=== PATIENT | female | born 1955 | race Caucasian/White ===

== ENCOUNTER → 2016-10-24 | Outpatient (CLI) | payer BC ==
--- NOTE | 2016-10-26 09:44 | MM ---
Reason for exam: screening (asymptomatic). Last mammogram was performed 1 year and 2 months ago. History: Patient is postmenopausal. Family history of breast cancer in maternal aunt and breast cancer in maternal cousin. Benign excisional biopsy of the left breast, 1991. Benign excisional biopsy of the right breast, 1991. Cyst aspiration. Physical Findings: A clinical breast exam by your physician is recommended on an annual basis and results should be correlated with mammographic findings. MG 3D Screening Mammo W/Cad Bilateral CC and MLO view(s) were taken. Prior study comparison: August 24, 2015, bilateral MG 3d screening mammo w/cad. November 01, 2012, mammogram, performed at [facility]. There are scattered fibroglandular densities. There is no discrete abnormality. No significant changes when compared with prior studies. ASSESSMENT: Negative, BI-RAD 1 RECOMMENDATION: Routine screening mammogram of both breasts in 1 year.
== END | disposition home or self-care (01) ==
LOC: RADMAMWWP 16:43
PROVIDERS: ATTEND Family Medicine
DX: Z12.31 Encounter for screening mammogram for malignant neoplasm of breast (principal)
CPT/HCPCS: 77063; G0202

== ENCOUNTER → 2017-12-27 | Outpatient (CLI) | payer OTHER ==
--- NOTE | 2017-12-27 09:15 | CT ---
EXAMINATION TYPE: CT brain wo con DATE OF EXAM: 12/27/2017 HISTORY: Head injury 7 weeks ago with persistent headache and pain CT DLP: 1036 mGycm. Automated Exposure Control for Dose Reduction was Utilized. TECHNIQUE: CT scan of the head is performed without contrast. COMPARISON: CT abdomen September 29, 2015 FINDINGS: There is no acute intracranial hemorrhage or midline shift identified. Ventricles and sul ci are within normal limits in size for patient's age. Fernando-white matter differentiation is fairly we ll preserved. The calvarium is intact. The globes are intact and the visualized sinuses are clear. IMPRESSION: No acute intracranial hemorrhage or midline shift. No acute posttraumatic finding identi fied.
== END | disposition home or self-care (01) ==
LOC: RADCTMAIN 07:56
PROVIDERS: ATTEND Family Medicine
DX: S09.90XA Unspecified injury of head, initial encounter (principal)
CPT/HCPCS: 70450

== ENCOUNTER → 2018-10-15 | Outpatient (CLI) | payer OTHER ==
--- NOTE | 2018-10-15 15:28 | CT ---
EXAMINATION TYPE: CT abdomen pelvis wo con DATE OF EXAM: 10/15/2018 COMPARISON: None HISTORY: Left flank pain. CT DLP: 1367.9 mGycm Automated exposure control for dose reduction was used. TECHNIQUE: Helical acquisition of images was performed from the lung bases through the pelvis. FINDINGS: LUNG BASES: There is minimal right basilar subsegmental atelectasis. LIVER/GB: Hepatic parenchyma is diffusely hypoattenuated in comparison to that of the spleen, most co mmonly seen in hepatic steatosis. This finding limits evaluation for hepatic masses. No gross evidenc e of hepatic mass is seen. No intrahepatic biliary ductal dilatation. Gallbladder surgically absent. PANCREAS: No significant abnormality is seen. SPLEEN: No significant abnormality is seen. ADRENALS: No significant abnormality is seen. KIDNEYS: There is an obstructing 7 mm calculus within the mid left ureter approximately 10 cm from th e ureterovesicular junction creating moderate left hydroureteronephrosis and mild proximal uroepithel ial thickening. Some renal sinus fat stranding is also seen. Additional nonobstructing left lower red e 5 mm renal calculus is present. Layering small renal calculi are seen on the right. Within minor ca lyces such as on image 60 and image 58. URINARY BLADDER: Incompletely distended. PELVIC ADENOPATHY: No greater than 1 cm short axis lymph nodes are seen within the abdomen or pelvis . OSSEOUS STRUCTURES: Postsurgical changes of the lower lumbar spine are noted with moderate degenerat melissa changes of the upper thoracolumbar junction and posterior disc osteophyte complexes at L1-L2 and T12-L1 creating at least moderate spinal canal stenosis at these levels. There is a dextroscoliotic c urvature of the lumbar spine and mild bilateral femoral acetabular arthropathy BOWEL: No dilated large or small bowel is seen. IMPRESSION: 1. 7 MM OBSTRUCTING CALCULUS WITHIN THE LEFT MID URETER CREATING MODERATE LEFT HYDROURETERONEPHROSIS AND UROEPITHELIAL THICKENING. 2. INCIDENTAL FINDINGS OF BILATERAL NONOBSTRUCTING RENAL CALCULI, HEPATIC STEATOSIS, AND AT LEAST MOD ERATE SPINAL CANAL STENOSIS AT L1-L2 AND T12-L1.
== END | disposition home or self-care (01) ==
LOC: RADCTMAIN 14:41
PROVIDERS: ATTEND Physician Assistant
DX: N13.2 Hydronephrosis with renal and ureteral calculous obstruction (principal)
CPT/HCPCS: 74176

== ENCOUNTER 2018-10-16 16:35 | Emergency (ER) | payer OTHER ==
[2018-10-16] MEDS ORDERED: KETOROLAC 60 MG/2 ML VIAL IVP STA (17:30)
--- NOTE | 2018-10-16 17:30 | ED ---
General Adult HPI - General Chief complaint: Recheck/Abnormal Lab/Rx Stated complaint: KIDNEY STONE Time Seen by Provider: 10/16/18 16:40 Source: patient, RN notes reviewed Mode of arrival: ambulatory Limitations: no limitations - History of Present Illness Initial comments: This is a 62-year-old female who presents emergency department stating that she' s been having some right-sided flank pain for 4 days patient states she had a CAT scan initially called her today and told her she had a kidney stone and she needed to have a stent placed. Patient states she spoke with her urologist and she was told to come to the nearest hospital because her urologist which is out of town cannot see here soon. Patient's primary medical care doctor also advised to come to the hospital. Patient states she is nauseated but has not vomited. Patient denies any chest pain difficulty breathing shortest breath per patient denies any recent fever chills or cough. Patient denies any recent injury or trauma. - Related Data Home Medications Medication Instructions Recorded Confirmed Aspirin 81 mg PO DAILY 05/28/15 10/16/18 Ergocalciferol [Vitamin D2 50,000 unit PO Q28D 05/28/15 10/16/18 (DRISDOL)] Lisinopril [Prinivil] 20 mg PO DAILY 05/28/15 10/16/18 Lovastatin [Mevacor] 20 mg PO Q48H 05/28/15 10/16/18 Acetaminophen Tab [Tylenol Tab] 1,000 mg PO Q6H PRN 10/16/18 10/16/18 Cyclobenzaprine [Flexeril] 10 mg PO DAILY 10/16/18 10/16/18 Ketorolac [Toradol] 10 mg PO Q6H PRN 10/16/18 10/16/18 Naproxen Sodium [Aleve] 440 mg PO DAILY 10/16/18 10/16/18 Oxybutynin Chloride [Oxybutynin 15 mg PO DAILY 10/16/18 10/16/18 Chloride ER] Verapamil HCl [Verapamil ER] 120 mg PO DAILY 10/16/18 10/16/18 metFORMIN HCL [Glucophage] 500 mg PO DAILY 10/16/18 10/16/18 Previous Rx's Medication Instructions Recorded Ketorolac [Toradol] 10 mg PO Q6HR #15 tab 10/16/18 Sulfamethox-Tmp 800-160Mg [Bactrim 1 each PO Q12HR #14 tab 10/16/18 DS 800-160 mg] Allergies Allergy/AdvReac Type Severity Reaction Status Date / Time amoxicillin Allergy Dyspnea Verified 10/16/18 17:33 Review of Systems ROS Statement: Those systems with pertinent positive or pertinent negative responses have been documented in the HPI. ROS Other: All systems not noted in ROS Statement are negative. Past Medical History Past Medical History: Diabetes Mellitus, GERD/Reflux, Hyperlipidemia, Hypertension, Osteoarthritis (OA), Sleep Apnea/CPAP/BIPAP Additional Past Medical History / Comment(s): migraines, SLEEP APNEA , BLADDER INCONTINENCE, DIABETIC-DIET CONTROLLED History of Any Multi-Drug Resistant Organisms: None Reported Past Surgical History: Back Surgery, Bladder Surgery, Breast Surgery, Cholecystectomy, Hysterectomy, Joint Replacement, Orthopedic Surgery Additional Past Surgical History / Comment(s): RIGHT AND LEFT KNEE REPLACEMENT, RIGHT AND LEFT SHOULDER , CARPAL TUNNEL RELEASE BILATERAL WRIST,SINUS SURGERY Past Anesthesia/Blood Transfusion Reactions: Motion Sickness Past Psychological History: No Psychological Hx Reported Smoking Status: Never smoker Past Alcohol Use History: None Reported Past Drug Use History: None Reported - Past Family History Mother Family Medical History: No Reported History Father Family Medical History: Deep Vein Thrombosis (DVT) General Exam - General Exam Comments Initial Comments: GENERAL: Patient is well-developed and well-nourished. Patient is nontoxic and well- hydrated and is in moderate distress. ENT: Neck is soft and supple. No significant lymphadenopathy is noted. Oropharynx is clear. Moist mucous membranes. Neck has full range of motion without eliciting any pain. EYES: The sclera were anicteric and conjunctiva were pink and moist. Extraocular movements were intact and pupils were equal round and reactive to light. Eyelids were unremarkable. PULMONARY: Unlabored respirations. Good breath sounds bilaterally. No audible rales rhonchi or wheezing was noted. CARDIOVASCULAR: There is a regular rate and rhythm without any murmurs gallops or rubs. ABDOMEN: Soft and nontender with normal bowel sounds. No palpable organomegaly was noted. There is no palpable pulsatile mass. SKIN: Skin is clear with no lesions or rashes and otherwise unremarkable. NEUROLOGIC: Patient is alert and oriented x3. Cranial nerves II through XII are grossly intact. Motor and sensory are also intact. Normal speech, volume and content. Symmetrical smile. Cerebellar exam grossly intact. MUSCULOSKELETAL: Normal extremities with adequate strength and full range of motion. LYMPHATICS: No significant lymphadenopathy is noted PSYCHIATRIC: Normal psychiatric evaluation. Limitations: no limitations Course Vital Signs 10/16/18 10/16/18 16:37 19:01 Temperature 98.4 F Pulse Rate 87 82 Respiratory 18 17 Rate Blood Pressure 144/91 124/84 O2 Sat by Pulse 97 95 Oximetry Medical Decision Making - Medical Decision Making I reviewed the patient's CAT scan showed a 7 mm stone in the mid ureter on the left. I spoke Dr. Vallejo about the stone as well as infection he wanted to see the patient in the office as long she did not have a fever and was in no significant pain. - Lab Data Result diagrams: 10/16/18 18:07 10/16/18 18:07 Lab Results 10/16/18 10/16/18 10/16/18 Range/Units 18:07 18:07 18:07 WBC 8.9 (3.8-10.6) k/uL RBC 4.40 (3.80-5.40) m/uL Hgb 13.2 (11.4-16.0) gm/dL Hct 39.4 (34.0-46.0) % MCV 89.5 (80.0-100.0) fL MCH 29.9 (25.0-35.0) pg MCHC 33.5 (31.0-37.0) g/dL RDW 13.6 (11.5-15.5) % Plt Count 170 (150-450) k/uL Neutrophils % 73 % Lymphocytes % 15 % Monocytes % 7 % Eosinophils % 2 % Basophils % 0 % Neutrophils # 6.5 (1.3-7.7) k/uL Lymphocytes # 1.4 (1.0-4.8) k/uL Monocytes # 0.6 (0-1.0) k/uL Eosinophils # 0.2 (0-0.7) k/uL Basophils # 0.0 (0-0.2) k/uL Sodium 143 (137-145) mmol/L Potassium 4.0 (3.5-5.1) mmol/L Chloride 106 (98-107) mmol/L Carbon Dioxide 28 (22-30) mmol/L Anion Gap 9 mmol/L BUN 33 H (7-17) mg/dL Creatinine 1.11 H (0.52-1.04) mg/dL Est GFR (CKD-EPI)AfAm 62 (>60 ml/min/1.73 sqM) Est GFR (CKD-EPI)NonAf 54 (>60 ml/min/1.73 sqM) Glucose 132 H (74-99) mg/dL Calcium 8.7 (8.4-10.2) mg/dL Total Bilirubin 1.1 (0.2-1.3) mg/dL AST 32 (14-36) U/L ALT 48 (9-52) U/L Alkaline Phosphatase 89 (38-126) U/L Total Protein 6.0 L (6.3-8.2) g/dL Albumin 3.4 L (3.5-5.0) g/dL Amylase 46 (30-110) U/L Lipase 220 (23-300) U/L Urine Color Yellow Urine Appearance Turbid H (Clear) Urine pH 5.5 (5.0-8.0) Ur Specific Jeannette 1.018 (1.001-1.035) Urine Protein 2+ H (Negative) Urine Glucose (UA) Negative (Negative) Urine Ketones Negative (Negative) Urine Blood Large H (Negative) Urine Nitrite Positive H (Negative) Urine Bilirubin Negative (Negative) Urine Urobilinogen 3.0 (<2.0) mg/dL Ur Leukocyte Esterase Large H (Negative) Urine RBC 24 H (0-5) /hpf Urine WBC >182 H (0-5) /hpf Urine WBC Clumps Many H (None) /hpf Ur Squamous Epith Cells 4 (0-4) /hpf Urine Bacteria Many H (None) /hpf Urine Mucus Occasional H (None) /hpf Disposition Clinical Impression: Kidney stone, Urinary tract infection Disposition: HOME SELF-CARE Condition: Good Instructions: Kidney Stones (ED), Urinary Tract Infection in Women (ED) Prescriptions: Ketorolac [Toradol] 10 mg PO Q6HR #15 tab Sulfamethox-Tmp 800-160Mg [Bactrim DS 800-160 mg] 1 each PO Q12HR #14 tab Is patient prescribed a controlled substance at d/c from ED?: No Referrals: Felix Da Silva DO [Primary Care Provider] - 1-2 days Valdemar Calhoun MD [STAFF PHYSICIAN] - 1-2 days Time of Disposition: 19:19
[2018-10-16] MEDS ORDERED: ONDANSETRON 4 MG/2 ML VIAL IVP STA (17:31)
[2018-10-16 18:29] LABS: Appearance,Urine Turbid (Clear); Bacteria,Urine Many /hpf; Bilirubin,Urine Negative (Negative); Blood,Urine Large (Negative); Color,Urine Yellow; Glucose,Urine (UA) Negative (Negative); Ketones,Urine Negative (Negative); Leukocyte Esterase,Urine Large (Negative); Mucus,Urine Occasional /hpf; Nitrite,Urine Positive (Negative); PH, Urine 5.5 (5.0-8.0); Protein,Urine 2+ (Negative); RBC,Urine 24 /hpf (0-5); Specific Gravity,Urine 1.018 (1.001-1.035); Squamous Epithelial Cell,Urine 4 /hpf (0-4); WBC,Urine >182 /hpf (0-5)
[2018-10-16 18:41] LABS: Basophils % (A) 0 %; Eosinophils # (A) 0.2 k/uL (0-0.7); Eosinophils % (A) 2 %; HCT 39.4 % (34.0-46.0); HGB 13.2 gm/dL (11.4-16.0); Lymphocytes # (A) 1.4 k/uL (1.0-4.8); Lymphocytes % (A) 15 %; MCH 29.9 pg (25.0-35.0); MCHC 33.5 g/dL (31.0-37.0); MCV 89.5 fL (80.0-100.0); Mean Platelet Volume 7.8; Monocytes # (A) 0.6 k/uL (0-1.0); Monocytes % (A) 7 %; Neutrophils # (A) 6.5 k/uL (1.3-7.7); Neutrophils % (A) 73 %; Platelet Count 170 k/uL (150-450); RDW 13.6 % (11.5-15.5); WBC 8.9 k/uL (3.8-10.6)
[2018-10-16 18:43] LABS: Albumin 3.4 g/dL (3.5-5.0); Calcium 8.7 mg/dL (8.4-10.2); Total Bilirubin 1.1 mg/dL (0.2-1.3)
[2018-10-16] MEDS ORDERED: cefTRIAXone 2,000 MG in SODIUM CHLORIDE 0.9% 100 ML IVPB STA (19:02)
[2018-10-16] MEDS ORDERED: SULFAMETHOX-TMP 800-160MG 1 EACH TAB PO STA (19:20)
[2018-10-16] MEDS ORDERED: SULFAMETH-TMP DS STARTER PACK 2 TAB BTL PO STA (19:20)
[2018-10-16 19:42] VITALS: TEMP 98.5
--- NOTE | 2018-10-16 20:04 | XR ---
EXAMINATION TYPE: XR KUB DATE OF EXAM: 10/16/2018 COMPARISON: NONE HISTORY: Pain TECHNIQUE: Upright and supine views FINDINGS: The visualized lung bases and pleural spaces are unremarkable. There is no pneumoperitoneum. Bowel gas pattern is normal. No definite acute skeletal or soft tissue findings. No abnormal calcifications. IMPRESSION: Negative examination.
[2018-10-16 20:53] VITALS: BP 116/88; PULSE 86; RESP 17
== END 2018-10-16 20:52 | disposition home or self-care (01) ==
LOC: EC 16:35
DX: N20.0 Calculus of kidney (principal); N39.0 Urinary tract infection, site not specified; E11.9 Type 2 diabetes mellitus without complications; E78.5 Hyperlipidemia, unspecified; I10 Essential (primary) hypertension; M19.90 Unspecified osteoarthritis, unspecified site; G47.30 Sleep apnea, unspecified; Z99.89 Dependence on other enabling machines and devices; Z90.49 Acquired absence of other specified parts of digestive tract; Z90.710 Acquired absence of both cervix and uterus; Z96.653 Presence of artificial knee joint, bilateral; Z79.82 Long term (current) use of aspirin; Z79.1 Long term (current) use of non-steroidal anti-inflammatories (NSAID); Z79.84 Long term (current) use of oral hypoglycemic drugs; Z79.899 Other long term (current) drug therapy; Z88.0 Allergy status to penicillin
CPT/HCPCS: 36415; 80053; 82150; 83690; 85025; 81001; 87086; 74018; 99284; 96365; 96375 ×2; J2405; J0696; J1885; 87077; 87186

== ENCOUNTER → 2018-10-25 | Outpatient (CLI) | payer OTHER ==
--- NOTE | 2018-10-25 08:42 | XR ---
EXAMINATION TYPE: XR KUB DATE OF EXAM: 10/25/2018 8:29 AM CLINICAL HISTORY: Left flank pain for 2 weeks. Patient denies hematuria. TECHNIQUE: Single supine KUB image of the abdomen is obtained. COMPARISON: 10/16/[address] dated 10/15/2018a. FINDINGS: Scattered gas is seen in nondilated small bowel loops. Gas and fecal material is seen in no ndilated colon. Phleboliths are noted within the pelvis. Right renal shadow is partially obscured as well. Mobile den sities over the right renal shadow likely relate to bowel contents. The known punctate right renal ca lculi are not visualized radiographically. There is a 4 mm left renal calculus as seen on the prior CT dated 10/15/2018. The previously seen 7 mm left ureteral calculus appears to have advanced now overlying the left superior sacral ala. Cholecystectomy clips are present. Extensive degenerative changes of the spine are noted with postsur gical change of the lower lumbar spine. IMPRESSION: 1. The previously seen 7 mm left ureteral calculus appears to have advanced in position more caudally now overlying the left sacral ala. 2. Nonobstructing 4 mm left renal calculus and nonvisualization of the punctate known right renal venkat culi.
== END | disposition home or self-care (01) ==
LOC: RADXRMAIN 08:02
PROVIDERS: ATTEND Urology
DX: N20.2 Calculus of kidney with calculus of ureter (principal)
CPT/HCPCS: 74018

== ENCOUNTER → 2018-10-31 | Outpatient (CLI) | payer OTHER | END | disposition home or self-care (01) | LOC: LABPAT 16:46 | PROVIDERS: ATTEND Anesthesiology | DX: Z01.818 Encounter for other preprocedural examination (principal) | CPT/HCPCS: 93005 ==

== ENCOUNTER 2018-11-01 11:12 | Day surgery (SDC) | payer OTHER ==
[2018-10-31 08:38] VITALS: BMI 47.8
--- NOTE | 2018-10-31 12:59 | P.GSHP ---
History of Present Illness H&P Date: 10/31/18 62 yo fek=male with a history of stones has been trying to pass 7 mm left ureteral stone without success. SHe continues with pain and wants it removed She comes for left ureteroscopy and laser lithotripsy - Review of Systems All systems: negative - Genitourinary (Female) Genitourinary: Reports as per HPI, Reports kidney stones Past Medical History Past Medical History: Diabetes Mellitus, GERD/Reflux, Hyperlipidemia, Hypertension, Osteoarthritis (OA), Sleep Apnea/CPAP/BIPAP Additional Past Medical History / Comment(s): migraines, BLADDER INCONTINENCE History of Any Multi-Drug Resistant Organisms: None Reported Past Surgical History: Back Surgery, Bladder Surgery, Breast Surgery, Cholecystectomy, Hysterectomy, Joint Replacement, Orthopedic Surgery Additional Past Surgical History / Comment(s): RIGHT AND LEFT KNEE REPLACEMENT, RIGHT AND LEFT SHOULDER , CARPAL TUNNEL RELEASE BILATERAL WRIST,SINUS SURGERY, brest biopsy Past Anesthesia/Blood Transfusion Reactions: Motion Sickness, Postoperative Nausea & Vomiting (PONV) Smoking Status: Never smoker - Past Family History Mother Family Medical History: No Reported History Father Family Medical History: Deep Vein Thrombosis (DVT) Medications and Allergies Home Medications Medication Instructions Recorded Confirmed Type Aspirin 81 mg PO DAILY 05/28/15 10/31/18 History Ergocalciferol [Vitamin D2 50,000 unit PO Q28D 05/28/15 10/31/18 History (DRRAVINDEROL)] Lisinopril [Prinivil] 20 mg PO HS 05/28/15 10/31/18 History Lovastatin [Mevacor] 20 mg PO Q48H 05/28/15 10/31/18 History Cyclobenzaprine [Flexeril] 10 mg PO HS 10/16/18 10/31/18 History Naproxen Sodium [Aleve] 440 mg PO DAILY 10/16/18 10/31/18 History Oxybutynin Chloride [Oxybutynin 15 mg PO HS 10/16/18 10/31/18 History Chloride ER] Verapamil HCl [Verapamil ER] 120 mg PO HS 10/16/18 10/31/18 History metFORMIN HCL [Glucophage] 500 mg PO 1800 10/16/18 10/31/18 History Hydrocodone/Acetaminophen [[place] 1 tab PO Q12H PRN 10/31/18 10/31/18 History 7.5-325] Allergies Allergy/AdvReac Type Severity Reaction Status Date / Time amoxicillin Allergy Dyspnea, Verified 10/31/18 08:22 hives, shaking Surgical - Exam - General well developed, well nourished, obese - ENT no hearing loss - Neck trachea midline - Respiratory normal expansion, normal respiratory effort - Cardiovascular Rhythm: regular - Abdomen Abdomen: soft, non tender - Integumentary no rash, no growths - Neurologic normal coordination, normal sensation - Musculoskeletal normal gait, normal posture - Psychiatric oriented to time, oriented to person, oriented to place, speech is normal, memory intact Assessment and Plan Assessment: Impression: Lt ureteral stone Plan: cysto with left retrograde, left ureteroscopy and laser lithotripsy
[~2018-11-01 11:12] MED LIST: DEXAMETHASONE SOD PHOSPHATE 10 MG/ML 1 ML VIAL IV ONE; LACTATED RINGERS 1,000 ML IV SCH; LIDOCAINE 1% 20 ML VIAL (10MG/ML) FOR IV START INTRADERMA PRN; MIDAZOLAM (PF) 2 MG/2 ML VIAL IV PRN; ONDANSETRON 4 MG/2 ML VIAL IVP ONE; SCOPOLAMINE 1.5MG/72HR PATCH TRANSDERM ONE; ceFAZolin 1,000 MG in DEXTROSE/WATER 1 50ML.BAG IVPB ONE
--- NOTE | 2018-11-01 11:20 | XR ---
EXAMINATION TYPE: XR KUB DATE OF EXAM: 11/01/2018 COMPARISON: 10/25/2018 INDICATION: Presurgical clearance for kidney stones TECHNIQUE: Single view abdomen frontal projection FINDINGS: There is a normal bowel gas pattern. Psoas margins are normal. No organomegaly is present. Calcification previously overlying the left sacral ala is faintly visualized. Surgical clips in the upper quadrant. Pedicle screws are present L3-L5. Normal bowel gas is present IMPRESSION: 1. Left sacral ala level ureteral calcification
[2018-11-01 11:54] LABS: Glucose,Whole Blood 119 mg/dL (75-99)
[2018-11-01] MEDS ORDERED: PHENYLEPHRINE-0.9% NACL SYG 1 MG/10 ML SYRINGE ONE (12:02)
[2018-11-01] MEDS ORDERED: SUCCINYLCHOLINE CHLORIDE 100 MG/5 ML SYR IV ONE (12:02)
[2018-11-01] MEDS ORDERED: PROPOFOL 10 MG/ML 20 ML VIAL IV ONE (12:02)
[2018-11-01] MEDS ORDERED: fentaNYL (PF) 50 MCG/ML 2 ML AMP ONE (12:02)
[2018-11-01] MEDS ORDERED: LIDOCAINE 1% INJ 10MG/ML (20 ML MDV) ONE (12:02)
[2018-11-01] MEDS ORDERED: MIDAZOLAM 2 MG/2 ML VIAL ONE (12:02)
--- NOTE | 2018-11-01 12:50 | P.OP ---
Date of Procedure: 11/01/18 Preoperative Diagnosis: Left ureteral calculus Postoperative Diagnosis: Same Procedure(s) Performed: Cystoscopy, left ureteroscopy with laser lithotripsy Anesthesia: ALFREDO Surgeon: Valdemar Calhoun Estimated Blood Loss (ml): 0 Pathology: other (Stone) Condition: stable Disposition: PACU Indications for Procedure: The patient is 62. She has a 7 mm distal ureteral stone that she is unable to pass over the last month she comes for ureteroscopy laser lithotripsy Description of Procedure: The patient's vas deferens suite. She is given general endotracheal anesthesia. She's placed lithotomy position with sterile prep and drape under fluoroscopy the stone was seen just below the SI joint as it was seen on the KUB. Cystoscopy Foroblique lens and 22-[place] sheath identifies a normal urethra. The bladder mucosa is unremarkable. Both ureteral orifices are normal. With a 7-[place] semirigid mini ureteroscope was passed up to the stone. With the 3 65 laser probe the stone was broken into tiny pieces and flushed out of the ureter. There is not enough edema to leave a double-J catheter. The bladder strain the stones are collected. The patient's is awakened and returned recovery room in good condition. She'll be discharged home upon recovery and found the office in one week.
[2018-11-01 13:11] VITALS: TEMP 97
[2018-11-01] MEDS: HYDROmorphone 0.5 MG/0.5 ML SYRINGE IVP PRN ×2 (13:17→13:24)
[2018-11-01 13:22] VITALS: RESP 16
[2018-11-01 13:24] LABS: Glucose,Whole Blood 118 mg/dL (75-99)
--- NOTE | 2018-11-01 13:51 | FL ---
Fluoroscopy INDICATION: Pain, fluoroscopy guidance FINDINGS: Fluoroscopy time: 17 seconds. Images obtained: 1. IMPRESSIONS: 1. Documentation of fluoroscopy.
[2018-11-01] MEDS ORDERED: LACTATED RINGERS 1,000 ML IV ONE (14:30)
[2018-11-01 14:35] VITALS: BP 112/75; PULSE 75
== END 2018-11-01 15:19 | disposition home or self-care (01) ==
LOC: OR 11:12
PROVIDERS: ATTEND Urology
DX: N20.1 Calculus of ureter (principal); E11.9 Type 2 diabetes mellitus without complications; K21.9 Gastro-esophageal reflux disease without esophagitis; E78.5 Hyperlipidemia, unspecified; I10 Essential (primary) hypertension; M19.90 Unspecified osteoarthritis, unspecified site; G43.909 Migraine, unspecified, not intractable, without status migrainosus; G47.33 Obstructive sleep apnea (adult) (pediatric); R32 Unspecified urinary incontinence; M48.02 Spinal stenosis, cervical region; Z99.89 Dependence on other enabling machines and devices; Z91.19 Patient's noncompliance with other medical treatment and regimen; Z79.84 Long term (current) use of oral hypoglycemic drugs; Z79.1 Long term (current) use of non-steroidal anti-inflammatories (NSAID); Z79.82 Long term (current) use of aspirin; Z79.899 Other long term (current) drug therapy; Z88.0 Allergy status to penicillin; Z90.49 Acquired absence of other specified parts of digestive tract; Z90.710 Acquired absence of both cervix and uterus; Z96.653 Presence of artificial knee joint, bilateral; Z98.1 Arthrodesis status; Z87.440 Personal history of urinary (tract) infections
CPT/HCPCS: 82365; 74018; 52353; J2250; J1100; J2405; J2001; J3010; J0690; J2370; J0330; J2704; J1170

== ENCOUNTER → 2019-05-01 | Outpatient (CLI) | payer OTHER ==
--- NOTE | 2019-05-02 10:15 | MM ---
Reason for exam: screening (asymptomatic). Last mammogram was performed 2 years and 6 months ago. History: Patient is postmenopausal. Family history of breast cancer in maternal aunt and breast cancer in maternal cousin. Benign excisional biopsy of the left breast, 1991. Benign excisional biopsy of the right breast, 1991. Cyst aspiration. Physical Findings: A clinical breast exam by your physician is recommended on an annual basis and results should be correlated with mammographic findings. MG 3D Screening Mammo W/Cad Bilateral CC, MLO, and XCCL view(s) were taken. Prior study comparison: October 24, 2016, bilateral MG 3d screening mammo w/cad. August 24, 2015, bilateral MG 3d screening mammo w/cad. There are scattered fibroglandular densities. There are 3 calcifications noted adjacent to fat necrosis in the upper outer quadrant of the right breast, typically benign and not yet meeting criteria for a true group. No suspicious abnormality. Post biopsy change bilaterally. ASSESSMENT: Benign, BI-RAD 2 RECOMMENDATION: Routine screening mammogram of both breasts in 1 year.
== END | disposition home or self-care (01) ==
LOC: RADMAMWWP 16:21
PROVIDERS: ATTEND Family Medicine
DX: Z12.31 Encounter for screening mammogram for malignant neoplasm of breast (principal)
CPT/HCPCS: 77063; 77067

== ENCOUNTER → 2019-11-15 | Outpatient (CLI) | payer OTHER ==
--- NOTE | 2019-11-15 08:12 | CT ---
EXAMINATION TYPE: CT chest wo con DATE OF EXAM: 11/15/2019 COMPARISON: None HISTORY: Ascending Aortic Dialaton CT DLP: 707 mGycm. Automated Exposure Control for Dose Reduction was Utilized. TECHNIQUE: CT scan of the thorax is performed without IV contrast. FINDINGS: LUNGS: The lungs are grossly clear, there is no concerning parenchymal mass or nodule identified. T here is no pleural effusion or pneumothorax seen. The tracheobronchial tree is patent. Subsegmental changes most typical of atelectasis. 1 to 2 mm nodule left due to small characterize. MEDIASTINUM: Lack of IV contrast is noted to limit evaluation for mediastinal and especially hilar ad enopathy. There are no definitive greater than 1 cm hilar or mediastinal lymph nodes. No cardiomega ly or pericardial effusion is seen. Ascending aorta measures maximal dimension 4.2 cm. Descending tho racic aorta of normal caliber. OTHER: Hypertrophic and degenerative changes spine. Artifact from the bilateral hip prostheses limits assessment of soft tissues. Could not exclude abnormalities in the thyroid or supraclavicular adenop athy due to extreme artifact. Postcholecystectomy changes noted. Postsurgical change involving the ce rvical spine. IMPRESSION: 1. Proximal ascending aorta measures 4.2 cm compatible with mild aneurysmal dilation. 2. There is a 1 to 2 mm left lower lobe pulmonary nodule likely benign. Follow-up in 12 months could be obtained for further evaluation
== END | disposition home or self-care (01) ==
LOC: RADCTMAIN 07:16
PROVIDERS: ATTEND Family Medicine
DX: I77.810 Thoracic aortic ectasia (principal)
CPT/HCPCS: 71250

== ENCOUNTER → 2020-02-19 | Outpatient (CLI) | payer OTHER | END | disposition home or self-care (01) | LOC: LABWHC1 07:10 | PROVIDERS: ATTEND Family Medicine | DX: R06.00 Dyspnea, unspecified (principal); R07.9 Chest pain, unspecified; I25.10 Atherosclerotic heart disease of native coronary artery without angina pectoris; E11.9 Type 2 diabetes mellitus without complications; I10 Essential (primary) hypertension | CPT/HCPCS: 87635 ==

== ENCOUNTER → 2020-03-13 | Outpatient (CLI) | payer OTHER ==
[~2020-03-13] MED LIST changes: -DEXAMETHASONE SOD PHOSPHATE 10 MG/ML 1 ML VIAL IV ONE; -LACTATED RINGERS 1,000 ML IV SCH; -LIDOCAINE 1% 20 ML VIAL (10MG/ML) FOR IV START INTRADERMA PRN; -MIDAZOLAM (PF) 2 MG/2 ML VIAL IV PRN; -ONDANSETRON 4 MG/2 ML VIAL IVP ONE; +REGADENOSON 0.4 MG/5 ML SYRINGE IV ONE; -SCOPOLAMINE 1.5MG/72HR PATCH TRANSDERM ONE; -ceFAZolin 1,000 MG in DEXTROSE/WATER 1 50ML.BAG IVPB ONE
--- NOTE | 2020-03-13 11:52 | NM ---
EXAMINATION TYPE: NM stress lexiscan cardiolite DATE OF EXAM: 03/13/2020 COMPARISON: CT November 15, 2019. HISTORY: History of hypertension, hypercholesteremia, diabetes, family history of heart disease, and prior catheterization presents with chest pain dyspnea and palpitations per patient. TECHNIQUE: After the intravenous administration of 9.9 mCi Tc 99m Sestamibi - Cardiolite resting SPE CT images acquired 55 minutes post injection. The patient received 0.4mg Lexiscan, 25.7 mCi Tc 99m Sestamibi - Stress images obtained [address] injection FINDINGS: Review of stress and rest SPECT images demonstrates no distinct perfusion abnormality. Gated analysi s shows normal wall motion with an estimated left ventricular ejection fraction of 55 %. IMPRESSION: No scintigraphic evidence for reversible ischemia.
--- NOTE | 2020-03-13 13:14 | EST ---
EXERCISE STRESS AGE: 64 SEX: F HT: 63" WT: 275 lbs. PROTOCOL: Lexiscan Cardiolite STAGE: DURATION OF EXERCISE: HEART RATE REST: 74 BLOOD PRESSURE REST: 145/78 MAXIMUM HEART RATE ACHIEVED: 88 MAXIMUM BLOOD PRESSURE: 137/78 85% MPHR: 133 100% MPHR: 157 METS: INDICATIONS: Dyspnea. CLINICAL INFORMATION: This is a 64-year-old female. This is a Lexiscan Cardiolite stress test. Baseline heart rate 74 beats per minute. Baseline blood pressure 145/78 mmHg. Baseline 12-lead ECG shows sinus rhythm with nonspecific ST-T abnormalities. Patient received Lexiscan infusion per protocol. She had a headache through the procedure. Normal blood pressure, heart rate response. No ECG abnormalities. Nuclear portion will be reported separately. MMODL / IJN: [id number] /
== END | disposition home or self-care (01) ==
LOC: RADNMMAIN 08:32
PROVIDERS: ATTEND Family Medicine
DX: R06.00 Dyspnea, unspecified (principal)
CPT/HCPCS: 93017; 78452; A9500; J2785

== ENCOUNTER → 2020-07-09 | Outpatient (CLI) | payer BC, OTHER | END | disposition home or self-care (01) | LOC: LABWHC1 10:34 | PROVIDERS: ATTEND Family Medicine | DX: Z20.828 Contact with and (suspected) exposure to other viral communicable diseases (principal) | CPT/HCPCS: U0003; C9803 ==

== ENCOUNTER → 2020-07-10 | Outpatient (CLI) | payer BC ==
--- NOTE | 2020-07-10 12:36 | XR ---
EXAMINATION TYPE: XR chest 2V DATE OF EXAM: 07/10/2020 COMPARISON: 02/19/2016 HISTORY: Shortness of breath TECHNIQUE: Frontal and lateral views of the chest are obtained. FINDINGS: Scattered senescent parenchymal changes noted. Hyperinflation compatible with COPD. No evidence for infiltrate. No evidence for atelectasis. Heart size is stable. Mediastinal structures are stable and grossly unremarkable. No evidence for hilar prominence. Degenerative changes dorsal spine. IMPRESSION: 1. No evidence for acute pulmonary disease.
== END | disposition home or self-care (01) ==
LOC: RADXRMAIN 11:44
PROVIDERS: ATTEND Family Medicine
DX: R07.89 Other chest pain (principal)
CPT/HCPCS: 71046

== ENCOUNTER → 2020-07-27 | Outpatient (CLI) | payer BC ==
--- NOTE | 2020-07-28 12:32 | ECHOF ---
Referral Reason:I25.9 chronic ischemic heart disease MEASUREMENTS -------- HEIGHT: 160.0 cm WEIGHT: 124.7 kg BP: RVIDd: 3.2 cm (< 3.3) IVSd: 1.1 cm (0.6 - 1.1) LVIDd: 4.5 cm (3.9 - 5.3) LVPWd: 1.1 cm (0.6 - 1.1) IVSs: 1.4 cm LVIDs: 3.2 cm LVPWs: 1.7 cm LA Diam: 4.0 cm (2.7 - 3.8) LAESV Index (A-L): 18.10 ml/m Ao Diam: 2.9 cm (2.0 - 3.7) AV Cusp: 1.4 cm (1.5 - 2.6) LA Diam: 4.1 cm (2.7 - 3.8) MV EXCURSION: 11.714 mm (> 18.000) MV EF SLOPE: 50 mm/s (70 - 150) EPSS: 0.5 cm MV E Gunnar: 0.46 m/s MV DecT: 265 ms MV A Gunnar: 0.76 m/s MV E/A Ratio: 0.60 RAP: 5.00 mmHg RVSP: 14.52 mmHg FINDINGS -------- Sinus rhythm. Morbid Obesity LV size, wall thickness and systolic function are normal, with an EF greater than 55%. The left gama tricular size is normal. The diastolic filling pattern is normal for the age of the patient 8.32. The right ventricle is normal in size. The left atrial size is normal. Normal LA size by volume 22+/-6 ml/m2. The right atrial size is normal. The aortic valve is trileaflet, and appears structurally normal. No aortic stenosis or regurgitation. Mild mitral regurgitation is present. Mild tricuspid regurgitation present. Right ventricular systolic pressure is normal at < 35 mmHg. There is no pulmonic regurgitation present. The aortic root size is normal. There is no pericardial effusion. CONCLUSIONS -------- 1. LV size, wall thickness and systolic function are normal, with an EF greater than 55%. 2. The left ventricular size is normal. 3. The diastolic filling pattern is normal for the age of the patient 8.32 4. The right ventricle is normal in size. 5. The left atrial size is normal. 6. Normal LA size by volume 22+/-6 ml/m2. 7. The right atrial size is normal. 8. Mild mitral regurgitation is present. 9. Mild tricuspid regurgitation present. [employer] KEEPER: Fabby Dick RDCS
== END | disposition home or self-care (01) ==
LOC: RADECHMAIN 14:09
PROVIDERS: ATTEND Family Medicine
DX: I08.1 Rheumatic disorders of both mitral and tricuspid valves (principal); I25.9 Chronic ischemic heart disease, unspecified
CPT/HCPCS: 93306

== ENCOUNTER → 2020-08-05 | Outpatient (CLI) | payer BC ==
--- NOTE | 2020-08-05 11:18 | CT ---
EXAMINATION TYPE: CT angio chest DATE OF EXAM: 08/05/2020 11:07 AM COMPARISON: Prior chest CT November 15, 2019 HISTORY: Shortness of breath with history of pneumonia CT DLP: 1323.6 mGycm Automated exposure control for dose reduction was used. CONTRAST: CTA scan of the thorax is performed with IV Contrast, patient injected with 100 mL of Isovue 370, pul monary embolism protocol. . FINDINGS: LUNGS: Dependent atelectasis bilateral lower lungs. Mild interstitial edema in the periphery. Subopti mal study as respiratory motion artifact degradation is present. Small focus of groundglass opacity p eriphery right middle lobe image 78 on current study. No suspicious masses. No pleural effusion or pn eumothorax seen MEDIASTINUM: There is suboptimal bolus with most dense contrast in the SVC. Enlarged right pulmonary artery is present consistent with underlying pulmonary artery hypertension. No large saddle pulmonary embolism. Suboptimal evaluation for lobar, segmental, subsegmental PE . There are no greater than 1 cm hilar or mediastinal lymph nodes. Mild cardiomegaly. No pericardial effusion is seen. OTHER: Cholecystectomy clips. Partial visualization of surgical change in the lumbar spine. Metallic artifact from bilateral shoulder arthroplasty causes streak artifact limiting evaluation of upper th oracic levels. Exaggerated thoracic kyphosis. [id number] multilevel spurring in the spine wit h slight scoliotic curvature. Thyroid nodularity redemonstrated. IMPRESSION: 1. SUBOPTIMAL STUDY. NO LARGE SADDLE PULMONARY EMBOLISM. SMALLER LOBAR, SEGMENTAL, AND SUBSEGMENTAL P E IS NOT EXCLUDED. 2. MILD CARDIOMEGALY WITH MILD INTERSTITIAL EDEMA. SMALL FAINT FOCUS OF PERIPHERAL GROUNDGLASS OPACIT Y RIGHT MIDDLE LOBE MEASURING NEAR 1 CM IS NONSPECIFIC, DIFFERENTIAL INCLUDES FOCAL EDEMA AND/OR INFI LTRATE. CORRELATE CLINICALLY. 3. THYROID NODULARITY, NONEMERGENT THYROID ULTRASOUND ADVISED TO BETTER EVALUATE AND CHARACTERIZE.
== END | disposition home or self-care (01) ==
LOC: RADCTMAIN 09:19
PROVIDERS: ATTEND Family Medicine
DX: R91.8 Other nonspecific abnormal finding of lung field (principal); I51.7 Cardiomegaly; I26.93 Single subsegmental thrombotic pulmonary embolism without acute cor pulmonale
CPT/HCPCS: 82565; 84520; 71275; 36415; Q9967

== ENCOUNTER → 2021-01-22 | Outpatient (CLI) | payer BC | END | disposition home or self-care (01) | LOC: LABWHC1 15:40 | PROVIDERS: ATTEND Family Medicine | DX: R06.00 Dyspnea, unspecified (principal) | CPT/HCPCS: U0003; C9803; U0005 ==

== ENCOUNTER 2021-07-21 16:15 | Inpatient (IN) | payer BC, OTHER ==
[2021-07-21] MEDS ORDERED: HYDROmorphone 0.5 MG/0.5 ML SYRINGE IVP STA (20:27)
[2021-07-21] MEDS ORDERED: ONDANSETRON 4 MG/2 ML VIAL IVP STA (20:27)
[2021-07-21] MEDS ORDERED: SODIUM CHLORIDE 0.9% 500 ML 500 ML IV STA (20:27)
[2021-07-21 21:24] LABS: Basophils % (A) 1 %; Eosinophils % (A) 0 %; HCT 44.9 % (34.0-46.0); HGB 15.7 gm/dL (11.4-16.0); Lymphocytes # (A) 0.8 k/uL (1.0-4.8); Lymphocytes % (A) 17 %; MCH 30.7 pg (25.0-35.0); MCHC 34.8 g/dL (31.0-37.0); MCV 88.2 fL (80.0-100.0); Mean Platelet Volume 8.6; Monocytes # (A) 0.3 k/uL (0-1.0); Monocytes % (A) 7 %; Neutrophils # (A) 3.3 k/uL (1.3-7.7); Neutrophils % (A) 74 %; Platelet Count 173 k/uL (150-450); RDW 13.7 % (11.5-15.5); WBC 4.5 k/uL (3.8-10.6)
--- NOTE | 2021-07-21 21:26 | ED ---
GI Bleed HPI - General Chief complaint: GI Bleed Stated complaint: Black Stool/Diarrhea Time Seen by Provider: 07/21/21 20:08 Source: patient Mode of arrival: wheelchair Limitations: no limitations - History of Present Illness Initial comments: 65 year-old female patient presents to the emergency department for evaluation of cough, fever, and diarrhea. States that she has been sick for 2 months. States she has cough, congestion, and body aches. Reports fever today. States she has diarrhea and no appetite for the last week. She denies taking anything for her symptoms. States she came into today because she has not been eating or drinking and her stools are black. Denies use of blood thinners. Denies any hx of peptic ulcer. She does take aleve. She denies any chest pain or shortness of breath. Denies sputum production with her cough. Patient denies any recent rash, chest pain, abdominal pain, constipation, back pain, numbness, tingling, dizziness, weakness, hematuria, dysuria, urinary urgency, urinary frequency, headache, visual changes, or any other complaints. - Related Data Home Medications Medication Instructions Recorded Confirmed Aspirin 81 mg PO DAILY 05/28/15 07/21/21 Ergocalciferol [Vitamin D2 50,000 unit PO Q28D 05/28/15 07/21/21 (DRISDOL)] Lovastatin [Mevacor] 20 mg PO Q48H 05/28/15 07/21/21 lisinopriL [Prinivil] 20 mg PO DAILY 05/28/15 07/21/21 Cyclobenzaprine [Flexeril] 10 mg PO HS 10/16/18 07/21/21 Naproxen Sodium [Aleve] 440 mg PO DAILY 10/16/18 07/21/21 Oxybutynin Chloride [Oxybutynin 15 mg PO DAILY 10/16/18 07/21/21 Chloride ER] metFORMIN HCL [Glucophage] 500 mg PO W/SUPPER 10/16/18 07/21/21 Furosemide [Lasix] 20 mg PO DAILY 07/21/21 07/21/21 Furosemide [Lasix] 40 mg PO DAILY 07/21/21 07/21/21 Verapamil HCl [Verapamil ER] 180 mg PO DAILY 07/21/21 07/21/21 Allergies Allergy/AdvReac Type Severity Reaction Status Date / Time amoxicillin Allergy Dyspnea, Verified 07/21/21 21:57 hives, shaking Review of Systems ROS Statement: Those systems with pertinent positive or pertinent negative responses have been documented in the HPI. ROS Other: All systems not noted in ROS Statement are negative. Past Medical History Past Medical History: Diabetes Mellitus, GERD/Reflux, Hyperlipidemia, Hyper tension, Osteoarthritis (OA), Sleep Apnea/CPAP/BIPAP Additional Past Medical History / Comment(s): migraines, BLADDER INCONTINENCE History of Any Multi-Drug Resistant Organisms: None Reported Past Surgical History: Back Surgery, Bladder Surgery, Breast Surgery, Cholecystectomy, Hysterectomy, Joint Replacement, Orthopedic Surgery Additional Past Surgical History / Comment(s): RIGHT AND LEFT KNEE REPLACEMENT, RIGHT AND LEFT SHOULDER , CARPAL TUNNEL RELEASE BILATERAL WRIST,SINUS SURGERY,brest biopsy Past Anesthesia/Blood Transfusion Reactions: Motion Sickness, Postoperative Nausea & Vomiting (PONV) Past Psychological History: No Psychological Hx Reported Smoking Status: Never smoker Past Alcohol Use History: None Reported Past Drug Use History: None Reported - Past Family History Mother Family Medical History: No Reported History Father Family Medical History: Deep Vein Thrombosis (DVT) General Exam Limitations: no limitations General appearance: alert, in no apparent distress, other (This is a well-developed, well-nourished adult female patient in no acute distress. Vital signs upon presentation are temperature 101.4F, pulse 102, respirations 20, blood pressure 113/77, pulse ox 93% on room air.) ENT exam: Present: normal exam, normal oropharynx, mucous membranes moist Respiratory exam: Present: normal lung sounds bilaterally. Absent: respiratory distress, wheezes, rales, rhonchi, stridor Cardiovascular Exam: Present: normal rhythm, tachycardia, normal heart sounds. Absent: systolic murmur, diastolic murmur, rubs, gallop, clicks GI/Abdominal exam: Present: soft, normal bowel sounds. Absent: distended, tenderness, guarding, rebound, rigid Neurological exam: Present: alert, oriented X3, CN II-XII intact Psychiatric exam: Present: normal affect, normal mood Skin exam: Present: warm, dry, intact, normal color. Absent: rash Course Vital Signs 07/21/21 17:44 Temperature 101.4 F H Pulse Rate 102 H Respiratory 20 Rate Blood Pressure 113/77 O2 Sat by Pulse 93 L Oximetry Medical Decision Making - Medical Decision Making 65-year-old female patient presented to the emergency department today for eval uation of decreased appetite, black stools. Physical examination did reveal mild generalized abdominal tenderness. Clear lung sounds. Labs reviewed and did reveal elevated BUN and Cr showing acute kidney injury most likely due to dehydration. Mild transaminitis. Lipase 651. Positive occult blood she will be given protonix. She did test positive for COVID. She will be admitted for COVID, RAMY, Dehydration. She is agreeable with this plan. Case discussed with my attending Dr. Quijano. - Lab Data Result diagrams: 07/21/21 21:10 07/21/21 21:10 Lab Results 07/21/21 07/21/21 07/21/21 Range/Units 17:48 21:10 21:10 WBC 4.5 (3.8-10.6) k/uL RBC 5.10 (3.80-5.40) m/uL Hgb 15.7 (11.4-16.0) gm/dL Hct 44.9 (34.0-46.0) % MCV 88.2 (80.0-100.0) fL MCH 30.7 (25.0-35.0) pg MCHC 34.8 (31.0-37.0) g/dL RDW 13.7 (11.5-15.5) % Plt Count 173 (150-450) k/uL MPV 8.6 Neutrophils % 74 % Lymphocytes % 17 % Monocytes % 7 % Eosinophils % 0 % Basophils % 1 % Neutrophils # 3.3 (1.3-7.7) k/uL Lymphocytes # 0.8 L (1.0-4.8) k/uL Monocytes # 0.3 (0-1.0) k/uL Eosinophils # 0.0 (0-0.7) k/uL Basophils # 0.0 (0-0.2) k/uL PT 10.3 (9.0-12.0) sec INR 1.0 (<1.2) APTT 20.5 L (22.0-30.0) sec Sodium (137-145) mmol/L Potassium (3.5-5.1) mmol/L Chloride (98-107) mmol/L Carbon Dioxide (22-30) mmol/L Anion Gap mmol/L BUN (7-17) mg/dL Creatinine (0.52-1.04) mg/dL Est GFR (CKD-EPI)AfAm (>60 ml/min/1.73 sqM) Est GFR (CKD-EPI)NonAf (>60 ml/min/1.73 sqM) Glucose (74-99) mg/dL Plasma Lactic Acid Umang (0.7-2.0) mmol/L Calcium (8.4-10.2) mg/dL Magnesium (1.6-2.3) mg/dL Total Bilirubin (0.2-1.3) mg/dL AST (14-36) U/L ALT (4-34) U/L Alkaline Phosphatase (38-126) U/L Total Protein (6.3-8.2) g/dL Albumin (3.5-5.0) g/dL Lipase (23-300) U/L Coronavirus (PCR) Detected A (Not Detectd) 07/21/21 07/21/21 Range/Units 21:10 21:14 WBC (3.8-10.6) k/uL RBC (3.80-5.40) m/uL Hgb (11.4-16.0) gm/dL Hct (34.0-46.0) % MCV (80.0-100.0) fL MCH (25.0-35.0) pg MCHC (31.0-37.0) g/dL RDW (11.5-15.5) % Plt Count (150-450) k/uL MPV Neutrophils % % Lymphocytes % % Monocytes % % Eosinophils % % Basophils % % Neutrophils # (1.3-7.7) k/uL Lymphocytes # (1.0-4.8) k/uL Monocytes # (0-1.0) k/uL Eosinophils # (0-0.7) k/uL Basophils # (0-0.2) k/uL PT (9.0-12.0) sec INR (<1.2) APTT (22.0-30.0) sec Sodium 138 (137-145) mmol/L Potassium 4.6 (3.5-5.1) mmol/L Chloride 102 (98-107) mmol/L Carbon Dioxide 22 (22-30) mmol/L Anion Gap 14 mmol/L BUN 61 H (7-17) mg/dL Creatinine 2.14 H (0.52-1.04) mg/dL Est GFR (CKD-EPI)AfAm 28 (>60 ml/min/1.73 sqM) Est GFR (CKD-EPI)NonAf 24 (>60 ml/min/1.73 sqM) Glucose 139 H (74-99) mg/dL Plasma Lactic Acid Umang 1.8 (0.7-2.0) mmol/L Calcium 9.1 (8.4-10.2) mg/dL Magnesium 2.4 H (1.6-2.3) mg/dL Total Bilirubin 0.8 (0.2-1.3) mg/dL AST 97 H (14-36) U/L ALT 60 H (4-34) U/L Alkaline Phosphatase 63 (38-126) U/L Total Protein 7.4 (6.3-8.2) g/dL Albumin 4.4 (3.5-5.0) g/dL Lipase 651 H (23-300) U/L Coronavirus (PCR) (Not Detectd) - Radiology Data Radiology results: report reviewed, image reviewed One view x-ray of the chest is obtained. Report was reviewed in its entirety. Impression by Dr. Rizzo shows new patchy pulmonary edema compared to old exam the could be acute pneumonia. Disposition Clinical Impression: Dehydration, COVID-19, Acute kidney injury Disposition: ADMITTED IP TO THIS [facility] Condition: Serious Decision to Admit Reason: Admit from EC Decision Date: 07/21/21 Decision Time: 22:54
[2021-07-21 21:33] LABS: Prothrombin Time 10.3 sec (9.0-12.0)
[2021-07-21 21:43] LABS: Albumin 4.4 g/dL (3.5-5.0); Calcium 9.1 mg/dL (8.4-10.2); Magnesium 2.4 mg/dL (1.6-2.3); Potassium 4.6 mmol/L (3.5-5.1); Total Bilirubin 0.8 mg/dL (0.2-1.3); Total Protein 7.4 g/dL (6.3-8.2)
[2021-07-21 21:47] LABS: Partial Thromboplastin Time 20.5 sec (22.0-30.0)
[2021-07-21] MEDS ORDERED: SODIUM CHLORIDE 0.9% 500 ML 500 ML IV ONE (21:47)
[2021-07-21] MEDS ORDERED: DEXAMETHASONE SOD PHOSPHATE 10 MG/ML 1 ML VIAL IV STA (21:47)
[2021-07-21] MEDS ORDERED: ACETAMINOPHEN TAB 500 MG TAB PO STA (21:48)
[2021-07-21] MEDS ORDERED: DIPHENOX-ATROP 2.5-0.025 MG 1 EACH TAB PO STA (21:58)
--- NOTE | 2021-07-21 22:31 | XR ---
EXAMINATION TYPE: XR chest 1V DATE OF EXAM: 07/21/2021 COMPARISON: July 10, 2020 HISTORY: Cough TECHNIQUE: Single view FINDINGS: Heart is enlarged. There is some pulmonary interstitial and airspace edema. Thoracic aorta is tortuous. IMPRESSION: There is new patchy pulmonary edema compared to old exam that could be acute pneumonia.
[2021-07-21] MEDS ORDERED: NALOXONE 0.4 MG/ML 1 ML VIAL IV PRN (22:49)
[2021-07-21] MEDS: SODIUM CHLORIDE 0.9% 1,000 ML IV SCH (22:52)
[2021-07-22] MEDS ORDERED: PANTOPRAZOLE 40 MG/10 ML VIAL IVP STA (00:13)
[2021-07-22] MEDS: CHOLECALCIFEROL 25 MCG (1000 IU) TABLET PO SCH (09:10)
[2021-07-22] MEDS: ZINC SULFATE 220 MG CAP PO SCH (09:10)
[2021-07-22] MEDS: ASCORBIC ACID 500 MG TAB PO SCH (09:10)
[2021-07-22] MEDS: PANTOPRAZOLE 40 MG/10 ML VIAL IVP SCH (10:01)
[2021-07-22] MEDS: DEXAMETHASONE SOD PHOSPHATE 10 MG/ML 1 ML VIAL IV SCH (10:01)
[2021-07-22] MEDS: SODIUM CHLORIDE 0.9% 1,000 ML IV SCH ×2 (16:06→21:39)
--- NOTE | 2021-07-22 20:31 | P.HPIM ---
History of Present Illness H&P Date: 07/22/21 Chief Complaint: Diarrhea Patient is a 65-year-old male with a known history of hypertension, hyperlipidemia, diabetes type 2 [id number], osteoarthritis, obstructive sleep apnea, migraine headaches and no prior history of smoking presents to ER with complaints of fever, cough and shortness of breath along with diarrhea. Patient states that she has been sick for the past 2 weeks with cough congestion body aches and is also having diarrhea for the past 1 week. She came to the ER due to complaints of dark-colored stools. Patient states this is not any blood thinners. No prior history of peptic ulcer disease. Patient does take naproxen for arthritic pain. No complaints of chest pain. On admission T-max was 101.4, pulse 102, pulse ox 83% on room air. Denies any complaints of chest pain. No abdominal pain. No dysuria or hematuria. No headache or dizziness or lightheadedness. Chest x-ray showed there is new patchy pulmonary edema compared to oral exam that could be acute pneumonia. Laboratory showed WBC 4.5 hemoglobin 15.7 and platelets 173 and lymphocytes 0.8 Sodium 138 potassium 4.6 chloride 102 BUN 61 creatinine 2.12 Blood sugar 139 AST 97 ALT 60 alk phos 63 and lipase level 651 Stool occult blood positive and Coronavirus PCR detected. Review of Systems Constitutional: Patient does have fever and chills. Generalized weakness and malaise.. Abdomen: Patient does have diarrhea. Nausea no episodes of vomiting. No abdominal pain.. Cardiovascular: Patient denies any chest pain or short of breath no palpitations. Respiratory: patient denied any cough is from production. No shortness of breath Neurologic: Patient denied any numbness or tingling headache. Musculoskeletal: Patient denies any complaints of joint swelling or deformity. Skin: Negative Psychiatric: Negative Endocrine: No heat or cold intolerance. No recent weight gain. Genitourinary: No dysuria or hematuria. All other 14 point ROS negative except the above Past Medical History Past Medical History: Diabetes Mellitus, GERD/Reflux, Hyperlipidemia, Hypertension, Osteoarthritis (OA), Sleep Apnea/CPAP/BIPAP Additional Past Medical History / Comment(s): migraines, BLADDER INCONTINENCE History of Any Multi-Drug Resistant Organisms: None Reported Past Surgical History: Back Surgery, Bladder Surgery, Breast Surgery, Cholecystectomy, Hysterectomy, Joint Replacement, Orthopedic Surgery Additional Past Surgical History / Comment(s): RIGHT AND LEFT KNEE REPLACEMENT, RIGHT AND LEFT SHOULDER , CARPAL TUNNEL RELEASE BILATERAL WRIST,SINUS SURGERY,brest biopsy Past Anesthesia/Blood Transfusion Reactions: Motion Sickness, Postoperative Nausea & Vomiting (PONV) Past Psychological History: No Psychological Hx Reported Smoking Status: Never smoker Past Alcohol Use History: None Reported Past Drug Use History: None Reported - Past Family History Mother Family Medical History: No Reported History Father Family Medical History: Deep Vein Thrombosis (DVT) Medications and Allergies Home Medications Medication Instructions Recorded Confirmed Type Aspirin 81 mg PO DAILY 05/28/15 07/21/21 History Ergocalciferol [Vitamin D2 50,000 unit PO Q28D 05/28/15 07/21/21 History (DRISDOL)] Lovastatin [Mevacor] 20 mg PO Q48H 05/28/15 07/21/21 History lisinopriL [Prinivil] 20 mg PO DAILY 05/28/15 07/21/21 History Cyclobenzaprine [Flexeril] 10 mg PO HS 10/16/18 07/21/21 History Naproxen Sodium [Aleve] 440 mg PO DAILY 10/16/18 07/21/21 History Oxybutynin Chloride [Oxybutynin 15 mg PO DAILY 10/16/18 07/21/21 History Chloride ER] metFORMIN HCL [Glucophage] 500 mg PO W/SUPPER 10/16/18 07/21/21 History Furosemide [Lasix] 20 mg PO DAILY 07/21/21 07/21/21 History Furosemide [Lasix] 40 mg PO DAILY 07/21/21 07/21/21 History Verapamil HCl [Verapamil ER] 180 mg PO DAILY 07/21/21 07/21/21 History Allergies Allergy/AdvReac Type Severity Reaction Status Date / Time amoxicillin Allergy Dyspnea, Verified 07/21/21 21:57 hives, shaking Physical Exam Vitals: Vital Signs Temp Pulse Pulse Pulse Resp BP BP 07/22/21 10:00 97.5 F L 64 18 95/70 07/22/21 06:00 98.0 F 78 18 104/71 07/22/21 04:37 97.4 F L 68 18 07/22/21 01:07 07/22/21 01:04 83 20 107/65 07/21/21 17:44 101.4 F H 102 H 20 113/77 Pulse Ox 10/14/21 10:00 98 07/22/21 06:00 96 07/22/21 04:37 96 07/22/21 01:07 95 07/22/21 01:04 83 L 07/21/21 17:44 93 L Intake and Output 07/21/21 07/22/21 07/22/21 22:59 06:59 14:59 Other: # Voids 1 Weight 122.016 kg 122.016 kg PHYSICAL EXAMINATION: Patient is lying in the bed comfortably, no acute distress, awake alert and oriented.Morbidly obese. HEENT: Normocephalic. Neck is supple. Pupils reactive. Nostrils clear. Oral cavity is moist. Neck reveals no JVD, carotid bruits, or thyromegaly. CHEST EXAMINATION: Trachea is central. Symmetrical expansion. bilateral coarse breath sounds. No wheezing. Diminished basilar sounds.. CARDIAC: Normal S1, S2 with no gallops. No murmurs ABDOMEN: Soft. Bowel sounds normal. No organomegaly. No abdominal bruits. Extremities: reveal no edema. No clubbing or cyanosis Neurologically awake, alert, oriented x3 with well-coordinated movements. No focal deficits noted Skin: No rash or skin lesions. Psychiatric: Coperative. Nonsuicidal Musculoskeletal: No joint swelling or deformity. Normal range of motion. Results CBC & Chem 7: 07/21/21 21:10 07/21/21 21:10 Labs: Abnormal Lab Results - Last 24 Hours (Table) 07/21/21 07/21/21 07/21/21 Range/Units 17:48 21:10 21:10 Lymphocytes # 0.8 L (1.0-4.8) k/uL APTT 20.5 L (22.0-30.0) sec BUN (7-17) mg/dL Creatinine (0.52-1.04) mg/dL Glucose (74-99) mg/dL Magnesium (1.6-2.3) mg/dL AST (14-36) U/L ALT (4-34) U/L Lipase (23-300) U/L Stool Occult Blood (Negative) Coronavirus (PCR) Detected A (Not Detectd) 07/21/21 07/21/21 Range/Units 21:10 23:00 Lymphocytes # (1.0-4.8) k/uL APTT (22.0-30.0) sec BUN 61 H (7-17) mg/dL Creatinine 2.14 H (0.52-1.04) mg/dL Glucose 139 H (74-99) mg/dL Magnesium 2.4 H (1.6-2.3) mg/dL AST 97 H (14-36) U/L ALT 60 H (4-34) U/L Lipase 651 H (23-300) U/L Stool Occult Blood Positive H (Negative) Coronavirus (PCR) (Not Detectd) Thrombosis Risk Factor Assmnt - DVT/VTE Prophylaxis DVT/VTE Prophylaxis: Mechanical Prophylaxis ordered - Choose All That Apply Each Factor Represents 1 point: History of prior major surgery (<1month) Each Risk Factor Represents 2 Points: Age 61-74 years Thrombosis Risk Factor Assessment Total Risk Factor Score: 3 Thrombosis Risk Factor Assessment Level: Moderate Risk Assessment and Plan Assessment: Acute hypoxic respiratory failure secondary to COVID-19 pneumonia Dark-colored stools with occult blood positive. Possible upper GI bleed. Acute kidney injury likely prerenal with creatinine level 2.14 on admission. Baseline creatinine not known Diabetes type 2 [id number] Mild acute pancreatitis with lipase level 651 Hyperlipidemia Hypertension GERD Obstructive sleep apnea on CPAP Migraine headaches history Morbid obesity with BMI 47.7 DVT prophylaxis with SCDs due to GI bleed Plan: Patient will be continued on IV hydration and monitor hemoglobin level. Currently hemoglobin is at 15.7. No active complaints of bleeding at this time. Continue with IV PPI and monitor. Patient will continue oxygen supplementation via nasal cannula. Continue with the dexamethasone, zinc sulfate, ascorbic acid and vitamin D3. Pulmonary consult. Continue with home medications Hold Lasix and lisinopril due to acute kidney injury. Patient is also on verapamil at home. Continue with insulin sliding scale. Prognosis guarded with multiple medical problems along with morbid obesity. Time with Patient: Greater than 30
[2021-07-22] MEDS: ATORVASTATIN 10 MG TAB PO SCH (21:39)
[2021-07-23 07:30] LABS: ALT 52 U/L (4-34); AST 65 U/L (14-36); African American GFR (CKD) 56 (>60 ml/min/1.73 sqM); Albumin 3.4 g/dL (3.5-5.0); Albumin/Globulin Ratio 1.3; Alkaline Phosphatase 55 U/L (38-126); Anion Gap 5 mmol/L; Blood Urea Nitrogen 44 mg/dL (7-17); Calcium 9.3 mg/dL (8.4-10.2); Carbon Dioxide 28 mmol/L (22-30); Chloride 107 mmol/L (98-107); Globulin 2.7 g/dL; Glucose 153 mg/dL (74-99); LDH 1001 U/L (313-618); Lipase 714 U/L (23-300); Non-African American GFR(CKD) 48 (>60 ml/min/1.73 sqM); Sodium 140 mmol/L (137-145); Total Bilirubin 0.5 mg/dL (0.2-1.3); Total Protein 6.1 g/dL (6.3-8.2)
[2021-07-23 07:36] LABS: Potassium 6.1 mmol/L (3.5-5.1)
[2021-07-23 07:56] LABS: C Reactive Protein 1.2 mg/dL (<1.0)
[2021-07-23 09:28] LABS: Basophils # (A) 0 X 10*3/uL (0.00-0.10); Basophils % (A) 0 %; Eosinophils # (A) 0 X 10*3/uL (0.04-0.35); Eosinophils % (A) 0 %; HCT 42.4 % (37.2-46.3); HGB 13.4 g/dL (12.0-15.0); Lymphocytes # (A) 0.65 X 10*3/uL (0.90-5.00); Lymphocytes % (A) 12.5 %; MCH 29.6 pg (27.0-32.0); MCHC 31.6 g/dL (32.0-37.0); MCV 93.6 fL (80.0-97.0); Mean Platelet Volume 11.2 fL (9.5-12.2); Monocytes # (A) 0.34 X 10*3/uL (0.20-1.00); Monocytes % (A) 6.6 %; Neutrophils # (A) 4.18 X 10*3/uL (1.80-7.70); Neutrophils % (A) 80.5 %; Platelet Count 144 X 10*3/uL (140-440); RBC 4.53 X 10*6/uL (4.10-5.20); RDW 13.2 % (11.5-14.5); WBC 5.19 X 10*3/uL (4.50-10.00)
[2021-07-23] MEDS: CHOLECALCIFEROL 25 MCG (1000 IU) TABLET PO SCH (09:32)
[2021-07-23] MEDS: ZINC SULFATE 220 MG CAP PO SCH (09:32)
[2021-07-23] MEDS: ASCORBIC ACID 500 MG TAB PO SCH (09:33)
[2021-07-23] MEDS: OXYBUTYNIN 15 MG TAB.ER.24 PO SCH (09:33)
[2021-07-23] MEDS: PANTOPRAZOLE 40 MG/10 ML VIAL IVP SCH (09:33)
[2021-07-23] MEDS: DEXAMETHASONE SOD PHOSPHATE 10 MG/ML 1 ML VIAL IV SCH (09:33)
--- NOTE | 2021-07-23 10:36 | P.CNPUL ---
History of Present Illness Consult date: 07/23/21 Requesting physician: Montrell Chen Reason for consult: dyspnea, cough, hypoxemia, pneumonia, abnormal CXR/CT Chief complaint: Shortness of breath, coronavirus associated pneumonia. History of present illness: Pulmonary/critical care consultation dated 07/23/2021. 65-year-old female with a history of hypertension, hyperlipidemia, diabetes mellitus, and sleep apnea syndrome, who presents to the emergency department on July 21, complaining of cough, fever, diarrhea, head cold, cough, and sh ortness of breath. The patient has been sick for at least 30 days, and may be more. The patient states that she is on vaccinated against coronavirus. Her primary care physician is Dr. Ami Da Silva. She hasn't been feeling well for quite some time may be more than a month. She was seen in the emergency room, and tested positive for coronavirus. As mentioned, she has not been vaccinated. The patient's currently on 4 L nasal cannula. She's getting saline at 75 mL an hour. In addition to the above, she has a history of gastroesophageal reflux disease, and osteoarthritis. His vital signs included temperature 98.4, heart rate 70, respiratory rate 17, blood pressure 124/76, and a 4 L saturation of 96%. White count 5.19, hemoglobin 13.4, hematocrit 42.4, and platelet count 144,000. Sodium 140, potassium 6.1, chlorides 107, CO2 28, anion gap 5, BUN and creatinine were 44 and 1.19, better than it was yesterday. The patient's LDH was 1001. C-reactive protein 1.2. Lipase was 651 and 714. Stools were positive for occult blood. Appetite chest x-ray shows diffuse patchy airspace disease which may relate to underlying coronavirus associated pneumonia. Review of Systems REVIEW OF SYSTEMS: CONSTITUTIONAL: Weakness, fatigue, fever. NEUROLOGIC: [ Negative.] HEENT: [ Negative.] CARDIAC: [Negative.] PULMONARY: Shortness of breath and cough. GI: Diarrhea, GI bleed. : [Negative.] RHEUMATOLOGIC: [ Negative.] IMMUNOLOGIC: [ Negative.] ENDOCRINE: [Negative. ] DERMATOLOGIC: [Negative.] Past Medical History Past Medical History: Diabetes Mellitus, GERD/Reflux, Hyperlipidemia, Hypertension, Osteoarthritis (OA), Sleep Apnea/CPAP/BIPAP Additional Past Medical History / Comment(s): migraines, BLADDER INCONTINENCE History of Any Multi-Drug Resistant Organisms: None Reported Past Surgical History: Back Surgery, Bladder Surgery, Breast Surgery, Cholecystectomy, Hysterectomy, Joint Replacement, Orthopedic Surgery Additional Past Surgical History / Comment(s): RIGHT AND LEFT KNEE REPLACEMENT, RIGHT AND LEFT SHOULDER , CARPAL TUNNEL RELEASE BILATERAL WRIST,SINUS SURGERY,brest biopsy Past Anesthesia/Blood Transfusion Reactions: Motion Sickness, Postoperative Nausea & Vomiting (PONV) Past Psychological History: No Psychological Hx Reported Smoking Status: Never smoker Past Alcohol Use History: None Reported Past Drug Use History: None Reported - Past Family History Mother Family Medical History: No Reported History Father Family Medical History: Deep Vein Thrombosis (DVT) Medications and Allergies Home Medications Medication Instructions Recorded Confirmed Type Aspirin 81 mg PO DAILY 05/28/15 07/21/21 History Ergocalciferol [Vitamin D2 50,000 unit PO Q28D 05/28/15 07/21/21 History (ELIJAH)] Lovastatin [Mevacor] 20 mg PO Q48H 05/28/15 07/21/21 History lisinopriL [Prinivil] 20 mg PO DAILY 05/28/15 07/21/21 History Cyclobenzaprine [Flexeril] 10 mg PO HS 10/16/18 07/21/21 History Naproxen Sodium [Aleve] 440 mg PO DAILY 10/16/18 07/21/21 History Oxybutynin Chloride [Oxybutynin 15 mg PO DAILY 10/16/18 07/21/21 History Chloride ER] metFORMIN HCL [Glucophage] 500 mg PO W/SUPPER 10/16/18 07/21/21 History Furosemide [Lasix] 20 mg PO DAILY 07/21/21 07/21/21 History Furosemide [Lasix] 40 mg PO DAILY 07/21/21 07/21/21 History Verapamil HCl [Verapamil ER] 180 mg PO DAILY 07/21/21 07/21/21 History Allergies Allergy/AdvReac Type Severity Reaction Status Date / Time amoxicillin Allergy Dyspnea, Verified 07/21/21 21:57 hives, shaking Physical Exam Osteopathic Statement: *. No significant issues noted on an osteopathic structural exam other than those noted in the History and Physical/Consult. Vitals: Vital Signs Temp Pulse Pulse Resp BP Pulse Ox 07/23/21 06:42 98.4 F 70 17 124/76 96 07/23/21 02:59 98.3 F 71 17 113/74 98 07/22/21 20:00 98.6 F 82 78 18 136/86 98 07/22/21 17:34 97.7 F 74 18 114/78 92 L 07/22/21 14:00 97.4 F L 69 18 107/73 94 L Intake and Output 07/22/21 07/23/21 07/23/21 22:59 06:59 14:59 Intake Total 120 Output Total 350 Balance -230 Intake: Oral 120 Output: Urine 350 Other: Voiding Method Toilet Toilet # Voids 2 1 No acute distress, oriented 3. No respiratory distress, audible wheezing, or use of accessory muscles. The patient's currently on 4 L and saturations are 96%. HEENT examination is grossly unremarkable. Neck supple. Full range of motion. No adenopathy thyromegaly or neck vein distention. Cardiovascular examination reveals regular rhythm rate. S1-S2 normal. No S3 or S4. No discernible murmur noted. Heart sounds are distant. Heart rate 70 bpm. Lungs reveal scattered coarse rhonchi. Mild bibasilar crackles. No wheezes. Breath sounds equal bilaterally. The patient coughs when she takes a deep breath. Abdomen soft bowel sounds are heard. No masses or tenderness. Extremities are intact. No cyanosis clubbing or edema. Skin is without rash or lesion. Neurologic examination is brief but nonfocal. Results - Laboratory Findings CBC and BMP: 07/23/21 06:18 07/23/21 06:18 PT/INR, D-dimer PT 10.3 sec (9.0-12.0) 07/21/21 21:10 INR 1.0 (<1.2) 07/21/21 21:10 Abnormal lab findings: Abnormal Labs 07/21/21 07/21/21 07/21/21 17:48 21:10 21:10 MCHC Lymphocytes # 0.8 L Eosinophils # APTT 20.5 L Potassium BUN Creatinine Glucose Magnesium AST ALT Lactate Dehydrogenase C-Reactive Protein Total Protein Albumin Lipase Stool Occult Blood Coronavirus (PCR) Detected A 07/21/21 07/21/21 07/23/21 21:10 23:00 06:18 MCHC 31.6 L Lymphocytes # 0.65 L Eosinophils # 0 L APTT Potassium BUN 61 H Creatinine 2.14 H Glucose 139 H Magnesium 2.4 H AST 97 H ALT 60 H Lactate Dehydrogenase C-Reactive Protein Total Protein Albumin Lipase 651 H Stool Occult Blood Positive H Coronavirus (PCR) 07/23/21 06:18 MCHC Lymphocytes # Eosinophils # APTT Potassium 6.1 H* BUN 44 H Creatinine 1.19 H Glucose 153 H Magnesium AST 65 H ALT 52 H Lactate Dehydrogenase 1001 H C-Reactive Protein 1.2 H Total Protein 6.1 L Albumin 3.4 L Lipase 714 H Stool Occult Blood Coronavirus (PCR) - Diagnostic Findings Chest x-ray: image reviewed Assessment and Plan Assessment: Acute hypoxemic respiratory failure secondary to coronavirus associated pneumonia. History of GI bleed. History of diabetes mellitus. History of gastroesophageal reflux disease. History of hyperlipidemia. History of hypertension. History of sleep apnea syndrome, not currently using CPAP. Lifelong nontobacco use. Plan: Plan dated 07/23/2021. The patient is not a candidate for REM. She has been sick for more than 30 days. We'll make sure that she gets vitamin C, vitamin D3, and zinc. In a ddition, the patient can get Decadron 6 mg a day, and Lovenox 40 mg subcu per day. Additional recommendations and suggestions are forthcoming. I will go ahead and order an N-terminal proBNP. Medications are reviewed. Prognosis is guarded. There is no known history of underlying intrinsic pulmonary disease. Time with Patient: Greater than 30
[2021-07-23] MEDS: SODIUM CHLORIDE 0.9% 1,000 ML IV SCH (12:39)
[2021-07-24] MEDS: SODIUM CHLORIDE 0.9% 1,000 ML IV SCH ×2 (03:02→16:30)
[2021-07-24] MEDS: DEXAMETHASONE SOD PHOSPHATE 10 MG/ML 1 ML VIAL IV SCH (07:50)
[2021-07-24] MEDS: ENOXAPARIN 40 MG/0.4 ML SYRINGE SQ SCH (07:50)
[2021-07-24] MEDS: PANTOPRAZOLE 40 MG TABLET PO SCH (07:51)
[2021-07-24] MEDS: ZINC SULFATE 220 MG CAP PO SCH (07:51)
[2021-07-24] MEDS: CHOLECALCIFEROL 25 MCG (1000 IU) TABLET PO SCH (07:51)
[2021-07-24] MEDS: OXYBUTYNIN 15 MG TAB.ER.24 PO SCH (07:51)
[2021-07-24] MEDS: ASCORBIC ACID 500 MG TAB PO SCH (07:51)
--- NOTE | 2021-07-24 14:50 | P.PN ---
Subjective Progress Note Date: 07/24/21 Principal diagnosis: Coronavirus pneumonia. Pulmonary/critical care consultation dated 07/23/2021. 65-year-old female with a history of hypertension, hyperlipidemia, diabetes shauna litus, and sleep apnea syndrome, who presents to the emergency department on July 21, complaining of cough, fever, diarrhea, head cold, cough, and shortness of breath. The patient has been sick for at least 30 days, and may be more. The patient states that she is on vaccinated against coronavirus. Her primary care physician is Dr. Ami Da Silva. She hasn't been feeling well for quite some time may be more than a month. She was seen in the emergency room, and tested positive for coronavirus. As mentioned, she has not been vaccinated. The patient's currently on 4 L nasal cannula. She's getting saline at 75 mL an hour. In addition to the above, she has a history of gastroesophage al reflux disease, and osteoarthritis. His vital signs included temperature 98.4, heart rate 70, respiratory rate 17, blood pressure 124/76, and a 4 L saturation of 96%. White count 5.19, hemoglobin 13.4, hematocrit 42.4, and platelet count 144,000. Sodium 140, potassium 6.1, chlorides 107, CO2 28, anion gap 5, BUN and creatinine were 44 and 1.19, better than it was yesterday. The patient's LDH was 1001. C-reactive protein 1.2. Lipase was 651 and 714. Stools were positive for occult blood. Appetite chest x-ray shows diffuse patchy airspace disease which may relate to underlying coronavirus associated pneumonia. Progress note dated 07/24/2021. 65-year-old female, again seen today in room 482. She was seen by me in consultation yesterday. She has a history of hypertension, hyperlipidemia, diabetes, and sleep apnea syndrome. She came to the emergency department on July 21, complaining of cough, fever, diarrhea, head cold, and shortness of breath. She has been sick for at least 30 days, and may be a bit more than that. She has been vaccinated against coronavirus and her primary care physician is Dr. Da Silva. Today, she is still complaining of shortness of breath. She sitting upright in a bedside chair. She is on 4 L nasal cannula with a saturation of 91%. No new laboratory data today. She is currently on vitamin C, vitamin D3, zinc, Decadron, and Lovenox. Objective - Vital Signs Vital signs: Vital Signs Temp 99.2 F 07/24/21 09:38 Pulse 80 07/24/21 09:38 Resp 18 07/24/21 09:38 BP 143/73 07/24/21 09:38 Pulse Ox 91 L 07/24/21 09:38 Intake & Output 07/23/21 07/24/21 07/24/21 18:59 06:59 18:59 Intake Total 100 Balance 100 Intake: Oral 100 Other: Voiding Method Toilet Toilet Toilet # Voids 5 3 - Exam No acute distress, oriented 3. No respiratory distress, audible wheezing, or use of accessory muscles. The patient's currently on 4 L and saturations are 94%. HEENT examination is grossly unremarkable. Neck supple. Full range of motion. No adenopathy thyromegaly or neck vein distention. Cardiovascular examination reveals regular rhythm rate. S1-S2 normal. No S3 or S4. No discernible murmur noted. Heart sounds are distant. Heart rate 80 bpm. Lungs reveal scattered coarse rhonchi. Mild bibasilar crackles. No wheezes. Breath sounds equal bilaterally. The patient coughs when she takes a deep breath. Abdomen soft bowel sounds are heard. No masses or tenderness. Extremities are intact. No cyanosis clubbing or edema. Skin is without rash or lesion. Neurologic examination is brief but nonfocal. - Labs CBC & Chem 7: 07/23/21 06:18 07/23/21 06:18 Assessment and Plan Assessment: Acute hypoxemic respiratory failure secondary to coronavirus associated pneumonia. History of GI bleed. History of diabetes mellitus. History of gastroesophageal reflux disease. History of hyperlipidemia. History of hypertension. History of sleep apnea syndrome, not currently using CPAP. Lifelong nontobacco use. Plan: Plan dated 07/23/2021. The patient is not a candidate for REM. She has been sick for more than 30 days. We'll make sure that she gets vitamin C, vitamin D3, and zinc. In addition, the patient can get Decadron 6 mg a day, and Lovenox 40 mg subcu per day. Additional recommendations and suggestions are forthcoming. I will go ahead and order an N-terminal proBNP. Medications are reviewed. Prognosis is guarded. There is no known history of underlying intrinsic pulmonary disease. Plan dated 07/24/2021. Currently, the patient is doing about the same today as she was yesterday. As mentioned from yesterday, she is not a candidate for REM. He been sick for more than a month. She has been fully vaccinated. She is currently getting vitamin C, vitamin D3, and zinc, at usual doses, as well as Decadron, and Lovenox. We will continue to follow make recommendations were appropriate. Prognosis is guarded. She has no known history of underlying intrinsic pulmonary disease. Time with Patient: Less than 30
[2021-07-24 20:30] LABS: Basophils % (A) 1 %; Eosinophils % (A) 0 %; HGB 14.8 gm/dL (11.4-16.0); Lymphocytes # (A) 0.4 k/uL (1.0-4.8); Lymphocytes % (A) 10 %; MCH 30.2 pg (25.0-35.0); MCHC 32.8 g/dL (31.0-37.0); MCV 92.1 fL (80.0-100.0); Mean Platelet Volume 8.6; Monocytes # (A) 0.3 k/uL (0-1.0); Monocytes % (A) 7 %; Neutrophils # (A) 3.4 k/uL (1.3-7.7); Neutrophils % (A) 81 %; Platelet Count 158 k/uL (150-450); RBC 4.89 m/uL (3.80-5.40); RDW 13.2 % (11.5-15.5); WBC 4.2 k/uL (3.8-10.6)
[2021-07-24 20:39] LABS: African American GFR (CKD) >90 (>60 ml/min/1.73 sqM); Anion Gap 7 mmol/L; Blood Urea Nitrogen 28 mg/dL (7-17); Calcium 9.4 mg/dL (8.4-10.2); Carbon Dioxide 27 mmol/L (22-30); Chloride 105 mmol/L (98-107); Glucose 210 mg/dL (74-99); Non-African American GFR(CKD) 82 (>60 ml/min/1.73 sqM); Sodium 139 mmol/L (137-145)
[2021-07-24 21:03] LABS: Glucose,Whole Blood 187 mg/dL (75-99)
[2021-07-24] MEDS: INSULIN ASPART (NovoLOG) 100 UNIT/ML VIAL SQ SCH (22:08)
[2021-07-24] MEDS: ATORVASTATIN 10 MG TAB PO SCH (22:08)
[2021-07-25] MEDS: SODIUM CHLORIDE 0.9% 1,000 ML IV SCH ×2 (05:34→22:17)
[2021-07-25 07:03] LABS: Glucose,Whole Blood 131 mg/dL (75-99)
[2021-07-25] MEDS: INSULIN ASPART (NovoLOG) 100 UNIT/ML VIAL SQ SCH ×4 (07:09→22:15)
[2021-07-25] MEDS: ASCORBIC ACID 500 MG TAB PO SCH (07:53)
[2021-07-25] MEDS: DEXAMETHASONE SOD PHOSPHATE 10 MG/ML 1 ML VIAL IV SCH (07:54)
[2021-07-25] MEDS: CHOLECALCIFEROL 25 MCG (1000 IU) TABLET PO SCH (07:54)
[2021-07-25] MEDS: ZINC SULFATE 220 MG CAP PO SCH (07:54)
[2021-07-25] MEDS: OXYBUTYNIN 15 MG TAB.ER.24 PO SCH (07:54)
[2021-07-25] MEDS: PANTOPRAZOLE 40 MG TABLET PO SCH (07:54)
[2021-07-25] MEDS: ENOXAPARIN 40 MG/0.4 ML SYRINGE SQ SCH (07:54)
--- NOTE | 2021-07-25 09:22 | XR ---
EXAMINATION TYPE: XR chest 1V portable DATE OF EXAM: 07/25/2021 COMPARISON: 07/21/2021 HISTORY: 65 years Female. STUDY INDICATION GIVEN: CoVID pneumonia . TECHNIQUE: Upright portable chest radiograph IMPRESSION: Interval decrease in bilateral left greater than right interstitial and airspace opacities. No pleura l effusion or pneumothorax seen. Mildly enlarged cardiac silhouette similar to prior study. No acute osseous abnormality seen. Bilateral shoulder arthroplasty again seen. Cervical spine hardware again n oted.
[2021-07-25 09:52] LABS: Basophils # (A) 0.01 X 10*3/uL (0.00-0.10); Basophils % (A) 0.2 %; Eosinophils # (A) 0 X 10*3/uL (0.04-0.35); Eosinophils % (A) 0 %; HCT 43.7 % (37.2-46.3); Lymphocytes # (A) 0.79 X 10*3/uL (0.90-5.00); Lymphocytes % (A) 16.8 %; MCH 29.4 pg (27.0-32.0); MCV 91.6 fL (80.0-97.0); Mean Platelet Volume 11.2 fL (9.5-12.2); Monocytes # (A) 0.38 X 10*3/uL (0.20-1.00); Monocytes % (A) 8.1 %; Neutrophils # (A) 3.47 X 10*3/uL (1.80-7.70); Neutrophils % (A) 73.8 %; Platelet Count 172 X 10*3/uL (140-440); RBC 4.77 X 10*6/uL (4.10-5.20)
[2021-07-25 10:41] LABS: African American GFR (CKD) 70.9 (60.0-200.0); Anion Gap 15.4 mmol/L (4.00-12.00); BUN/Creat Ratio 25.9 Ratio (12.00-20.00); Blood Urea Nitrogen 25.3 mg/dL (9.0-27.0); Calcium 8.9 mg/dL (8.7-10.3); Carbon Dioxide 22.8 mmol/L (21.6-31.8); Magnesium 2.1 mg/dL (1.5-2.4); Non-African American GFR(CKD) 61.2 (60.0-200.0); Potassium 4.3 mmol/L (3.5-5.5)
[2021-07-25] MEDS: FUROSEMIDE 20 MG TAB PO SCH (11:08)
[2021-07-25 11:55] LABS: Glucose,Whole Blood 172 mg/dL (75-99)
[2021-07-25] MEDS: ALBUTEROL HFA INHALER INHALATION SCH ×3 (12:48→20:12)
--- NOTE | 2021-07-25 14:34 | P.PN ---
Subjective Progress Note Date: 07/25/21 Principal diagnosis: Coronavirus pneumonia. Pulmonary/critical care consultation dated 07/23/2021. 65-year-old female with a history of hypertension, hyperlipidemia, diabetes shauna litus, and sleep apnea syndrome, who presents to the emergency department on July 21, complaining of cough, fever, diarrhea, head cold, cough, and shortness of breath. The patient has been sick for at least 30 days, and may be more. The patient states that she is on vaccinated against coronavirus. Her primary care physician is Dr. Ami Da Silva. She hasn't been feeling well for quite some time may be more than a month. She was seen in the emergency room, and tested positive for coronavirus. As mentioned, she has not been vaccinated. The patient's currently on 4 L nasal cannula. She's getting saline at 75 mL an hour. In addition to the above, she has a history of gastroesophage al reflux disease, and osteoarthritis. His vital signs included temperature 98.4, heart rate 70, respiratory rate 17, blood pressure 124/76, and a 4 L saturation of 96%. White count 5.19, hemoglobin 13.4, hematocrit 42.4, and platelet count 144,000. Sodium 140, potassium 6.1, chlorides 107, CO2 28, anion gap 5, BUN and creatinine were 44 and 1.19, better than it was yesterday. The patient's LDH was 1001. C-reactive protein 1.2. Lipase was 651 and 714. Stools were positive for occult blood. Appetite chest x-ray shows diffuse patchy airspace disease which may relate to underlying coronavirus associated pneumonia. Progress note dated 07/24/2021. 65-year-old female, again seen today in room 482. She was seen by me in consultation yesterday. She has a history of hypertension, hyperlipidemia, diabetes, and sleep apnea syndrome. She came to the emergency department on July 21, complaining of cough, fever, diarrhea, head cold, and shortness of breath. She has been sick for at least 30 days, and may be a bit more than that. She has been vaccinated against coronavirus and her primary care physician is Dr. Da Silva. Today, she is still complaining of shortness of breath. She sitting upright in a bedside chair. She is on 4 L nasal cannula with a saturation of 91%. No new laboratory data today. She is currently on vitamin C, vitamin D3, zinc, Decadron, and Lovenox. Progress note dated 07/25/2021. 65-year-old female again seen in room 482. The patient sitting in a chair next to her bed. Currently, she is on 5 his nasal cannula. She complains of shortness of breath with any activity. She feels that she's not really improving all that much at all. She has a history of hypertension, hyperlipidemia, diabetes, and sleep apnea syndrome. She initially was evaluated on July 21 in the emergency department. She's been sick for more than a month. Her primary care physician is Dr. Da Silva. Saturations are 90%. Blood pressure 102/67 mean 78 heart rate 79 respiratory rate 17 and temperature 99.3F. Labs today include a white count of 4.7, hemoglobin 14, hematocrit 43.7 and a platelet count of 172,000. D-dimer is 0.96. Sodium, potassium, chloride, and CO2 are all normal. Anion gap is 15. BUN is 25 with a creatinine of 1.0. Today's chest x-ray is improved. No pleural effusion or pneumothorax is seen. There is mild cardiomegaly. Objective - Vital Signs Vital signs: Vital Signs Temp 99.3 F 07/25/21 09:45 Pulse 79 07/25/21 09:45 Resp 17 07/25/21 09:45 BP 102/67 07/25/21 09:45 Pulse Ox 90 L 07/25/21 09:45 Intake & Output 07/24/21 07/25/21 07/25/21 18:59 06:59 18:59 Intake Total 1400 240 Balance 1400 240 Intake: Intake, IV Titration 900 Amount Sodium Chloride 0.9% 1, 900 000 ml @ 75 mls/hr IV . [id number] [facility] Rx#:[id number] Oral 500 240 Other: Voiding Method Toilet Toilet Toilet # Voids 6 3 # Bowel Movements 1 - Exam No acute distress, oriented 3. No respiratory distress, audible wheezing, or use of accessory muscles. The patient's currently on 6 L and saturations are 90-92%. HEENT examination is grossly unremarkable. Neck supple. Full range of motion. No adenopathy thyromegaly or neck vein distention. Cardiovascular examination reveals regular rhythm rate. S1-S2 normal. No S3 or S4. No discernible murmur noted. Heart sounds are distant. Heart rate 79 bpm. Lungs reveal scattered coarse rhonchi. Mild bibasilar crackles. No wheezes. Breath sounds equal bilaterally. The patient coughs when she takes a deep breath. Abdomen soft bowel sounds are heard. No masses or tenderness. Extremities are intact. No cyanosis clubbing or edema. Skin is without rash or lesion. Neurologic examination is brief but nonfocal. - Labs CBC & Chem 7: 07/25/21 06:00 07/25/21 06:00 Labs: Abnormal Lab Results - Last 24 Hours (Table) 07/24/21 07/24/21 07/24/21 Range/Units 20:06 20:06 21:01 Immature Gran # (0.00-0.04) X 10*3/uL Lymphocytes # 0.4 L (1.0-4.8) k/uL Eosinophils # (0.04-0.35) X 10*3/uL D-Dimer (<0.60) mg/L FEU Anion Gap (4.00-12.00) mmol/L BUN 28 H (7-17) mg/dL BUN/Creatinine Ratio (12.00-20.00) Ratio Glucose 210 H (74-99) mg/dL POC Glucose (mg/dL) 187 H (75-99) mg/dL 07/25/21 07/25/21 07/25/21 Range/Units 06:00 06:00 06:00 Immature Gran # 0.05 H (0.00-0.04) X 10*3/uL Lymphocytes # 0.79 L (1.0-4.8) k/uL Eosinophils # 0 L (0.04-0.35) X 10*3/uL D-Dimer 0.96 H (<0.60) mg/L FEU Anion Gap 15.40 H (4.00-12.00) mmol/L BUN (7-17) mg/dL BUN/Creatinine Ratio 25.90 H (12.00-20.00) Ratio Glucose 139 H (74-99) mg/dL POC Glucose (mg/dL) (75-99) mg/dL 07/25/21 07/25/21 Range/Units 06:49 11:50 Immature Gran # (0.00-0.04) X 10*3/uL Lymphocytes # (1.0-4.8) k/uL Eosinophils # (0.04-0.35) X 10*3/uL D-Dimer (<0.60) mg/L FEU Anion Gap (4.00-12.00) mmol/L BUN (7-17) mg/dL BUN/Creatinine Ratio (12.00-20.00) Ratio Glucose (74-99) mg/dL POC Glucose (mg/dL) 131 H 172 H (75-99) mg/dL Assessment and Plan Assessment: Acute hypoxemic respiratory failure secondary to coronavirus associated pneumonia. History of GI bleed. History of diabetes mellitus. History of gastroesophageal reflux disease. History of hyperlipidemia. History of hypertension. History of sleep apnea syndrome, not currently using CPAP. Lifelong nontobacco use. Plan: Plan dated 07/23/2021. The patient is not a candidate for REM. She has been sick for more than 30 days. We'll make sure that she gets vitamin C, vitamin D3, and zinc. In addition, the patient can get Decadron 6 mg a day, and Lovenox 40 mg subcu per day. Additional recommendations and suggestions are forthcoming. I will go ahead and order an N-terminal proBNP. Medications are reviewed. Prognosis is guarded. There is no known history of underlying intrinsic pulmonary disease. Plan dated 07/24/2021. Currently, the patient is doing about the same today as she was yesterday. As mentioned from yesterday, she is not a candidate for REM. He been sick for more than a month. She has been fully vaccinated. She is currently getting vitamin C, vitamin D3, and zinc, at usual doses, as well as Decadron, and Lovenox. We will continue to follow make recommendations were appropriate. Prognosis is guarded. She has no known history of underlying intrinsic pulmonary disease. Plan dated 07/25/2021. Currently, the patient's on appropriate medications including vitamins, as well as Decadron and Lovenox. Because of the protracted nature of her medical condition, the patient was not a candidate for REM. He follow this patient make recommendations where appropriate. I asked her that when she is laying in bed, she can lay on her left side, right side, and also supine. If possible to prone herself, she should. Additional recommendations and suggestions are forthcoming. Time with Patient: Less than 30
[2021-07-25 16:39] LABS: Glucose,Whole Blood 179 mg/dL (75-99)
--- NOTE | 2021-07-25 19:34 | P.PN ---
Subjective Progress Note Date: 07/23/21 65-year-old male with a known history of hypertension, hyperlipidemia, diabetes type 2 [id number]-[id number], osteoarthritis, obstructive sleep apnea, migraine headaches and no prior history of smoking presents to ER with complaints of fever, cough and shortness of breath along with diarrhea. Patient states that she has been sick for the past 2 weeks with cough congestion body aches and is also having diarrhea for the past 1 week. She came to the ER due to complaints of dark-colored stools. Patient states this is not any blood thinners. No prior history of peptic ulcer disease. Patient does take naproxen for arthritic pain. No complaints of chest pain. On admission T-max was 101.4, pulse 102, pulse ox 83% on room air. Denies any complaints of chest pain. No abdominal pain. No dysuria or hematuria. No headache or dizziness or lightheadedness. Chest x-ray showed there is new patchy pulmonary edema compared to oral exam that could be acute pneumonia. Laboratory showed WBC 4.5 hemoglobin 15.7 and platelets 173 and lymphocytes 0.8 Sodium 138 potassium 4.6 chloride 102 BUN 61 creatinine 2.12 Blood sugar 139 AST 97 ALT 60 alk phos 63 and lipase level 651 Stool occult blood positive and Coronavirus PCR detected. Objective - Vital Signs Vital signs: Vital Signs Temp 98.3 F 07/23/21 14:07 Pulse 79 07/23/21 14:07 Resp 18 07/23/21 14:07 BP 113/72 07/23/21 14:07 Pulse Ox 99 07/23/21 14:07 Intake & Output 07/22/21 07/23/21 07/23/21 18:59 06:59 18:59 Intake Total 120 Output Total 350 Balance -230 Intake: Oral 120 Output: Urine 350 Other: Voiding Method Toilet Toilet # Voids 2 1 - Exam PHYSICAL EXAMINATION: GENERAL: The patient is alert and oriented x3, not in any acute distress. Well developed, well nourished. HEENT: Pupils are round and equally reacting to light. EOMI. No scleral icterus. No conjunctival pallor. Normocephalic, atraumatic. No pharyngeal erythema. No thyromegaly. CARDIOVASCULAR: S1 and S2 present. No murmurs, rubs, or gallops. PULMONARY: Chest is clear to auscultation, no wheezing or crackles. ABDOMEN: Soft, nontender, nondistended, normoactive bowel sounds. No palpable organomegaly. MUSCULOSKELETAL: No joint swelling or deformity. EXTREMITIES: No cyanosis, clubbing, or pedal edema. NEUROLOGICAL: Gross neurological examination did not reveal any focal deficits. SKIN: No rashes. - Labs CBC & Chem 7: 07/25/21 06:00 07/25/21 06:00 Labs: Abnormal Lab Results - Last 24 Hours (Table) 07/23/21 07/23/21 07/23/21 Range/Units 06:18 06:18 11:30 MCHC 31.6 L (32.0-37.0) g/dL Lymphocytes # 0.65 L (0.90-5.00) X 10*3/uL Eosinophils # 0 L (0.04-0.35) X 10*3/uL D-Dimer 1.29 H (<0.60) mg/L FEU Potassium 6.1 H* (3.5-5.1) mmol/L BUN 44 H (7-17) mg/dL Creatinine 1.19 H (0.52-1.04) mg/dL Glucose 153 H (74-99) mg/dL Ferritin 1018.0 H (10.0-291.0) ng/mL AST 65 H (14-36) U/L ALT 52 H (4-34) U/L Lactate Dehydrogenase 1001 H (313-618) U/L C-Reactive Protein 1.2 H (<1.0) mg/dL Total Protein 6.1 L (6.3-8.2) g/dL Albumin 3.4 L (3.5-5.0) g/dL Lipase 714 H (23-300) U/L Assessment and Plan Assessment: Acute hypoxemic respiratory failure secondary to coronavirus associated pneumonia. Dark-colored stools with occult blood positive. Possible upper GI bleed. Acute kidney injury likely prerenal with creatinine level 2.14 on admission. Baseline creatinine not known Diabetes type 2 [id number]-ipjkutruk Mild acute pancreatitis with lipase level 651 Hyperlipidemia Hypertension Plan: Patient will be continued on IV hydration and monitor hemoglobin level. Currently hemoglobin is at 15.7. No active complaints of bleeding at this time. Continue with IV PPI and monitor. Patient will continue oxygen supplementation via nasal cannula. Continue with the dexamethasone, zinc sulfate, ascorbic acid and vitamin D3. Pulmonary consult. Continue with home medications Hold Lasix and lisinopril due to acute kidney injury. Patient is also on verapamil at home. Continue with insulin sliding scale.
--- NOTE | 2021-07-25 19:38 | P.PN ---
Subjective Progress Note Date: 07/24/21 Principal diagnosis: Acute hypoxic respiratory failure secondary to COVID-19 pneumonia Possible upper GI bleed. Acute kidney injury 65-year-old male with a known history of hypertension, hyperlipidemia, diabetes type 2 [id number]-mdqdzvpnx, osteoarthritis, obstructive sleep apnea, migraine headaches and no prior history of smoking presents to ER with complaints of fever, cough and shortness of breath along with diarrhea. Patient states that she has been sick for the past 2 weeks with cough congestion body aches and is also having diarrhea for the past 1 week. She came to the ER due to complaints of dark-colored stools. Patient states this is not any blood thinners. No prior history of peptic ulcer disease. Patient does take naproxen for arthritic pain. No complaints of chest pain. On admission T-max was 101.4, pulse 102, pulse ox 83% on room air. Denies any complaints of chest pain. No abdominal pain. No dysuria or hematuria. No headache or dizziness or lightheadedness. Chest x-ray showed there is new patchy pulmonary edema compared to oral exam that could be acute pneumonia. Laboratory showed WBC 4.5 hemoglobin 15.7 and platelets 173 and lymphocytes 0.8 Sodium 138 potassium 4.6 chloride 102 BUN 61 creatinine 2.12 Blood sugar 139 AST 97 ALT 60 alk phos 63 and lipase level 651 Stool occult blood positive and Coronavirus PCR detected. 07/24/2021 Patient is seen and evaluated and discussed with nursing staff; continues to complain of shortness of breath with minimal activity; patient has been brian gnosed with COVID-19 pneumonia; patient does report vaccination against coronavirus Vital signs are reviewed with temperature of 99.2, pulse 80, respiration 18 and blood pressure 143/73 and O2 saturation 91% Patient remains on treatment with Decadron, Lovenox and COVID-19 vitamin cocktail; patient is deemed not a candidate for REM due to onset of symptoms a few weeks prior to presenting to the hospital and patient has been fully vaccinated Laboratory review shows WBC of 4.2 and hemoglobin consistently stable at 14.8 with platelet count of 158; sodium 139, potassium 5.0 which is down from 6.1 y esterday, BUN/creatinine of 28/0.77 down from 44/1.19 yesterday Objective - Vital Signs Vital signs: Vital Signs Temp 99.2 F 07/24/21 09:38 Pulse 80 07/24/21 09:38 Resp 18 07/24/21 09:38 BP 143/73 07/24/21 09:38 Pulse Ox 91 L 07/24/21 09:38 Intake & Output 07/23/21 07/24/21 07/24/21 18:59 06:59 18:59 Intake Total 100 Balance 100 Intake: Oral 100 Other: Voiding Method Toilet Toilet Toilet # Voids 5 3 - Exam PHYSICAL EXAMINATION: GENERAL: The patient is alert and oriented x3, not in any acute distress. Well developed, well nourished. HEENT: Pupils are round and equally reacting to light. EOMI. No scleral icterus. No conjunctival pallor. Normocephalic, atraumatic. No pharyngeal erythema. No thyromegaly. CARDIOVASCULAR: S1 and S2 present. No murmurs, rubs, or gallops. PULMONARY: Chest is clear to auscultation, no wheezing or crackles. ABDOMEN: Soft, nontender, nondistended, normoactive bowel sounds. No palpable organomegaly. MUSCULOSKELETAL: No joint swelling or deformity. EXTREMITIES: No cyanosis, clubbing, or pedal edema. NEUROLOGICAL: Gross neurological examination did not reveal any focal deficits. SKIN: No rashes. - Labs CBC & Chem 7: 07/25/21 06:00 07/25/21 06:00 Assessment and Plan Assessment: Acute hypoxemic respiratory failure secondary to coronavirus associated pneumonia. Dark-colored stools with occult blood positive. Possible upper GI bleed. Acute kidney injury likely prerenal with creatinine level 2.14 on admission. Baseline creatinine not known Diabetes type 2 loz-eehoglw-gbsmopgod Mild acute pancreatitis with lipase level 651 Hyperlipidemia Hypertension Plan: Patient will be continued on IV hydration and monitor hemoglobin level. Currently hemoglobin is at 15.7. No active complaints of bleeding at this time. Continue with IV PPI and monitor. Patient will continue oxygen supplementation via nasal cannula. Continue with the dexamethasone, zinc sulfate, ascorbic acid and vitamin D3. Pulmonary consult. Continue with home medications Hold Lasix and lisinopril due to acute kidney injury. Patient is also on verapamil at home. Continue with insulin sliding scale.
--- NOTE | 2021-07-25 19:43 | P.PN ---
Subjective Progress Note Date: 07/25/21 Principal diagnosis: Acute hypoxic respiratory failure secondary to COVID-19 pneumonia Possible upper GI bleed. Acute kidney injury 65-year-old male with a known history of hypertension, hyperlipidemia, diabetes type 2 akj-crqzzga-jfebgavjx, osteoarthritis, obstructive sleep apnea, migraine headaches and no prior history of smoking presents to ER with complaints of fever, cough and shortness of breath along with diarrhea. Patient states that she has been sick for the past 2 weeks with cough congestion body aches and is also having diarrhea for the past 1 week. She came to the ER due to complaints of dark-colored stools. Patient states this is not any blood thinners. No prior history of peptic ulcer disease. Patient does take naproxen for arthritic pain. No complaints of chest pain. On admission T-max was 101.4, pulse 102, pulse ox 83% on room air. Denies any complaints of chest pain. No abdominal pain. No dysuria or hematuria. No headache or dizziness or lightheadedness. Chest x-ray showed there is new patchy pulmonary edema compared to oral exam that could be acute pneumonia. Laboratory showed WBC 4.5 hemoglobin 15.7 and platelets 173 and lymphocytes 0.8 Sodium 138 potassium 4.6 chloride 102 BUN 61 creatinine 2.12 Blood sugar 139 AST 97 ALT 60 alk phos 63 and lipase level 651 Stool occult blood positive and Coronavirus PCR detected. 07/24/2021 Patient is seen and evaluated and discussed with nursing staff; continues to complain of shortness of breath with minimal activity; patient has been brian gnosed with COVID-19 pneumonia; patient does report vaccination against coronavirus Vital signs are reviewed with temperature of 99.2, pulse 80, respiration 18 and blood pressure 143/73 and O2 saturation 91% Patient remains on treatment with Decadron, Lovenox and COVID-19 vitamin cocktail; patient is deemed not a candidate for REM due to onset of symptoms a few weeks prior to presenting to the hospital and patient has been fully vaccinated Laboratory review shows WBC of 4.2 and hemoglobin consistently stable at 14.8 with platelet count of 158; sodium 139, potassium 5.0 which is down from 6.1 y esterday, BUN/creatinine of 28/0.77 down from 44/1.19 yesterday 07/25/2021 Patient discussed with nursing staff no specific concerns identified; continues to report shortness of breath; self proning encourage Vital signs are reviewed temperature 99.3, pulse 79, respirations 17 and blood pressure 102/67 Lab review shows WBC 4.7, hemoglobin 14 and platelet count of 172, d-dimer at 0.96, BUN/creatinine down to 25/1.0; repeat chest x-ray shows improvement Pulmonary on board and recommending to continue with current treatment with Decadron, Lovenox and vitamins Objective - Vital Signs Vital signs: Vital Signs Temp 97.9 F 07/25/21 06:10 Pulse 73 07/25/21 06:10 Resp 19 07/25/21 06:10 BP 138/95 07/25/21 06:10 Pulse Ox 90 L 07/25/21 06:10 Intake & Output 07/24/21 07/25/21 07/25/21 18:59 06:59 18:59 Intake Total 1400 240 Balance 1400 240 Intake: Intake, IV Titration 900 Amount Sodium Chloride 0.9% 1, 900 000 ml @ 75 mls/hr IV . [id number] [facility] Rx#:[id number] Oral 500 240 Other: Voiding Method Toilet Toilet Toilet # Voids 6 3 # Bowel Movements 1 - Exam PHYSICAL EXAMINATION: GENERAL: The patient is alert and oriented x3, not in any acute distress. Well developed, well nourished. HEENT: Pupils are round and equally reacting to light. EOMI. No scleral icterus. No conjunctival pallor. Normocephalic, atraumatic. No pharyngeal erythema. No thyromegaly. CARDIOVASCULAR: S1 and S2 present. No murmurs, rubs, or gallops. PULMONARY: Chest is clear to auscultation, no wheezing or crackles. ABDOMEN: Soft, nontender, nondistended, normoactive bowel sounds. No palpable organomegaly. MUSCULOSKELETAL: No joint swelling or deformity. EXTREMITIES: No cyanosis, clubbing, or pedal edema. NEUROLOGICAL: Gross neurological examination did not reveal any focal deficits. SKIN: No rashes. - Labs CBC & Chem 7: 07/25/21 06:00 07/25/21 06:00 Labs: Abnormal Lab Results - Last 24 Hours (Table) 07/24/21 07/24/21 07/24/21 Range/Units 20:06 20:06 21:01 Immature Gran # (0.00-0.04) X 10*3/uL Lymphocytes # 0.4 L (1.0-4.8) k/uL Eosinophils # (0.04-0.35) X 10*3/uL BUN 28 H (7-17) mg/dL Glucose 210 H (74-99) mg/dL POC Glucose (mg/dL) 187 H (75-99) mg/dL 07/25/21 07/25/21 Range/Units 06:00 06:49 Immature Gran # 0.05 H (0.00-0.04) X 10*3/uL Lymphocytes # 0.79 L (1.0-4.8) k/uL Eosinophils # 0 L (0.04-0.35) X 10*3/uL BUN (7-17) mg/dL Glucose (74-99) mg/dL POC Glucose (mg/dL) 131 H (75-99) mg/dL Assessment and Plan Assessment: Acute hypoxemic respiratory failure secondary to coronavirus associated pneumonia. Dark-colored stools with occult blood positive. Possible upper GI bleed. Acute kidney injury likely prerenal with creatinine level 2.14 on admission. Baseline creatinine not known Diabetes type 2 ong-nkrndxt-ryuksrree Mild acute pancreatitis with lipase level 651 Hyperlipidemia Hypertension Plan: Patient will be continued on IV hydration and monitor hemoglobin level. Currently hemoglobin is at 15.7. No active complaints of bleeding at this time. Continue with IV PPI and monitor. Patient will continue oxygen supplementation via nasal cannula. Continue with the dexamethasone, zinc sulfate, ascorbic acid and vitamin D3. Pulmonary consult. Continue with home medications Hold Lasix and lisinopril due to acute kidney injury. Patient is also on verapamil at home. Continue with insulin sliding scale.
[2021-07-25] MEDS: SYMBICORT 160-4.5 MCG INHALER INHALATION SCH (20:12)
[2021-07-25 20:38] LABS: Glucose,Whole Blood 141 mg/dL (75-99)
[2021-07-26] MEDS: ACETAMINOPHEN TAB 325 MG TAB PO PRN (03:29)
[2021-07-26 07:14] LABS: Glucose,Whole Blood 128 mg/dL (75-99)
[2021-07-26] MEDS: SYMBICORT 160-4.5 MCG INHALER INHALATION SCH ×2 (07:51→19:46)
[2021-07-26] MEDS: ALBUTEROL HFA INHALER INHALATION SCH ×4 (07:51→19:45)
[2021-07-26] MEDS: INSULIN ASPART (NovoLOG) 100 UNIT/ML VIAL SQ SCH ×4 (07:51→21:06)
[2021-07-26] MEDS: SODIUM CHLORIDE 0.9% 1,000 ML IV SCH ×2 (08:56→21:07)
[2021-07-26] MEDS: CHOLECALCIFEROL 25 MCG (1000 IU) TABLET PO SCH (08:56)
[2021-07-26] MEDS: PANTOPRAZOLE 40 MG TABLET PO SCH (08:57)
[2021-07-26] MEDS: ASCORBIC ACID 500 MG TAB PO SCH (08:57)
[2021-07-26] MEDS: OXYBUTYNIN 15 MG TAB.ER.24 PO SCH (08:57)
[2021-07-26] MEDS: ENOXAPARIN 40 MG/0.4 ML SYRINGE SQ SCH (08:57)
[2021-07-26] MEDS: DEXAMETHASONE SOD PHOSPHATE 10 MG/ML 1 ML VIAL IV SCH (08:57)
[2021-07-26] MEDS: ZINC SULFATE 220 MG CAP PO SCH (08:57)
[2021-07-26] MEDS: FUROSEMIDE 20 MG TAB PO SCH (08:57)
[2021-07-26 11:43] LABS: Glucose,Whole Blood 174 mg/dL (75-99)
--- NOTE | 2021-07-26 12:03 | P.PN ---
Subjective Progress Note Date: 07/26/21 on today's evaluation of 07/26/2021, the patient feels slightly worse compared to yesterday. Oxidation is gotten worse. She was on 5 L and currently she is up to 15 L. She is morbidly obese. She has a body mass index of 47.7. She has also hypertension and hyperlipidemia and diabetes mellitus and obstructive sleep apnea as comorbid conditions. She has chronic edema lower extremity is bilaterally. She remains on Decadron. She was also on Lasix at a dose of 20 mg IV daily. She was having adequate urine output. Her IV fluids are running at 75 mL an hour normal saline. The patient has no chest pain. She is exhausted. Whenever she moves around she gets quite short of breath. No significant cough or sputum production. No chest tightness. No wheezing. She is on a combination of vitamin C, vitamin D, zinc and and she is also on Lovenox for DVT prophylaxis. The most recent d-dimer is at 1.79. The most recent LDH level is 1000 with a CRP of 1.2. Objective - Vital Signs Vital signs: Vital Signs Temp 99.2 F 07/26/21 10:00 Pulse 83 07/26/21 10:00 Resp 16 07/26/21 10:00 BP 111/77 07/26/21 10:00 Pulse Ox 94 L 07/26/21 10:00 Intake & Output 07/25/21 07/26/21 07/26/21 18:59 06:59 18:59 Intake Total 240 118 Balance 240 118 Intake: Oral 240 118 Other: Voiding Method Toilet Toilet Toilet # Voids 2 - Exam No acute distress, oriented 3. No respiratory distress, audible wheezing, or use of accessory muscles. The patient's currently on 15 L and saturations are 90-92%., she is uncomfortable she is sitting up on a chair. The breathing is comfortable and nonlabored HEENT examination is grossly unremarkable. Neck supple. Full range of motion. No adenopathy thyromegaly or neck vein distention. Cardiovascular examination reveals regular rhythm rate. S1-S2 normal. No S3 or S4. No discernible murmur noted. Heart sounds are distant. Heart rate 79 bpm. Lungs reveal scattered coarse rhonchi. Mild bibasilar crackles. No wheezes. Breath sounds equal bilaterally. The patient coughs when she takes a deep breath. Abdomen soft bowel sounds are heard. No masses or tenderness. Extremities are intact. No cyanosis clubbingand there is evidence of chronic edema lower extremities bilaterally. Skin is without rash or lesion. Neurologic examination is brief but nonfocal. - Labs CBC & Chem 7: 07/25/21 06:00 07/25/21 06:00 Labs: Abnormal Lab Results - Last 24 Hours (Table) 07/25/21 07/25/21 07/26/21 Range/Units 16:37 20:36 06:04 D-Dimer 1.79 H (<0.60) mg/L FEU POC Glucose (mg/dL) 179 H 141 H (75-99) mg/dL 07/26/21 07/26/21 Range/Units 07:13 11:41 D-Dimer (<0.60) mg/L FEU POC Glucose (mg/dL) 128 H 174 H (75-99) mg/dL Assessment and Plan Plan: 1 Acute hypoxemic respiratory failure secondary to coronavirus associated pneumonia. 2 History of GI bleed. 3 History of diabetes mellitus. 4 History of gastroesophageal reflux disease. 5 History of hyperlipidemia. 6 History of hypertension. 7 History of sleep apnea syndrome, not currently using CPAP. 8 Lifelong nontobacco use. 9 morbid obesity plan Condition has progressed. The patient is requiring higher level of oxygen and patient is currently on 15 L of oxygen by nasal cannula. Based on this, suggesting to continue the Decadron and the Lovenox and add Baricitinib per protocol. Monitor oxygenation and regulated Protonix and saturation above 90% Recheck inflammatory markers including LDH, CRP, and d-dimer. Also check a pro- calcitonin level We'll continue to follow
[2021-07-26 12:19] LABS: African American GFR (CKD) 72 (>60 ml/min/1.73 sqM); Anion Gap 8 mmol/L; Blood Urea Nitrogen 28 mg/dL (7-17); Calcium 8.9 mg/dL (8.4-10.2); Carbon Dioxide 29 mmol/L (22-30); Chloride 103 mmol/L (98-107); Glucose 128 mg/dL (74-99); LDH 1368 U/L (313-618); Non-African American GFR(CKD) 62 (>60 ml/min/1.73 sqM); Potassium 4.2 mmol/L (3.5-5.1); Sodium 140 mmol/L (137-145)
--- NOTE | 2021-07-26 12:33 | XR ---
EXAMINATION TYPE: XR chest 1V DATE OF EXAM: 07/26/2021 COMPARISON: 07/25/2021 HISTORY: COVID TECHNIQUE: Single frontal view of the chest is obtained. FINDINGS: There is bilateral patchy airspace disease and groundglass opacities which appear similar to the prior examination and are consistent with known COVID. Cardiac silhouette is unchanged. IMPRESSION: There is bilateral patchy airspace disease and groundglass opacities which appear similar to the prio r examination and are consistent with known COVID.
[2021-07-26 12:35] LABS: C Reactive Protein 1.5 mg/dL (<1.0)
[2021-07-26 16:48] LABS: Glucose,Whole Blood 187 mg/dL (75-99)
--- NOTE | 2021-07-26 17:19 | P.PN ---
Subjective Progress Note Date: 07/26/21 Principal diagnosis: Acute hypoxic respiratory failure secondary to COVID-19 pneumonia Possible upper GI bleed. Acute kidney injury 65-year-old male with a known history of hypertension, hyperlipidemia, diabetes type 2 lmy-gyezqdw-eevzhrjxw, osteoarthritis, obstructive sleep apnea, migraine headaches and no prior history of smoking presents to ER with complaints of fever, cough and shortness of breath along with diarrhea. Patient states that she has been sick for the past 2 weeks with cough congestion body aches and is also having diarrhea for the past 1 week. She came to the ER due to complaints of dark-colored stools. Patient states this is not any blood thinners. No prior history of peptic ulcer disease. Patient does take naproxen for arthritic pain. No complaints of chest pain. On admission T-max was 101.4, pulse 102, pulse ox 83% on room air. Denies any complaints of chest pain. No abdominal pain. No dysuria or hematuria. No headache or dizziness or lightheadedness. Chest x-ray showed there is new patchy pulmonary edema compared to oral exam that could be acute pneumonia. Laboratory showed WBC 4.5 hemoglobin 15.7 and platelets 173 and lymphocytes 0.8 Sodium 138 potassium 4.6 chloride 102 BUN 61 creatinine 2.12 Blood sugar 139 AST 97 ALT 60 alk phos 63 and lipase level 651 Stool occult blood positive and Coronavirus PCR detected. 07/24/2021 Patient is seen and evaluated and discussed with nursing staff; continues to complain of shortness of breath with minimal activity; patient has been brian gnosed with COVID-19 pneumonia; patient does report vaccination against coronavirus Vital signs are reviewed with temperature of 99.2, pulse 80, respiration 18 and blood pressure 143/73 and O2 saturation 91% Patient remains on treatment with Decadron, Lovenox and COVID-19 vitamin cocktail; patient is deemed not a candidate for REM due to onset of symptoms a few weeks prior to presenting to the hospital and patient has been fully vaccinated Laboratory review shows WBC of 4.2 and hemoglobin consistently stable at 14.8 with platelet count of 158; sodium 139, potassium 5.0 which is down from 6.1 y esterday, BUN/creatinine of 28/0.77 down from 44/1.19 yesterday 07/25/2021 Patient discussed with nursing staff no specific concerns identified; continues to report shortness of breath; self proning encourage Vital signs are reviewed temperature 99.3, pulse 79, respirations 17 and blood pressure 102/67 Lab review shows WBC 4.7, hemoglobin 14 and platelet count of 172, d-dimer at 0.96, BUN/creatinine down to 25/1.0; repeat chest x-ray shows improvement Pulmonary on board and recommending to continue with current treatment with Decadron, Lovenox and vitamins 07/26/2021 Patient is seen and evaluated in room at bedside; oxygen saturation has declined and patient is currently on 15 L of O2. patient is being transferred to ICU as an overflow She remains on Decadron. She was also on Lasix at a dose of 20 mg IV daily. She was having adequate urine output. Her IV fluids are running at 75 mL an hour normal saline. The patient has no chest pain. She is exhausted. Whenever she moves around she gets quite short of breath. No significant cough or sputum production. No chest tightness. No wheezing. She is on a combination of vitamin C, vitamin D, zinc and and she is also on Lovenox for DVT prophylaxis. The most recent d-dimer is at 1.79. The most recent LDH level is 1000 with a CRP of 1.2. Pulmonary service recommending to continue the Decadron and the Lovenox and add Baricitinib per protocol. Objective - Vital Signs Vital signs: Vital Signs Temp 99.2 F 07/26/21 10:00 Pulse 83 07/26/21 10:00 Resp 16 07/26/21 10:00 BP 111/77 07/26/21 10:00 Pulse Ox 94 L 07/26/21 10:00 Intake & Output 07/25/21 07/26/21 07/26/21 18:59 06:59 18:59 Intake Total 240 118 Balance 240 118 Intake: Oral 240 118 Other: Voiding Method Toilet Toilet Toilet # Voids 2 - Exam PHYSICAL EXAMINATION: GENERAL: The patient is alert and oriented x3, not in any acute distress. Well developed, well nourished. HEENT: Pupils are round and equally reacting to light. EOMI. No scleral icterus. No conjunctival pallor. Normocephalic, atraumatic. No pharyngeal erythema. No t hyromegaly. CARDIOVASCULAR: S1 and S2 present. No murmurs, rubs, or gallops. PULMONARY: Chest is clear to auscultation, no wheezing or crackles. ABDOMEN: Soft, nontender, nondistended, normoactive bowel sounds. No palpable organomegaly. MUSCULOSKELETAL: No joint swelling or deformity. EXTREMITIES: No cyanosis, clubbing, or pedal edema. NEUROLOGICAL: Gross neurological examination did not reveal any focal deficits. SKIN: No rashes. - Labs CBC & Chem 7: 07/25/21 06:00 07/26/21 06:04 Labs: Abnormal Lab Results - Last 24 Hours (Table) 07/25/21 07/25/21 07/26/21 Range/Units 16:37 20:36 06:04 D-Dimer 1.79 H (<0.60) mg/L FEU BUN (7-17) mg/dL Glucose (74-99) mg/dL POC Glucose (mg/dL) 179 H 141 H (75-99) mg/dL Lactate Dehydrogenase (313-618) U/L C-Reactive Protein (<1.0) mg/dL 07/26/21 07/26/21 07/26/21 Range/Units 06:04 07:13 11:41 D-Dimer (<0.60) mg/L FEU BUN 28 H (7-17) mg/dL Glucose 128 H (74-99) mg/dL POC Glucose (mg/dL) 128 H 174 H (75-99) mg/dL Lactate Dehydrogenase 1368 H (313-618) U/L C-Reactive Protein 1.5 H (<1.0) mg/dL Assessment and Plan Assessment: Acute hypoxemic respiratory failure secondary to coronavirus associated pneumonia. Dark-colored stools with occult blood positive. Possible upper GI bleed. Acute kidney injury likely prerenal with creatinine level 2.14 on admission. Baseline creatinine not known Diabetes type 2 tab-rilnkrz-sfloljinh Mild acute pancreatitis with lipase level 651 Hyperlipidemia Hypertension Plan: Patient will be continued on IV hydration and monitor hemoglobin level. Currently hemoglobin is at 15.7. No active complaints of bleeding at this time. Continue with IV PPI and monitor. Patient will continue oxygen supplementation via nasal cannula. Continue with the dexamethasone, zinc sulfate, ascorbic acid and vitamin D3. Pulmonary consult. Continue with home medications Hold Lasix and lisinopril due to acute kidney injury. Patient is also on verapamil at home. Continue with insulin sliding scale.
[2021-07-26 20:40] LABS: Glucose,Whole Blood 170 mg/dL (75-99)
[2021-07-26] MEDS: ATORVASTATIN 10 MG TAB PO SCH (21:06)
[2021-07-26] MEDS: INSULIN DETEMIR (LEVEMIR) 100 UNIT/ML SYR SQ SCH (21:06)
[2021-07-27] MEDS: ACETAMINOPHEN TAB 325 MG TAB PO PRN ×4 (03:06→21:35)
[2021-07-27 05:43] LABS: C Reactive Protein 3.5 mg/dL (<1.0); Calcium 8.8 mg/dL (8.4-10.2); Potassium 3.8 mmol/L (3.5-5.1)
[2021-07-27 06:55] LABS: Glucose,Whole Blood 111 mg/dL (75-99)
[2021-07-27] MEDS: INSULIN ASPART (NovoLOG) 100 UNIT/ML VIAL SQ SCH ×4 (06:55→21:24)
[2021-07-27] MEDS: PANTOPRAZOLE 40 MG TABLET PO SCH (06:57)
[2021-07-27] MEDS: SYMBICORT 160-4.5 MCG INHALER INHALATION SCH ×2 (07:35→19:55)
[2021-07-27] MEDS: ALBUTEROL HFA INHALER INHALATION SCH ×4 (07:35→19:55)
[2021-07-27] MEDS: ASCORBIC ACID 500 MG TAB PO SCH (08:31)
[2021-07-27] MEDS: CHOLECALCIFEROL 25 MCG (1000 IU) TABLET PO SCH (08:31)
[2021-07-27] MEDS: ZINC SULFATE 220 MG CAP PO SCH (08:32)
[2021-07-27] MEDS: FUROSEMIDE 20 MG TAB PO SCH (08:32)
[2021-07-27] MEDS: OXYBUTYNIN 15 MG TAB.ER.24 PO SCH (08:32)
[2021-07-27] MEDS: DEXAMETHASONE SOD PHOSPHATE 10 MG/ML 1 ML VIAL IV SCH (08:33)
[2021-07-27] MEDS: ENOXAPARIN 40 MG/0.4 ML SYRINGE SQ SCH (08:34)
--- NOTE | 2021-07-27 10:21 | P.PN ---
Subjective Progress Note Date: 07/27/21 on today's evaluation of 07/26/2021, the patient feels slightly worse compared to yesterday. Oxidation is gotten worse. She was on 5 L and currently she is up to 15 L. She is morbidly obese. She has a body mass index of 47.7. She has also hypertension and hyperlipidemia and diabetes mellitus and obstructive sleep apnea as comorbid conditions. She has chronic edema lower extremity is bilaterally. She remains on Decadron. She was also on Lasix at a dose of 20 mg IV daily. She was having adequate urine output. Her IV fluids are running at 75 mL an hour normal saline. The patient has no chest pain. She is exhausted. Whenever she moves around she gets quite short of breath. No significant cough or sputum production. No chest tightness. No wheezing. She is on a combination of vitamin C, vitamin D, zinc and and she is also on Lovenox for DVT prophylaxis. The most recent d-dimer is at 1.79. The most recent LDH level is 1000 with a CRP of 1.2. 07/27/2021, the patient is in the intensive care unit. Note that the patient got transferred to the ICU yesterday due to her borderline respiratory status as the patient was placed on 15 L of oxygen by nasal cannula in addition to 100% nonrebreather facemask to improve her oxygenation. This morning, pulse ox is around 97-98%. She is sitting up on a chair. She is a bit lethargic. She is easily arousable and she communicates and follows commands and answers questions. Her breathing is nonlabored. She remains on Decadron. She is also on milligrams by mouth daily pH is receiving Lovenox 40 mg subcu for DVT prophylaxis. In terms of inflammatory marker, her d-dimer is at 1.59, and LDH level is 1445, her CRP level is at 3.5 and her procal is low at 0.07. The rest of the blood work essentially within normal limits including electrolytes. No nausea. No vomiting. No chest pain. No altered mentation. No other signi ficant events otherwise since yesterday. Objective - Vital Signs Vital signs: Vital Signs Temp 98.7 F 07/27/21 06:00 Pulse 79 07/27/21 06:00 Resp 24 07/27/21 06:00 BP 101/77 07/27/21 06:00 Pulse Ox 94 L 07/27/21 06:00 Intake & Output 07/26/21 07/27/21 07/27/21 18:59 06:59 18:59 Intake Total 374 240 Output Total 400 Balance 374 -160 Intake: IV 20 Sodium Chloride 0.9% 1, 20 000 ml @ 20 mls/hr IV . Q24H [facility] Rx#:[id number] Oral 354 240 Output: Urine 400 Other: Voiding Method Toilet External Catheter # Voids 1 1 - Exam No acute distress, oriented 3. No respiratory distress, audible wheezing, or use of accessory muscles. The patient's currently on 15 L and saturations are 90-92%., she is uncomfortable she is sitting up on a chair. The breathing is comfortable and nonlabored HEENT examination is grossly unremarkable. Neck supple. Full range of motion. No adenopathy thyromegaly or neck vein distention. Cardiovascular examination reveals regular rhythm rate. S1-S2 normal. No S3 or S4. No discernible murmur noted. Heart sounds are distant. Heart rate 79 bpm. Lungs reveal scattered coarse rhonchi. Mild bibasilar crackles. No wheezes. Breath sounds equal bilaterally. The patient coughs when she takes a deep breath. Abdomen soft bowel sounds are heard. No masses or tenderness. Extremities are intact. No cyanosis clubbingand there is evidence of chronic edema lower extremities bilaterally. Skin is without rash or lesion. Neurologic examination is brief but nonfocal. - Labs CBC & Chem 7: 07/25/21 06:00 07/27/21 04:17 Labs: Abnormal Lab Results - Last 24 Hours (Table) 07/26/21 07/26/21 07/26/21 Range/Units 06:04 11:41 16:46 D-Dimer (<0.60) mg/L FEU BUN 28 H (7-17) mg/dL Glucose 128 H (74-99) mg/dL POC Glucose (mg/dL) 174 H 187 H (75-99) mg/dL Lactate Dehydrogenase 1368 H (313-618) U/L C-Reactive Protein 1.5 H (<1.0) mg/dL 07/26/21 07/27/21 07/27/21 Range/Units 20:39 04:17 04:17 D-Dimer 1.59 H (<0.60) mg/L FEU BUN 25 H (7-17) mg/dL Glucose 121 H (74-99) mg/dL POC Glucose (mg/dL) 170 H (75-99) mg/dL Lactate Dehydrogenase 1445 H (313-618) U/L C-Reactive Protein 3.5 H (<1.0) mg/dL 07/27/21 Range/Units 06:53 D-Dimer (<0.60) mg/L FEU BUN (7-17) mg/dL Glucose (74-99) mg/dL POC Glucose (mg/dL) 111 H (75-99) mg/dL Lactate Dehydrogenase (313-618) U/L C-Reactive Protein (<1.0) mg/dL Assessment and Plan Plan: 1 Acute hypoxemic respiratory failure secondary to coronavirus associated pneumonia. The patient is currently in the intensive care unit. The patient on 100% nonrebreather facemask addition to 15 L of oxygen by nasal cannula. Her pulse ox is around 97-98%. She is stable for now. No significant interval br eathing worsening since yesterday. 2 History of GI bleed. As of GI bleeding for now 3 History of diabetes mellitus. 4 History of gastroesophageal reflux disease. 5 History of hyperlipidemia. 6 History of hypertension. 7 History of sleep apnea syndrome, not currently using CPAP. 8 Lifelong nontobacco use. 9 morbid obesity plan Keep the patient 100% nonrebreather facemask in addition to a nasal cannula at 15 L of oxygen by nasal cannula. Based on this, suggesting to continue the Deca dron and the Lovenox and add Baricitinib per protocol. I contacted the pharmacy for initiation of Baricitinib again today. Monitor oxygenation and regulated Protonix and saturation above 90% Recheck inflammatory markers including LDH, CRP, and d-dimer. Also check a pro- calcitonin level We'll continue to follow Continue supportive care. Provide the patient incentive spirometer. Sit up on a chair. We'll continue to follow.
[2021-07-27 11:22] LABS: Glucose,Whole Blood 159 mg/dL (75-99)
[2021-07-27] MEDS: BARICITINIB 2 MG TABLET PO SCH (12:08)
[2021-07-27 16:57] LABS: Glucose,Whole Blood 188 mg/dL (75-99)
[2021-07-27 21:21] LABS: Glucose,Whole Blood 126 mg/dL (75-99)
[2021-07-27] MEDS: INSULIN DETEMIR (LEVEMIR) 100 UNIT/ML SYR SQ SCH (22:12)
[2021-07-28 06:53] LABS: Glucose,Whole Blood 110 mg/dL (75-99)
--- NOTE | 2021-07-28 07:23 | XR ---
EXAMINATION TYPE: XR chest 1V portable DATE OF EXAM: 07/28/2021 HISTORY: Shortness of breath. COMPARISON: 07/26/2021 TECHNIQUE: Single view of the chest is submitted. FINDINGS: Demonstrated are scattered senescent parenchymal change. Patchy basilar infiltrates persist with interval progression suggested. The heart is stable. Hilar and mediastinal structures are within normal limits. Degenerative changes are seen of the dorsal spine. IMPRESSION: 1. Patchy basilar infiltrates persist with interval progression suggested.
[2021-07-28] MEDS: CHOLECALCIFEROL 25 MCG (1000 IU) TABLET PO SCH (08:25)
[2021-07-28] MEDS: FUROSEMIDE 20 MG TAB PO SCH (08:25)
[2021-07-28] MEDS: ASCORBIC ACID 500 MG TAB PO SCH (08:25)
[2021-07-28] MEDS: ENOXAPARIN 40 MG/0.4 ML SYRINGE SQ SCH (08:25)
[2021-07-28] MEDS: PANTOPRAZOLE 40 MG TABLET PO SCH (08:25)
[2021-07-28] MEDS: INSULIN ASPART (NovoLOG) 100 UNIT/ML VIAL SQ SCH ×4 (08:32→20:33)
[2021-07-28] MEDS: ZINC SULFATE 220 MG CAP PO SCH (08:36)
[2021-07-28] MEDS: ACETAMINOPHEN TAB 325 MG TAB PO PRN ×3 (08:36→21:06)
[2021-07-28] MEDS: SYMBICORT 160-4.5 MCG INHALER INHALATION SCH ×2 (08:45→21:44)
[2021-07-28] MEDS: ALBUTEROL HFA INHALER INHALATION SCH ×4 (08:45→21:44)
[2021-07-28] MEDS: BARICITINIB 2 MG TABLET PO SCH (09:40)
[2021-07-28] MEDS: OXYBUTYNIN 15 MG TAB.ER.24 PO SCH (09:40)
[2021-07-28] MEDS: DEXAMETHASONE SOD PHOSPHATE 10 MG/ML 1 ML VIAL IV SCH (09:40)
[2021-07-28 10:09] LABS: HCT 45.2 % (37.2-46.3); HGB 14.4 g/dL (12.0-15.0); MCH 28.9 pg (27.0-32.0); MCHC 31.9 g/dL (32.0-37.0); MCV 90.6 fL (80.0-97.0); Mean Platelet Volume 10.9 fL (9.5-12.2); Platelet Count 287 X 10*3/uL (140-440); RBC 4.99 X 10*6/uL (4.10-5.20); WBC 6.77 X 10*3/uL (4.50-10.00)
[2021-07-28 11:05] LABS: African American GFR (CKD) 67.3 (60.0-200.0); Anion Gap 16.2 mmol/L (4.00-12.00); BUN/Creat Ratio 27.84 Ratio (12.00-20.00); Blood Urea Nitrogen 28.4 mg/dL (9.0-27.0); C Reactive Protein 2.4 mg/dL (0.00-0.80); Calcium 9.3 mg/dL (8.7-10.3); Carbon Dioxide 27.1 mmol/L (21.6-31.8); Non-African American GFR(CKD) 58.1 (60.0-200.0); Potassium 4.6 mmol/L (3.5-5.5)
[2021-07-28 11:18] LABS: Glucose,Whole Blood 132 mg/dL (75-99)
[2021-07-28] MEDS: SODIUM CHLORIDE 0.9% 1,000 ML IV SCH (11:24)
--- NOTE | 2021-07-28 11:35 | P.PN ---
Subjective Progress Note Date: 07/27/21 Principal diagnosis: Acute hypoxic respiratory failure secondary to COVID-19 pneumonia Possible upper GI bleed. Acute kidney injury 65-year-old male with a known history of hypertension, hyperlipidemia, diabetes type 2 nxy-mrppexu-psmgpauka, osteoarthritis, obstructive sleep apnea, migraine headaches and no prior history of smoking presents to ER with complaints of fever, cough and shortness of breath along with diarrhea. Patient states that she has been sick for the past 2 weeks with cough congestion body aches and is also having diarrhea for the past 1 week. She came to the ER due to complaints of dark-colored stools. Patient states this is not any blood thinners. No prior history of peptic ulcer disease. Patient does take naproxen for arthritic pain. No complaints of chest pain. On admission T-max was 101.4, pulse 102, pulse ox 83% on room air. Denies any complaints of chest pain. No abdominal pain. No dysuria or hematuria. No headache or dizziness or lightheadedness. Chest x-ray showed there is new patchy pulmonary edema compared to oral exam that could be acute pneumonia. Laboratory showed WBC 4.5 hemoglobin 15.7 and platelets 173 and lymphocytes 0.8 Sodium 138 potassium 4.6 chloride 102 BUN 61 creatinine 2.12 Blood sugar 139 AST 97 ALT 60 alk phos 63 and lipase level 651 Stool occult blood positive and Coronavirus PCR detected. 07/24/2021 Patient is seen and evaluated and discussed with nursing staff; continues to complain of shortness of breath with minimal activity; patient has been brian gnosed with COVID-19 pneumonia; patient does report vaccination against coronavirus Vital signs are reviewed with temperature of 99.2, pulse 80, respiration 18 and blood pressure 143/73 and O2 saturation 91% Patient remains on treatment with Decadron, Lovenox and COVID-19 vitamin cocktail; patient is deemed not a candidate for REM due to onset of symptoms a few weeks prior to presenting to the hospital and patient has been fully vaccinated Laboratory review shows WBC of 4.2 and hemoglobin consistently stable at 14.8 with platelet count of 158; sodium 139, potassium 5.0 which is down from 6.1 y esterday, BUN/creatinine of 28/0.77 down from 44/1.19 yesterday 07/25/2021 Patient discussed with nursing staff no specific concerns identified; continues to report shortness of breath; self proning encourage Vital signs are reviewed temperature 99.3, pulse 79, respirations 17 and blood pressure 102/67 Lab review shows WBC 4.7, hemoglobin 14 and platelet count of 172, d-dimer at 0.96, BUN/creatinine down to 25/1.0; repeat chest x-ray shows improvement Pulmonary on board and recommending to continue with current treatment with Decadron, Lovenox and vitamins 07/26/2021 Patient is seen and evaluated in room at bedside; oxygen saturation has declined and patient is currently on 15 L of O2. patient is being transferred to ICU as an overflow She remains on Decadron. She was also on Lasix at a dose of 20 mg IV daily. She was having adequate urine output. Her IV fluids are running at 75 mL an hour normal saline. The patient has no chest pain. She is exhausted. Whenever she moves around she gets quite short of breath. No significant cough or sputum production. No chest tightness. No wheezing. She is on a combination of vitamin C, vitamin D, zinc and and she is also on Lovenox for DVT prophylaxis. The most recent d-dimer is at 1.79. The most recent LDH level is 1000 with a CRP of 1.2. Pulmonary service recommending to continue the Decadron and the Lovenox and add Baricitinib per protocol. 07/27/2021 Patient is seen and evaluated and discussed with nursing staff; patient was transferred to the ICU yesterday due to her borderline respiratory status as the patient was placed on 15 L of oxygen by nasal cannula in addition to 100% nonrebreather facemask to improve her oxygenation. Patient is sitting up on a chair. She is a bit lethargic but easily arousable; . Her breathing is nonlabored. Vital signs are reviewed temperature 98.7, pulse 79, respiration 24, and blood pressure 101/77; pulse ox is around 97-98%. She remains on Decadron; Lovenox 40 mg subcu along with COVID-19 vitamin radha ktail Laboratory review reveals d-dimer is at 1.59, and LDH level is 1445, her CRP level is at 3.5 and her procal is low at 0.07. Pulmonary on board and recommending to continue patient on 100% nonrebreather face Lasix in addition to nasal cannula at 15 L; continue the Decadron and the Lovenox and add Baricitinib per protocol Continue to follow inflammatory markers periodically including LDH, CRP, ferritin and d-dimer Objective - Vital Signs Vital signs: Vital Signs Temp 99.0 F 07/27/21 10:00 Pulse 81 07/27/21 10:00 Resp 24 07/27/21 10:00 BP 112/73 07/27/21 10:00 Pulse Ox 98 07/27/21 10:00 Intake & Output 07/26/21 07/27/21 07/27/21 18:59 06:59 18:59 Intake Total 374 240 Output Total 400 Balance 374 -160 Intake: IV 20 Sodium Chloride 0.9% 1, 20 000 ml @ 20 mls/hr IV . Q24H [facility] Rx#:[id number] Oral 354 240 Output: Urine 400 Other: Voiding Method Toilet External Catheter External Catheter # Voids 1 1 - Exam PHYSICAL EXAMINATION: GENERAL: The patient is alert and oriented x3, not in any acute distress. Well developed, well nourished. HEENT: Pupils are round and equally reacting to light. EOMI. No scleral icterus. No conjunctival pallor. Normocephalic, atraumatic. No pharyngeal erythema. No thyromegaly. CARDIOVASCULAR: S1 and S2 present. No murmurs, rubs, or gallops. PULMONARY: Chest is clear to auscultation, no wheezing or crackles. ABDOMEN: Soft, nontender, nondistended, normoactive bowel sounds. No palpable organomegaly. MUSCULOSKELETAL: No joint swelling or deformity. EXTREMITIES: No cyanosis, clubbing, or pedal edema. NEUROLOGICAL: Gross neurological examination did not reveal any focal deficits. SKIN: No rashes. - Labs CBC & Chem 7: 07/28/21 06:53 07/28/21 06:53 Labs: Abnormal Lab Results - Last 24 Hours (Table) 07/26/21 07/26/21 07/26/21 Range/Units 06:04 11:41 16:46 D-Dimer (<0.60) mg/L FEU BUN 28 H (7-17) mg/dL Glucose 128 H (74-99) mg/dL POC Glucose (mg/dL) 174 H 187 H (75-99) mg/dL Lactate Dehydrogenase 1368 H (313-618) U/L C-Reactive Protein 1.5 H (<1.0) mg/dL 07/26/21 07/27/21 07/27/21 Range/Units 20:39 04:17 04:17 D-Dimer 1.59 H (<0.60) mg/L FEU BUN 25 H (7-17) mg/dL Glucose 121 H (74-99) mg/dL POC Glucose (mg/dL) 170 H (75-99) mg/dL Lactate Dehydrogenase 1445 H (313-618) U/L C-Reactive Protein 3.5 H (<1.0) mg/dL 07/27/21 07/27/21 Range/Units 06:53 11:20 D-Dimer (<0.60) mg/L FEU BUN (7-17) mg/dL Glucose (74-99) mg/dL POC Glucose (mg/dL) 111 H 159 H (75-99) mg/dL Lactate Dehydrogenase (313-618) U/L C-Reactive Protein (<1.0) mg/dL Assessment and Plan Assessment: Acute hypoxemic respiratory failure secondary to coronavirus associated pneumonia. Dark-colored stools with occult blood positive. Possible upper GI bleed. Acute kidney injury likely prerenal with creatinine level 2.14 on admission. Baseline creatinine not known Diabetes type 2 [id number]-akcohyiar Mild acute pancreatitis with lipase level 651 Hyperlipidemia Hypertension Plan: Patient will be continued on IV hydration and monitor hemoglobin level. [facility] hemoglobin is at 15.7. No active complaints of bleeding at this time. Continue with IV PPI and monitor. Patient will continue oxygen supplementation via nasal cannula. Continue with the dexamethasone, zinc sulfate, ascorbic acid and vitamin D3. Pulmonary consult. Continue with home medications Hold Lasix and lisinopril due to acute kidney injury. Patient is also on verapamil at home. Continue with insulin sliding scale.
[2021-07-28 11:42] LABS: Acanthocytes 2+; Basophils # (A) 0.02 X 10*3/uL (0.00-0.10); Basophils % (A) 0.3 %; Eosinophils # (A) 0.02 X 10*3/uL (0.04-0.35); Eosinophils % (A) 0.3 %; Lymphocytes # (A) 1.35 X 10*3/uL (0.90-5.00); Lymphocytes % (A) 19.9 %; Monocytes # (A) 0.28 X 10*3/uL (0.20-1.00); Monocytes % (A) 4.1 %; Neutrophils # (A) 4.99 X 10*3/uL (1.80-7.70); Neutrophils % (A) 73.8 %
--- NOTE | 2021-07-28 12:59 | P.PN ---
Subjective Progress Note Date: 07/28/21 on today's evaluation of 07/26/2021, the patient feels slightly worse compared to yesterday. Oxidation is gotten worse. She was on 5 L and currently she is up to 15 L. She is morbidly obese. She has a body mass index of 47.7. She has also hypertension and hyperlipidemia and diabetes mellitus and obstructive sleep apnea as comorbid conditions. She has chronic edema lower extremity is bilaterally. She remains on Decadron. She was also on Lasix at a dose of 20 mg IV daily. She was having adequate urine output. Her IV fluids are running at 75 mL an hour normal saline. The patient has no chest pain. She is exhausted. Whenever she moves around she gets quite short of breath. No significant cough or sputum production. No chest tightness. No wheezing. She is on a combination of vitamin C, vitamin D, zinc and and she is also on Lovenox for DVT prophylaxis. The most recent d-dimer is at 1.79. The most recent LDH level is 1000 with a CRP of 1.2. 07/27/2021, the patient is in the intensive care unit. Note that the patient got transferred to the ICU yesterday due to her borderline respiratory status as the patient was placed on 15 L of oxygen by nasal cannula in addition to 100% nonrebreather facemask to improve her oxygenation. This morning, pulse ox is around 97-98%. She is sitting up on a chair. She is a bit lethargic. She is easily arousable and she communicates and follows commands and answers questions. Her breathing is nonlabored. She remains on Decadron. She is also on milligrams by mouth daily pH is receiving Lovenox 40 mg subcu for DVT prophylaxis. In terms of inflammatory marker, her d-dimer is at 1.59, and LDH level is 1445, her CRP level is at 3.5 and her procal is low at 0.07. The rest of the blood work essentially within normal limits including electrolytes. No nausea. No vomiting. No chest pain. No altered mentation. No other signi ficant events otherwise since yesterday. 07/28/2021, patient is on oxygen at 15 L high flow and the patient's pulse ox is around 92%. She got transferred out of the intensive care unit yesterday. T mari she is sitting up on a recliner bed. She has 100% nonrebreather facemask at the bedside to supplement her oxygen level especially when she desaturated so she gets short of breath. The patient has a CRP level of 2.4, her d-dimer is at 5.5, her LDH level from yesterday was 1445, chest x-ray shows no significant interval changes and there is some infiltration of the lung bases bilaterally consistent with COVID-19 related pneumonia, essentially stable compared to earlier chest x-rays. No fever. No chills. She is tolerating her diet. She is morbidly obese. Wasn't +6.7 with a hemoglobin of 14.4. Electrolytes are within normal limits. She remains on anticoagulation with Lovenox and she is taking 40 mg subcu daily. She remains on Decadron 6 mg IV daily and she is also completing a course of Baricitinib. She is also taking Lasix 20 mg by mouth daily. Objective - Vital Signs Vital signs: Vital Signs Temp 97.7 F 07/28/21 09:03 Pulse 76 07/28/21 09:03 Resp 17 07/28/21 09:03 BP 92/65 07/28/21 09:03 Pulse Ox 92 L 07/28/21 09:03 Intake & Output 07/27/21 07/28/21 07/28/21 18:59 06:59 18:59 Intake Total 236 Output Total 500 Balance 236 -500 Intake: Oral 236 Output: Urine 500 Other: Voiding Method External Catheter External Catheter External Catheter # Voids 3 - Exam No acute distress, oriented 3. No respiratory distress, audible wheezing, or use of accessory muscles. The patient's currently on 15 L and saturations are 90-92%., she is uncomfortable she is sitting up on a chair. The breathing is comfortable and nonlabored HEENT examination is grossly unremarkable. Neck supple. Full range of motion. No adenopathy thyromegaly or neck vein distention. Cardiovascular examination reveals regular rhythm rate. S1-S2 normal. No S3 or S4. No discernible murmur noted. Heart sounds are distant. Heart rate 79 bpm. Lungs reveal scattered coarse rhonchi. Mild bibasilar crackles. No wheezes. Breath sounds equal bilaterally. The patient coughs when she takes a deep breath. Abdomen soft bowel sounds are heard. No masses or tenderness. Extremities are intact. No cyanosis clubbingand there is evidence of chronic edema lower extremities bilaterally. Skin is without rash or lesion. Neurologic examination is brief but nonfocal. - Labs CBC & Chem 7: 07/28/21 06:53 07/28/21 06:53 Labs: Abnormal Lab Results - Last 24 Hours (Table) 07/27/21 07/27/21 07/28/21 Range/Units 16:56 21:00 06:51 MCHC (32.0-37.0) g/dL Immature Gran # (0.00-0.04) X 10*3/uL Eosinophils # (0.04-0.35) X 10*3/uL D-Dimer (<0.60) mg/L FEU Anion Gap (4.00-12.00) mmol/L BUN (9.0-27.0) mg/dL Est GFR (CKD-EPI)NonAf (60.0-200.0) BUN/Creatinine Ratio (12.00-20.00) Ratio Glucose (70-110) mg/dL POC Glucose (mg/dL) 188 H 126 H 110 H (75-99) mg/dL C-Reactive Protein (0.00-0.80) mg/dL 07/28/21 07/28/21 07/28/21 Range/Units 06:53 06:53 06:53 MCHC 31.9 L (32.0-37.0) g/dL Immature Gran # 0.11 H (0.00-0.04) X 10*3/uL Eosinophils # 0.02 L (0.04-0.35) X 10*3/uL D-Dimer 5.53 H (<0.60) mg/L FEU Anion Gap 16.20 H (4.00-12.00) mmol/L BUN 28.4 H (9.0-27.0) mg/dL Est GFR (CKD-EPI)NonAf 58.1 L (60.0-200.0) BUN/Creatinine Ratio 27.84 H (12.00-20.00) Ratio Glucose 117 H (70-110) mg/dL POC Glucose (mg/dL) (75-99) mg/dL C-Reactive Protein 2.40 H (0.00-0.80) mg/dL 07/28/21 Range/Units 11:16 MCHC (32.0-37.0) g/dL Immature Gran # (0.00-0.04) X 10*3/uL Eosinophils # (0.04-0.35) X 10*3/uL D-Dimer (<0.60) mg/L FEU Anion Gap (4.00-12.00) mmol/L BUN (9.0-27.0) mg/dL Est GFR (CKD-EPI)NonAf (60.0-200.0) BUN/Creatinine Ratio (12.00-20.00) Ratio Glucose (70-110) mg/dL POC Glucose (mg/dL) 132 H (75-99) mg/dL C-Reactive Protein (0.00-0.80) mg/dL Assessment and Plan Plan: 1 Acute hypoxemic respiratory failure secondary to coronavirus associated pneumonia. The patient is currently in the intensive care unit. The patient on 100% nonrebreather facemask addition to 15 L of oxygen by nasal cannula. Her pulse ox is around 97-98%. She is stable for now. No significant interval breathing worsening since yesterday. 2 History of GI bleed. As of GI bleeding for now 3 History of diabetes mellitus. 4 History of gastroesophageal reflux disease. 5 History of hyperlipidemia. 6 History of hypertension. 7 History of sleep apnea syndrome, not currently using CPAP. 8 Lifelong nontobacco use. 9 morbid obesity plan Keep the patient 100% nonrebreather facemask in addition to a nasal cannula at 15 L of oxygen by nasal cannula. Based on this, suggesting to continue the Decadron and the Lovenox and add Baricitinib per protocol. Chest x-ray findings are essentially stable. Monitor oxygenation and keep his saturation above 90% Recheck inflammatory markers including LDH, CRP, and d-dimer. Full calcitonin level is nonelevated We'll continue to follow Continue supportive care. Provide the patient incentive spirometer. Sit up on a chair. We'll continue to follow. Patient was transferred out of the intensive care unit yesterday she is currently on a medical floor. We'll continue her progress. She is stable. Appetite today's.. Her blood sugars are under adequate control for now. We'll continue to follow.
[2021-07-28] MEDS: BENZOCAINE/MENTHOL LOZENG 1 EACH LOZENGE MUCOUS MEM PRN ×2 (15:02→19:26)
[2021-07-28 16:40] LABS: Glucose,Whole Blood 224 mg/dL (75-99)
[2021-07-28 20:11] LABS: Glucose,Whole Blood 204 mg/dL (75-99)
[2021-07-28] MEDS: INSULIN DETEMIR (LEVEMIR) 100 UNIT/ML SYR SQ SCH (20:32)
[2021-07-28] MEDS: ATORVASTATIN 10 MG TAB PO SCH (20:32)
--- NOTE | 2021-07-28 22:32 | P.PN ---
Subjective Progress Note Date: 07/28/21 Principal diagnosis: Acute hypoxic respiratory failure secondary to COVID-19 pneumonia Possible upper GI bleed. Acute kidney injury 65-year-old male with a known history of hypertension, hyperlipidemia, diabetes type 2 [id number], osteoarthritis, obstructive sleep apnea, migraine headaches and no prior history of smoking presents to ER with complaints of fever, cough and shortness of breath along with diarrhea. Patient states that she has been sick for the past 2 weeks with cough congestion body aches and is also having diarrhea for the past 1 week. She came to the ER due to complaints of dark-colored stools. Patient states this is not any blood thinners. No prior history of peptic ulcer disease. Patient does take naproxen for arthritic pain. No complaints of chest pain. On admission T-max was 101.4, pulse 102, pulse ox 83% on room air. Denies any complaints of chest pain. No abdominal pain. No dysuria or hematuria. No headache or dizziness or lightheadedness. Chest x-ray showed there is new patchy pulmonary edema compared to oral exam that could be acute pneumonia. Laboratory showed WBC 4.5 hemoglobin 15.7 and platelets 173 and lymphocytes 0.8 Sodium 138 potassium 4.6 chloride 102 BUN 61 creatinine 2.12 Blood sugar 139 AST 97 ALT 60 alk phos 63 and lipase level 651 Stool occult blood positive and Coronavirus PCR detected. 07/24/2021 Patient is seen and evaluated and discussed with nursing staff; continues to complain of shortness of breath with minimal activity; patient has been brian gnosed with COVID-19 pneumonia; patient does report vaccination against coronavirus Vital signs are reviewed with temperature of 99.2, pulse 80, respiration 18 and blood pressure 143/73 and O2 saturation 91% Patient remains on treatment with Decadron, Lovenox and COVID-19 vitamin cocktail; patient is deemed not a candidate for REM due to onset of symptoms a few weeks prior to presenting to the hospital and patient has been fully vaccinated Laboratory review shows WBC of 4.2 and hemoglobin consistently stable at 14.8 with platelet count of 158; sodium 139, potassium 5.0 which is down from 6.1 y esterday, BUN/creatinine of 28/0.77 down from 44/1.19 yesterday 07/25/2021 Patient discussed with nursing staff no specific concerns identified; continues to report shortness of breath; self proning encourage Vital signs are reviewed temperature 99.3, pulse 79, respirations 17 and blood pressure 102/67 Lab review shows WBC 4.7, hemoglobin 14 and platelet count of 172, d-dimer at 0.96, BUN/creatinine down to 25/1.0; repeat chest x-ray shows improvement Pulmonary on board and recommending to continue with current treatment with Decadron, Lovenox and vitamins 07/26/2021 Patient is seen and evaluated in room at bedside; oxygen saturation has declined and patient is currently on 15 L of O2. patient is being transferred to ICU as an overflow She remains on Decadron. She was also on Lasix at a dose of 20 mg IV daily. She was having adequate urine output. Her IV fluids are running at 75 mL an hour normal saline. The patient has no chest pain. She is exhausted. Whenever she moves around she gets quite short of breath. No significant cough or sputum production. No chest tightness. No wheezing. She is on a combination of vitamin C, vitamin D, zinc and and she is also on Lovenox for DVT prophylaxis. The most recent d-dimer is at 1.79. The most recent LDH level is 1000 with a CRP of 1.2. Pulmonary service recommending to continue the Decadron and the Lovenox and add Baricitinib per protocol. 07/27/2021 Patient is seen and evaluated and discussed with nursing staff; patient was transferred to the ICU yesterday due to her borderline respiratory status as the patient was placed on 15 L of oxygen by nasal cannula in addition to 100% nonrebreather facemask to improve her oxygenation. Patient is sitting up on a chair. She is a bit lethargic but easily arousable; . Her breathing is nonlabored. Vital signs are reviewed temperature 98.7, pulse 79, respiration 24, and blood pressure 101/77; pulse ox is around 97-98%. She remains on Decadron; Lovenox 40 mg subcu along with COVID-19 vitamin radha ktail Laboratory review reveals d-dimer is at 1.59, and LDH level is 1445, her CRP level is at 3.5 and her procal is low at 0.07. Pulmonary on board and recommending to continue patient on 100% nonrebreather face Lasix in addition to nasal cannula at 15 L; continue the Decadron and the Lovenox and add Baricitinib per protocol Continue to follow inflammatory markers periodically including LDH, CRP, ferritin and d-dimer 07/28/2021 Patient is seen and evaluated at beside and discussed with nursing staff. Patient is currently on high flow oxygen with a pulse ox around 92%. Patient was recently transferred out of ICU and is able to sit upright on her bed. Patient also has a 100% nonrebreather facemask at her bedside in order to supplement oxygen when she gets short of breath. Patient's CRP level is 2.4, her d-dimer is 5.5, her LDH level from yesterday was 1445. Patient's chest x ray is not showing any changes but there is some infiltration seen at the lung bases which remains consistent with COVID19 pneumonia, current x ray remains stable compared to her earlier chest x ray. Patient is afebrile with no chills. Patient is on anticoagulant therapy with Lovenox, remains on Decadron, and is also complicitng a curse of Baricitinib along with Lasix by mouth daily. There are no major changes or events from yesterday. Objective - Vital Signs Vital signs: Vital Signs Temp 97.7 F 07/28/21 09:03 Pulse 76 07/28/21 09:03 Resp 17 07/28/21 09:03 BP 92/65 07/28/21 09:03 Pulse Ox 92 L 07/28/21 09:03 Intake & Output 07/27/21 07/28/21 07/28/21 18:59 06:59 18:59 Intake Total 236 Output Total 500 Balance 236 -500 Intake: Oral 236 Output: Urine 500 Other: Voiding Method External Catheter External Catheter External Catheter # Voids 3 - Exam PHYSICAL EXAMINATION: GENERAL: The patient is alert and oriented x3, not in any acute distress. Well developed, well nourished. HEENT: Pupils are round and equally reacting to light. EOMI. No scleral icterus. No conjunctival pallor. Normocephalic, atraumatic. No pharyngeal erythema. No thyromegaly. CARDIOVASCULAR: S1 and S2 present. No murmurs, rubs, or gallops. PULMONARY: Chest is clear to auscultation, no wheezing or crackles. ABDOMEN: Soft, nontender, nondistended, normoactive bowel sounds. No palpable organomegaly. MUSCULOSKELETAL: No joint swelling or deformity. EXTREMITIES: No cyanosis, clubbing, or pedal edema. NEUROLOGICAL: Gross neurological examination did not reveal any focal deficits. SKIN: No rashes. - Labs CBC & Chem 7: 07/28/21 06:53 07/28/21 06:53 Labs: Abnormal Lab Results - Last 24 Hours (Table) 07/27/21 07/27/21 07/28/21 Range/Units 16:56 21:00 06:51 MCHC (32.0-37.0) g/dL D-Dimer (<0.60) mg/L FEU Anion Gap (4.00-12.00) mmol/L BUN (9.0-27.0) mg/dL Est GFR (CKD-EPI)NonAf (60.0-200.0) BUN/Creatinine Ratio (12.00-20.00) Ratio Glucose (70-110) mg/dL POC Glucose (mg/dL) 188 H 126 H 110 H (75-99) mg/dL C-Reactive Protein (0.00-0.80) mg/dL 07/28/21 07/28/21 07/28/21 Range/Units 06:53 06:53 06:53 MCHC 31.9 L (32.0-37.0) g/dL D-Dimer 5.53 H (<0.60) mg/L FEU Anion Gap 16.20 H (4.00-12.00) mmol/L BUN 28.4 H (9.0-27.0) mg/dL Est GFR (CKD-EPI)NonAf 58.1 L (60.0-200.0) BUN/Creatinine Ratio 27.84 H (12.00-20.00) Ratio Glucose 117 H (70-110) mg/dL POC Glucose (mg/dL) (75-99) mg/dL C-Reactive Protein 2.40 H (0.00-0.80) mg/dL 07/28/21 Range/Units 11:16 MCHC (32.0-37.0) g/dL D-Dimer (<0.60) mg/L FEU Anion Gap (4.00-12.00) mmol/L BUN (9.0-27.0) mg/dL Est GFR (CKD-EPI)NonAf (60.0-200.0) BUN/Creatinine Ratio (12.00-20.00) Ratio Glucose (70-110) mg/dL POC Glucose (mg/dL) 132 H (75-99) mg/dL C-Reactive Protein (0.00-0.80) mg/dL Assessment and Plan Assessment: Acute hypoxemic respiratory failure secondary to coronavirus associated pneumonia. Dark-colored stools with occult blood positive. Possible upper GI bleed. Acute kidney injury likely prerenal with creatinine level 2.14 on admission. Baseline creatinine not known Diabetes type 2 [id number] Mild acute pancreatitis with lipase level 651 Hyperlipidemia Hypertension Plan: Patient will be continued on IV hydration and monitor hemoglobin level. Currently hemoglobin is at 15.7. No active complaints of bleeding at this time. Continue with IV PPI and monitor. Patient will continue oxygen supplementation via nasal cannula. Continue with the dexamethasone, zinc sulfate, ascorbic acid and vitamin D3. Pulmonary consult. Continue with home medications Hold Lasix and lisinopril due to acute kidney injury. Patient is also on verapamil at home. Continue with insulin sliding scale.
[2021-07-29] MEDS: BENZOCAINE/MENTHOL LOZENG 1 EACH LOZENGE MUCOUS MEM PRN ×2 (03:06→10:04)
[2021-07-29] MEDS: ACETAMINOPHEN TAB 325 MG TAB PO PRN ×2 (03:07→10:04)
[2021-07-29] MEDS: ALBUTEROL HFA INHALER INHALATION SCH ×4 (05:59→20:14)
[2021-07-29] MEDS: SYMBICORT 160-4.5 MCG INHALER INHALATION SCH ×2 (05:59→20:14)
[2021-07-29] MEDS: SODIUM CHLORIDE 0.9% 1,000 ML IV SCH ×2 (06:45→23:16)
[2021-07-29] MEDS: INSULIN ASPART (NovoLOG) 100 UNIT/ML VIAL SQ SCH ×4 (07:00→20:50)
[2021-07-29 07:02] LABS: Glucose,Whole Blood 117 mg/dL (75-99)
[2021-07-29] MEDS: DEXAMETHASONE SOD PHOSPHATE 10 MG/ML 1 ML VIAL IV SCH (07:13)
[2021-07-29] MEDS: ZINC SULFATE 220 MG CAP PO SCH (07:14)
[2021-07-29] MEDS: CHOLECALCIFEROL 25 MCG (1000 IU) TABLET PO SCH (07:14)
[2021-07-29] MEDS: ENOXAPARIN 40 MG/0.4 ML SYRINGE SQ SCH (07:14)
[2021-07-29] MEDS: ASCORBIC ACID 500 MG TAB PO SCH (07:14)
[2021-07-29] MEDS: PANTOPRAZOLE 40 MG TABLET PO SCH (07:14)
[2021-07-29] MEDS: FUROSEMIDE 20 MG TAB PO SCH (07:14)
[2021-07-29] MEDS: OXYBUTYNIN 15 MG TAB.ER.24 PO SCH (07:15)
[2021-07-29] MEDS: BARICITINIB 2 MG TABLET PO SCH (07:15)
--- NOTE | 2021-07-29 07:17 | XR ---
EXAMINATION TYPE: XR chest 1V portable DATE OF EXAM: 07/29/2021 Comparison: 07/28/2021 Clinical History: 65-year-old female COVID Findings: Bilateral shoulder arthroplasties. Heart mildly enlarged. Mid and lower lung opacities persist withou t significant change. ACDF hardware. Impression: Continued mild cardiomegaly as well as bilateral mid and lower lung infiltrates.
[2021-07-29 12:07] LABS: Glucose,Whole Blood 208 mg/dL (75-99)
[2021-07-29 13:22] LABS: C Reactive Protein 1.1 mg/dL (0.00-0.80)
[2021-07-29 13:57] LABS: African American GFR (CKD) 68.1 (60.0-200.0); Albumin 3.8 g/dL (3.8-4.9); Albumin/Globulin Ratio 1.56 (1.60-3.17); Anion Gap 15.3 mmol/L (4.00-12.00); BUN/Creat Ratio 30.59 Ratio (12.00-20.00); Blood Urea Nitrogen 30.9 mg/dL (9.0-27.0); Calcium 9.1 mg/dL (8.7-10.3); Carbon Dioxide 28.2 mmol/L (21.6-31.8); Globulin 2.4 g/dL (1.6-3.3); Non-African American GFR(CKD) 58.8 (60.0-200.0); Potassium 3.6 mmol/L (3.5-5.5); Total Bilirubin 0.5 mg/dL (0.30-1.20); Total Protein 6.2 g/dL (6.2-8.2)
[2021-07-29 14:12] LABS: Basophils # (A) 0.03 X 10*3/uL (0.00-0.10); Basophils % (A) 0.3 %; Eosinophils # (A) 0.02 X 10*3/uL (0.04-0.35); Eosinophils % (A) 0.2 %; HCT 42.8 % (37.2-46.3); HGB 13.9 g/dL (12.0-15.0); Lymphocytes # (A) 1.34 X 10*3/uL (0.90-5.00); Lymphocytes % (A) 12.7 %; MCH 29.6 pg (27.0-32.0); MCHC 32.5 g/dL (32.0-37.0); MCV 91.1 fL (80.0-97.0); Mean Platelet Volume 10.9 fL (9.5-12.2); Monocytes # (A) 0.27 X 10*3/uL (0.20-1.00); Monocytes % (A) 2.6 %; Neutrophils # (A) 8.75 X 10*3/uL (1.80-7.70); Neutrophils % (A) 83.2 %; Platelet Count 312 X 10*3/uL (140-440); RDW 12.9 % (11.5-14.5); WBC 10.51 X 10*3/uL (4.50-10.00)
--- NOTE | 2021-07-29 16:50 | P.PN ---
Subjective Progress Note Date: 07/29/21 on today's evaluation of 07/26/2021, the patient feels slightly worse compared to yesterday. Oxidation is gotten worse. She was on 5 L and currently she is up to 15 L. She is morbidly obese. She has a body mass index of 47.7. She has also hypertension and hyperlipidemia and diabetes mellitus and obstructive sleep apnea as comorbid conditions. She has chronic edema lower extremity is bilaterally. She remains on Decadron. She was also on Lasix at a dose of 20 mg IV daily. She was having adequate urine output. Her IV fluids are running at 75 mL an hour normal saline. The patient has no chest pain. She is exhausted. Whenever she moves around she gets quite short of breath. No significant cough or sputum production. No chest tightness. No wheezing. She is on a combination of vitamin C, vitamin D, zinc and and she is also on Lovenox for DVT prophylaxis. The most recent d-dimer is at 1.79. The most recent LDH level is 1000 with a CRP of 1.2. 07/27/2021, the patient is in the intensive care unit. Note that the patient got transferred to the ICU yesterday due to her borderline respiratory status as the patient was placed on 15 L of oxygen by nasal cannula in addition to 100% nonrebreather facemask to improve her oxygenation. This morning, pulse ox is around 97-98%. She is sitting up on a chair. She is a bit lethargic. She is easily arousable and she communicates and follows commands and answers questions. Her breathing is nonlabored. She remains on Decadron. She is also on milligrams by mouth daily pH is receiving Lovenox 40 mg subcu for DVT prophylaxis. In terms of inflammatory marker, her d-dimer is at 1.59, and LDH level is 1445, her CRP level is at 3.5 and her procal is low at 0.07. The rest of the blood work essentially within normal limits including electrolytes. No nausea. No vomiting. No chest pain. No altered mentation. No other signi ficant events otherwise since yesterday. 07/28/2021, patient is on oxygen at 15 L high flow and the patient's pulse ox is around 92%. She got transferred out of the intensive care unit yesterday. T mari she is sitting up on a recliner bed. She has 100% nonrebreather facemask at the bedside to supplement her oxygen level especially when she desaturated so she gets short of breath. The patient has a CRP level of 2.4, her d-dimer is at 5.5, her LDH level from yesterday was 1445, chest x-ray shows no significant interval changes and there is some infiltration of the lung bases bilaterally consistent with COVID-19 related pneumonia, essentially stable compared to earlier chest x-rays. No fever. No chills. She is tolerating her diet. She is morbidly obese. Wasn't +6.7 with a hemoglobin of 14.4. Electrolytes are within normal limits. She remains on anticoagulation with Lovenox and she is taking 40 mg subcu daily. She remains on Decadron 6 mg IV daily and she is also completing a course of Baricitinib. She is also taking Lasix 20 mg by mouth daily. 07/29/2021, the patient's condition essentially the same as yesterday. No interval worsening or improvement. She remains on 15 L nasal cannula and along with that she is on 100% nonrebreather facemask. She is sitting up on a r ecliner. She gets short of breath with limited amount of activity. She is taking Curry's cough drops and it is also helping her with her sore throat. Repeat chest x-ray was done today and the findings are essentially unchanged. The patient has smaller lung volumes and the patient has evidence of bilateral pulmonary infiltrates which remains essentially unchanged compared to yesterday. There is also some mild cardiomegaly. She has some chronic edema lower extremities bilaterally. Her LDH level is at 560 and the CRP level is at 1.1 and both of those are improving compared to previous evaluations. D-dimer is high at 9.9. I have this patient on Decadron 6 mg IV every 24 hours and she is also on Baricitinib and she is completing a 14 day course. She is on Lasix 20 mg by mouth daily. She will anticoagulation with Lovenox 40 mg subcu daily. She is on Levemir insulin 15 units along with a size. Coverage. The incentive spirometer is being used and the patient is unable to generate more than 500. Objective - Vital Signs Vital signs: Vital Signs Temp 97.5 F L 07/29/21 05:00 Pulse 84 07/29/21 14:32 Resp 18 07/29/21 14:32 BP 101/65 07/29/21 14:32 Pulse Ox 90 L 07/29/21 15:32 Intake & Output 07/28/21 07/29/21 07/29/21 18:59 06:59 18:59 Intake Total 600 600 Output Total 100 Balance 600 -100 600 Weight 122.016 kg Intake: Oral 600 600 Output: Urine 100 Other: Voiding Method External Catheter External Catheter - Exam No acute distress, oriented 3. No respiratory distress, audible wheezing, or use of accessory muscles. The patient's currently on 15 L and saturations are 90-92%., she is uncomfortable she is sitting up on a chair. The breathing is comfortable and nonlabored HEENT examination is grossly unremarkable. Neck supple. Full range of motion. No adenopathy thyromegaly or neck vein distention. Cardiovascular examination reveals regular rhythm rate. S1-S2 normal. No S3 or S4. No discernible murmur noted. Heart sounds are distant. Heart rate 79 bpm. Lungs reveal scattered coarse rhonchi. Mild bibasilar crackles. No wheezes. Breath sounds equal bilaterally. The patient coughs when she takes a deep breath. Abdomen soft bowel sounds are heard. No masses or tenderness. Extremities are intact. No cyanosis clubbingand there is evidence of chronic e adrian lower extremities bilaterally. Skin is without rash or lesion. Neurologic examination is brief but nonfocal. - Labs CBC & Chem 7: 07/29/21 07:20 07/29/21 07:20 Labs: Abnormal Lab Results - Last 24 Hours (Table) 07/28/21 07/29/21 07/29/21 Range/Units 20:02 07:00 07:20 WBC 10.51 H (4.50-10.00) X 10*3/uL Immature Gran # 0.10 H (0.00-0.04) X 10*3/uL Neutrophils # 8.75 H (1.80-7.70) X 10*3/uL Eosinophils # 0.02 L (0.04-0.35) X 10*3/uL D-Dimer (<0.60) mg/L FEU Anion Gap (4.00-12.00) mmol/L BUN (9.0-27.0) mg/dL Est GFR (CKD-EPI)NonAf (60.0-200.0) BUN/Creatinine Ratio (12.00-20.00) Ratio Glucose (70-110) mg/dL POC Glucose (mg/dL) 204 H 117 H (75-99) mg/dL AST (13-35) U/L ALT (8-44) U/L Lactate Dehydrogenase (120-246) U/L C-Reactive Protein (0.00-0.80) mg/dL Albumin/Globulin Ratio (1.60-3.17) g/dL 07/29/21 07/29/21 07/29/21 Range/Units 07:20 07:20 12:04 WBC (4.50-10.00) X 10*3/uL Immature Gran # (0.00-0.04) X 10*3/uL Neutrophils # (1.80-7.70) X 10*3/uL Eosinophils # (0.04-0.35) X 10*3/uL D-Dimer 9.99 H (<0.60) mg/L FEU Anion Gap 15.30 H (4.00-12.00) mmol/L BUN 30.9 H (9.0-27.0) mg/dL Est GFR (CKD-EPI)NonAf 58.8 L (60.0-200.0) BUN/Creatinine Ratio 30.59 H (12.00-20.00) Ratio Glucose 112 H (70-110) mg/dL POC Glucose (mg/dL) 208 H (75-99) mg/dL AST 52 H (13-35) U/L ALT 78 H (8-44) U/L Lactate Dehydrogenase 560 H (120-246) U/L C-Reactive Protein 1.10 H (0.00-0.80) mg/dL Albumin/Globulin Ratio 1.56 L (1.60-3.17) g/dL Assessment and Plan Plan: 1 Acute hypoxemic respiratory failure secondary to coronavirus associated pneumonia. The patient is currently in the intensive care unit. The patient on 100% nonrebreather facemask addition to 15 L of oxygen by nasal cannula. Her pulse ox is around 97-98%. She is stable for now. No significant interval breathing worsening since yesterday. The inflammatory markers are improving. The patient clinically is the same and unchanged compared to yesterday. She got transferred out of the intensive care unit yesterday and she is currently on a medical floor. She is trying to use the incentive spirometer more aggressively. She is on a combination of Baricitinib and Decadron. 2 History of GI bleed. As of GI bleeding for now 3 History of diabetes mellitus. 4 History of gastroesophageal reflux disease. 5 History of hyperlipidemia. 6 History of hypertension. 7 History of sleep apnea syndrome, not currently using CPAP. 8 Lifelong nontobacco use. 9 morbid obesity plan Keep the patient 100% nonrebreather facemask in addition to a nasal cannula at 15 L of oxygen by nasal cannula. Based on this, suggesting to continue the Decadron and the Lovenox and add Baricitinib per protocol. Chest x-ray findings are essentially stable. Repeat chest x-ray from today was noted. No major interval change. There is cardiomegaly. Monitor oxygenation and keep his saturation above 90% Recheck inflammatory markers including LDH, CRP, and d-dimer. The inflammatory markers are improving. D-dimer is slightly elevated and the patient remains on Lovenox for DVT prophylaxis. D-dimer is on the rise. Obviously there is a consent for lower extremity DVTs. We'll check for those. Full calcitonin level is nonelevated We'll continue to follow Continue supportive care. Provide the patient incentive spirometer. Sit up on a chair. We'll continue to follow. Patient was transferred out of the intensive care unit yesterday she is currently on a medical floor. We'll continue her progress. She is stable. Appetite today's.. Her blood sugars are under adequate control for now. We'll continue to follow. She is currently on a medical floor.
[2021-07-29] MEDS ORDERED: IBUPROFEN 200 MG TAB PO PRN (16:53)
[2021-07-29 17:06] LABS: Glucose,Whole Blood 185 mg/dL (75-99)
[2021-07-29 20:14] LABS: Glucose,Whole Blood 185 mg/dL (75-99)
[2021-07-29] MEDS: INSULIN DETEMIR (LEVEMIR) 100 UNIT/ML SYR SQ SCH (20:50)
--- NOTE | 2021-07-29 23:05 | US ---
EXAMINATION TYPE: US venous doppler duplex LE DATE OF EXAM: 07/29/2021 10:40 PM COMPARISON: NONE CLINICAL HISTORY: rule out DVT. Swelling bilateral lower extremities. No hx of DVT. SIDE PERFORMED: Bilateral TECHNIQUE: The lower extremity deep venous system is examined utilizing real time linear array sonog tarik with graded compression, doppler sonography and color-flow sonography. VESSELS IMAGED: Common Femoral Vein Deep Femoral Vein Greater Saphenous Vein * Femoral Vein Popliteal Vein Small Saphenous Vein * Proximal Calf Veins (* superficial vessels) Exam is limited. Covid patient sitting in chair. Limited groin access. Right Leg: Unable to clearly evaluate upper CFV. No evidence of DVT in veins imaged at this time. Pa tient could not tolerate compressions of mid and distal femoral vein. Left Leg: Unable to clearly evaluate upper CFV. No evidence of DVT in veins imaged at this time. Pat ient could not tolerate compressions of distal femoral vein. IMPRESSION: Limited exam shows no evidence of deep vein thrombosis in both legs.
--- NOTE | 2021-07-30 01:33 | P.PN ---
Subjective Progress Note Date: 07/29/21 Principal diagnosis: Acute hypoxic respiratory failure secondary to COVID-19 pneumonia Possible upper GI bleed. Acute kidney injury 65-year-old male with a known history of hypertension, hyperlipidemia, diabetes type 2 [id number], osteoarthritis, obstructive sleep apnea, migraine headaches and no prior history of smoking presents to ER with complaints of fever, cough and shortness of breath along with diarrhea. Patient states that she has been sick for the past 2 weeks with cough congestion body aches and is also having diarrhea for the past 1 week. She came to the ER due to complaints of dark-colored stools. Patient states this is not any blood thinners. No prior history of peptic ulcer disease. Patient does take naproxen for arthritic pain. No complaints of chest pain. On admission T-max was 101.4, pulse 102, pulse ox 83% on room air. Denies any complaints of chest pain. No abdominal pain. No dysuria or hematuria. No headache or dizziness or lightheadedness. Chest x-ray showed there is new patchy pulmonary edema compared to oral exam that could be acute pneumonia. Laboratory showed WBC 4.5 hemoglobin 15.7 and platelets 173 and lymphocytes 0.8 Sodium 138 potassium 4.6 chloride 102 BUN 61 creatinine 2.12 Blood sugar 139 AST 97 ALT 60 alk phos 63 and lipase level 651 Stool occult blood positive and Coronavirus PCR detected. 07/24/2021 Patient is seen and evaluated and discussed with nursing staff; continues to complain of shortness of breath with minimal activity; patient has been brian gnosed with COVID-19 pneumonia; patient does report vaccination against coronavirus Vital signs are reviewed with temperature of 99.2, pulse 80, respiration 18 and blood pressure 143/73 and O2 saturation 91% Patient remains on treatment with Decadron, Lovenox and COVID-19 vitamin cocktail; patient is deemed not a candidate for REM due to onset of symptoms a few weeks prior to presenting to the hospital and patient has been fully vaccinated Laboratory review shows WBC of 4.2 and hemoglobin consistently stable at 14.8 with platelet count of 158; sodium 139, potassium 5.0 which is down from 6.1 y esterday, BUN/creatinine of 28/0.77 down from 44/1.19 yesterday 07/25/2021 Patient discussed with nursing staff no specific concerns identified; continues to report shortness of breath; self proning encourage Vital signs are reviewed temperature 99.3, pulse 79, respirations 17 and blood pressure 102/67 Lab review shows WBC 4.7, hemoglobin 14 and platelet count of 172, d-dimer at 0.96, BUN/creatinine down to 25/1.0; repeat chest x-ray shows improvement Pulmonary on board and recommending to continue with current treatment with Decadron, Lovenox and vitamins 07/26/2021 Patient is seen and evaluated in room at bedside; oxygen saturation has declined and patient is currently on 15 L of O2. patient is being transferred to ICU as an overflow She remains on Decadron. She was also on Lasix at a dose of 20 mg IV daily. She was having adequate urine output. Her IV fluids are running at 75 mL an hour normal saline. The patient has no chest pain. She is exhausted. Whenever she moves around she gets quite short of breath. No significant cough or sputum production. No chest tightness. No wheezing. She is on a combination of vitamin C, vitamin D, zinc and and she is also on Lovenox for DVT prophylaxis. The most recent d-dimer is at 1.79. The most recent LDH level is 1000 with a CRP of 1.2. Pulmonary service recommending to continue the Decadron and the Lovenox and add Baricitinib per protocol. 07/27/2021 Patient is seen and evaluated and discussed with nursing staff; patient was transferred to the ICU yesterday due to her borderline respiratory status as the patient was placed on 15 L of oxygen by nasal cannula in addition to 100% nonrebreather facemask to improve her oxygenation. Patient is sitting up on a chair. She is a bit lethargic but easily arousable; . Her breathing is nonlabored. Vital signs are reviewed temperature 98.7, pulse 79, respiration 24, and blood pressure 101/77; pulse ox is around 97-98%. She remains on Decadron; Lovenox 40 mg subcu along with COVID-19 vitamin radha ktail Laboratory review reveals d-dimer is at 1.59, and LDH level is 1445, her CRP level is at 3.5 and her procal is low at 0.07. Pulmonary on board and recommending to continue patient on 100% nonrebreather face Lasix in addition to nasal cannula at 15 L; continue the Decadron and the Lovenox and add Baricitinib per protocol Continue to follow inflammatory markers periodically including LDH, CRP, ferritin and d-dimer 07/28/2021 Patient is seen and evaluated at beside and discussed with nursing staff. Patient is currently on high flow oxygen with a pulse ox around 92%. Patient was recently transferred out of ICU and is able to sit upright on her bed. Patient also has a 100% nonrebreather facemask at her bedside in order to supplement oxygen when she gets short of breath. Patient's CRP level is 2.4, her d-dimer is 5.5, her LDH level from yesterday was 1445. Patient's chest x ray is not showing any changes but there is some infiltration seen at the lung bases which remains consistent with COVID19 pneumonia, current x ray remains stable compared to her earlier chest x ray. Patient is afebrile with no chills. Patient is on anticoagulant therapy with Lovenox, remains on Decadron, and is also complicitng a curse of Baricitinib along with Lasix by mouth daily. There are no major changes or events from yesterday. 07/29/2021 Patient is seen and evaluated at bedside and discussed with nursing staff. Patient's condition is same with no major or significant changes from yesterday. Patient remains on nasal cannula and nonrebreather facemask. Patient still gets short of breath with mild exertion. Repeat chest x-ray was conducted today with evidence of bilateral pulmonary infiltrates along with smaller lung volumes. Patient also suffers from mild cardiomegaly indicated on imaging. On examination, it is noted that patient has lower extremity edema bilaterally. Patient's LDH and CRP levels have improved, however D-dimer has elevated to 9.9. Patient is currently on Decadron, Baricitinib, Lasix, Lovenox, Levemir insulin. P, as per protocol. Patient is using incentive spirometer. Objective - Vital Signs Vital signs: Vital Signs Temp 97.5 F L 07/29/21 05:00 Pulse 85 07/29/21 10:00 Resp 19 07/29/21 10:00 BP 94/61 07/29/21 10:00 Pulse Ox 86 L 07/29/21 10:00 Intake & Output 07/28/21 07/29/21 07/29/21 18:59 06:59 18:59 Intake Total 600 Output Total 100 Balance 600 -100 Weight 122.016 kg Intake: Oral 600 Output: Urine 100 Other: Voiding Method External Catheter External Catheter - Exam PHYSICAL EXAMINATION: GENERAL: The patient is alert and oriented x3, not in any acute distress. Well developed, well nourished. HEENT: Pupils are round and equally reacting to light. EOMI. No scleral icterus. No conjunctival pallor. Normocephalic, atraumatic. No pharyngeal erythema. No thyromegaly. CARDIOVASCULAR: S1 and S2 present. No murmurs, rubs, or gallops. PULMONARY: Chest is clear to auscultation, no wheezing or crackles. ABDOMEN: Soft, nontender, nondistended, normoactive bowel sounds. No palpable organomegaly. MUSCULOSKELETAL: No joint swelling or deformity. EXTREMITIES: No cyanosis, clubbing, or pedal edema. NEUROLOGICAL: Gross neurological examination did not reveal any focal deficits. SKIN: No rashes. - Labs CBC & Chem 7: 07/29/21 07:20 07/29/21 07:20 Labs: Abnormal Lab Results - Last 24 Hours (Table) 07/28/21 07/28/21 07/29/21 Range/Units 16:38 20:02 07:00 D-Dimer (<0.60) mg/L FEU POC Glucose (mg/dL) 224 H 204 H 117 H (75-99) mg/dL 07/29/21 07/29/21 Range/Units 07:20 12:04 D-Dimer 9.99 H (<0.60) mg/L FEU POC Glucose (mg/dL) 208 H (75-99) mg/dL Assessment and Plan Assessment: Acute hypoxemic respiratory failure secondary to coronavirus associated pneumonia. Dark-colored stools with occult blood positive. Possible upper GI bleed. Acute kidney injury likely prerenal with creatinine level 2.14 on admission. Baseline creatinine not known Diabetes type 2 [id number] Mild acute pancreatitis with lipase level 651 Hyperlipidemia Hypertension Plan: Patient will be continued on IV hydration and monitor hemoglobin level. Currently hemoglobin is at 15.7. No active complaints of bleeding at this time. Continue with IV PPI and monitor. Patient will continue oxygen supplementation via nasal cannula. Continue with the dexamethasone, zinc sulfate, ascorbic acid and vitamin D3. Pulmonary consult. Continue with home medications Hold Lasix and lisinopril due to acute kidney injury. Patient is also on verap mari at home. Continue with insulin sliding scale.
--- NOTE | 2021-07-30 06:58 | XR ---
EXAMINATION TYPE: XR chest 1V portable DATE OF EXAM: 07/30/2021 HISTORY: Shortness of breath. COMPARISON: 07/29/2021 TECHNIQUE: Single view of the chest is submitted. FINDINGS: Demonstrated are scattered senescent parenchymal change. Patchy perihilar and basilar infiltrates persist without significant change. The heart is stable. Hilar and mediastinal structures are within normal limits. Degenerative changes are seen of the dorsal spine. IMPRESSION: 1. Patchy perihilar and basilar infiltrates persist without significant change.
[2021-07-30 07:07] LABS: Glucose,Whole Blood 84 mg/dL (75-99)
[2021-07-30] MEDS: INSULIN ASPART (NovoLOG) 100 UNIT/ML VIAL SQ SCH ×4 (07:08→21:02)
[2021-07-30] MEDS: SYMBICORT 160-4.5 MCG INHALER INHALATION SCH ×2 (07:45→20:20)
[2021-07-30] MEDS: ALBUTEROL HFA INHALER INHALATION SCH ×4 (07:45→20:20)
[2021-07-30] MEDS: DEXAMETHASONE SOD PHOSPHATE 10 MG/ML 1 ML VIAL IV SCH ×2 (07:55→21:01)
[2021-07-30] MEDS: FUROSEMIDE 20 MG TAB PO SCH (09:43)
[2021-07-30] MEDS: ENOXAPARIN 40 MG/0.4 ML SYRINGE SQ SCH (09:43)
[2021-07-30] MEDS: ZINC SULFATE 220 MG CAP PO SCH (09:43)
[2021-07-30] MEDS: BARICITINIB 2 MG TABLET PO SCH (09:43)
[2021-07-30] MEDS: CHOLECALCIFEROL 25 MCG (1000 IU) TABLET PO SCH (09:43)
[2021-07-30] MEDS: PANTOPRAZOLE 40 MG TABLET PO SCH (09:43)
[2021-07-30] MEDS: OXYBUTYNIN 15 MG TAB.ER.24 PO SCH (09:43)
[2021-07-30] MEDS: ASCORBIC ACID 500 MG TAB PO SCH (09:44)
[2021-07-30 11:48] LABS: Glucose,Whole Blood 166 mg/dL (75-99)
--- NOTE | 2021-07-30 11:55 | P.PN ---
Subjective Progress Note Date: 07/30/21 on today's evaluation of 07/26/2021, the patient feels slightly worse compared to yesterday. Oxidation is gotten worse. She was on 5 L and currently she is up to 15 L. She is morbidly obese. She has a body mass index of 47.7. She has also hypertension and hyperlipidemia and diabetes mellitus and obstructive sleep apnea as comorbid conditions. She has chronic edema lower extremity is bilaterally. She remains on Decadron. She was also on Lasix at a dose of 20 mg IV daily. She was having adequate urine output. Her IV fluids are running at 75 mL an hour normal saline. The patient has no chest pain. She is exhausted. Whenever she moves around she gets quite short of breath. No significant cough or sputum production. No chest tightness. No wheezing. She is on a combination of vitamin C, vitamin D, zinc and and she is also on Lovenox for DVT prophylaxis. The most recent d-dimer is at 1.79. The most recent LDH level is 1000 with a CRP of 1.2. 07/27/2021, the patient is in the intensive care unit. Note that the patient got transferred to the ICU yesterday due to her borderline respiratory status as the patient was placed on 15 L of oxygen by nasal cannula in addition to 100% nonrebreather facemask to improve her oxygenation. This morning, pulse ox is around 97-98%. She is sitting up on a chair. She is a bit lethargic. She is easily arousable and she communicates and follows commands and answers questions. Her breathing is nonlabored. She remains on Decadron. She is also on milligrams by mouth daily pH is receiving Lovenox 40 mg subcu for DVT prophylaxis. In terms of inflammatory marker, her d-dimer is at 1.59, and LDH level is 1445, her CRP level is at 3.5 and her procal is low at 0.07. The rest of the blood work essentially within normal limits including electrolytes. No nausea. No vomiting. No chest pain. No altered mentation. No other signi ficant events otherwise since yesterday. 07/28/2021, patient is on oxygen at 15 L high flow and the patient's pulse ox is around 92%. She got transferred out of the intensive care unit yesterday. T mari she is sitting up on a recliner bed. She has 100% nonrebreather facemask at the bedside to supplement her oxygen level especially when she desaturated so she gets short of breath. The patient has a CRP level of 2.4, her d-dimer is at 5.5, her LDH level from yesterday was 1445, chest x-ray shows no significant interval changes and there is some infiltration of the lung bases bilaterally consistent with COVID-19 related pneumonia, essentially stable compared to earlier chest x-rays. No fever. No chills. She is tolerating her diet. She is morbidly obese. Wasn't +6.7 with a hemoglobin of 14.4. Electrolytes are within normal limits. She remains on anticoagulation with Lovenox and she is taking 40 mg subcu daily. She remains on Decadron 6 mg IV daily and she is also completing a course of Baricitinib. She is also taking Lasix 20 mg by mouth daily. 07/29/2021, the patient's condition essentially the same as yesterday. No interval worsening or improvement. She remains on 15 L nasal cannula and along with that she is on 100% nonrebreather facemask. She is sitting up on a r ecliner. She gets short of breath with limited amount of activity. She is taking Curry's cough drops and it is also helping her with her sore throat. Repeat chest x-ray was done today and the findings are essentially unchanged. The patient has smaller lung volumes and the patient has evidence of bilateral pulmonary infiltrates which remains essentially unchanged compared to yesterday. There is also some mild cardiomegaly. She has some chronic edema lower extremities bilaterally. Her LDH level is at 560 and the CRP level is at 1.1 and both of those are improving compared to previous evaluations. D-dimer is high at 9.9. I have this patient on Decadron 6 mg IV every 24 hours and she is also on Baricitinib and she is completing a 14 day course. She is on Lasix 20 mg by mouth daily. She will anticoagulation with Lovenox 40 mg subcu daily. She is on Levemir insulin 15 units along with a size. Coverage. The incentive spirometer is being used and the patient is unable to generate more than 500. 2020, I'm seeing this patient for a follow-up. Condition is slightly worse compared to yesterday. She was on 15 L of nasal cannula along with 100% nonrebreather facemask. The pulse ox to the low 80s. based on that, the patient was placed on airvo at 60 l with an fio2 of 90% in conjunction with 100% on facemask. d-dimer is up to 16.1. ldh was low yesterday at 560 with a crp of 1.1. the patient the patient does not have any swelling in the lower extremities above and beyond her baseline. she is on lovenox 40 mg subcu for dvt prophylaxis. dopplers of the lower extremity was done and it showed no evidence of any DVT and the patient remains on Lovenox 40 mg subcu. Her chest x-ray still showing diffuse bilateral pulmonary infiltrates perihilar and the lower lobes bilaterally. She is afebrile. Her breathing is slightly labored on today's evaluation. She remains on Decadron 6 mg IV every 24 hours. Rest of medications are unchanged. She remains on Levemir insulin 15 units along with vascular coverage. IV fluids at KVO. She is not using incentive spirometer either more lethargic compared to yesterday. She remains also on Baricitinib those 2 out of 12 Objective - Vital Signs Vital signs: Vital Signs Temp 97.9 F 07/30/21 10:00 Pulse 89 07/30/21 10:00 Resp 16 07/30/21 10:00 BP 113/77 07/30/21 10:00 Pulse Ox 83 L 07/30/21 11:14 Intake & Output 07/29/21 07/30/21 07/30/21 18:59 06:59 18:59 Intake Total 1000 Output Total 400 100 Balance 600 -100 Intake: Oral 1000 Output: Urine 400 100 Other: Voiding Method External Catheter External Catheter - Exam No acute distress, oriented 3. No respiratory distress, audible wheezing, or use of accessory muscles. The patient's currently on airflow 60 L and saturations are 90-92%., she is uncomfortable she is sitting up on a chair. The breathing is comfortable and nonlabored HEENT examination is grossly unremarkable. Neck supple. Full range of motion. No adenopathy thyromegaly or neck vein distention. Cardiovascular examination reveals regular rhythm rate. S1-S2 normal. No S3 or S4. No discernible murmur noted. Heart sounds are distant. Heart rate 79 bpm. Lungs reveal scattered coarse rhonchi. Mild bibasilar crackles. No wheezes. Breath sounds equal bilaterally. The patient coughs when she takes a deep breath. Abdomen soft bowel sounds are heard. No masses or tenderness. Extremities are intact. No cyanosis clubbingand there is evidence of chronic edema lower extremities bilaterally. Skin is without rash or lesion. Neurologic examination is brief but nonfocal. - Labs CBC & Chem 7: 07/29/21 07:20 07/29/21 07:20 Labs: Abnormal Lab Results - Last 24 Hours (Table) 07/29/21 07/29/21 07/29/21 Range/Units 07:20 07:20 12:04 WBC 10.51 H (4.50-10.00) X 10*3/uL Immature Gran # 0.10 H (0.00-0.04) X 10*3/uL Neutrophils # 8.75 H (1.80-7.70) X 10*3/uL Eosinophils # 0.02 L (0.04-0.35) X 10*3/uL D-Dimer (<0.60) mg/L FEU Anion Gap 15.30 H (4.00-12.00) mmol/L BUN 30.9 H (9.0-27.0) mg/dL Est GFR (CKD-EPI)NonAf 58.8 L (60.0-200.0) BUN/Creatinine Ratio 30.59 H (12.00-20.00) Ratio Glucose 112 H (70-110) mg/dL POC Glucose (mg/dL) 208 H (75-99) mg/dL AST 52 H (13-35) U/L ALT 78 H (8-44) U/L Lactate Dehydrogenase 560 H (120-246) U/L C-Reactive Protein 1.10 H (0.00-0.80) mg/dL Albumin/Globulin Ratio 1.56 L (1.60-3.17) g/dL 07/29/21 07/29/21 07/30/21 Range/Units 16:38 20:09 08:17 WBC (4.50-10.00) X 10*3/uL Immature Gran # (0.00-0.04) X 10*3/uL Neutrophils # (1.80-7.70) X 10*3/uL Eosinophils # (0.04-0.35) X 10*3/uL D-Dimer 16.17 H (<0.60) mg/L FEU Anion Gap (4.00-12.00) mmol/L BUN (9.0-27.0) mg/dL Est GFR (CKD-EPI)NonAf (60.0-200.0) BUN/Creatinine Ratio (12.00-20.00) Ratio Glucose (70-110) mg/dL POC Glucose (mg/dL) 185 H 185 H (75-99) mg/dL AST (13-35) U/L ALT (8-44) U/L Lactate Dehydrogenase (120-246) U/L C-Reactive Protein (0.00-0.80) mg/dL Albumin/Globulin Ratio (1.60-3.17) g/dL 07/30/21 Range/Units 11:47 WBC (4.50-10.00) X 10*3/uL Immature Gran # (0.00-0.04) X 10*3/uL Neutrophils # (1.80-7.70) X 10*3/uL Eosinophils # (0.04-0.35) X 10*3/uL D-Dimer (<0.60) mg/L FEU Anion Gap (4.00-12.00) mmol/L BUN (9.0-27.0) mg/dL Est GFR (CKD-EPI)NonAf (60.0-200.0) BUN/Creatinine Ratio (12.00-20.00) Ratio Glucose (70-110) mg/dL POC Glucose (mg/dL) 166 H (75-99) mg/dL AST (13-35) U/L ALT (8-44) U/L Lactate Dehydrogenase (120-246) U/L C-Reactive Protein (0.00-0.80) mg/dL Albumin/Globulin Ratio (1.60-3.17) g/dL Assessment and Plan Plan: 1 Acute hypoxemic respiratory failure secondary to coronavirus associated pneumonia. The patient is currently in the intensive care unit. The patient on 100% nonrebreather facemask addition to 15 L of oxygen by nasal cannula. Her pulse ox is around 97-98%. GEN for now is on Airvo 60 L with an FiO2 of 90% in addition to 100% nonrebreather facemask. She is having labored breathing. Her oxygenation got worse earlier and for that reason she was placed on Airvo. Her d-dimer is elevated. Doppler of the lower extremities were negative. She remains on Lovenox 40 mg subcu daily. She is on a combination of Baricitinib and Decadron. 2 History of GI bleed. As of GI bleeding for now 3 History of diabetes mellitus. 4 History of gastroesophageal reflux disease. 5 History of hyperlipidemia. 6 History of hypertension. 7 History of sleep apnea syndrome, not currently using CPAP. 8 Lifelong nontobacco use. 9 morbid obesity plan transfer this patient back to the intensive care unit Keep the patient Airvo 60 L with an FiO2 of 90% along with 100% nonrebreather facemask Increase the Decadron to 60 mg IV every 12 hours Continue bacitracin of Continue Lovenox 40 mg subcu daily, d-dimer is elevated and will recheck tomorrow and consider repeating the Doppler of the lower extremity again in a.m. Pro-calcitonin level is not elevated Encourage using incentive spirometer Monitor the blood sugar especially with the recent increase in the Decadron dose Transferred back to the ICU
[2021-07-30 12:01] LABS: African American GFR (CKD) 61.4 (60.0-200.0); Anion Gap 12.6 mmol/L (4.00-12.00); BUN/Creat Ratio 27.18 Ratio (12.00-20.00); Blood Urea Nitrogen 29.9 mg/dL (9.0-27.0); C Reactive Protein 0.6 mg/dL (0.00-0.80); Calcium 9.2 mg/dL (8.7-10.3); Carbon Dioxide 29.9 mmol/L (21.6-31.8); Potassium 3.8 mmol/L (3.5-5.5)
[2021-07-30 13:39] LABS: Basophils # (A) 0.01 X 10*3/uL (0.00-0.10); Basophils % (A) 0.1 %; Eosinophils # (A) 0.06 X 10*3/uL (0.04-0.35); Eosinophils % (A) 0.4 %; HCT 44.1 % (37.2-46.3); HGB 13.9 g/dL (12.0-15.0); Lymphocytes # (A) 1.24 X 10*3/uL (0.90-5.00); Lymphocytes % (A) 8.7 %; MCH 29.4 pg (27.0-32.0); MCHC 31.5 g/dL (32.0-37.0); MCV 93.2 fL (80.0-97.0); Mean Platelet Volume 10.8 fL (9.5-12.2); Monocytes # (A) 0.23 X 10*3/uL (0.20-1.00); Monocytes % (A) 1.6 %; Neutrophils % (A) 88.2 %; Platelet Count 295 X 10*3/uL (140-440); RBC 4.73 X 10*6/uL (4.10-5.20); WBC 14.18 X 10*3/uL (4.50-10.00)
[2021-07-30 17:06] LABS: Glucose,Whole Blood 168 mg/dL (75-99)
[2021-07-30 20:55] LABS: Glucose,Whole Blood 186 mg/dL (75-99)
[2021-07-30] MEDS: INSULIN DETEMIR (LEVEMIR) 100 UNIT/ML SYR SQ SCH (21:01)
[2021-07-30] MEDS: ATORVASTATIN 10 MG TAB PO SCH (21:01)
--- NOTE | 2021-07-30 22:58 | P.PN ---
Subjective Progress Note Date: 07/30/21 Principal diagnosis: Acute hypoxic respiratory failure secondary to COVID-19 pneumonia Possible upper GI bleed. Acute kidney injury 65-year-old male with a known history of hypertension, hyperlipidemia, diabetes type 2 [id number], osteoarthritis, obstructive sleep apnea, migraine headaches and no prior history of smoking presents to ER with complaints of fever, cough and shortness of breath along with diarrhea. Patient states that she has been sick for the past 2 weeks with cough congestion body aches and is also having diarrhea for the past 1 week. She came to the ER due to complaints of dark-colored stools. Patient states this is not any blood thinners. No prior history of peptic ulcer disease. Patient does take naproxen for arthritic pain. No complaints of chest pain. On admission T-max was 101.4, pulse 102, pulse ox 83% on room air. Denies any complaints of chest pain. No abdominal pain. No dysuria or hematuria. No headache or dizziness or lightheadedness. Chest x-ray showed there is new patchy pulmonary edema compared to oral exam that could be acute pneumonia. Laboratory showed WBC 4.5 hemoglobin 15.7 and platelets 173 and lymphocytes 0.8 Sodium 138 potassium 4.6 chloride 102 BUN 61 creatinine 2.12 Blood sugar 139 AST 97 ALT 60 alk phos 63 and lipase level 651 Stool occult blood positive and Coronavirus PCR detected. 07/24/2021 Patient is seen and evaluated and discussed with nursing staff; continues to complain of shortness of breath with minimal activity; patient has been brian gnosed with COVID-19 pneumonia; patient does report vaccination against coronavirus Vital signs are reviewed with temperature of 99.2, pulse 80, respiration 18 and blood pressure 143/73 and O2 saturation 91% Patient remains on treatment with Decadron, Lovenox and COVID-19 vitamin cocktail; patient is deemed not a candidate for REM due to onset of symptoms a few weeks prior to presenting to the hospital and patient has been fully vaccinated Laboratory review shows WBC of 4.2 and hemoglobin consistently stable at 14.8 with platelet count of 158; sodium 139, potassium 5.0 which is down from 6.1 y esterday, BUN/creatinine of 28/0.77 down from 44/1.19 yesterday 07/25/2021 Patient discussed with nursing staff no specific concerns identified; continues to report shortness of breath; self proning encourage Vital signs are reviewed temperature 99.3, pulse 79, respirations 17 and blood pressure 102/67 Lab review shows WBC 4.7, hemoglobin 14 and platelet count of 172, d-dimer at 0.96, BUN/creatinine down to 25/1.0; repeat chest x-ray shows improvement Pulmonary on board and recommending to continue with current treatment with Decadron, Lovenox and vitamins 07/26/2021 Patient is seen and evaluated in room at bedside; oxygen saturation has declined and patient is currently on 15 L of O2. patient is being transferred to ICU as an overflow She remains on Decadron. She was also on Lasix at a dose of 20 mg IV daily. She was having adequate urine output. Her IV fluids are running at 75 mL an hour normal saline. The patient has no chest pain. She is exhausted. Whenever she moves around she gets quite short of breath. No significant cough or sputum production. No chest tightness. No wheezing. She is on a combination of vitamin C, vitamin D, zinc and and she is also on Lovenox for DVT prophylaxis. The most recent d-dimer is at 1.79. The most recent LDH level is 1000 with a CRP of 1.2. Pulmonary service recommending to continue the Decadron and the Lovenox and add Baricitinib per protocol. 07/27/2021 Patient is seen and evaluated and discussed with nursing staff; patient was transferred to the ICU yesterday due to her borderline respiratory status as the patient was placed on 15 L of oxygen by nasal cannula in addition to 100% nonrebreather facemask to improve her oxygenation. Patient is sitting up on a chair. She is a bit lethargic but easily arousable; . Her breathing is nonlabored. Vital signs are reviewed temperature 98.7, pulse 79, respiration 24, and blood pressure 101/77; pulse ox is around 97-98%. She remains on Decadron; Lovenox 40 mg subcu along with COVID-19 vitamin radha ktail Laboratory review reveals d-dimer is at 1.59, and LDH level is 1445, her CRP level is at 3.5 and her procal is low at 0.07. Pulmonary on board and recommending to continue patient on 100% nonrebreather face Lasix in addition to nasal cannula at 15 L; continue the Decadron and the Lovenox and add Baricitinib per protocol Continue to follow inflammatory markers periodically including LDH, CRP, ferritin and d-dimer 07/28/2021 Patient is seen and evaluated at beside and discussed with nursing staff. Patient is currently on high flow oxygen with a pulse ox around 92%. Patient was recently transferred out of ICU and is able to sit upright on her bed. Patient also has a 100% nonrebreather facemask at her bedside in order to supplement oxygen when she gets short of breath. Patient's CRP level is 2.4, her d-dimer is 5.5, her LDH level from yesterday was 1445. Patient's chest x ray is not showing any changes but there is some infiltration seen at the lung bases which remains consistent with COVID19 pneumonia, current x ray remains stable compared to her earlier chest x ray. Patient is afebrile with no chills. Patient is on anticoagulant therapy with Lovenox, remains on Decadron, and is also complicitng a curse of Baricitinib along with Lasix by mouth daily. There are no major changes or events from yesterday. 07/29/2021 Patient is seen and evaluated at bedside and discussed with nursing staff. Patient's condition is same with no major or significant changes from yesterday. Patient remains on nasal cannula and nonrebreather facemask. Patient still gets short of breath with mild exertion. Repeat chest x-ray was conducted today with evidence of bilateral pulmonary infiltrates along with smaller lung volumes. Patient also suffers from mild cardiomegaly indicated on imaging. On examination, it is noted that patient has lower extremity edema bilaterally. Patient's LDH and CRP levels have improved, however D-dimer has elevated to 9.9. Patient is currently on Decadron, Baricitinib, Lasix, Lovenox, Levemir insulin. P, as per protocol. Patient is using incentive spirometer. 07/30/2021 Patient is seen and evaluated at bedside and discussed with nursing staff. Patient's condition is slightly worse compared to yesterday. Patient continues to be on nasal cannula and nonrebreather facemask with a pulse ox in the low 80s. Patient was then placed on Airvo. D dimer levels have trended upwards to 16.1. Patient did not have any swelling in her lower ext. Patient is on Lovenox for DVT prophylaxis. Doppler of the lower extremity was done which showed no evidence of any DVT. Patient's chest x ray shows diffuse bilateral pulmonary infiltrates perihilar and also the lower lobes bilaterally. Patient is currently afebrile. Patient's breathing is lightly labored compared to yesterday. Patient continues to be on Decadron whereas rest of medications are unchanged. Patient is no longer using incetive spirometer. Objective - Vital Signs Vital signs: Vital Signs Temp 97.9 F 07/30/21 10:00 Pulse 89 07/30/21 10:00 Resp 16 07/30/21 10:00 BP 113/77 07/30/21 10:00 Pulse Ox 83 L 07/30/21 11:14 Intake & Output 07/29/21 07/30/21 07/30/21 18:59 06:59 18:59 Intake Total 1000 Output Total 400 100 Balance 600 -100 Intake: Oral 1000 Output: Urine 400 100 Other: Voiding Method External Catheter External Catheter - Exam PHYSICAL EXAMINATION: GENERAL: The patient is alert and oriented x3, not in any acute distress. Well developed, well nourished. HEENT: Pupils are round and equally reacting to light. EOMI. No scleral icterus. No conjunctival pallor. Normocephalic, atraumatic. No pharyngeal erythema. No thyromegaly. CARDIOVASCULAR: S1 and S2 present. No murmurs, rubs, or gallops. PULMONARY: Chest is clear to auscultation, no wheezing or crackles. ABDOMEN: Soft, nontender, nondistended, normoactive bowel sounds. No palpable organomegaly. MUSCULOSKELETAL: No joint swelling or deformity. EXTREMITIES: No cyanosis, clubbing, or pedal edema. NEUROLOGICAL: Gross neurological examination did not reveal any focal deficits. SKIN: No rashes. - Labs CBC & Chem 7: 07/30/21 08:17 07/30/21 08:17 Labs: Abnormal Lab Results - Last 24 Hours (Table) 07/29/21 07/29/21 07/29/21 Range/Units 07:20 07:20 16:38 WBC 10.51 H (4.50-10.00) X 10*3/uL Immature Gran # 0.10 H (0.00-0.04) X 10*3/uL Neutrophils # 8.75 H (1.80-7.70) X 10*3/uL Eosinophils # 0.02 L (0.04-0.35) X 10*3/uL D-Dimer (<0.60) mg/L FEU Anion Gap 15.30 H (4.00-12.00) mmol/L BUN 30.9 H (9.0-27.0) mg/dL Est GFR (CKD-EPI)NonAf 58.8 L (60.0-200.0) BUN/Creatinine Ratio 30.59 H (12.00-20.00) Ratio Glucose 112 H (70-110) mg/dL POC Glucose (mg/dL) 185 H (75-99) mg/dL AST 52 H (13-35) U/L ALT 78 H (8-44) U/L Lactate Dehydrogenase 560 H (120-246) U/L C-Reactive Protein 1.10 H (0.00-0.80) mg/dL Albumin/Globulin Ratio 1.56 L (1.60-3.17) g/dL 07/29/21 07/30/21 07/30/21 Range/Units 20:09 08:17 08:17 WBC (4.50-10.00) X 10*3/uL Immature Gran # (0.00-0.04) X 10*3/uL Neutrophils # (1.80-7.70) X 10*3/uL Eosinophils # (0.04-0.35) X 10*3/uL D-Dimer 16.17 H (<0.60) mg/L FEU Anion Gap 12.60 H (4.00-12.00) mmol/L BUN 29.9 H (9.0-27.0) mg/dL Est GFR (CKD-EPI)NonAf 53.0 L (60.0-200.0) BUN/Creatinine Ratio 27.18 H (12.00-20.00) Ratio Glucose 135 H (70-110) mg/dL POC Glucose (mg/dL) 185 H (75-99) mg/dL AST (13-35) U/L ALT (8-44) U/L Lactate Dehydrogenase (120-246) U/L C-Reactive Protein (0.00-0.80) mg/dL Albumin/Globulin Ratio (1.60-3.17) g/dL 07/30/21 Range/Units 11:47 WBC (4.50-10.00) X 10*3/uL Immature Gran # (0.00-0.04) X 10*3/uL Neutrophils # (1.80-7.70) X 10*3/uL Eosinophils # (0.04-0.35) X 10*3/uL D-Dimer (<0.60) mg/L FEU Anion Gap (4.00-12.00) mmol/L BUN (9.0-27.0) mg/dL Est GFR (CKD-EPI)NonAf (60.0-200.0) BUN/Creatinine Ratio (12.00-20.00) Ratio Glucose (70-110) mg/dL POC Glucose (mg/dL) 166 H (75-99) mg/dL AST (13-35) U/L ALT (8-44) U/L Lactate Dehydrogenase (120-246) U/L C-Reactive Protein (0.00-0.80) mg/dL Albumin/Globulin Ratio (1.60-3.17) g/dL Assessment and Plan Assessment: Acute hypoxemic respiratory failure secondary to coronavirus associated pneumonia. Dark-colored stools with occult blood positive. Possible upper GI bleed. Acute kidney injury likely prerenal with creatinine level 2.14 on admission. Baseline creatinine not known Diabetes type 2 [id number] Mild acute pancreatitis with lipase level 651 Hyperlipidemia Hypertension Plan: Patient will be continued on IV hydration and monitor hemoglobin level. Currently hemoglobin is at 15.7. No active complaints of bleeding at this time. Continue with IV PPI and monitor. Patient will continue oxygen supplementation via nasal cannula. Continue with the dexamethasone, zinc sulfate, ascorbic acid and vitamin D3. Pulmonary consult. Continue with home medications Hold Lasix and lisinopril due to acute kidney injury. Patient is also on verapamil at home. Continue with insulin sliding scale.
[2021-07-31] MEDS ORDERED: SODIUM CHLORIDE 0.65% NASAL SPRAY 44 ML BTL NASAL PRN (00:47)
[2021-07-31 05:15] LABS: Basophils % (A) 0 %; Eosinophils % (A) 0 %; HCT 39.8 % (34.0-46.0); HGB 13.2 gm/dL (11.4-16.0); Lymphocytes # (A) 0.5 k/uL (1.0-4.8); Lymphocytes % (A) 4 %; MCH 30.1 pg (25.0-35.0); MCHC 33.1 g/dL (31.0-37.0); Mean Platelet Volume 7.7; Monocytes # (A) 0.2 k/uL (0-1.0); Monocytes % (A) 2 %; Neutrophils # (A) 11.9 k/uL (1.3-7.7); Neutrophils % (A) 93 %; Platelet Count 233 k/uL (150-450); RBC 4.38 m/uL (3.80-5.40); RDW 12.8 % (11.5-15.5); WBC 12.7 k/uL (3.8-10.6)
[2021-07-31 05:35] LABS: Albumin 3.2 g/dL (3.5-5.0); Calcium 8.9 mg/dL (8.4-10.2); Potassium 3.9 mmol/L (3.5-5.1); Total Bilirubin 0.6 mg/dL (0.2-1.3)
[2021-07-31 05:52] LABS: Glucose,Whole Blood 147 mg/dL (75-99)
[2021-07-31] MEDS ORDERED: POTASSIUM CHLORIDE ER 20 MEQ TAB.ER PO SCH (06:00)
[2021-07-31] MEDS: PANTOPRAZOLE 40 MG TABLET PO SCH (06:16)
[2021-07-31] MEDS: INSULIN ASPART (NovoLOG) 100 UNIT/ML VIAL SQ SCH ×4 (06:17→20:32)
--- NOTE | 2021-07-31 07:15 | XR ---
EXAMINATION TYPE: XR chest 1V portable DATE OF EXAM: 07/31/2021 HISTORY: Shortness of breath. COMPARISON: 07/30/2021 TECHNIQUE: Single view of the chest is submitted. FINDINGS: Demonstrated are scattered senescent parenchymal change. Airspace and interstitial infiltrates persist throughout the mid and lower lung zones bilaterally wi thout significant change. The heart is stable. Hilar and mediastinal structures are within normal limits. Degenerative changes are seen of the dorsal spine. IMPRESSION: 1. Airspace and interstitial infiltrates persist throughout the mid and lower lung zones bilaterall y without significant change.
[2021-07-31] MEDS: ALBUTEROL HFA INHALER INHALATION SCH ×4 (08:09→20:37)
[2021-07-31] MEDS: SYMBICORT 160-4.5 MCG INHALER INHALATION SCH ×2 (08:09→20:37)
[2021-07-31] MEDS ORDERED: FUROSEMIDE 10 MG/ML 4 ML VIAL IV STA (09:28)
--- NOTE | 2021-07-31 09:29 | P.PN ---
Subjective Progress Note Date: 07/31/21 on today's evaluation of 07/26/2021, the patient feels slightly worse compared to yesterday. Oxidation is gotten worse. She was on 5 L and currently she is up to 15 L. She is morbidly obese. She has a body mass index of 47.7. She has also hypertension and hyperlipidemia and diabetes mellitus and obstructive sleep apnea as comorbid conditions. She has chronic edema lower extremity is bilaterally. She remains on Decadron. She was also on Lasix at a dose of 20 mg IV daily. She was having adequate urine output. Her IV fluids are running at 75 mL an hour normal saline. The patient has no chest pain. She is exhausted. Whenever she moves around she gets quite short of breath. No significant cough or sputum production. No chest tightness. No wheezing. She is on a combination of vitamin C, vitamin D, zinc and and she is also on Lovenox for DVT prophylaxis. The most recent d-dimer is at 1.79. The most recent LDH level is 1000 with a CRP of 1.2. 07/27/2021, the patient is in the intensive care unit. Note that the patient got transferred to the ICU yesterday due to her borderline respiratory status as the patient was placed on 15 L of oxygen by nasal cannula in addition to 100% nonrebreather facemask to improve her oxygenation. This morning, pulse ox is around 97-98%. She is sitting up on a chair. She is a bit lethargic. She is easily arousable and she communicates and follows commands and answers questions. Her breathing is nonlabored. She remains on Decadron. She is also on milligrams by mouth daily pH is receiving Lovenox 40 mg subcu for DVT prophylaxis. In terms of inflammatory marker, her d-dimer is at 1.59, and LDH level is 1445, her CRP level is at 3.5 and her procal is low at 0.07. The rest of the blood work essentially within normal limits including electrolytes. No nausea. No vomiting. No chest pain. No altered mentation. No other signi ficant events otherwise since yesterday. 07/28/2021, patient is on oxygen at 15 L high flow and the patient's pulse ox is around 92%. She got transferred out of the intensive care unit yesterday. T mari she is sitting up on a recliner bed. She has 100% nonrebreather facemask at the bedside to supplement her oxygen level especially when she desaturated so she gets short of breath. The patient has a CRP level of 2.4, her d-dimer is at 5.5, her LDH level from yesterday was 1445, chest x-ray shows no significant interval changes and there is some infiltration of the lung bases bilaterally consistent with COVID-19 related pneumonia, essentially stable compared to earlier chest x-rays. No fever. No chills. She is tolerating her diet. She is morbidly obese. Wasn't +6.7 with a hemoglobin of 14.4. Electrolytes are within normal limits. She remains on anticoagulation with Lovenox and she is taking 40 mg subcu daily. She remains on Decadron 6 mg IV daily and she is also completing a course of Baricitinib. She is also taking Lasix 20 mg by mouth daily. 07/29/2021, the patient's condition essentially the same as yesterday. No interval worsening or improvement. She remains on 15 L nasal cannula and along with that she is on 100% nonrebreather facemask. She is sitting up on a r ecliner. She gets short of breath with limited amount of activity. She is taking Curry's cough drops and it is also helping her with her sore throat. Repeat chest x-ray was done today and the findings are essentially unchanged. The patient has smaller lung volumes and the patient has evidence of bilateral pulmonary infiltrates which remains essentially unchanged compared to yesterday. There is also some mild cardiomegaly. She has some chronic edema lower extremities bilaterally. Her LDH level is at 560 and the CRP level is at 1.1 and both of those are improving compared to previous evaluations. D-dimer is high at 9.9. I have this patient on Decadron 6 mg IV every 24 hours and she is also on Baricitinib and she is completing a 14 day course. She is on Lasix 20 mg by mouth daily. She will anticoagulation with Lovenox 40 mg subcu daily. She is on Levemir insulin 15 units along with a size. Coverage. The incentive spirometer is being used and the patient is unable to generate more than 500. 2020, I'm seeing this patient for a follow-up. Condition is slightly worse compared to yesterday. She was on 15 L of nasal cannula along with 100% nonrebreather facemask. The pulse ox to the low 80s. based on that, the patient was placed on airvo at 60 l with an fio2 of 90% in conjunction with 100% on facemask. d-dimer is up to 16.1. ldh was low yesterday at 560 with a crp of 1.1. the patient the patient does not have any swelling in the lower extremities above and beyond her baseline. she is on lovenox 40 mg subcu for dvt prophylaxis. dopplers of the lower extremity was done and it showed no evidence of any DVT and the patient remains on Lovenox 40 mg subcu. Her chest x-ray still showing diffuse bilateral pulmonary infiltrates perihilar and the lower lobes bilaterally. She is afebrile. Her breathing is slightly labored on today's evaluation. She remains on Decadron 6 mg IV every 24 hours. Rest of medications are unchanged. She remains on Levemir insulin 15 units along with vascular coverage. IV fluids at KVO. She is not using incentive spirometer either more lethargic compared to yesterday. She remains also on Baricitinib those 2 out of 12 07/31/2021, patient is being seen for a follow-up, on today's evaluation, the patient is resting. Her breathing is mildly labored is and she is currently on a Airvo with 60 L and FiO2 of 90% along with 100% on a beta facemask with an pulse ox of 92%. She did have an episode of epistaxis which made her quite nervous and anxious and she decompensated with a pulse ox dropped in the mid 80s. Currently she is not bleeding. She remains on Lovenox 40 mg subcu for DVT prophylaxis. Repeat Doppler was done again to make sure there is no evidence of any DVT knowing that her d-dimer was on the rise. Chest x-ray continues to show diffuse but the pulmonary infiltrates consistent with COVID-19 related p neumonia/ARDS. She remains on accommodation of Decadron 6 with a grams IV every 12 hours and she is also on Baricitinib protocol. She remains on Levemir insulin running at 15 units units subcu on a daily basis along with a size care coverage. She is unable to do her incentive spirometer effectively. In terms of oral intake, she is drinking adequately. She is probably getting around 20- 30% of her meals. She is awake. She is responsive. In terms of her blood work, her LDH is on the rise and her LDH from today is at 1376. CRP is at 4. Total protein at 6.0. Glucose is 162. Serum bicarb is at 34. Sodium is at 139 with a potassium level of 3.5. The CBC shows a white cell count 12.7 with a hemoglobin of 15.2. D-dimer is still elevated at 17.9. Objective - Vital Signs Vital signs: Vital Signs Temp 98 F 07/31/21 04:00 Pulse 68 07/31/21 07:00 Resp 27 H 07/31/21 07:00 BP 141/82 07/31/21 07:00 Pulse Ox 88 L 07/31/21 08:05 Intake & Output 07/30/21 07/31/21 07/31/21 18:59 06:59 18:59 Intake Total 500 480 Output Total 500 570 60 Balance 0 -90 -60 Weight 122.016 kg 114.5 kg Intake: Oral 500 480 Output: Urine 500 570 60 Other: Voiding Method Indwelling Catheter Indwelling Catheter - Exam No acute distress, oriented 3. No respiratory distress, audible wheezing, or use of accessory muscles. The patient's currently on airflow 60 L and saturations are 90-92%., So on 100% nonrebreather facemask. she is uncomfortable she is sitting up on a chair. The breathing is comfortable and nonlabored HEENT examination is grossly unremarkable. Neck supple. Full range of motion. No adenopathy thyromegaly or neck vein distention. Cardiovascular examination reveals regular rhythm rate. S1-S2 normal. No S3 or S4. No discernible murmur noted. Heart sounds are distant. Heart rate 79 bpm. Lungs reveal scattered coarse rhonchi. Mild bibasilar crackles. No wheezes. Breath sounds equal bilaterally. The patient coughs when she takes a deep breath. Abdomen soft bowel sounds are heard. No masses or tenderness. Extremities are intact. No cyanosis clubbingand there is evidence of chronic edema lower extremities bilaterally. Skin is without rash or lesion. Neurologic examination is brief but nonfocal. - Labs CBC & Chem 7: 07/31/21 05:03 07/31/21 05:03 Labs: Abnormal Lab Results - Last 24 Hours (Table) 07/30/21 07/30/21 07/30/21 Range/Units 08:17 08:17 11:47 WBC 14.18 H (4.50-10.00) X 10*3/uL MCHC 31.5 L (32.0-37.0) g/dL Immature Gran # 0.14 H (0.00-0.04) X 10*3/uL Neutrophils # 12.50 H (1.80-7.70) X 10*3/uL Lymphocytes # (1.0-4.8) k/uL D-Dimer (<0.60) mg/L FEU Carbon Dioxide (22-30) mmol/L Anion Gap 12.60 H (4.00-12.00) mmol/L BUN 29.9 H (9.0-27.0) mg/dL Est GFR (CKD-EPI)NonAf 53.0 L (60.0-200.0) BUN/Creatinine Ratio 27.18 H (12.00-20.00) Ratio Glucose 135 H (70-110) mg/dL POC Glucose (mg/dL) 166 H (75-99) mg/dL AST (14-36) U/L ALT (4-34) U/L Lactate Dehydrogenase 602 H (120-246) U/L C-Reactive Protein (<1.0) mg/dL Total Protein (6.3-8.2) g/dL Albumin (3.5-5.0) g/dL 07/30/21 07/30/21 07/31/21 Range/Units 17:05 20:54 05:03 WBC (4.50-10.00) X 10*3/uL MCHC (32.0-37.0) g/dL Immature Gran # (0.00-0.04) X 10*3/uL Neutrophils # (1.80-7.70) X 10*3/uL Lymphocytes # (1.0-4.8) k/uL D-Dimer 17.99 H (<0.60) mg/L FEU Carbon Dioxide (22-30) mmol/L Anion Gap (4.00-12.00) mmol/L BUN (9.0-27.0) mg/dL Est GFR (CKD-EPI)NonAf (60.0-200.0) BUN/Creatinine Ratio (12.00-20.00) Ratio Glucose (70-110) mg/dL POC Glucose (mg/dL) 168 H 186 H (75-99) mg/dL AST (14-36) U/L ALT (4-34) U/L Lactate Dehydrogenase (120-246) U/L C-Reactive Protein (<1.0) mg/dL Total Protein (6.3-8.2) g/dL Albumin (3.5-5.0) g/dL 07/31/21 07/31/21 07/31/21 Range/Units 05:03 05:03 05:03 WBC 12.7 H (4.50-10.00) X 10*3/uL MCHC (32.0-37.0) g/dL Immature Gran # (0.00-0.04) X 10*3/uL Neutrophils # 11.9 H (1.80-7.70) X 10*3/uL Lymphocytes # 0.5 L (1.0-4.8) k/uL D-Dimer (<0.60) mg/L FEU Carbon Dioxide 34 H (22-30) mmol/L Anion Gap (4.00-12.00) mmol/L BUN 27 H (9.0-27.0) mg/dL Est GFR (CKD-EPI)NonAf (60.0-200.0) BUN/Creatinine Ratio (12.00-20.00) Ratio Glucose 162 H (70-110) mg/dL POC Glucose (mg/dL) (75-99) mg/dL AST 48 H (14-36) U/L ALT 58 H (4-34) U/L Lactate Dehydrogenase 1376 H (120-246) U/L C-Reactive Protein 4.0 H (<1.0) mg/dL Total Protein 6.0 L (6.3-8.2) g/dL Albumin 3.2 L (3.5-5.0) g/dL 07/31/21 Range/Units 05:51 WBC (4.50-10.00) X 10*3/uL MCHC (32.0-37.0) g/dL Immature Gran # (0.00-0.04) X 10*3/uL Neutrophils # (1.80-7.70) X 10*3/uL Lymphocytes # (1.0-4.8) k/uL D-Dimer (<0.60) mg/L FEU Carbon Dioxide (22-30) mmol/L Anion Gap (4.00-12.00) mmol/L BUN (9.0-27.0) mg/dL Est GFR (CKD-EPI)NonAf (60.0-200.0) BUN/Creatinine Ratio (12.00-20.00) Ratio Glucose (70-110) mg/dL POC Glucose (mg/dL) 147 H (75-99) mg/dL AST (14-36) U/L ALT (4-34) U/L Lactate Dehydrogenase (120-246) U/L C-Reactive Protein (<1.0) mg/dL Total Protein (6.3-8.2) g/dL Albumin (3.5-5.0) g/dL Assessment and Plan Plan: 1 Acute hypoxemic respiratory failure secondary to coronavirus associated pneumonia. The patient is currently in the intensive care unit. The patient on 100% nonrebreather facemask addition to 15 L of oxygen by nasal cannula. Her pulse ox is around 97-98%. GEN for now is on Airvo 60 L with an FiO2 of 90% in addition to 100% nonrebreather facemask. She is having labored breathing. . Her d-dimer is elevated. Doppler of the lower extremities were negative. She remains on Lovenox 40 mg subcu daily. She is on a combination of Baricitinib and Decadron. Was done today based on elevation of the d-dimer. Results are still pending for now. Meanwhile, the LDH level is elevated. 2 History of GI bleed. 3 History of diabetes mellitus. 4 History of gastroesophageal reflux disease. The patient is currently on Levemir insulin 15 units along with a sinus care coverage 5 History of hyperlipidemia. 6 History of hypertension. 7 History of sleep apnea syndrome, not currently using CPAP. 8 Lifelong nontobacco use. 9 morbid obesity plan Keep the patient intensive care unit Keep the patient Airvo 60 L with an FiO2 of 90% along with 100% nonrebreather facemask Increase the Decadron to 6 mg IV every 12 hours Continue bacitracin per protocol Continue Lovenox 40 mg subcu daily, d-dimer is elevated and awaiting the results of the repeat Doppler Pro-calcitonin level is not elevated Encourage using incentive spirometer Monitor the blood sugar especially with the recent increase in the Decadron dose Transferred back to the ICU , condition is critical, high likelihood of further decompensation, intubation mechanical ventilation. We'll keep her in the intensive care unit for now. We'll give her a dose of Lasix 40 mg IV push. She has been retaining fluid in her lower extremities. The fluid balance over the past 24 hours abdomen positive and the patient has been in a positive fluid balance over the past several days. critical care evaluation , >30 min Time with Patient: Greater than 30
--- NOTE | 2021-07-31 09:37 | US ---
EXAMINATION TYPE: US venous doppler duplex LE DATE OF EXAM: 07/31/2021 8:00 AM COMPARISON: NONE CLINICAL HISTORY: Elevated d-dimer. SIDE PERFORMED: TECHNIQUE: The lower extremity deep venous system is examined utilizing real time linear array sonog tarik with graded compression, doppler sonography and color-flow sonography. VESSELS IMAGED: Common Femoral Vein Deep Femoral Vein Greater Saphenous Vein * Femoral Vein Popliteal Vein Small Saphenous Vein * Proximal Calf Veins (* superficial vessels) Morbidly obese ICU patient who is unable to move. Technically difficult limited study Right Leg: Appears negative for DVT as seen. Groin pictures limited, unable to compress mid and dist al femoral vein due to patient intolerance. Proximal calf vessels not seen. Left Leg: Appears negative for DVT as seen. Groin pictures limited. Proximal calf vessels not seen. IMPRESSION: No evidence for DVT.
[2021-07-31] MEDS: ZINC SULFATE 220 MG CAP PO SCH (11:06)
[2021-07-31] MEDS: ASCORBIC ACID 500 MG TAB PO SCH (11:06)
[2021-07-31] MEDS: CHOLECALCIFEROL 25 MCG (1000 IU) TABLET PO SCH (11:06)
[2021-07-31] MEDS: FUROSEMIDE 20 MG TAB PO SCH (11:07)
[2021-07-31] MEDS: DEXAMETHASONE SOD PHOSPHATE 10 MG/ML 1 ML VIAL IV SCH ×2 (11:08→20:33)
[2021-07-31] MEDS: ENOXAPARIN 40 MG/0.4 ML SYRINGE SQ SCH (11:08)
[2021-07-31] MEDS: OXYBUTYNIN 15 MG TAB.ER.24 PO SCH (11:09)
[2021-07-31] MEDS: BARICITINIB 2 MG TABLET PO SCH (11:10)
[2021-07-31] MEDS: SODIUM CHLORIDE 0.9% 1,000 ML IV SCH (16:43)
[2021-07-31 17:02] LABS: Glucose,Whole Blood 194 mg/dL (75-99)
[2021-07-31 20:26] LABS: Glucose,Whole Blood 210 mg/dL (75-99)
[2021-07-31] MEDS: INSULIN DETEMIR (LEVEMIR) 100 UNIT/ML SYR SQ SCH (20:32)
[2021-08-01 05:45] LABS: Basophils % (A) 0 %; Eosinophils % (A) 0 %; HCT 40.7 % (34.0-46.0); HGB 13.3 gm/dL (11.4-16.0); Lymphocytes # (A) 0.6 k/uL (1.0-4.8); Lymphocytes % (A) 5 %; MCH 29.8 pg (25.0-35.0); MCHC 32.7 g/dL (31.0-37.0); Mean Platelet Volume 7.8; Monocytes # (A) 0.3 k/uL (0-1.0); Monocytes % (A) 2 %; Neutrophils # (A) 11.6 k/uL (1.3-7.7); Neutrophils % (A) 92 %; Platelet Count 238 k/uL (150-450); RBC 4.47 m/uL (3.80-5.40); RDW 12.9 % (11.5-15.5); WBC 12.6 k/uL (3.8-10.6)
[2021-08-01 06:03] LABS: Albumin 3.4 g/dL (3.5-5.0); Calcium 9.4 mg/dL (8.4-10.2); Total Bilirubin 0.7 mg/dL (0.2-1.3); Total Protein 6.3 g/dL (6.3-8.2)
[2021-08-01 06:49] LABS: Glucose,Whole Blood 163 mg/dL (75-99)
[2021-08-01] MEDS: INSULIN ASPART (NovoLOG) 100 UNIT/ML VIAL SQ SCH ×4 (06:50→20:53)
[2021-08-01] MEDS: PANTOPRAZOLE 40 MG TABLET PO SCH (06:50)
--- NOTE | 2021-08-01 07:34 | XR ---
EXAMINATION TYPE: XR chest 1V portable DATE OF EXAM: 08/01/2021 HISTORY: Shortness of breath. COMPARISON: 07/31/2021 TECHNIQUE: Single view of the chest is submitted. FINDINGS: Demonstrated are scattered senescent parenchymal change. Bilateral reticulonodular infiltrates persist unchanged. The heart is stable. Hilar and mediastinal structures are within normal limits. Degenerative changes are seen of the dorsal spine. IMPRESSION: 1. Bilateral reticulonodular infiltrates persist unchanged.
[2021-08-01] MEDS: SYMBICORT 160-4.5 MCG INHALER INHALATION SCH ×2 (07:45→21:47)
[2021-08-01] MEDS: ALBUTEROL HFA INHALER INHALATION SCH ×4 (07:45→21:47)
[2021-08-01] MEDS: ENOXAPARIN 40 MG/0.4 ML SYRINGE SQ SCH (09:26)
[2021-08-01] MEDS: CHOLECALCIFEROL 25 MCG (1000 IU) TABLET PO SCH (09:27)
[2021-08-01] MEDS: DEXAMETHASONE SOD PHOSPHATE 10 MG/ML 1 ML VIAL IV SCH ×2 (09:27→20:53)
[2021-08-01] MEDS: ASCORBIC ACID 500 MG TAB PO SCH (09:27)
[2021-08-01] MEDS: ZINC SULFATE 220 MG CAP PO SCH (09:27)
[2021-08-01] MEDS: BARICITINIB 2 MG TABLET PO SCH (09:27)
[2021-08-01] MEDS: FUROSEMIDE 20 MG TAB PO SCH (09:27)
[2021-08-01] MEDS: OXYBUTYNIN 15 MG TAB.ER.24 PO SCH (09:27)
[2021-08-01] MEDS: SODIUM CHLORIDE 0.9% 1,000 ML IV SCH ×2 (09:28→22:00)
--- NOTE | 2021-08-01 09:34 | P.PN ---
Subjective Progress Note Date: 08/01/21 on today's evaluation of 07/26/2021, the patient feels slightly worse compared to yesterday. Oxidation is gotten worse. She was on 5 L and currently she is up to 15 L. She is morbidly obese. She has a body mass index of 47.7. She has also hypertension and hyperlipidemia and diabetes mellitus and obstructive sleep apnea as comorbid conditions. She has chronic edema lower extremity is bilaterally. She remains on Decadron. She was also on Lasix at a dose of 20 mg IV daily. She was having adequate urine output. Her IV fluids are running at 75 mL an hour normal saline. The patient has no chest pain. She is exhausted. Whenever she moves around she gets quite short of breath. No significant cough or sputum production. No chest tightness. No wheezing. She is on a combination of vitamin C, vitamin D, zinc and and she is also on Lovenox for DVT prophylaxis. The most recent d-dimer is at 1.79. The most recent LDH level is 1000 with a CRP of 1.2. 07/27/2021, the patient is in the intensive care unit. Note that the patient got transferred to the ICU yesterday due to her borderline respiratory status as the patient was placed on 15 L of oxygen by nasal cannula in addition to 100% nonrebreather facemask to improve her oxygenation. This morning, pulse ox is around 97-98%. She is sitting up on a chair. She is a bit lethargic. She is easily arousable and she communicates and follows commands and answers questions. Her breathing is nonlabored. She remains on Decadron. She is also on milligrams by mouth daily pH is receiving Lovenox 40 mg subcu for DVT prophylaxis. In terms of inflammatory marker, her d-dimer is at 1.59, and LDH level is 1445, her CRP level is at 3.5 and her procal is low at 0.07. The rest of the blood work essentially within normal limits including electrolytes. No nausea. No vomiting. No chest pain. No altered mentation. No other signi ficant events otherwise since yesterday. 07/28/2021, patient is on oxygen at 15 L high flow and the patient's pulse ox is around 92%. She got transferred out of the intensive care unit yesterday. T mari she is sitting up on a recliner bed. She has 100% nonrebreather facemask at the bedside to supplement her oxygen level especially when she desaturated so she gets short of breath. The patient has a CRP level of 2.4, her d-dimer is at 5.5, her LDH level from yesterday was 1445, chest x-ray shows no significant interval changes and there is some infiltration of the lung bases bilaterally consistent with COVID-19 related pneumonia, essentially stable compared to earlier chest x-rays. No fever. No chills. She is tolerating her diet. She is morbidly obese. Wasn't +6.7 with a hemoglobin of 14.4. Electrolytes are within normal limits. She remains on anticoagulation with Lovenox and she is taking 40 mg subcu daily. She remains on Decadron 6 mg IV daily and she is also completing a course of Baricitinib. She is also taking Lasix 20 mg by mouth daily. 07/29/2021, the patient's condition essentially the same as yesterday. No interval worsening or improvement. She remains on 15 L nasal cannula and along with that she is on 100% nonrebreather facemask. She is sitting up on a r ecliner. She gets short of breath with limited amount of activity. She is taking Curry's cough drops and it is also helping her with her sore throat. Repeat chest x-ray was done today and the findings are essentially unchanged. The patient has smaller lung volumes and the patient has evidence of bilateral pulmonary infiltrates which remains essentially unchanged compared to yesterday. There is also some mild cardiomegaly. She has some chronic edema lower extremities bilaterally. Her LDH level is at 560 and the CRP level is at 1.1 and both of those are improving compared to previous evaluations. D-dimer is high at 9.9. I have this patient on Decadron 6 mg IV every 24 hours and she is also on Baricitinib and she is completing a 14 day course. She is on Lasix 20 mg by mouth daily. She will anticoagulation with Lovenox 40 mg subcu daily. She is on Levemir insulin 15 units along with a size. Coverage. The incentive spirometer is being used and the patient is unable to generate more than 500. 2020, I'm seeing this patient for a follow-up. Condition is slightly worse compared to yesterday. She was on 15 L of nasal cannula along with 100% nonrebreather facemask. The pulse ox to the low 80s. based on that, the patient was placed on airvo at 60 l with an fio2 of 90% in conjunction with 100% on facemask. d-dimer is up to 16.1. ldh was low yesterday at 560 with a crp of 1.1. the patient the patient does not have any swelling in the lower extremities above and beyond her baseline. she is on lovenox 40 mg subcu for dvt prophylaxis. dopplers of the lower extremity was done and it showed no evidence of any DVT and the patient remains on Lovenox 40 mg subcu. Her chest x-ray still showing diffuse bilateral pulmonary infiltrates perihilar and the lower lobes bilaterally. She is afebrile. Her breathing is slightly labored on today's evaluation. She remains on Decadron 6 mg IV every 24 hours. Rest of medications are unchanged. She remains on Levemir insulin 15 units along with vascular coverage. IV fluids at KVO. She is not using incentive spirometer either more lethargic compared to yesterday. She remains also on Baricitinib those 2 out of 12 07/31/2021, patient is being seen for a follow-up, on today's evaluation, the patient is resting. Her breathing is mildly labored is and she is currently on a Airvo with 60 L and FiO2 of 90% along with 100% on a beta facemask with an pulse ox of 92%. She did have an episode of epistaxis which made her quite nervous and anxious and she decompensated with a pulse ox dropped in the mid 80s. Currently she is not bleeding. She remains on Lovenox 40 mg subcu for DVT prophylaxis. Repeat Doppler was done again to make sure there is no evidence of any DVT knowing that her d-dimer was on the rise. Chest x-ray continues to show diffuse but the pulmonary infiltrates consistent with COVID-19 related p neumonia/ARDS. She remains on accommodation of Decadron 6 with a grams IV every 12 hours and she is also on Baricitinib protocol. She remains on Levemir insulin running at 15 units units subcu on a daily basis along with a size care coverage. She is unable to do her incentive spirometer effectively. In terms of oral intake, she is drinking adequately. She is probably getting around 20- 30% of her meals. She is awake. She is responsive. In terms of her blood work, her LDH is on the rise and her LDH from today is at 1376. CRP is at 4. Total protein at 6.0. Glucose is 162. Serum bicarb is at 34. Sodium is at 139 with a potassium level of 3.5. The CBC shows a white cell count 12.7 with a hemoglobin of 15.2. D-dimer is still elevated at 17.9. 08/01/2021, the patient remains on high flow oxygen at 60 L Airvo along with an FiO2 of 90% and the patient is also on 100% nonrebreather facemask. All sizes ranging between 86 and 88%. She remains on Decadron 6 mg IV every 12 hours and she is still on Baricitinib. She was having issues with some bleeding from her right nostril. As such, I gave her a break off the Airvo yesterday. She did not tolerate that. She desaturated down to 76%. She was placed back on the Airvo. Since then, the patient has not had any significant bleeding. She is tolerating the treatment fairly well for the time being. Denies having any worsening shortness of breath. Repeat chest x-ray was done and I see some improvement in aeration of the left lung base as the left hemidiaphragm is visualized more clearly on today's x-ray. Nevertheless, there is still diffuse bilateral pulmonary infiltrates consistent with COVID-19 related pneumonia and ARDS. She has a very good appetite. She eats her meals nicely. She is on Levemir insulin 15 units along with a sliding scale insulin coverage. In terms of her inflammatory markers, those need to be repeated. D-dimer was elevated and for that reason I repeated the Doppler of the lower extremity that came back negative. At LDH and CRP are still pending. Renal function is stable. Her white cell count is at 12.6. Objective - Vital Signs Vital signs: Vital Signs Temp 98.3 F 08/01/21 04:00 Pulse 80 08/01/21 07:00 Resp 35 H 08/01/21 07:00 BP 120/79 08/01/21 07:00 Pulse Ox 83 L 08/01/21 07:44 Intake & Output 10/08/01/21 08/01/21 18:59 06:59 18:59 Intake Total 800 680 Output Total 3035 580 Balance -2235 100 Weight 111.6 kg Intake: Oral 800 680 Output: Urine 3035 580 Other: Voiding Method Indwelling Catheter Indwelling Catheter - Exam No acute distress, oriented 3. No respiratory distress, audible wheezing, or use of accessory muscles. The patient's currently on airflow 60 L and satur ations are 90-92%., So on 100% nonrebreather facemask. she is uncomfortable she is sitting up on a chair. The breathing is comfortable and nonlabored HEENT examination is grossly unremarkable. Neck supple. Full range of motion. No adenopathy thyromegaly or neck vein distention. Cardiovascular examination reveals regular rhythm rate. S1-S2 normal. No S3 or S4. No discernible murmur noted. Heart sounds are distant. Heart rate 79 bpm. Lungs reveal scattered coarse rhonchi. Mild bibasilar crackles. No wheezes. Breath sounds equal bilaterally. The patient coughs when she takes a deep breath. Abdomen soft bowel sounds are heard. No masses or tenderness. Extremities are intact. No cyanosis clubbingand there is evidence of chronic edema lower extremities bilaterally. Skin is without rash or lesion. Neurologic examination is brief but nonfocal. - Labs CBC & Chem 7: 08/01/21 05:31 08/01/21 05:31 Labs: Abnormal Lab Results - Last 24 Hours (Table) 07/31/21 07/31/21 08/01/21 Range/Units 17:01 20:25 05:31 WBC 12.6 H (3.8-10.6) k/uL Neutrophils # 11.6 H (1.3-7.7) k/uL Lymphocytes # 0.6 L (1.0-4.8) k/uL Chloride (98-107) mmol/L Carbon Dioxide (22-30) mmol/L BUN (7-17) mg/dL Glucose (74-99) mg/dL POC Glucose (mg/dL) 194 H 210 H (75-99) mg/dL AST (14-36) U/L ALT (4-34) U/L Albumin (3.5-5.0) g/dL 08/01/21 08/01/21 Range/Units 05:31 06:47 WBC (3.8-10.6) k/uL Neutrophils # (1.3-7.7) k/uL Lymphocytes # (1.0-4.8) k/uL Chloride 96 L (98-107) mmol/L Carbon Dioxide 36 H (22-30) mmol/L BUN 36 H (7-17) mg/dL Glucose 177 H (74-99) mg/dL POC Glucose (mg/dL) 163 H (75-99) mg/dL AST 57 H (14-36) U/L ALT 76 H (4-34) U/L Albumin 3.4 L (3.5-5.0) g/dL Assessment and Plan Plan: 1 Acute hypoxemic respiratory failure secondary to coronavirus associated pneumonia. The patient is currently in the intensive care unit. The patient on 100% nonrebreather facemask addition to 15 L of oxygen by nasal cannula. Her pulse ox is around 97-98%. GEN for now is on Airvo 60 L with an FiO2 of 90% in addition to 100% nonrebreather facemask. She is having labored breathing. . Her d-dimer is elevated. Doppler of the lower extremities were negative. She r emains on Lovenox 40 mg subcu daily. She is on a combination of Baricitinib and Decadron. Based on the fact that the d-dimer was elevated, Dopplers of the lower extremity was repeated twice and the patient came back negative. She did experience some epistaxis from the right nostril. I have her on low-dose Lovenox 40 mg subcu on a daily basis. No further bouts of bleeding. Unable to tolerate coming off Airvo is utilizing a combination of Airvo 60 L with 100% nonrebreather facemask. Chest x-ray findings were noted. 2 History of GI bleed. 3 History of diabetes mellitus. 4 History of gastroesophageal reflux disease. The patient is currently on Levemir insulin 15 units along with a sinus care coverage 5 History of hyperlipidemia. 6 History of hypertension. 7 History of sleep apnea syndrome, not currently using CPAP. 8 Lifelong nontobacco use. 9 morbid obesity plan Keep the patient intensive care unit Keep the patient Airvo 60 L with an FiO2 of 90% along with 100% nonrebreather facemask Increase the Decadron to 6 mg IV every 12 hours Continue bacitracin per protocol Continue Lovenox 40 mg subcu daily, d-dimer is elevated and Doppler of the lower extremity came back negative Pro-calcitonin level is not elevated Encourage using incentive spirometer Monitor the blood sugar especially with the recent increase in the Decadron dose Chest x-ray was noted Transferred back to the ICU , condition is critical, high likelihood of further decompensation, intubation mechanical ventilation. We'll keep her in the intensive care unit for now. We'll give her a dose of Lasix 40 mg IV push. She has been retaining fluid in her lower extremities. The fluid balance over the p ast 24 hours abdomen positive and the patient has been in a positive fluid balance over the past several days. critical care evaluation , >30 min
[2021-08-01 11:00] LABS: ABG Base Excess 14.7 mmol/L; ABG HCO3 38 mmol/L (21-25); ABG Oxygen Saturation 78.6 % (94-97); ABG PCO2 47 mmHg (35-45); ABG PH 7.52 (7.35-7.45); ABG TCO2 39 mmol/L (19-24); Allen Test Performed? Yes
[2021-08-01 11:03] LABS: ABG PO2 43 mmHg (83-108)
[2021-08-01 11:21] LABS: Glucose,Whole Blood 175 mg/dL (75-99)
[2021-08-01 16:30] LABS: Glucose,Whole Blood 157 mg/dL (75-99)
--- NOTE | 2021-08-01 19:36 | P.PN ---
Subjective Progress Note Date: 07/31/21 Principal diagnosis: Acute hypoxic respiratory failure secondary to COVID-19 pneumonia Possible upper GI bleed. Acute kidney injury 65-year-old male with a known history of hypertension, hyperlipidemia, diabetes type 2 [id number], osteoarthritis, obstructive sleep apnea, migraine headaches and no prior history of smoking presents to ER with complaints of fever, cough and shortness of breath along with diarrhea. Patient states that she has been sick for the past 2 weeks with cough congestion body aches and is also having diarrhea for the past 1 week. She came to the ER due to complaints of dark-colored stools. Patient states this is not any blood thinners. No prior history of peptic ulcer disease. Patient does take naproxen for arthritic pain. No complaints of chest pain. On admission T-max was 101.4, pulse 102, pulse ox 83% on room air. Denies any complaints of chest pain. No abdominal pain. No dysuria or hematuria. No headache or dizziness or lightheadedness. Chest x-ray showed there is new patchy pulmonary edema compared to oral exam that could be acute pneumonia. Laboratory showed WBC 4.5 hemoglobin 15.7 and platelets 173 and lymphocytes 0.8 Sodium 138 potassium 4.6 chloride 102 BUN 61 creatinine 2.12 Blood sugar 139 AST 97 ALT 60 alk phos 63 and lipase level 651 Stool occult blood positive and Coronavirus PCR detected. 07/24/2021 Patient is seen and evaluated and discussed with nursing staff; continues to complain of shortness of breath with minimal activity; patient has been brian gnosed with COVID-19 pneumonia; patient does report vaccination against coronavirus Vital signs are reviewed with temperature of 99.2, pulse 80, respiration 18 and blood pressure 143/73 and O2 saturation 91% Patient remains on treatment with Decadron, Lovenox and COVID-19 vitamin cocktail; patient is deemed not a candidate for REM due to onset of symptoms a few weeks prior to presenting to the hospital and patient has been fully vaccinated Laboratory review shows WBC of 4.2 and hemoglobin consistently stable at 14.8 with platelet count of 158; sodium 139, potassium 5.0 which is down from 6.1 y esterday, BUN/creatinine of 28/0.77 down from 44/1.19 yesterday 07/25/2021 Patient discussed with nursing staff no specific concerns identified; continues to report shortness of breath; self proning encourage Vital signs are reviewed temperature 99.3, pulse 79, respirations 17 and blood pressure 102/67 Lab review shows WBC 4.7, hemoglobin 14 and platelet count of 172, d-dimer at 0.96, BUN/creatinine down to 25/1.0; repeat chest x-ray shows improvement Pulmonary on board and recommending to continue with current treatment with Decadron, Lovenox and vitamins 07/26/2021 Patient is seen and evaluated in room at bedside; oxygen saturation has declined and patient is currently on 15 L of O2. patient is being transferred to ICU as an overflow She remains on Decadron. She was also on Lasix at a dose of 20 mg IV daily. She was having adequate urine output. Her IV fluids are running at 75 mL an hour normal saline. The patient has no chest pain. She is exhausted. Whenever she moves around she gets quite short of breath. No significant cough or sputum production. No chest tightness. No wheezing. She is on a combination of vitamin C, vitamin D, zinc and and she is also on Lovenox for DVT prophylaxis. The most recent d-dimer is at 1.79. The most recent LDH level is 1000 with a CRP of 1.2. Pulmonary service recommending to continue the Decadron and the Lovenox and add Baricitinib per protocol. 07/27/2021 Patient is seen and evaluated and discussed with nursing staff; patient was transferred to the ICU yesterday due to her borderline respiratory status as the patient was placed on 15 L of oxygen by nasal cannula in addition to 100% nonrebreather facemask to improve her oxygenation. Patient is sitting up on a chair. She is a bit lethargic but easily arousable; . Her breathing is nonlabored. Vital signs are reviewed temperature 98.7, pulse 79, respiration 24, and blood pressure 101/77; pulse ox is around 97-98%. She remains on Decadron; Lovenox 40 mg subcu along with COVID-19 vitamin radha ktail Laboratory review reveals d-dimer is at 1.59, and LDH level is 1445, her CRP level is at 3.5 and her procal is low at 0.07. Pulmonary on board and recommending to continue patient on 100% nonrebreather face Lasix in addition to nasal cannula at 15 L; continue the Decadron and the Lovenox and add Baricitinib per protocol Continue to follow inflammatory markers periodically including LDH, CRP, ferritin and d-dimer 07/28/2021 Patient is seen and evaluated at beside and discussed with nursing staff. Patient is currently on high flow oxygen with a pulse ox around 92%. Patient was recently transferred out of ICU and is able to sit upright on her bed. Patient also has a 100% nonrebreather facemask at her bedside in order to supplement oxygen when she gets short of breath. Patient's CRP level is 2.4, her d-dimer is 5.5, her LDH level from yesterday was 1445. Patient's chest x ray is not showing any changes but there is some infiltration seen at the lung bases which remains consistent with COVID19 pneumonia, current x ray remains stable compared to her earlier chest x ray. Patient is afebrile with no chills. Patient is on anticoagulant therapy with Lovenox, remains on Decadron, and is also complicitng a curse of Baricitinib along with Lasix by mouth daily. There are no major changes or events from yesterday. 07/29/2021 Patient is seen and evaluated at bedside and discussed with nursing staff. Patient's condition is same with no major or significant changes from yesterday. Patient remains on nasal cannula and nonrebreather facemask. Patient still gets short of breath with mild exertion. Repeat chest x-ray was conducted today with evidence of bilateral pulmonary infiltrates along with smaller lung volumes. Patient also suffers from mild cardiomegaly indicated on imaging. On examination, it is noted that patient has lower extremity edema bilaterally. Patient's LDH and CRP levels have improved, however D-dimer has elevated to 9.9. Patient is currently on Decadron, Baricitinib, Lasix, Lovenox, Levemir insulin. P, as per protocol. Patient is using incentive spirometer. 07/30/2021 Patient is seen and evaluated at bedside and discussed with nursing staff. Patient's condition is slightly worse compared to yesterday. Patient continues to be on nasal cannula and nonrebreather facemask with a pulse ox in the low 80s. Patient was then placed on Airvo. D dimer levels have trended upwards to 16.1. Patient did not have any swelling in her lower ext. Patient is on Lovenox for DVT prophylaxis. Doppler of the lower extremity was done which showed no evidence of any DVT. Patient's chest x ray shows diffuse bilateral pulmonary infiltrates perihilar and also the lower lobes bilaterally. Patient is currently afebrile. Patient's breathing is lightly labored compared to yesterday. Patient continues to be on Decadron whereas rest of medications are unchanged. Patient is no longer using incetive spirometer. 07/31/2021 Patient is being seen today and evaluated while being discussed with the nursing staff. Patient's breathing is still labored and she continues to be on Airvo along with a beta facemask. Patient had an episode of epistaxis for which she expresses concern. Patient decompensated with a pulse ox that dropped to the mid 80s. Patient is no longer currently bleeding but remains on Lovenox for DVT prophylaxis. A repeat Doppler was donea gain to ensure that patient did not have any evidence of DVT considering her d-dimer was trending upward. Chest X ray shows diffuse pulmonary infiltrates which are consistent with COVID 19 pneumonia. Patient remains on Decadron and also Baricitinib. Patient is also on Levemir insulin to control her sugar levels. However, the patient is not able to do her incentive spirometer. Patient is drinking sufficiently but is not eating sufficiently. Patient is awake and response. Patient's LDH is treading upward with her D-dimer still eletated at 17.9 No other significant events or major changes from yesterday; continue supportive care. Objective - Vital Signs Vital signs: Vital Signs Temp 98 F 07/31/21 04:00 Pulse 71 07/31/21 11:00 Resp 30 H 07/31/21 11:00 BP 133/89 07/31/21 11:00 Pulse Ox 86 L 07/31/21 11:00 Intake & Output 07/30/21 07/31/21 07/31/21 18:59 06:59 18:59 Intake Total 500 480 Output Total 500 570 60 Balance 0 -90 -60 Weight 122.016 kg 114.5 kg Intake: Oral 500 480 Output: Urine 500 570 60 Other: Voiding Method Indwelling Catheter Indwelling Catheter - Exam PHYSICAL EXAMINATION: GENERAL: The patient is alert and oriented x3, not in any acute distress. Well developed, well nourished. HEENT: Pupils are round and equally reacting to light. EOMI. No scleral icterus. No conjunctival pallor. Normocephalic, atraumatic. No pharyngeal erythema. No thyromegaly. CARDIOVASCULAR: S1 and S2 present. No murmurs, rubs, or gallops. PULMONARY: Chest is clear to auscultation, no wheezing or crackles. ABDOMEN: Soft, nontender, nondistended, normoactive bowel sounds. No palpable organomegaly. MUSCULOSKELETAL: No joint swelling or deformity. EXTREMITIES: No cyanosis, clubbing, or pedal edema. NEUROLOGICAL: Gross neurological examination did not reveal any focal deficits. SKIN: No rashes. - Labs CBC & Chem 7: 08/01/21 05:31 08/01/21 05:31 Labs: Abnormal Lab Results - Last 24 Hours (Table) 07/30/21 07/30/21 07/31/21 Range/Units 17:05 20:54 05:03 WBC (3.8-10.6) k/uL Neutrophils # (1.3-7.7) k/uL Lymphocytes # (1.0-4.8) k/uL D-Dimer 17.99 H (<0.60) mg/L FEU Carbon Dioxide (22-30) mmol/L BUN (7-17) mg/dL Glucose (74-99) mg/dL POC Glucose (mg/dL) 168 H 186 H (75-99) mg/dL AST (14-36) U/L ALT (4-34) U/L Lactate Dehydrogenase (313-618) U/L C-Reactive Protein (<1.0) mg/dL Total Protein (6.3-8.2) g/dL Albumin (3.5-5.0) g/dL 07/31/21 07/31/21 07/31/21 Range/Units 05:03 05:03 05:03 WBC 12.7 H (3.8-10.6) k/uL Neutrophils # 11.9 H (1.3-7.7) k/uL Lymphocytes # 0.5 L (1.0-4.8) k/uL D-Dimer (<0.60) mg/L FEU Carbon Dioxide 34 H (22-30) mmol/L BUN 27 H (7-17) mg/dL Glucose 162 H (74-99) mg/dL POC Glucose (mg/dL) (75-99) mg/dL AST 48 H (14-36) U/L ALT 58 H (4-34) U/L Lactate Dehydrogenase 1376 H (313-618) U/L C-Reactive Protein 4.0 H (<1.0) mg/dL Total Protein 6.0 L (6.3-8.2) g/dL Albumin 3.2 L (3.5-5.0) g/dL 07/31/21 Range/Units 05:51 WBC (3.8-10.6) k/uL Neutrophils # (1.3-7.7) k/uL Lymphocytes # (1.0-4.8) k/uL D-Dimer (<0.60) mg/L FEU Carbon Dioxide (22-30) mmol/L BUN (7-17) mg/dL Glucose (74-99) mg/dL POC Glucose (mg/dL) 147 H (75-99) mg/dL AST (14-36) U/L ALT (4-34) U/L Lactate Dehydrogenase (313-618) U/L C-Reactive Protein (<1.0) mg/dL Total Protein (6.3-8.2) g/dL Albumin (3.5-5.0) g/dL Assessment and Plan Assessment: Acute hypoxemic respiratory failure secondary to coronavirus associated pneumonia. Dark-colored stools with occult blood positive. Possible upper GI bleed. Acute kidney injury likely prerenal with creatinine level 2.14 on admission. Baseline creatinine not known Diabetes type 2 [id number] Mild acute pancreatitis with lipase level 651 Hyperlipidemia Hypertension Plan: Patient will be continued on IV hydration and monitor hemoglobin level. Currently hemoglobin is at 15.7. No active complaints of bleeding at this time. Continue with IV PPI and monitor. Patient will continue oxygen supplementation via nasal cannula. Continue with the dexamethasone, zinc sulfate, ascorbic acid and vitamin D3. Pulmonary consult. Continue with home medications Hold Lasix and lisinopril due to acute kidney injury. Patient is also on verapamil at home. Continue with insulin sliding scale.
--- NOTE | 2021-08-01 20:33 | P.PN ---
Subjective Progress Note Date: 08/01/21 Principal diagnosis: Acute hypoxic respiratory failure secondary to COVID-19 pneumonia Possible upper GI bleed. Acute kidney injury 65-year-old male with a known history of hypertension, hyperlipidemia, diabetes type 2 [id number], osteoarthritis, obstructive sleep apnea, migraine headaches and no prior history of smoking presents to ER with complaints of fever, cough and shortness of breath along with diarrhea. Patient states that she has been sick for the past 2 weeks with cough congestion body aches and is also having diarrhea for the past 1 week. She came to the ER due to complaints of dark-colored stools. Patient states this is not any blood thinners. No prior history of peptic ulcer disease. Patient does take naproxen for arthritic pain. No complaints of chest pain. On admission T-max was 101.4, pulse 102, pulse ox 83% on room air. Denies any complaints of chest pain. No abdominal pain. No dysuria or hematuria. No headache or dizziness or lightheadedness. Chest x-ray showed there is new patchy pulmonary edema compared to oral exam that could be acute pneumonia. Laboratory showed WBC 4.5 hemoglobin 15.7 and platelets 173 and lymphocytes 0.8 Sodium 138 potassium 4.6 chloride 102 BUN 61 creatinine 2.12 Blood sugar 139 AST 97 ALT 60 alk phos 63 and lipase level 651 Stool occult blood positive and Coronavirus PCR detected. 07/24/2021 Patient is seen and evaluated and discussed with nursing staff; continues to complain of shortness of breath with minimal activity; patient has been brian gnosed with COVID-19 pneumonia; patient does report vaccination against coronavirus Vital signs are reviewed with temperature of 99.2, pulse 80, respiration 18 and blood pressure 143/73 and O2 saturation 91% Patient remains on treatment with Decadron, Lovenox and COVID-19 vitamin cocktail; patient is deemed not a candidate for REM due to onset of symptoms a few weeks prior to presenting to the hospital and patient has been fully vaccinated Laboratory review shows WBC of 4.2 and hemoglobin consistently stable at 14.8 with platelet count of 158; sodium 139, potassium 5.0 which is down from 6.1 y esterday, BUN/creatinine of 28/0.77 down from 44/1.19 yesterday 07/25/2021 Patient discussed with nursing staff no specific concerns identified; continues to report shortness of breath; self proning encourage Vital signs are reviewed temperature 99.3, pulse 79, respirations 17 and blood pressure 102/67 Lab review shows WBC 4.7, hemoglobin 14 and platelet count of 172, d-dimer at 0.96, BUN/creatinine down to 25/1.0; repeat chest x-ray shows improvement Pulmonary on board and recommending to continue with current treatment with Decadron, Lovenox and vitamins 07/26/2021 Patient is seen and evaluated in room at bedside; oxygen saturation has declined and patient is currently on 15 L of O2. patient is being transferred to ICU as an overflow She remains on Decadron. She was also on Lasix at a dose of 20 mg IV daily. She was having adequate urine output. Her IV fluids are running at 75 mL an hour normal saline. The patient has no chest pain. She is exhausted. Whenever she moves around she gets quite short of breath. No significant cough or sputum production. No chest tightness. No wheezing. She is on a combination of vitamin C, vitamin D, zinc and and she is also on Lovenox for DVT prophylaxis. The most recent d-dimer is at 1.79. The most recent LDH level is 1000 with a CRP of 1.2. Pulmonary service recommending to continue the Decadron and the Lovenox and add Baricitinib per protocol. 07/27/2021 Patient is seen and evaluated and discussed with nursing staff; patient was transferred to the ICU yesterday due to her borderline respiratory status as the patient was placed on 15 L of oxygen by nasal cannula in addition to 100% nonrebreather facemask to improve her oxygenation. Patient is sitting up on a chair. She is a bit lethargic but easily arousable; . Her breathing is nonlabored. Vital signs are reviewed temperature 98.7, pulse 79, respiration 24, and blood pressure 101/77; pulse ox is around 97-98%. She remains on Decadron; Lovenox 40 mg subcu along with COVID-19 vitamin radha ktail Laboratory review reveals d-dimer is at 1.59, and LDH level is 1445, her CRP level is at 3.5 and her procal is low at 0.07. Pulmonary on board and recommending to continue patient on 100% nonrebreather face Lasix in addition to nasal cannula at 15 L; continue the Decadron and the Lovenox and add Baricitinib per protocol Continue to follow inflammatory markers periodically including LDH, CRP, ferritin and d-dimer 07/28/2021 Patient is seen and evaluated at beside and discussed with nursing staff. Patient is currently on high flow oxygen with a pulse ox around 92%. Patient was recently transferred out of ICU and is able to sit upright on her bed. Patient also has a 100% nonrebreather facemask at her bedside in order to supplement oxygen when she gets short of breath. Patient's CRP level is 2.4, her d-dimer is 5.5, her LDH level from yesterday was 1445. Patient's chest x ray is not showing any changes but there is some infiltration seen at the lung bases which remains consistent with COVID19 pneumonia, current x ray remains stable compared to her earlier chest x ray. Patient is afebrile with no chills. Patient is on anticoagulant therapy with Lovenox, remains on Decadron, and is also complicitng a curse of Baricitinib along with Lasix by mouth daily. There are no major changes or events from yesterday. 07/29/2021 Patient is seen and evaluated at bedside and discussed with nursing staff. Patient's condition is same with no major or significant changes from yesterday. Patient remains on nasal cannula and nonrebreather facemask. Patient still gets short of breath with mild exertion. Repeat chest x-ray was conducted today with evidence of bilateral pulmonary infiltrates along with smaller lung volumes. Patient also suffers from mild cardiomegaly indicated on imaging. On examination, it is noted that patient has lower extremity edema bilaterally. Patient's LDH and CRP levels have improved, however D-dimer has elevated to 9.9. Patient is currently on Decadron, Baricitinib, Lasix, Lovenox, Levemir insulin. P, as per protocol. Patient is using incentive spirometer. 07/30/2021 Patient is seen and evaluated at bedside and discussed with nursing staff. Patient's condition is slightly worse compared to yesterday. Patient continues to be on nasal cannula and nonrebreather facemask with a pulse ox in the low 80s. Patient was then placed on Airvo. D dimer levels have trended upwards to 16.1. Patient did not have any swelling in her lower ext. Patient is on Lovenox for DVT prophylaxis. Doppler of the lower extremity was done which showed no evidence of any DVT. Patient's chest x ray shows diffuse bilateral pulmonary infiltrates perihilar and also the lower lobes bilaterally. Patient is currently afebrile. Patient's breathing is lightly labored compared to yesterday. Patient continues to be on Decadron whereas rest of medications are unchanged. Patient is no longer using incetive spirometer. 07/31/2021 Patient is being seen today and evaluated while being discussed with the nursing staff. Patient's breathing is still labored and she continues to be on Airvo along with a beta facemask. Patient had an episode of epistaxis for which she expresses concern. Patient decompensated with a pulse ox that dropped to the mid 80s. Patient is no longer currently bleeding but remains on Lovenox for DVT prophylaxis. A repeat Doppler was donea gain to ensure that patient did not have any evidence of DVT considering her d-dimer was trending upward. Chest X ray shows diffuse pulmonary infiltrates which are consistent with COVID 19 pneumonia. Patient remains on Decadron and also Baricitinib. Patient is also on Levemir insulin to control her sugar levels. However, the patient is not able to do her incentive spirometer. Patient is drinking sufficiently but is not eating sufficiently. Patient is awake and response. Patient's LDH is treading upward with her D-dimer still eletated at 17.9 No other significant events or major changes from yesterday; continue supportive care. 08/01/2021 Patient is seen and evaluated while being discussed with the nursing staff. Patient remains on high flow oxygen Airvo along with the nonrebreather facemask. Patient remains on Decadron and Baricitinib. Patient complained of right nostril epistaxis for which she expressed anxiety and concern. Due to this, patient was taken off the Airvo but began to desaturate down to 76^. Due to this patient had to be placed back on Airvo, with no complaints of any significant bleeding. Patient does not have any issues or complaints. She also denies having shortness of breath. A repeat chest x ray was done and there seems to be improvement in aeration of the left lung base and the left hemidiaphgragm is also visualized more clearly compared to previous chest x rays, however there is still diffuse bilateral pulmonary infiltrates that are consistent with COVID 19 pneumonia/ARDS. Patient has a good appetite and is eating better. Patient is als o on Levemir to control her sugar levels. Inflammatory markers need to be reapeted. D dimer is still elevated that is why a repeat Doppler was done but the Doppler of the lower extremity came back negative. LDH and CRP are currently pending with her WBC count has trended downward to 12.6 Objective - Vital Signs Vital signs: Vital Signs Temp 98.2 F 08/01/21 08:00 Pulse 72 08/01/21 14:00 Resp 34 H 08/01/21 14:00 BP 115/86 08/01/21 14:00 Pulse Ox 95 08/01/21 13:00 Intake & Output 07/31/21 08/01/21 08/01/21 18:59 06:59 18:59 Intake Total 800 680 Output Total 3035 580 250 Balance -2235 100 -250 Weight 111.6 kg Intake: Oral 800 680 Output: Urine 3035 580 250 Other: Voiding Method Indwelling Catheter Indwelling Catheter Indwelling Catheter - Exam PHYSICAL EXAMINATION: GENERAL: The patient is alert and oriented x3, not in any acute distress. Well developed, well nourished. HEENT: Pupils are round and equally reacting to light. EOMI. No scleral icterus. No conjunctival pallor. Normocephalic, atraumatic. No pharyngeal erythema. No thyromegaly. CARDIOVASCULAR: S1 and S2 present. No murmurs, rubs, or gallops. PULMONARY: Chest is clear to auscultation, no wheezing or crackles. ABDOMEN: Soft, nontender, nondistended, normoactive bowel sounds. No palpable organomegaly. MUSCULOSKELETAL: No joint swelling or deformity. EXTREMITIES: No cyanosis, clubbing, or pedal edema. NEUROLOGICAL: Gross neurological examination did not reveal any focal deficits. SKIN: No rashes. - Labs CBC & Chem 7: 08/01/21 05:31 08/01/21 05:31 Labs: Abnormal Lab Results - Last 24 Hours (Table) 07/28/21 07/31/21 07/31/21 Range/Units 06:53 17:01 20:25 WBC (3.8-10.6) k/uL Neutrophils # (1.3-7.7) k/uL Lymphocytes # (1.0-4.8) k/uL ABG pH (7.35-7.45) ABG pCO2 (35-45) mmHg ABG pO2 (83-108) mmHg ABG HCO3 (21-25) mmol/L ABG Total CO2 (19-24) mmol/L ABG O2 Saturation (94-97) % Chloride (98-107) mmol/L Carbon Dioxide (22-30) mmol/L BUN (7-17) mg/dL Glucose (74-99) mg/dL POC Glucose (mg/dL) 194 H 210 H (75-99) mg/dL AST (14-36) U/L ALT (4-34) U/L Lactate Dehydrogenase 488 H (120-246) U/L Albumin (3.5-5.0) g/dL 08/01/21 08/01/21 08/01/21 Range/Units 05:31 05:31 06:47 WBC 12.6 H (3.8-10.6) k/uL Neutrophils # 11.6 H (1.3-7.7) k/uL Lymphocytes # 0.6 L (1.0-4.8) k/uL ABG pH (7.35-7.45) ABG pCO2 (35-45) mmHg ABG pO2 (83-108) mmHg ABG HCO3 (21-25) mmol/L ABG Total CO2 (19-24) mmol/L ABG O2 Saturation (94-97) % Chloride 96 L (98-107) mmol/L Carbon Dioxide 36 H (22-30) mmol/L BUN 36 H (7-17) mg/dL Glucose 177 H (74-99) mg/dL POC Glucose (mg/dL) 163 H (75-99) mg/dL AST 57 H (14-36) U/L ALT 76 H (4-34) U/L Lactate Dehydrogenase (120-246) U/L Albumin 3.4 L (3.5-5.0) g/dL 08/01/21 08/01/21 Range/Units 10:58 11:19 WBC (3.8-10.6) k/uL Neutrophils # (1.3-7.7) k/uL Lymphocytes # (1.0-4.8) k/uL ABG pH 7.52 H (7.35-7.45) ABG pCO2 47 H (35-45) mmHg ABG pO2 43 L* (83-108) mmHg ABG HCO3 38 H (21-25) mmol/L ABG Total CO2 39 H (19-24) mmol/L ABG O2 Saturation 78.6 L (94-97) % Chloride (98-107) mmol/L Carbon Dioxide (22-30) mmol/L BUN (7-17) mg/dL Glucose (74-99) mg/dL POC Glucose (mg/dL) 175 H (75-99) mg/dL AST (14-36) U/L ALT (4-34) U/L Lactate Dehydrogenase (120-246) U/L Albumin (3.5-5.0) g/dL Assessment and Plan Assessment: Acute hypoxemic respiratory failure secondary to coronavirus associated pneumonia. Dark-colored stools with occult blood positive. Possible upper GI bleed. Acute kidney injury likely prerenal with creatinine level 2.14 on admission. Baseline creatinine not known Diabetes type 2 [id number] Mild acute pancreatitis with lipase level 651 Hyperlipidemia Hypertension Plan: Patient will be continued on IV hydration and monitor hemoglobin level. Currently hemoglobin is at 15.7. No active complaints of bleeding at this time. Continue with IV PPI and monitor. Patient will continue oxygen supplementation via nasal cannula. Continue with the dexamethasone, zinc sulfate, ascorbic acid and vitamin D3. Pulmonary consult. Continue with home medications Hold Lasix and lisinopril due to acute kidney injury. Patient is also on verapamil at home. Continue with insulin sliding scale.
[2021-08-01] MEDS: ATORVASTATIN 10 MG TAB PO SCH (20:53)
[2021-08-01] MEDS: INSULIN DETEMIR (LEVEMIR) 100 UNIT/ML SYR SQ SCH (20:54)
[2021-08-01 20:58] LABS: Glucose,Whole Blood 235 mg/dL (75-99)
[2021-08-02 05:22] LABS: Basophils % (A) 0 %; Eosinophils % (A) 0 %; HGB 13.2 gm/dL (11.4-16.0); Lymphocytes # (A) 0.5 k/uL (1.0-4.8); Lymphocytes % (A) 4 %; MCH 29.6 pg (25.0-35.0); MCHC 32.3 g/dL (31.0-37.0); MCV 91.8 fL (80.0-100.0); Mean Platelet Volume 8.5; Monocytes # (A) 0.4 k/uL (0-1.0); Monocytes % (A) 3 %; Neutrophils # (A) 13.1 k/uL (1.3-7.7); Neutrophils % (A) 93 %; Platelet Count 234 k/uL (150-450); RBC 4.46 m/uL (3.80-5.40); RDW 12.9 % (11.5-15.5); WBC 14.1 k/uL (3.8-10.6)
[2021-08-02 05:51] LABS: Albumin 3.4 g/dL (3.5-5.0); Calcium 9.1 mg/dL (8.4-10.2); Potassium 4.1 mmol/L (3.5-5.1); Total Bilirubin 0.6 mg/dL (0.2-1.3); Total Protein 6.4 g/dL (6.3-8.2)
[2021-08-02 06:05] LABS: Glucose,Whole Blood 150 mg/dL (75-99)
[2021-08-02] MEDS: INSULIN ASPART (NovoLOG) 100 UNIT/ML VIAL SQ SCH ×4 (06:22→20:22)
[2021-08-02] MEDS: SODIUM CHLORIDE 0.9% 1,000 ML IV SCH (06:22)
[2021-08-02] MEDS: PANTOPRAZOLE 40 MG TABLET PO SCH (06:23)
--- NOTE | 2021-08-02 07:12 | XR ---
EXAMINATION TYPE: XR chest 1V portable DATE OF EXAM: 08/02/2021 HISTORY: Shortness of breath. COMPARISON: April 01, 2021 TECHNIQUE: Single view of the chest is submitted. FINDINGS: Demonstrated are scattered senescent parenchymal change. Persistent interstitial basilar infiltrates with slight interval improvement suggested. The heart is stable. Hilar and mediastinal structures are within normal limits. Degenerative changes are seen of the dorsal spine. IMPRESSION: 1. Persistent interstitial basilar infiltrates with slight interval improvement suggested.
[2021-08-02] MEDS: ZINC SULFATE 220 MG CAP PO SCH (08:25)
[2021-08-02] MEDS: ENOXAPARIN 40 MG/0.4 ML SYRINGE SQ SCH (08:25)
[2021-08-02] MEDS: CHOLECALCIFEROL 25 MCG (1000 IU) TABLET PO SCH (08:25)
[2021-08-02] MEDS: DEXAMETHASONE SOD PHOSPHATE 10 MG/ML 1 ML VIAL IV SCH ×2 (08:26→20:23)
[2021-08-02] MEDS: OXYBUTYNIN 15 MG TAB.ER.24 PO SCH (08:26)
[2021-08-02] MEDS: ASCORBIC ACID 500 MG TAB PO SCH (08:26)
[2021-08-02] MEDS: FUROSEMIDE 20 MG TAB PO SCH (08:26)
[2021-08-02] MEDS: BARICITINIB 2 MG TABLET PO SCH (08:26)
[2021-08-02] MEDS: SYMBICORT 160-4.5 MCG INHALER INHALATION SCH ×2 (10:19→22:01)
[2021-08-02] MEDS: ALBUTEROL HFA INHALER INHALATION SCH ×4 (10:19→22:01)
[2021-08-02 11:32] LABS: Glucose,Whole Blood 131 mg/dL (75-99)
--- NOTE | 2021-08-02 14:52 | P.PN ---
Subjective Progress Note Date: 08/02/21 Principal diagnosis: Acute hypoxic respiratory failure secondary to COVID-19 pneumonia 07/31/2021, patient is being seen for a follow-up, on today's evaluation, the patient is resting. Her breathing is mildly labored is and she is currently on a Airvo with 60 L and FiO2 of 90% along with 100% on a beta facemask with an pulse ox of 92%. She did have an episode of epistaxis which made her quite nervous and anxious and she decompensated with a pulse ox dropped in the mid 80s. Currently she is not bleeding. She remains on Lovenox 40 mg subcu for DVT prophylaxis. Repeat Doppler was done again to make sure there is no evidence of any DVT knowing that her d-dimer was on the rise. Chest x-ray continues to show diffuse but the pulmonary infiltrates consistent with COVID-19 related pneumonia/ARDS. She remains on accommodation of Decadron 6 with a grams IV every 12 hours and she is also on Baricitinib protocol. She remains on Levemir insulin running at 15 units units subcu on a daily basis along with a size care coverage. She is unable to do her incentive spirometer effectively. In terms of oral intake, she is drinking adequately. She is probably getting around 20- 30% of her meals. She is awake. She is responsive. In terms of her blood work, her LDH is on the rise and her LDH from today is at 1376. CRP is at 4. Total protein at 6.0. Glucose is 162. Serum bicarb is at 34. Sodium is at 139 with a potassium level of 3.5. The CBC shows a white cell count 12.7 with a hemoglobin of 15.2. D-dimer is still elevated at 17.9. 08/01/2021, the patient remains on high flow oxygen at 60 L Airvo along with an FiO2 of 90% and the patient is also on 100% nonrebreather facemask. All sizes ranging between 86 and 88%. She remains on Decadron 6 mg IV every 12 hours and she is still on Baricitinib. She was having issues with some bleeding from her right nostril. As such, I gave her a break off the Airvo yesterday. She did not tolerate that. She desaturated down to 76%. She was placed back on the Airvo. Since then, the patient has not had any significant bleeding. She is tolerating the treatment fairly well for the time being. Denies having any worsening shortness of breath. Repeat chest x-ray was done and I see some improvement in aeration of the left lung base as the left hemidiaphragm is visualized more clearly on today's x-ray. Nevertheless, there is still diffuse bilateral pulmonary infiltrates consistent with COVID-19 related pneumonia and ARDS. She has a very good appetite. She eats her meals nicely. She is on Levemir insulin 15 units along with a sliding scale insulin coverage. In terms of her inflammatory markers, those need to be repeated. D-dimer was elevated and for that reason I repeated the Doppler of the lower extremity that came back negative. At LDH and CRP are still pending. Renal function is stable. Her white cell count is at 12.6. Reevaluated today on 08/02/2021, patient remains in the ICU, remains marginal at best. Patient is on BiPAP 10//80%, saturation is marginal. Surprisingly the patient seems to be comfortable in spite of BiPAP and the relatively high FiO2. Chest x-ray continues to show bilateral interstitial infiltrates consistent with COVID-19 pneumonia IV fluids at KVO, patient is on Decadron 6 mg twice a day, is also on Lovenox, 40 mg subcu daily. and on baricitinib, patient is also on the COVID-19 corrected. CBC is relatively normal electrolytes are normal renal profile is normal. Last LDH from 2 days ago was 1376 and last C-reactive protein was 4.0, both were noted to be on the rise Objective - Vital Signs Vital signs: Vital Signs Temp 97.5 F L 08/02/21 04:00 Pulse 86 08/02/21 13:00 Resp 22 08/02/21 13:00 BP 144/89 08/02/21 12:00 Pulse Ox 88 L 08/02/21 13:00 Intake & Output 08/01/21 08/02/21 08/02/21 18:59 06:59 18:59 Intake Total 750 220 Output Total 440 710 405 Balance -440 40 -185 Weight 111.5 kg 111.5 kg Intake: Intake, IV Titration 20 20 Amount Sodium Chloride 0.9% 1, 20 20 000 ml @ 20 mls/hr IV . [facility] Rx#:[id number] Oral 730 200 Output: Urine 440 710 405 Other: Voiding Method Indwelling Catheter Indwelling Catheter Indwelling Catheter - Exam Physical Exam revealed 65-year-old female in no distress. On BiPAP. Head: Atraumatic, normocephalic. HEENT:[Neck is supple.] [No neck masses.] [No thyromegaly.] [No JVD.] Chest: [Medical chest expansion, crackles at the bases. No rhonchi and no wheezes. Cardiac Exam: [Normal S1 and S2, no S3 gallop, no murmur.] Abdomen: [Soft, nontender, no megaly, no rebound, no guarding, normal bowel sounds.] Extremities: [No clubbing, no edema, no cyanosis.] Neurological Exam: [No focal neurologic deficit.] Alert oriented 3. Psychiatric: Normal mood affect and normal mental status examination. Skin: No rashes. Musculoskeletal: No deformities noted limitation range of motion. - Labs CBC & Chem 7: 08/02/21 04:31 08/02/21 04:31 Labs: Abnormal Lab Results - Last 24 Hours (Table) 08/01/21 08/01/21 08/02/21 Range/Units 16:30 20:46 04:31 WBC 14.1 H (3.8-10.6) k/uL Neutrophils # 13.1 H (1.3-7.7) k/uL Lymphocytes # 0.5 L (1.0-4.8) k/uL Chloride (98-107) mmol/L Carbon Dioxide (22-30) mmol/L BUN (7-17) mg/dL Glucose (74-99) mg/dL POC Glucose (mg/dL) 157 H 235 H (75-99) mg/dL AST (14-36) U/L ALT (4-34) U/L Albumin (3.5-5.0) g/dL 08/02/21 08/02/21 08/02/21 Range/Units 04:31 06:03 11:30 WBC (3.8-10.6) k/uL Neutrophils # (1.3-7.7) k/uL Lymphocytes # (1.0-4.8) k/uL Chloride 97 L (98-107) mmol/L Carbon Dioxide 36 H (22-30) mmol/L BUN 42 H (7-17) mg/dL Glucose 167 H (74-99) mg/dL POC Glucose (mg/dL) 150 H 131 H (75-99) mg/dL AST 54 H (14-36) U/L ALT 84 H (4-34) U/L Albumin 3.4 L (3.5-5.0) g/dL Assessment and Plan Assessment: Impression: Acute hypoxic respiratory failure secondary to COVID-19 pneumonia, patient is presently on BiPAP. 80% FiO2. History of GI bleeding. Type 2 diabetes. History of GERD. Dyslipidemia. Benign essential hypertension. History of obstructive sleep apnea. Morbid obesity with BMI of 43.5. Recommendation: Continue to monitor the patient in the ICU. Continue BiPAP and possibly transition to airvo, if tolerated. Continue Lovenox. Continue Decadron. Continue incentive spirometry. Continue to monitor sugars and treat accordingly. Continue Lasix. Continue baricitinib Patient was made aware that her condition may deteriorate and she may require intubation and mechanical ventilation, and she seems to be agreeable to this and that is to happen. Prognosis is extremely poor and guarded, patient is critically ill. Critical care time is over 30 minutes Time with Patient: Greater than 30
[2021-08-02 16:56] LABS: Glucose,Whole Blood 214 mg/dL (75-99)
[2021-08-02 20:11] LABS: Glucose,Whole Blood 196 mg/dL (75-99)
[2021-08-02] MEDS: INSULIN DETEMIR (LEVEMIR) 100 UNIT/ML SYR SQ SCH (20:22)
[2021-08-03 05:30] LABS: Basophils % (A) 0 %; Eosinophils % (A) 0 %; HCT 41.9 % (34.0-46.0); HGB 13.6 gm/dL (11.4-16.0); Lymphocytes # (A) 0.5 k/uL (1.0-4.8); Lymphocytes % (A) 4 %; MCH 29.5 pg (25.0-35.0); MCHC 32.4 g/dL (31.0-37.0); Mean Platelet Volume 8.8; Monocytes # (A) 0.3 k/uL (0-1.0); Monocytes % (A) 3 %; Neutrophils # (A) 11.6 k/uL (1.3-7.7); Neutrophils % (A) 93 %; Platelet Count 261 k/uL (150-450); RBC 4.61 m/uL (3.80-5.40); RDW 12.8 % (11.5-15.5); WBC 12.5 k/uL (3.8-10.6)
[2021-08-03 05:42] LABS: C Reactive Protein 0.9 mg/dL (<1.0); Calcium 9.1 mg/dL (8.4-10.2); Potassium 4.2 mmol/L (3.5-5.1)
--- NOTE | 2021-08-03 06:28 | XR ---
EXAMINATION TYPE: XR chest 1V portable DATE OF EXAM: 08/03/2021 CLINICAL HISTORY: Difficulty breathing progress study. COVID TECHNIQUE: Single AP portable upright view of the chest is obtained. COMPARISON: Chest x-ray from one day earlier and older studies. FINDINGS: Worsening left basilar opacity silhouetting left heart border. Slightly more prominent rig ht basilar opacity. Stable mild cardiomegaly. Redemonstration of surgical change to bilateral shoulde rs and cervical spine. IMPRESSION: Worsening left greater than right bilateral lower lung opacities consistent with covid-19 infection progression.
[2021-08-03] MEDS: INSULIN ASPART (NovoLOG) 100 UNIT/ML VIAL SQ SCH ×4 (06:38→20:32)
[2021-08-03] MEDS: PANTOPRAZOLE 40 MG TABLET PO SCH (06:39)
[2021-08-03 06:44] LABS: Glucose,Whole Blood 155 mg/dL (75-99)
[2021-08-03] MEDS: ALBUTEROL HFA INHALER INHALATION SCH ×4 (08:18→20:10)
[2021-08-03] MEDS: SYMBICORT 160-4.5 MCG INHALER INHALATION SCH ×2 (08:18→20:10)
[2021-08-03] MEDS: CHOLECALCIFEROL 25 MCG (1000 IU) TABLET PO SCH (08:48)
[2021-08-03] MEDS: ASCORBIC ACID 500 MG TAB PO SCH (08:48)
[2021-08-03] MEDS: ZINC SULFATE 220 MG CAP PO SCH (08:49)
[2021-08-03] MEDS: DEXAMETHASONE SOD PHOSPHATE 10 MG/ML 1 ML VIAL IV SCH ×2 (08:49→20:15)
[2021-08-03] MEDS: ENOXAPARIN 40 MG/0.4 ML SYRINGE SQ SCH (08:50)
[2021-08-03] MEDS: BARICITINIB 2 MG TABLET PO SCH (08:50)
[2021-08-03] MEDS: FUROSEMIDE 20 MG TAB PO SCH (08:50)
[2021-08-03] MEDS: OXYBUTYNIN 15 MG TAB.ER.24 PO SCH (08:50)
[2021-08-03 11:32] LABS: Glucose,Whole Blood 149 mg/dL (75-99)
[2021-08-03] MEDS ORDERED: HEPARIN SODIUM 1,000 UN/ML (10ML VL) IV PRN (14:17)
[2021-08-03] MEDS ORDERED: HEPARIN SODIUM 1,000 UN/ML (10ML VL) IV ONE (14:17)
--- NOTE | 2021-08-03 14:20 | CT ---
EXAMINATION TYPE: CT chest angio for PE DATE OF EXAM: 08/03/2021 COMPARISON: Chest x-ray from earlier today and older studies HISTORY: elevated d-dimer, COVID pneumonia CT DLP: 665.6 mGycm Automated exposure control for dose reduction was used. CONTRAST: CT Chest for pulmonary embolism performed with with IV Contrast, patient injected with 100 mL of Isov ue 370. FINDINGS: LUNGS: Bilateral multifocal and confluent groundglass opacities are present. No pleural effusion or p neumothorax seen. No significant focal consolidation. MEDIASTINUM: There is satisfactory enhancement of the pulmonary artery and its branches, there are pu lmonary emboli in the right middle and lower lobe branches with segmental and subsegmental extension. No significant left-sided emboli. Enlarged main pulmonary artery at 3.5 cm consistent with underlyin g pulmonary artery hypertension. There are no greater than 1 cm hilar or mediastinal lymph nodes. N o pericardial effusion is seen. Cardiomegaly. No significant or suspicious right ventricular dilatat ion. OTHER: Slight scoliotic curvature with moderate to severe multilevel spurring. Surgical change in th e lumbar spine localizer incidentally noted. Cholecystectomy clips on localizer. IMPRESSION: Right middle and lower lobe pulmonary emboli without CT evidence for RV strain. Bilateral multifocal and confluent opacities consistent with known COVID-19 infection. Critical results communicated to patient's ICU nurse via telephone at time of dictation.
[2021-08-03] MEDS: HEPARIN SOD,PORK IN 0.45% NACL 25,000 UNIT in 0.45% NACL 1 250ML.BAG IV SCH (15:04)
--- NOTE | 2021-08-03 15:21 | P.PN ---
Subjective Progress Note Date: 08/03/21 Principal diagnosis: Acute hypoxic respiratory failure secondary to COVID-19 pneumonia 07/31/2021, patient is being seen for a follow-up, on today's evaluation, the patient is resting. Her breathing is mildly labored is and she is currently on a Airvo with 60 L and FiO2 of 90% along with 100% on a beta facemask with an pulse ox of 92%. She did have an episode of epistaxis which made her quite nervous and anxious and she decompensated with a pulse ox dropped in the mid 80s. Currently she is not bleeding. She remains on Lovenox 40 mg subcu for DVT prophylaxis. Repeat Doppler was done again to make sure there is no evidence of any DVT knowing that her d-dimer was on the rise. Chest x-ray continues to show diffuse but the pulmonary infiltrates consistent with COVID-19 related pneumonia/ARDS. She remains on accommodation of Decadron 6 with a grams IV every 12 hours and she is also on Baricitinib protocol. She remains on Levemir insulin running at 15 units units subcu on a daily basis along with a size care coverage. She is unable to do her incentive spirometer effectively. In terms of oral intake, she is drinking adequately. She is probably getting around 20- 30% of her meals. She is awake. She is responsive. In terms of her blood work, her LDH is on the rise and her LDH from today is at 1376. CRP is at 4. Total protein at 6.0. Glucose is 162. Serum bicarb is at 34. Sodium is at 139 with a potassium level of 3.5. The CBC shows a white cell count 12.7 with a hemoglobin of 15.2. D-dimer is still elevated at 17.9. 08/01/2021, the patient remains on high flow oxygen at 60 L Airvo along with an FiO2 of 90% and the patient is also on 100% nonrebreather facemask. All sizes ranging between 86 and 88%. She remains on Decadron 6 mg IV every 12 hours and she is still on Baricitinib. She was having issues with some bleeding from her right nostril. As such, I gave her a break off the Airvo yesterday. She did not tolerate that. She desaturated down to 76%. She was placed back on the Airvo. Since then, the patient has not had any significant bleeding. She is tolerating the treatment fairly well for the time being. Denies having any worsening shortness of breath. Repeat chest x-ray was done and I see some improvement in aeration of the left lung base as the left hemidiaphragm is visualized more clearly on today's x-ray. Nevertheless, there is still diffuse bilateral pulmonary infiltrates consistent with COVID-19 related pneumonia and ARDS. She has a very good appetite. She eats her meals nicely. She is on Levemir insulin 15 units along with a sliding scale insulin coverage. In terms of her inflammatory markers, those need to be repeated. D-dimer was elevated and for that reason I repeated the Doppler of the lower extremity that came back negative. At LDH and CRP are still pending. Renal function is stable. Her white cell count is at 12.6. Reevaluated today on 08/02/2021, patient remains in the ICU, remains marginal at best. Patient is on BiPAP 10/5/80%, saturation is marginal. Surprisingly the patient seems to be comfortable in spite of BiPAP and the relatively high FiO2. Chest x-ray continues to show bilateral interstitial infiltrates consistent with COVID-19 pneumonia IV fluids at KVO, patient is on Decadron 6 mg twice a day, is also on Lovenox, 40 mg subcu daily. and on baricitinib, patient is also on the COVID-19 corrected. CBC is relatively normal electrolytes are normal renal profile is normal. Last LDH from 2 days ago was 1376 and last C-reactive protein was 4.0, both were noted to be on the rise Reevaluated today on 08/03/2021, patient remains in the ICU, remains marginal at best. Remains on BiPAP 10/5/80%, and her O2 saturation is in the high 80s and maximum 91%. IV fluid at KVO. Patient had increase in her d-dimer today, hence I recommended a CT angiogram of the chest, and it came back showing a right middle lobe and right lower lobe pulmonary emboli without CT evidence of RV strain. Hence the patient will be transitioned from Lovenox 40 mg subcu twice a day to high intensity heparin. And maybe tomorrow could consider transitioning the patient to Xarelto or Eliquis. WBC count today is 4.5 hemoglobin 13.6 electrolytes are normal renal profile is normal, LDH continues to rise it is 1395 today. C-reactive protein is 0.9. Chest x-ray continues to show basically no major change, bilateral interstitial infiltrates noted. And this was also noted on the CT of the chest. Objective - Vital Signs Vital signs: Vital Signs Temp 98 F 08/03/21 12:00 Pulse 80 08/03/21 14:00 Resp 32 H 08/03/21 14:00 BP 129/93 08/03/21 14:00 Pulse Ox 90 L 08/03/21 14:00 Intake & Output 08/02/21 08/03/21 08/03/21 18:59 06:59 18:59 Intake Total 420 200 610 Output Total 805 795 730 Balance -385 -595 -120 Weight 111.5 kg 108.5 kg Intake: Intake, IV Titration 20 200 160 Amount Sodium Chloride 0.9% 1, 20 200 160 000 ml @ 20 mls/hr IV . Q24H [facility] Rx#:[id number] Oral 400 450 Output: Urine 805 795 730 Other: Voiding Method Indwelling Catheter Indwelling Catheter Indwelling Catheter - Exam Physical Exam revealed 65-year-old female in no distress. On BiPAP. 07/13/%. Head: Atraumatic, normocephalic. HEENT:[Neck is supple.] [No neck masses.] [No thyromegaly.] [No JVD.] Chest: [Medical chest expansion, crackles at the bases. No rhonchi and no wheezes. Cardiac Exam: [Normal S1 and S2, no S3 gallop, no murmur.] Abdomen: [Soft, nontender, no megaly, no rebound, no guarding, normal bowel sounds.] Extremities: [No clubbing, no edema, no cyanosis.] Neurological Exam: [No focal neurologic deficit.] Alert oriented 3. Psychiatric: Normal mood affect and normal mental status examination. Skin: No rashes. Musculoskeletal: No deformities noted limitation range of motion. - Labs CBC & Chem 7: 08/03/21 04:37 08/03/21 04:37 Labs: Abnormal Lab Results - Last 24 Hours (Table) 08/02/21 08/02/21 08/03/21 Range/Units 16:55 19:59 04:37 WBC (3.8-10.6) k/uL Neutrophils # (1.3-7.7) k/uL Lymphocytes # (1.0-4.8) k/uL D-Dimer 19.87 H (<0.60) mg/L FEU Chloride (98-107) mmol/L Carbon Dioxide (22-30) mmol/L BUN (7-17) mg/dL Glucose (74-99) mg/dL POC Glucose (mg/dL) 214 H 196 H (75-99) mg/dL Lactate Dehydrogenase (313-618) U/L 08/03/21 08/03/21 08/03/21 Range/Units 04:37 04:37 06:33 WBC 12.5 H (3.8-10.6) k/uL Neutrophils # 11.6 H (1.3-7.7) k/uL Lymphocytes # 0.5 L (1.0-4.8) k/uL D-Dimer (<0.60) mg/L FEU Chloride 96 L (98-107) mmol/L Carbon Dioxide 34 H (22-30) mmol/L BUN 45 H (7-17) mg/dL Glucose 176 H (74-99) mg/dL POC Glucose (mg/dL) 155 H (75-99) mg/dL Lactate Dehydrogenase 1395 H (313-618) U/L 08/03/21 Range/Units 11:21 WBC (3.8-10.6) k/uL Neutrophils # (1.3-7.7) k/uL Lymphocytes # (1.0-4.8) k/uL D-Dimer (<0.60) mg/L FEU Chloride (98-107) mmol/L Carbon Dioxide (22-30) mmol/L BUN (7-17) mg/dL Glucose (74-99) mg/dL POC Glucose (mg/dL) 149 H (75-99) mg/dL Lactate Dehydrogenase (313-618) U/L Assessment and Plan Assessment: Impression: Acute hypoxic respiratory failure secondary to COVID-19 pneumonia, patient is presently on BiPAP. 80% FiO2. Acute pulmonary embolism triggered by COVID-19 pneumonia. History of GI bleeding. Type 2 diabetes. History of GERD. Dyslipidemia. Benign essential hypertension. History of obstructive sleep apnea. Morbid obesity with BMI of 43.5. Recommendation: Continue to monitor the patient in the ICU. Continue BiPAP and possibly transition to airvo, if tolerated. Change Lovenox to heparin drip as per protocol. Continue Decadron. Continue incentive spirometry. Continue Lasix. Continue baricitinib Continue GI prophylaxis. We will continue to follow in the ICU. Prognosis remains guarded. Time with Patient: Less than 30
[2021-08-03 15:42] LABS: INR 1.1 (<1.2); Partial Thromboplastin Time 21.3 sec (22.0-30.0); Prothrombin Time 11.5 sec (9.0-12.0)
[2021-08-03 17:25] LABS: Glucose,Whole Blood 211 mg/dL (75-99)
[2021-08-03] MEDS: ATORVASTATIN 10 MG TAB PO SCH (20:15)
[2021-08-03] MEDS: INSULIN DETEMIR (LEVEMIR) 100 UNIT/ML SYR SQ SCH (20:25)
[2021-08-03 20:28] LABS: Glucose,Whole Blood 251 mg/dL (75-99)
[2021-08-03] MEDS ORDERED: ENOXAPARIN 40 MG/0.4 ML SYRINGE SQ SCH (21:00)
--- NOTE | 2021-08-03 21:42 | P.PN ---
Subjective Progress Note Date: 08/02/21 Principal diagnosis: Acute hypoxic respiratory failure secondary to COVID-19 pneumonia Possible upper GI bleed. Acute kidney injury 65-year-old male with a known history of hypertension, hyperlipidemia, diabetes type 2 [id number], osteoarthritis, obstructive sleep apnea, migraine headaches and no prior history of smoking presents to ER with complaints of fever, cough and shortness of breath along with diarrhea. Patient states that she has been sick for the past 2 weeks with cough congestion body aches and is also having diarrhea for the past 1 week. She came to the ER due to complaints of dark-colored stools. Patient states this is not any blood thinners. No prior history of peptic ulcer disease. Patient does take naproxen for arthritic pain. No complaints of chest pain. On admission T-max was 101.4, pulse 102, pulse ox 83% on room air. Denies any complaints of chest pain. No abdominal pain. No dysuria or hematuria. No headache or dizziness or lightheadedness. Chest x-ray showed there is new patchy pulmonary edema compared to oral exam that could be acute pneumonia. Laboratory showed WBC 4.5 hemoglobin 15.7 and platelets 173 and lymphocytes 0.8 Sodium 138 potassium 4.6 chloride 102 BUN 61 creatinine 2.12 Blood sugar 139 AST 97 ALT 60 alk phos 63 and lipase level 651 Stool occult blood positive and Coronavirus PCR detected. 07/24/2021 Patient is seen and evaluated and discussed with nursing staff; continues to complain of shortness of breath with minimal activity; patient has been brian gnosed with COVID-19 pneumonia; patient does report vaccination against coronavirus Vital signs are reviewed with temperature of 99.2, pulse 80, respiration 18 and blood pressure 143/73 and O2 saturation 91% Patient remains on treatment with Decadron, Lovenox and COVID-19 vitamin cocktail; patient is deemed not a candidate for REM due to onset of symptoms a few weeks prior to presenting to the hospital and patient has been fully vaccinated Laboratory review shows WBC of 4.2 and hemoglobin consistently stable at 14.8 with platelet count of 158; sodium 139, potassium 5.0 which is down from 6.1 y esterday, BUN/creatinine of 28/0.77 down from 44/1.19 yesterday 07/25/2021 Patient discussed with nursing staff no specific concerns identified; continues to report shortness of breath; self proning encourage Vital signs are reviewed temperature 99.3, pulse 79, respirations 17 and blood pressure 102/67 Lab review shows WBC 4.7, hemoglobin 14 and platelet count of 172, d-dimer at 0.96, BUN/creatinine down to 25/1.0; repeat chest x-ray shows improvement Pulmonary on board and recommending to continue with current treatment with Decadron, Lovenox and vitamins 07/26/2021 Patient is seen and evaluated in room at bedside; oxygen saturation has declined and patient is currently on 15 L of O2. patient is being transferred to ICU as an overflow She remains on Decadron. She was also on Lasix at a dose of 20 mg IV daily. She was having adequate urine output. Her IV fluids are running at 75 mL an hour normal saline. The patient has no chest pain. She is exhausted. Whenever she moves around she gets quite short of breath. No significant cough or sputum production. No chest tightness. No wheezing. She is on a combination of vitamin C, vitamin D, zinc and and she is also on Lovenox for DVT prophylaxis. The most recent d-dimer is at 1.79. The most recent LDH level is 1000 with a CRP of 1.2. Pulmonary service recommending to continue the Decadron and the Lovenox and add Baricitinib per protocol. 07/27/2021 Patient is seen and evaluated and discussed with nursing staff; patient was transferred to the ICU yesterday due to her borderline respiratory status as the patient was placed on 15 L of oxygen by nasal cannula in addition to 100% nonrebreather facemask to improve her oxygenation. Patient is sitting up on a chair. She is a bit lethargic but easily arousable; . Her breathing is nonlabored. Vital signs are reviewed temperature 98.7, pulse 79, respiration 24, and blood pressure 101/77; pulse ox is around 97-98%. She remains on Decadron; Lovenox 40 mg subcu along with COVID-19 vitamin radha ktail Laboratory review reveals d-dimer is at 1.59, and LDH level is 1445, her CRP level is at 3.5 and her procal is low at 0.07. Pulmonary on board and recommending to continue patient on 100% nonrebreather face Lasix in addition to nasal cannula at 15 L; continue the Decadron and the Lovenox and add Baricitinib per protocol Continue to follow inflammatory markers periodically including LDH, CRP, ferritin and d-dimer 07/28/2021 Patient is seen and evaluated at beside and discussed with nursing staff. Patient is currently on high flow oxygen with a pulse ox around 92%. Patient was recently transferred out of ICU and is able to sit upright on her bed. Patient also has a 100% nonrebreather facemask at her bedside in order to supplement oxygen when she gets short of breath. Patient's CRP level is 2.4, her d-dimer is 5.5, her LDH level from yesterday was 1445. Patient's chest x ray is not showing any changes but there is some infiltration seen at the lung bases which remains consistent with COVID19 pneumonia, current x ray remains stable compared to her earlier chest x ray. Patient is afebrile with no chills. Patient is on anticoagulant therapy with Lovenox, remains on Decadron, and is also complicitng a curse of Baricitinib along with Lasix by mouth daily. There are no major changes or events from yesterday. 07/29/2021 Patient is seen and evaluated at bedside and discussed with nursing staff. Patient's condition is same with no major or significant changes from yesterday. Patient remains on nasal cannula and nonrebreather facemask. Patient still gets short of breath with mild exertion. Repeat chest x-ray was conducted today with evidence of bilateral pulmonary infiltrates along with smaller lung volumes. Patient also suffers from mild cardiomegaly indicated on imaging. On examination, it is noted that patient has lower extremity edema bilaterally. Patient's LDH and CRP levels have improved, however D-dimer has elevated to 9.9. Patient is currently on Decadron, Baricitinib, Lasix, Lovenox, Levemir insulin. P, as per protocol. Patient is using incentive spirometer. 07/30/2021 Patient is seen and evaluated at bedside and discussed with nursing staff. Patient's condition is slightly worse compared to yesterday. Patient continues to be on nasal cannula and nonrebreather facemask with a pulse ox in the low 80s. Patient was then placed on Airvo. D dimer levels have trended upwards to 16.1. Patient did not have any swelling in her lower ext. Patient is on Lovenox for DVT prophylaxis. Doppler of the lower extremity was done which showed no evidence of any DVT. Patient's chest x ray shows diffuse bilateral pulmonary infiltrates perihilar and also the lower lobes bilaterally. Patient is currently afebrile. Patient's breathing is lightly labored compared to yesterday. Patient continues to be on Decadron whereas rest of medications are unchanged. Patient is no longer using incetive spirometer. 07/31/2021 Patient is being seen today and evaluated while being discussed with the nursing staff. Patient's breathing is still labored and she continues to be on Airvo along with a beta facemask. Patient had an episode of epistaxis for which she expresses concern. Patient decompensated with a pulse ox that dropped to the mid 80s. Patient is no longer currently bleeding but remains on Lovenox for DVT prophylaxis. A repeat Doppler was donea gain to ensure that patient did not have any evidence of DVT considering her d-dimer was trending upward. Chest X ray shows diffuse pulmonary infiltrates which are consistent with COVID 19 pneumonia. Patient remains on Decadron and also Baricitinib. Patient is also on Levemir insulin to control her sugar levels. However, the patient is not able to do her incentive spirometer. Patient is drinking sufficiently but is not eating sufficiently. Patient is awake and response. Patient's LDH is treading upward with her D-dimer still eletated at 17.9 No other significant events or major changes from yesterday; continue supportive care. 08/01/2021 Patient is seen and evaluated while being discussed with the nursing staff. Patient remains on high flow oxygen Airvo along with the nonrebreather facemask. Patient remains on Decadron and Baricitinib. Patient complained of right nostril epistaxis for which she expressed anxiety and concern. Due to this, patient was taken off the Airvo but began to desaturate down to 76^. Due to this patient had to be placed back on Airvo, with no complaints of any significant bleeding. Patient does not have any issues or complaints. She also denies having shortness of breath. A repeat chest x ray was done and there seems to be improvement in aeration of the left lung base and the left hemidiaphgragm is also visualized more clearly compared to previous chest x rays, however there is still diffuse bilateral pulmonary infiltrates that are consistent with COVID 19 pneumonia/ARDS. Patient has a good appetite and is eating better. Patient is als o on Levemir to control her sugar levels. Inflammatory markers need to be reapeted. D dimer is still elevated that is why a repeat Doppler was done but the Doppler of the lower extremity came back negative. LDH and CRP are currently pending with her WBC count has trended downward to 12.6 08/02/2021 Patient is currently in MICU. Requiring BiPAP at 80% FiO2. Patient has been afebrile. Patient is otherwise anxious and desaturating when airvo is taken off. No nausea or vomiting. Patient is able to tolerate oral diet. Patient has been continued baricitinib, dexamethasone 6 mg IV twice daily and multivitamins and anticoagulation. Chest x-ray showed persistent interstitial bibasilar infiltrates with slight interval improvement suggested. Laboratory data showed WBC 14.1 hemoglobin 13.1 platelets 234 and neutrophils 0.5 Sodium 140 potassium 4.1 chloride 97 bicarb is 36 BUN 42 and creatinine 0.94 Current medications reviewed. Objective - Vital Signs Vital signs: Vital Signs Temp 97.5 F L 08/02/21 04:00 Pulse 82 08/02/21 19:00 Resp 32 H 08/02/21 19:00 BP 126/82 08/02/21 19:00 Pulse Ox 90 L 08/02/21 19:00 Intake & Output 08/02/21 08/02/21 08/03/21 06:59 18:59 06:59 Intake Total 750 420 Output Total 710 805 250 Balance 40 -385 -250 Weight 111.5 kg 111.5 kg Intake: Intake, IV Titration 20 20 Amount Sodium Chloride 0.9% 1, 20 20 000 ml @ 20 mls/hr IV . Q24H [facility] Rx#:[id number] Oral 730 400 Output: Urine 710 805 250 Other: Voiding Method Indwelling Catheter Indwelling Catheter - Exam PHYSICAL EXAMINATION: GENERAL: The patient is alert and oriented x3, not in any acute distress. Well developed, well nourished. HEENT: Pupils are round and equally reacting to light. EOMI. No scleral icterus. No conjunctival pallor. Normocephalic, atraumatic. No pharyngeal erythema. No thyromegaly. CARDIOVASCULAR: S1 and S2 present. No murmurs, rubs, or gallops. PULMONARY: Chest is clear to auscultation, no wheezing or crackles. ABDOMEN: Soft, nontender, nondistended, normoactive bowel sounds. No palpable organomegaly. MUSCULOSKELETAL: No joint swelling or deformity. EXTREMITIES: No cyanosis, clubbing, or pedal edema. NEUROLOGICAL: Gross neurological examination did not reveal any focal deficits. SKIN: No rashes. - Labs CBC & Chem 7: 08/03/21 04:37 08/03/21 04:37 Labs: Abnormal Lab Results - Last 24 Hours (Table) 08/02/21 08/02/21 08/02/21 Range/Units 04:31 04:31 06:03 WBC 14.1 H (3.8-10.6) k/uL Neutrophils # 13.1 H (1.3-7.7) k/uL Lymphocytes # 0.5 L (1.0-4.8) k/uL Chloride 97 L (98-107) mmol/L Carbon Dioxide 36 H (22-30) mmol/L BUN 42 H (7-17) mg/dL Glucose 167 H (74-99) mg/dL POC Glucose (mg/dL) 150 H (75-99) mg/dL AST 54 H (14-36) U/L ALT 84 H (4-34) U/L Albumin 3.4 L (3.5-5.0) g/dL 08/02/21 08/02/21 08/02/21 Range/Units 11:30 16:55 19:59 WBC (3.8-10.6) k/uL Neutrophils # (1.3-7.7) k/uL Lymphocytes # (1.0-4.8) k/uL Chloride (98-107) mmol/L Carbon Dioxide (22-30) mmol/L BUN (7-17) mg/dL Glucose (74-99) mg/dL POC Glucose (mg/dL) 131 H 214 H 196 H (75-99) mg/dL AST (14-36) U/L ALT (4-34) U/L Albumin (3.5-5.0) g/dL Assessment and Plan Assessment: Acute hypoxemic respiratory failure secondary to coronavirus associated pneumonia. Elevated inflammatory markers. Dark-colored stools with occult blood positive on admission. Possible upper GI bleed. hb is stable. no further episodes. Acute kidney injury likely prerenal with creatinine level 2.14 on admission. Baseline creatinine not known, improved. Diabetes type 2 [id number] Mild acute pancreatitis with lipase level 651 Hyperlipidemia Hypertension DVT prophylaxis Plan: Patient will be continued on BiPAP and is currently being monitored in the MICU. Patient is on dexamethasone, prophylactic anticoagulation and multivitamins and also started on baricitinib. Continue with the dexamethasone, zinc sulfate, ascorbic acid and vitamin D3. Pulmonary is on board. Continue with home medications.Hemoglobin is stable. Renal function improved. Patient still having elevated inflammatory markers. Lasix was started at 20 mg daily with improvement in kidney function.. Patient is also on verapamil at home. Continue with insulin sliding scale and levimir.Titrate dose as needed. Continue to monitor closely and prognosis guarded at this time.. Time with Patient: Greater than 30
--- NOTE | 2021-08-03 21:46 | P.PN ---
Subjective Progress Note Date: 08/03/21 Principal diagnosis: Acute hypoxic respiratory failure secondary to COVID-19 pneumonia Possible upper GI bleed. Acute kidney injury 65-year-old male with a known history of hypertension, hyperlipidemia, diabetes type 2 [id number], osteoarthritis, obstructive sleep apnea, migraine headaches and no prior history of smoking presents to ER with complaints of fever, cough and shortness of breath along with diarrhea. Patient states that she has been sick for the past 2 weeks with cough congestion body aches and is also having diarrhea for the past 1 week. She came to the ER due to complaints of dark-colored stools. Patient states this is not any blood thinners. No prior history of peptic ulcer disease. Patient does take naproxen for arthritic pain. No complaints of chest pain. On admission T-max was 101.4, pulse 102, pulse ox 83% on room air. Denies any complaints of chest pain. No abdominal pain. No dysuria or hematuria. No headache or dizziness or lightheadedness. Chest x-ray showed there is new patchy pulmonary edema compared to oral exam that could be acute pneumonia. Laboratory showed WBC 4.5 hemoglobin 15.7 and platelets 173 and lymphocytes 0.8 Sodium 138 potassium 4.6 chloride 102 BUN 61 creatinine 2.12 Blood sugar 139 AST 97 ALT 60 alk phos 63 and lipase level 651 Stool occult blood positive and Coronavirus PCR detected. 07/24/2021 Patient is seen and evaluated and discussed with nursing staff; continues to complain of shortness of breath with minimal activity; patient has been brian gnosed with COVID-19 pneumonia; patient does report vaccination against coronavirus Vital signs are reviewed with temperature of 99.2, pulse 80, respiration 18 and blood pressure 143/73 and O2 saturation 91% Patient remains on treatment with Decadron, Lovenox and COVID-19 vitamin cocktail; patient is deemed not a candidate for REM due to onset of symptoms a few weeks prior to presenting to the hospital and patient has been fully vaccinated Laboratory review shows WBC of 4.2 and hemoglobin consistently stable at 14.8 with platelet count of 158; sodium 139, potassium 5.0 which is down from 6.1 y esterday, BUN/creatinine of 28/0.77 down from 44/1.19 yesterday 07/25/2021 Patient discussed with nursing staff no specific concerns identified; continues to report shortness of breath; self proning encourage Vital signs are reviewed temperature 99.3, pulse 79, respirations 17 and blood pressure 102/67 Lab review shows WBC 4.7, hemoglobin 14 and platelet count of 172, d-dimer at 0.96, BUN/creatinine down to 25/1.0; repeat chest x-ray shows improvement Pulmonary on board and recommending to continue with current treatment with Decadron, Lovenox and vitamins 07/26/2021 Patient is seen and evaluated in room at bedside; oxygen saturation has declined and patient is currently on 15 L of O2. patient is being transferred to ICU as an overflow She remains on Decadron. She was also on Lasix at a dose of 20 mg IV daily. She was having adequate urine output. Her IV fluids are running at 75 mL an hour normal saline. The patient has no chest pain. She is exhausted. Whenever she moves around she gets quite short of breath. No significant cough or sputum production. No chest tightness. No wheezing. She is on a combination of vitamin C, vitamin D, zinc and and she is also on Lovenox for DVT prophylaxis. The most recent d-dimer is at 1.79. The most recent LDH level is 1000 with a CRP of 1.2. Pulmonary service recommending to continue the Decadron and the Lovenox and add Baricitinib per protocol. 07/27/2021 Patient is seen and evaluated and discussed with nursing staff; patient was transferred to the ICU yesterday due to her borderline respiratory status as the patient was placed on 15 L of oxygen by nasal cannula in addition to 100% nonrebreather facemask to improve her oxygenation. Patient is sitting up on a chair. She is a bit lethargic but easily arousable; . Her breathing is nonlabored. Vital signs are reviewed temperature 98.7, pulse 79, respiration 24, and blood pressure 101/77; pulse ox is around 97-98%. She remains on Decadron; Lovenox 40 mg subcu along with COVID-19 vitamin radha ktail Laboratory review reveals d-dimer is at 1.59, and LDH level is 1445, her CRP level is at 3.5 and her procal is low at 0.07. Pulmonary on board and recommending to continue patient on 100% nonrebreather face Lasix in addition to nasal cannula at 15 L; continue the Decadron and the Lovenox and add Baricitinib per protocol Continue to follow inflammatory markers periodically including LDH, CRP, ferritin and d-dimer 07/28/2021 Patient is seen and evaluated at beside and discussed with nursing staff. Patient is currently on high flow oxygen with a pulse ox around 92%. Patient was recently transferred out of ICU and is able to sit upright on her bed. Patient also has a 100% nonrebreather facemask at her bedside in order to supplement oxygen when she gets short of breath. Patient's CRP level is 2.4, her d-dimer is 5.5, her LDH level from yesterday was 1445. Patient's chest x ray is not showing any changes but there is some infiltration seen at the lung bases which remains consistent with COVID19 pneumonia, current x ray remains stable compared to her earlier chest x ray. Patient is afebrile with no chills. Patient is on anticoagulant therapy with Lovenox, remains on Decadron, and is also complicitng a curse of Baricitinib along with Lasix by mouth daily. There are no major changes or events from yesterday. 07/29/2021 Patient is seen and evaluated at bedside and discussed with nursing staff. Patient's condition is same with no major or significant changes from yesterday. Patient remains on nasal cannula and nonrebreather facemask. Patient still gets short of breath with mild exertion. Repeat chest x-ray was conducted today with evidence of bilateral pulmonary infiltrates along with smaller lung volumes. Patient also suffers from mild cardiomegaly indicated on imaging. On examination, it is noted that patient has lower extremity edema bilaterally. Patient's LDH and CRP levels have improved, however D-dimer has elevated to 9.9. Patient is currently on Decadron, Baricitinib, Lasix, Lovenox, Levemir insulin. P, as per protocol. Patient is using incentive spirometer. 07/30/2021 Patient is seen and evaluated at bedside and discussed with nursing staff. Patient's condition is slightly worse compared to yesterday. Patient continues to be on nasal cannula and nonrebreather facemask with a pulse ox in the low 80s. Patient was then placed on Airvo. D dimer levels have trended upwards to 16.1. Patient did not have any swelling in her lower ext. Patient is on Lovenox for DVT prophylaxis. Doppler of the lower extremity was done which showed no evidence of any DVT. Patient's chest x ray shows diffuse bilateral pulmonary infiltrates perihilar and also the lower lobes bilaterally. Patient is currently afebrile. Patient's breathing is lightly labored compared to yesterday. Patient continues to be on Decadron whereas rest of medications are unchanged. Patient is no longer using incetive spirometer. 07/31/2021 Patient is being seen today and evaluated while being discussed with the nursing staff. Patient's breathing is still labored and she continues to be on Airvo along with a beta facemask. Patient had an episode of epistaxis for which she expresses concern. Patient decompensated with a pulse ox that dropped to the mid 80s. Patient is no longer currently bleeding but remains on Lovenox for DVT prophylaxis. A repeat Doppler was donea gain to ensure that patient did not have any evidence of DVT considering her d-dimer was trending upward. Chest X ray shows diffuse pulmonary infiltrates which are consistent with COVID 19 pneumonia. Patient remains on Decadron and also Baricitinib. Patient is also on Levemir insulin to control her sugar levels. However, the patient is not able to do her incentive spirometer. Patient is drinking sufficiently but is not eating sufficiently. Patient is awake and response. Patient's LDH is treading upward with her D-dimer still eletated at 17.9 No other significant events or major changes from yesterday; continue supportive care. 08/01/2021 Patient is seen and evaluated while being discussed with the nursing staff. Patient remains on high flow oxygen Airvo along with the nonrebreather facemask. Patient remains on Decadron and Baricitinib. Patient complained of right nostril epistaxis for which she expressed anxiety and concern. Due to this, patient was taken off the Airvo but began to desaturate down to 76^. Due to this patient had to be placed back on Airvo, with no complaints of any significant bleeding. Patient does not have any issues or complaints. She also denies having shortness of breath. A repeat chest x ray was done and there seems to be improvement in aeration of the left lung base and the left hemidiaphgragm is also visualized more clearly compared to previous chest x rays, however there is still diffuse bilateral pulmonary infiltrates that are consistent with COVID 19 pneumonia/ARDS. Patient has a good appetite and is eating better. Patient is als o on Levemir to control her sugar levels. Inflammatory markers need to be reapeted. D dimer is still elevated that is why a repeat Doppler was done but the Doppler of the lower extremity came back negative. LDH and CRP are currently pending with her WBC count has trended downward to 12.6 08/02/2021 Patient is currently in MICU. Requiring BiPAP at 80% FiO2. Patient has been afebrile. Patient is otherwise anxious and desaturating when airvo is taken off. No nausea or vomiting. Patient is able to tolerate oral diet. Patient has been continued baricitinib, dexamethasone 6 mg IV twice daily and multivitamins and anticoagulation. Chest x-ray showed persistent interstitial bibasilar infiltrates with slight interval improvement suggested. Laboratory data showed WBC 14.1 hemoglobin 13.1 platelets 234 and neutrophils 0.5 Sodium 140 potassium 4.1 chloride 97 bicarb is 36 BUN 42 and creatinine 0.94 08/03/2021 Patient is currently in the MICU. Remains on BiPAP with 80% FiO2 and oxygen saturations around 90%. Patient continues to have elevated D-dimer level. CT angiogram chest was ordered to rule out any pulmonary embolism which showed right middle lobe and right lower lobe pulmonary emboli without CT evidence of RV strain. Patient was transitioned to heparin drip from Lovenox 40 mg twice daily. Patient has been afebrile. No complaints of chest pain. Laboratory showed WBC 12.5 hemoglobin 13.6, platelets 261 and lymphocytes 0.5 D-dimer level is 19.87, chloride 96 bicarb is 34 BUN 45 and creatinine 0.86 and LDH level is 1395 and CRP 0.9. Pulmonary is on board. Chest x-ray showed worsening left greater than right bilateral lower lobe opacities consistent with COVID-19 infection progression. Patient remains on dexamethasone, multivitamins vitamin D3 and baricitinib. Current medications reviewed. Objective - Vital Signs Vital signs: Vital Signs Temp 98 F 08/03/21 12:00 Pulse 80 08/03/21 14:00 Resp 32 H 08/03/21 14:00 BP 129/93 08/03/21 14:00 Pulse Ox 90 L 08/03/21 14:00 Intake & Output 08/02/21 08/03/21 08/03/21 18:59 06:59 18:59 Intake Total 420 200 610 Output Total 805 795 730 Balance -385 -595 -120 Weight 111.5 kg 108.5 kg Intake: Intake, IV Titration 20 200 160 Amount Sodium Chloride 0.9% 1, 20 200 160 000 ml @ 20 mls/hr IV . Q24H [facility] Rx#:[id number] Oral 400 450 Output: Urine 805 795 730 Other: Voiding Method Indwelling Catheter Indwelling Catheter Indwelling Catheter - Exam PHYSICAL EXAMINATION: GENERAL: The patient is alert and oriented x3, not in any acute distress. Well developed, well nourished. HEENT: Pupils are round and equally reacting to light. EOMI. No scleral icterus. No conjunctival pallor. Normocephalic, atraumatic. No pharyngeal erythema. No thyromegaly. CARDIOVASCULAR: S1 and S2 present. No murmurs, rubs, or gallops. PULMONARY: Chest is clear to auscultation, no wheezing or crackles. ABDOMEN: Soft, nontender, nondistended, normoactive bowel sounds. No palpable organomegaly. MUSCULOSKELETAL: No joint swelling or deformity. EXTREMITIES: No cyanosis, clubbing, or pedal edema. NEUROLOGICAL: Gross neurological examination did not reveal any focal deficits. SKIN: No rashes. - Labs CBC & Chem 7: 08/03/21 04:37 08/03/21 04:37 Labs: Abnormal Lab Results - Last 24 Hours (Table) 08/02/21 08/02/21 08/03/21 Range/Units 16:55 19:59 04:37 WBC (3.8-10.6) k/uL Neutrophils # (1.3-7.7) k/uL Lymphocytes # (1.0-4.8) k/uL D-Dimer 19.87 H (<0.60) mg/L FEU Chloride (98-107) mmol/L Carbon Dioxide (22-30) mmol/L BUN (7-17) mg/dL Glucose (74-99) mg/dL POC Glucose (mg/dL) 214 H 196 H (75-99) mg/dL Lactate Dehydrogenase (313-618) U/L 08/03/21 08/03/21 08/03/21 Range/Units 04:37 04:37 06:33 WBC 12.5 H (3.8-10.6) k/uL Neutrophils # 11.6 H (1.3-7.7) k/uL Lymphocytes # 0.5 L (1.0-4.8) k/uL D-Dimer (<0.60) mg/L FEU Chloride 96 L (98-107) mmol/L Carbon Dioxide 34 H (22-30) mmol/L BUN 45 H (7-17) mg/dL Glucose 176 H (74-99) mg/dL POC Glucose (mg/dL) 155 H (75-99) mg/dL Lactate Dehydrogenase 1395 H (313-618) U/L 08/03/21 Range/Units 11:21 WBC (3.8-10.6) k/uL Neutrophils # (1.3-7.7) k/uL Lymphocytes # (1.0-4.8) k/uL D-Dimer (<0.60) mg/L FEU Chloride (98-107) mmol/L Carbon Dioxide (22-30) mmol/L BUN (7-17) mg/dL Glucose (74-99) mg/dL POC Glucose (mg/dL) 149 H (75-99) mg/dL Lactate Dehydrogenase (313-618) U/L Assessment and Plan Assessment: Acute hypoxemic respiratory failure secondary to coronavirus associated pneumonia. Elevated inflammatory markers. Right lower lobe and middle lobe pulmonary embolism without CT evidence of RV strain. Diagnosed 08/03/2021 Dark-colored stools with occult blood positive on admission. Possible upper GI bleed. hb is stable. no further episodes. Acute kidney injury likely prerenal with creatinine level 2.14 on admission. Baseline creatinine not known, cr improved. Diabetes type 2 [id number] Mild acute pancreatitis with lipase level 651 Hyperlipidemia Hypertension DVT prophylaxis Plan: Patient will be continued on BiPAP and is currently being monitored in the MICU. Patient was started on heparin drip due to new diagnosis of pulmonary embolism Patient is on dexamethasone, and multivitamins and also started on baricitinib. Continue with the dexamethasone, zinc sulfate, ascorbic acid and vitamin D3. Pulmonary is on board. Continue with home medications.Hemoglobin is stable. Renal function improved. Patient still having elevated inflammatory markers. Lasix was started at 20 mg daily with improvement in kidney function.. Patient is also on verapamil at home. Continue with insulin sliding scale and levimir.Titrate dose as needed. Continue to monitor closely and prognosis guarded at this time.. Time with Patient: Greater than 30
[2021-08-03] MEDS: SODIUM CHLORIDE 0.9% 1,000 ML IV SCH (22:44)
[2021-08-04] MEDS: HEPARIN SOD,PORK IN 0.45% NACL 25,000 UNIT in 0.45% NACL 1 250ML.BAG IV SCH (05:27)
[2021-08-04 05:35] LABS: Glucose,Whole Blood 195 mg/dL (75-99)
[2021-08-04 06:32] LABS: Basophils % (A) 0 %; Eosinophils % (A) 0 %; HCT 43.4 % (34.0-46.0); HGB 13.8 gm/dL (11.4-16.0); Lymphocytes # (A) 0.4 k/uL (1.0-4.8); Lymphocytes % (A) 3 %; MCH 29.3 pg (25.0-35.0); MCHC 31.8 g/dL (31.0-37.0); Mean Platelet Volume 8.9; Monocytes # (A) 0.3 k/uL (0-1.0); Monocytes % (A) 3 %; Neutrophils # (A) 12.5 k/uL (1.3-7.7); Neutrophils % (A) 94 %; Platelet Count 256 k/uL (150-450); RBC 4.72 m/uL (3.80-5.40); WBC 13.2 k/uL (3.8-10.6)
[2021-08-04 07:09] LABS: Albumin 3.4 g/dL (3.5-5.0); Calcium 9.2 mg/dL (8.4-10.2); Potassium 3.9 mmol/L (3.5-5.1); Total Bilirubin 0.7 mg/dL (0.2-1.3); Total Protein 6.3 g/dL (6.3-8.2)
[2021-08-04] MEDS: PANTOPRAZOLE 40 MG TABLET PO SCH (07:12)
[2021-08-04] MEDS: INSULIN ASPART (NovoLOG) 100 UNIT/ML VIAL SQ SCH ×4 (07:13→20:51)
[2021-08-04] MEDS: ALBUTEROL HFA INHALER INHALATION SCH ×4 (07:50→21:05)
[2021-08-04] MEDS: SYMBICORT 160-4.5 MCG INHALER INHALATION SCH ×2 (07:50→21:05)
[2021-08-04] MEDS: CHOLECALCIFEROL 25 MCG (1000 IU) TABLET PO SCH (09:03)
[2021-08-04] MEDS: ASCORBIC ACID 500 MG TAB PO SCH (09:03)
[2021-08-04] MEDS: FUROSEMIDE 20 MG TAB PO SCH (09:03)
[2021-08-04] MEDS: ZINC SULFATE 220 MG CAP PO SCH (09:03)
[2021-08-04] MEDS: DEXAMETHASONE SOD PHOSPHATE 10 MG/ML 1 ML VIAL IV SCH ×2 (09:03→20:34)
[2021-08-04] MEDS: OXYBUTYNIN 15 MG TAB.ER.24 PO SCH (09:03)
[2021-08-04] MEDS: BARICITINIB 2 MG TABLET PO SCH (11:14)
[2021-08-04] MEDS ORDERED: LIDOCAINE 1% INJ 10MG/ML (20 ML MDV) SQ ONE (11:41)
[2021-08-04] MEDS: APIXABAN 5 MG TAB PO SCH ×2 (12:01→20:34)
[2021-08-04 12:12] LABS: Glucose,Whole Blood 200 mg/dL (75-99)
--- NOTE | 2021-08-04 12:12 | XR ---
EXAMINATION TYPE: XR chest 1V portable DATE OF EXAM: 08/04/2021 HISTORY: Shortness of breath. COMPARISON: 08/03/2021 TECHNIQUE: Single view of the chest is submitted. FINDINGS: Demonstrated are scattered senescent parenchymal change. Persistent perihilar and basilar infiltrates. Left-sided PICC line with its distal tip overlying the SVC. No evidence for pneumothorax. The heart is stable. Hilar and mediastinal structures are within normal limits. Degenerative changes are seen of the dorsal spine. IMPRESSION: 1. Persistent perihilar and basilar infiltrates. Left-sided PICC line with its distal tip overlying the SVC. No evidence for pneumothorax.
--- NOTE | 2021-08-04 12:19 | IR ---
EXAMINATION TYPE: IR cvc insert >=5 years DATE OF EXAM: 08/04/2021 COMPARISON: NONE HISTORY: Needs long-term intravenous access for intravenous therapy, antibiotics, fluids, currently w ith pneumonia FINDINGS: Maximal barrier technique was utilized. Hand hygiene obtained with soap and water and alco hol-based hand rub. The skin overlying the left basilic vein was localized with ultrasound and noted to be compressible and patent by ultrasound. An ultrasound image was obtained and submitted on ceferino santizo's chart. Sterile technique utilized with the ultrasound machine. The skin overlying was prepped an d draped and Lidocaine used for local anesthesia. A skin pepper was made with a scalpel. Access was g ained to the vein under direct ultrasound guidance with a 21-gauge needle and a 0.018 inch wire was a dvanced. Access site was dilated with a peel-away sheath and the catheter tailored to length. Lexi ter advanced centrally and a post procedure chest x-ray verified placement with tip at the superior v clement cava. Catheter was fixed to the skin and a sterile dressing placed. Hemostasis achieved and the catheter was aspirated and flushed with sterile saline. The patient remained in stable condition. IMPRESSION: STATUS POST ULTRASOUND GUIDED PICC LINE PLACEMENT, READY FOR USE. THIS PROCEDURE WAS PER FORMED BY THE UNDERSIGNED.
[2021-08-04] MEDS ORDERED: Potassium Replacement Protocol 1 EACH MISC MISCELLANE PRN (14:33)
--- NOTE | 2021-08-04 15:09 | P.PN ---
Subjective Progress Note Date: 08/04/21 Principal diagnosis: Acute hypoxic respiratory failure secondary to COVID-19 pneumonia 07/31/2021, patient is being seen for a follow-up, on today's evaluation, the patient is resting. Her breathing is mildly labored is and she is currently on a Airvo with 60 L and FiO2 of 90% along with 100% on a beta facemask with an pulse ox of 92%. She did have an episode of epistaxis which made her quite nervous and anxious and she decompensated with a pulse ox dropped in the mid 80s. Currently she is not bleeding. She remains on Lovenox 40 mg subcu for DVT prophylaxis. Repeat Doppler was done again to make sure there is no evidence of any DVT knowing that her d-dimer was on the rise. Chest x-ray continues to show diffuse but the pulmonary infiltrates consistent with COVID-19 related pneumonia/ARDS. She remains on accommodation of Decadron 6 with a grams IV every 12 hours and she is also on Baricitinib protocol. She remains on Levemir insulin running at 15 units units subcu on a daily basis along with a size care coverage. She is unable to do her incentive spirometer effectively. In terms of oral intake, she is drinking adequately. She is probably getting around 20- 30% of her meals. She is awake. She is responsive. In terms of her blood work, her LDH is on the rise and her LDH from today is at 1376. CRP is at 4. Total protein at 6.0. Glucose is 162. Serum bicarb is at 34. Sodium is at 139 with a potassium level of 3.5. The CBC shows a white cell count 12.7 with a hemoglobin of 15.2. D-dimer is still elevated at 17.9. 08/01/2021, the patient remains on high flow oxygen at 60 L Airvo along with an FiO2 of 90% and the patient is also on 100% nonrebreather facemask. All sizes ranging between 86 and 88%. She remains on Decadron 6 mg IV every 12 hours and she is still on Baricitinib. She was having issues with some bleeding from her right nostril. As such, I gave her a break off the Airvo yesterday. She did not tolerate that. She desaturated down to 76%. She was placed back on the Airvo. Since then, the patient has not had any significant bleeding. She is tolerating the treatment fairly well for the time being. Denies having any worsening shortness of breath. Repeat chest x-ray was done and I see some improvement in aeration of the left lung base as the left hemidiaphragm is visualized more clearly on today's x-ray. Nevertheless, there is still diffuse bilateral pulmonary infiltrates consistent with COVID-19 related pneumonia and ARDS. She has a very good appetite. She eats her meals nicely. She is on Levemir insulin 15 units along with a sliding scale insulin coverage. In terms of her inflammatory markers, those need to be repeated. D-dimer was elevated and for that reason I repeated the Doppler of the lower extremity that came back negative. At LDH and CRP are still pending. Renal function is stable. Her white cell count is at 12.6. Reevaluated today on 08/02/2021, patient remains in the ICU, remains marginal at best. Patient is on BiPAP 10/5/80%, saturation is marginal. Surprisingly the patient seems to be comfortable in spite of BiPAP and the relatively high FiO2. Chest x-ray continues to show bilateral interstitial infiltrates consistent with COVID-19 pneumonia IV fluids at KVO, patient is on Decadron 6 mg twice a day, is also on Lovenox, 40 mg subcu daily. and on baricitinib, patient is also on the COVID-19 corrected. CBC is relatively normal electrolytes are normal renal profile is normal. Last LDH from 2 days ago was 1376 and last C-reactive protein was 4.0, both were noted to be on the rise Reevaluated today on 08/03/2021, patient remains in the ICU, remains marginal at best. Remains on BiPAP 10/5/80%, and her O2 saturation is in the high 80s and maximum 91%. IV fluid at KVO. Patient had increase in her d-dimer today, hence I recommended a CT angiogram of the chest, and it came back showing a right middle lobe and right lower lobe pulmonary emboli without CT evidence of RV strain. Hence the patient will be transitioned from Lovenox 40 mg subcu twice a day to high intensity heparin. And maybe tomorrow could consider transitioning the patient to Xarelto or Eliquis. WBC count today is 4.5 hemoglobin 13.6 electrolytes are normal renal profile is normal, LDH continues to rise it is 1395 today. C-reactive protein is 0.9. Chest x-ray continues to show basically no major change, bilateral interstitial infiltrates noted. And this was also noted on the CT of the chest. Reevaluated today on 08/04/21, patient remains in the ICU, remains on BiPAP, intermittently on airvo and non-rebreather mask, O2 saturations are marginal at best. Patient remains on COVID-19 cocktail, remains on heparin for her recent right sided pulmonary embolism she is also on baricitinib. Her BiPAP is set at 12/5/80%, again the patient is intermittently on a nonrebreather mask along with airvo at 50 L flow and 90% FiO2. Patient feels about the same not much of a change in the last 24 hours. Her SGOT is 13.2 hemoglobin is 13.8 PTT was supratherapeutic today, and the patient is being treated with heparin as per protocol, will discontinue heparin and start the patient today on Eliquis. Chest x-ray continues to show persistent perihilar and basilar infiltrates not much of a change Objective - Vital Signs Vital signs: Vital Signs Temp 98 F 08/04/21 12:00 Pulse 89 08/04/21 14:00 Resp 32 H 08/04/21 14:00 BP 118/79 08/04/21 13:00 Pulse Ox 93 L 08/04/21 14:00 Intake & Output 08/03/21 08/04/21 08/04/21 18:59 06:59 18:59 Intake Total 1140 571.647 573.906 Output Total 910 615 850 Balance 230 -43.353 -276.094 Weight 108.5 kg 108.5 kg Intake: Intake, IV Titration 240 471.647 173.906 Amount Heparin Sod,Pork in 0.45% 231.647 33.906 NaCl 25,000 unit In 0.45 % NaCl 1 250ml.bag @ 18 UNITS/KG/HR 19.53 mls/hr IV .[id number] GEMA Rx#: [id number] Sodium Chloride 0.9% 1, 240 240 140 000 ml @ 20 mls/hr IV . Q24H GEMA Rx#:[id number] Oral 900 100 400 Output: Urine 910 615 850 Other: Voiding Method Indwelling Catheter Indwelling Catheter Indwelling Catheter - Exam Physical Exam revealed 65-year-old female in no distress. On BiPAP. 07/13/%. Head: Atraumatic, normocephalic. HEENT:[Neck is supple.] [No neck masses.] [No thyromegaly.] [No JVD.] Chest: [Symmetrical chest expansion, crackles at the bases. No rhonchi and no wheezes. Cardiac Exam: [Normal S1 and S2, no S3 gallop, no murmur.] Abdomen: [Soft, nontender, no megaly, no rebound, no guarding, normal bowel sounds.] Extremities: [No clubbing, no edema, no cyanosis.] Neurological Exam: [No focal neurologic deficit.] Alert oriented 3. Psychiatric: Normal mood affect and normal mental status examination. Skin: No rashes. Musculoskeletal: No deformities noted limitation range of motion. - Labs CBC & Chem 7: 08/04/21 05:19 08/04/21 05:19 Labs: Abnormal Lab Results - Last 24 Hours (Table) 08/03/21 08/03/21 08/03/21 Range/Units 15:08 17:23 20:26 WBC (3.8-10.6) k/uL Neutrophils # (1.3-7.7) k/uL Lymphocytes # (1.0-4.8) k/uL APTT 21.3 L (22.0-30.0) sec Carbon Dioxide (22-30) mmol/L BUN (7-17) mg/dL Glucose (74-99) mg/dL POC Glucose (mg/dL) 211 H 251 H (75-99) mg/dL AST (14-36) U/L ALT (4-34) U/L Albumin (3.5-5.0) g/dL 08/03/21 08/04/21 08/04/21 Range/Units 21:27 05:19 05:19 WBC 13.2 H (3.8-10.6) k/uL Neutrophils # 12.5 H (1.3-7.7) k/uL Lymphocytes # 0.4 L (1.0-4.8) k/uL APTT >200.0 H* (22.0-30.0) sec Carbon Dioxide 31 H (22-30) mmol/L BUN 44 H (7-17) mg/dL Glucose 210 H (74-99) mg/dL POC Glucose (mg/dL) (75-99) mg/dL AST 44 H (14-36) U/L ALT 84 H (4-34) U/L Albumin 3.4 L (3.5-5.0) g/dL 08/04/21 08/04/21 08/04/21 Range/Units 05:19 05:33 12:11 WBC (3.8-10.6) k/uL Neutrophils # (1.3-7.7) k/uL Lymphocytes # (1.0-4.8) k/uL APTT >200.0 H* (22.0-30.0) sec Carbon Dioxide (22-30) mmol/L BUN (7-17) mg/dL Glucose (74-99) mg/dL POC Glucose (mg/dL) 195 H 200 H (75-99) mg/dL AST (14-36) U/L ALT (4-34) U/L Albumin (3.5-5.0) g/dL Assessment and Plan Assessment: Impression: Acute hypoxic respiratory failure secondary to COVID-19 pneumonia, patient is presently on BiPAP. 80% FiO2. Acute pulmonary embolism triggered by COVID-19 pneumonia. History of GI bleeding. Type 2 diabetes. History of GERD. Dyslipidemia. Benign essential hypertension. History of obstructive sleep apnea. Morbid obesity with BMI of 43.5. Recommendation: Patient will remain in the ICU, she is marginal at best, as she may end up requiring intubation and mechanical ventilation. Continue BiPAP Change heparin to Eliquis Continue Decadron. Continue incentive spirometry. Continue diuretics. Discussed her status with her today over the phone, and updated him on her overall status. Continue baricitinib Continue GI prophylaxis. Patient remains critically ill Critical care time is over 30 minutes. Prognosis remains guarded. Time with Patient: Greater than 30
[2021-08-04] MEDS: POTASSIUM CHLORIDE 10 MEQ in WATER FOR INJECTION 1 100ML.BAG IVPB SCH ×2 (15:28→17:10)
[2021-08-04 16:55] LABS: Glucose,Whole Blood 218 mg/dL (75-99)
--- NOTE | 2021-08-04 19:31 | CDI ---
Documentation Clarification Form Date: 08/04/2021 07:14:44 PM From: Bianka Hogue RN, CCDS Admit Date: 07/21/2021 10:40:00 PM Patient Name: Mireya Fay Visit Number: [id number] ATTENTION: The Clinical Documentation Specialists (CDI) and [facility] Coding Staff appreciate your assistance in clarifying documentation. Please respond to the clarification below the line at the bottom and electronically sign. The CDI & [facility] Coding staff will review the response and follow-up if needed. Please note: Queries are made part of the Legal Health Record. If you have any questions, please contact the author of this message via ITS. Dr. Bashir Zamora The patient presented with the following clinical indicators. Additional clarification regarding the etiology/cause of the clinical indicators is requested. History/Risk Factors: DM, GERD, HTN Clinical Indicators: 07/21-08/04 WBC: 4.5/5.19/4.2/4.7/6.77/10.51/14.18/12.7/12.6/14.1/12.5/13.2 Lactic acid: not done Blood cultures: no done 07/21 1744 Admission Vital signs: Temp 101.4, HR 102, RR 20, B/P 113/77, Spo2 93 RA Organ Dysfunction POA: Acute hypoxic Respiratory Failure, RAMY, Acute Pancreatitis Infection POA: Covid 19 Pneumonia Treatment: ID Consult: not ordered Baricitinib 4 mg Po Daily x 14 doses 07/21 1L 0.9% NS IVF Bolus In your professional opinion, please clarify if these findings signify one of the following conditions: [ ] Sepsis with Severe Sepsis POA [ ] Sepsis w Severe Sepsis Not POA [ ] Sepsis ruled out [ ] Other, please specify [ ] Unable to determine SIRS Criteria: 2 or more of the following may indicate SIRS -Temperature < 96.8F (36C) or > 101.0F (38.3C) -Heart Rate > 90 bpm -Respiratory Rate > 20 breaths/min or PaCO2 < 32 mmHg -White Blood Cell Count > 12,000 or < 4,000 cells/mm3 or > 10% bands (Template Last Reviewed: November 2020) Sepsis with Severe Sepsis POA MTDD
[2021-08-04 20:42] LABS: Glucose,Whole Blood 250 mg/dL (75-99)
[2021-08-04] MEDS: INSULIN DETEMIR (LEVEMIR) 100 UNIT/ML SYR SQ SCH (20:51)
[2021-08-04] MEDS: SODIUM CHLORIDE 0.9% 1,000 ML IV SCH (22:30)
[2021-08-05 05:11] LABS: Basophils % (A) 0 %; Eosinophils # (A) 0.1 k/uL (0-0.7); Eosinophils % (A) 0 %; HCT 42.1 % (34.0-46.0); HGB 13.6 gm/dL (11.4-16.0); Lymphocytes # (A) 0.3 k/uL (1.0-4.8); Lymphocytes % (A) 2 %; MCH 29.6 pg (25.0-35.0); MCHC 32.4 g/dL (31.0-37.0); MCV 91.4 fL (80.0-100.0); Mean Platelet Volume 8.6; Monocytes # (A) 0.3 k/uL (0-1.0); Monocytes % (A) 2 %; Neutrophils % (A) 95 %; Platelet Count 239 k/uL (150-450); RBC 4.61 m/uL (3.80-5.40); RDW 12.7 % (11.5-15.5); WBC 14.7 k/uL (3.8-10.6)
[2021-08-05 05:25] LABS: African American GFR (CKD) 87 (>60 ml/min/1.73 sqM); Anion Gap 4 mmol/L; Blood Urea Nitrogen 45 mg/dL (7-17); C Reactive Protein <0.5 mg/dL (<1.0); Calcium 9.2 mg/dL (8.4-10.2); Carbon Dioxide 34 mmol/L (22-30); Chloride 98 mmol/L (98-107); Glucose 241 mg/dL (74-99); LDH 1383 U/L (313-618); Non-African American GFR(CKD) 75 (>60 ml/min/1.73 sqM); Potassium 4.7 mmol/L (3.5-5.1); Sodium 136 mmol/L (137-145)
[2021-08-05] MEDS: PANTOPRAZOLE 40 MG TABLET PO SCH (06:29)
[2021-08-05] MEDS: INSULIN ASPART (NovoLOG) 100 UNIT/ML VIAL SQ SCH ×4 (06:30→20:47)
--- NOTE | 2021-08-05 07:22 | XR ---
EXAMINATION TYPE: XR chest 1V portable DATE OF EXAM: 08/05/2021 HISTORY: Shortness of breath. COMPARISON: 08/04/2021 TECHNIQUE: Single view of the chest is submitted. FINDINGS: Demonstrated are scattered senescent parenchymal change. Reticulonodular infiltrates persist although may have improved slightly in the interval. Left-sided P ICC line noted. The heart is stable. Hilar and mediastinal structures are within normal limits. Degenerative changes are seen of the dorsal spine. IMPRESSION: 1. Reticulonodular infiltrates persist although may have improved slightly in the interval.
[2021-08-05] MEDS: ALBUTEROL HFA INHALER INHALATION SCH ×4 (07:44→20:59)
[2021-08-05] MEDS: SYMBICORT 160-4.5 MCG INHALER INHALATION SCH ×2 (07:44→20:59)
[2021-08-05] MEDS: ZINC SULFATE 220 MG CAP PO SCH (11:06)
[2021-08-05] MEDS: APIXABAN 5 MG TAB PO SCH ×2 (11:06→20:36)
[2021-08-05] MEDS: FUROSEMIDE 20 MG TAB PO SCH (11:06)
[2021-08-05] MEDS: CHOLECALCIFEROL 25 MCG (1000 IU) TABLET PO SCH (11:06)
[2021-08-05] MEDS: ASCORBIC ACID 500 MG TAB PO SCH (11:06)
[2021-08-05] MEDS: DEXAMETHASONE SOD PHOSPHATE 10 MG/ML 1 ML VIAL IV SCH ×2 (11:07→20:37)
[2021-08-05] MEDS: OXYBUTYNIN 15 MG TAB.ER.24 PO SCH (11:07)
[2021-08-05] MEDS: BARICITINIB 2 MG TABLET PO SCH (11:07)
[2021-08-05 11:36] LABS: Glucose,Whole Blood 132 mg/dL (75-99)
[2021-08-05] MEDS ORDERED: polyethylene glycoL 3350 17 GM POWD.PACK PO PRN (13:54)
--- NOTE | 2021-08-05 14:34 | P.PN ---
Subjective Progress Note Date: 08/05/21 Principal diagnosis: Acute hypoxic respiratory failure secondary to COVID-19 pneumonia 07/31/2021, patient is being seen for a follow-up, on today's evaluation, the patient is resting. Her breathing is mildly labored is and she is currently on a Airvo with 60 L and FiO2 of 90% along with 100% on a beta facemask with an pulse ox of 92%. She did have an episode of epistaxis which made her quite nervous and anxious and she decompensated with a pulse ox dropped in the mid 80s. Currently she is not bleeding. She remains on Lovenox 40 mg subcu for DVT prophylaxis. Repeat Doppler was done again to make sure there is no evidence of any DVT knowing that her d-dimer was on the rise. Chest x-ray continues to show diffuse but the pulmonary infiltrates consistent with COVID-19 related pneumonia/ARDS. She remains on accommodation of Decadron 6 with a grams IV every 12 hours and she is also on Baricitinib protocol. She remains on Levemir insulin running at 15 units units subcu on a daily basis along with a size care coverage. She is unable to do her incentive spirometer effectively. In terms of oral intake, she is drinking adequately. She is probably getting around 20- 30% of her meals. She is awake. She is responsive. In terms of her blood work, her LDH is on the rise and her LDH from today is at 1376. CRP is at 4. Total protein at 6.0. Glucose is 162. Serum bicarb is at 34. Sodium is at 139 with a potassium level of 3.5. The CBC shows a white cell count 12.7 with a hemoglobin of 15.2. D-dimer is still elevated at 17.9. 08/01/2021, the patient remains on high flow oxygen at 60 L Airvo along with an FiO2 of 90% and the patient is also on 100% nonrebreather facemask. All sizes ranging between 86 and 88%. She remains on Decadron 6 mg IV every 12 hours and she is still on Baricitinib. She was having issues with some bleeding from her right nostril. As such, I gave her a break off the Airvo yesterday. She did not tolerate that. She desaturated down to 76%. She was placed back on the Airvo. Since then, the patient has not had any significant bleeding. She is tolerating the treatment fairly well for the time being. Denies having any worsening shortness of breath. Repeat chest x-ray was done and I see some improvement in aeration of the left lung base as the left hemidiaphragm is visualized more clearly on today's x-ray. Nevertheless, there is still diffuse bilateral pulmonary infiltrates consistent with COVID-19 related pneumonia and ARDS. She has a very good appetite. She eats her meals nicely. She is on Levemir insulin 15 units along with a sliding scale insulin coverage. In terms of her inflammatory markers, those need to be repeated. D-dimer was elevated and for that reason I repeated the Doppler of the lower extremity that came back negative. At LDH and CRP are still pending. Renal function is stable. Her white cell count is at 12.6. Reevaluated today on 08/02/2021, patient remains in the ICU, remains marginal at best. Patient is on BiPAP 10/5/80%, saturation is marginal. Surprisingly the patient seems to be comfortable in spite of BiPAP and the relatively high FiO2. Chest x-ray continues to show bilateral interstitial infiltrates consistent with COVID-19 pneumonia IV fluids at KVO, patient is on Decadron 6 mg twice a day, is also on Lovenox, 40 mg subcu daily. and on baricitinib, patient is also on the COVID-19 corrected. CBC is relatively normal electrolytes are normal renal profile is normal. Last LDH from 2 days ago was 1376 and last C-reactive protein was 4.0, both were noted to be on the rise Reevaluated today on 08/03/2021, patient remains in the ICU, remains marginal at best. Remains on BiPAP 10/5/80%, and her O2 saturation is in the high 80s and maximum 91%. IV fluid at KVO. Patient had increase in her d-dimer today, hence I recommended a CT angiogram of the chest, and it came back showing a right middle lobe and right lower lobe pulmonary emboli without CT evidence of RV strain. Hence the patient will be transitioned from Lovenox 40 mg subcu twice a day to high intensity heparin. And maybe tomorrow could consider transitioning the patient to Xarelto or Eliquis. WBC count today is 4.5 hemoglobin 13.6 electrolytes are normal renal profile is normal, LDH continues to rise it is 1395 today. C-reactive protein is 0.9. Chest x-ray continues to show basically no major change, bilateral interstitial infiltrates noted. And this was also noted on the CT of the chest. Reevaluated today on 08/04/21, patient remains in the ICU, remains on BiPAP, intermittently on airvo and non-rebreather mask, O2 saturations are marginal at best. Patient remains on COVID-19 cocktail, remains on heparin for her recent right sided pulmonary embolism she is also on baricitinib. Her BiPAP is set at 12/5/80%, again the patient is intermittently on a nonrebreather mask along with airvo at 50 L flow and 90% FiO2. Patient feels about the same not much of a change in the last 24 hours. Her SGOT is 13.2 hemoglobin is 13.8 PTT was supratherapeutic today, and the patient is being treated with heparin as per protocol, will discontinue heparin and start the patient today on Eliquis. Chest x-ray continues to show persistent perihilar and basilar infiltrates not much of a change Reevaluated today on 08/05/21, patient remains in the ICU, remains on BiPAP, and at times she is on airvo and nonrebreather mask. Continues to have marginal O2 saturation. Remains on the cocktail for COVID-19 infection/pneumonia remains on heparin for acute right sided pulmonary embolism and she is also on baricitinib. Patient seems to be a bit confused and odd, at one point she would say I would want to go hospice, and a few minutes later with tell me that she doesn't mind going on life support if her condition gets any worse. Hence we need to update the on her status, and readdress the CODE STATUS although at this point the patient does not need to be on life support, and she seems to be slightly better if anything. Chest x-ray is showing slight improvement and her O2 saturation is improving patient is clinically better. She count is 14.7 hemoglobin is 13.6, her d-dimer is 13.45. Electrolytes are normal renal profile is normal. LDH is trending down slightly compared to yesterday. Or practically about the same. Objective - Vital Signs Vital signs: Vital Signs Temp 98.7 F 08/05/21 11:00 Pulse 91 08/05/21 14:00 Resp 21 08/05/21 14:00 BP 105/74 08/05/21 14:00 Pulse Ox 91 L 08/05/21 14:00 Intake & Output 08/04/21 08/05/21 08/05/21 18:59 06:59 18:59 Intake Total 953.906 590 140 Output Total 1100 655 365 Balance -146.094 -65 -225 Weight 108.5 kg 111.2 kg Intake: IV 120 Sodium Chloride 0.9% 1, 120 000 ml @ 20 mls/hr IV . Q24H GEMA Rx#:[id number] Intake, IV Titration 453.906 240 20 Amount Heparin Sod,Pork in 0.45% 33.906 NaCl 25,000 unit In 0.45 % NaCl 1 250ml.bag @ 18 UNITS/KG/HR 19.53 mls/hr IV .[id number] GEMA Rx#: [id number] Potassium Chloride 10 meq 200 In Water For Injection 1 100ml.bag @ 100 mls/hr IVPB Q1H GEMA Rx#: [id number] Sodium Chloride 0.9% 1, 220 240 20 000 ml @ 20 mls/hr IV . Q24H GEMA Rx#:[id number] Oral 500 350 Output: Urine 1100 655 365 Other: Voiding Method Indwelling Catheter Indwelling Catheter Indwelling Catheter - Exam Physical Exam revealed 65-year-old female in no distress. On BiPAP. 10/80%. Head: Atraumatic, normocephalic. HEENT:[Neck is supple.] [No neck masses.] [No thyromegaly.] [No JVD.] Chest: [Symmetrical chest expansion, crackles at the bases. No rhonchi and no wheezes. Cardiac Exam: [Normal S1 and S2, no S3 gallop, no murmur.] Abdomen: [Soft, nontender, no megaly, no rebound, no guarding, normal bowel sounds.] Extremities: [No clubbing, no edema, no cyanosis.] Neurological Exam: [No focal neurologic deficit.] Alert oriented 3. Psychiatric: Normal mood affect and normal mental status examination. Skin: No rashes. Musculoskeletal: No deformities noted limitation range of motion. - Labs CBC & Chem 7: 08/05/21 05:01 08/05/21 05:01 Labs: Abnormal Lab Results - Last 24 Hours (Table) 08/04/21 08/04/21 08/05/21 Range/Units 16:53 20:40 05:01 WBC 14.7 H (3.8-10.6) k/uL Neutrophils # 14.0 H (1.3-7.7) k/uL Lymphocytes # 0.3 L (1.0-4.8) k/uL D-Dimer (<0.60) mg/L FEU Sodium (137-145) mmol/L Carbon Dioxide (22-30) mmol/L BUN (7-17) mg/dL Glucose (74-99) mg/dL POC Glucose (mg/dL) 218 H 250 H (75-99) mg/dL Lactate Dehydrogenase (313-618) U/L 08/05/21 08/05/21 08/05/21 Range/Units 05:01 05:01 11:33 WBC (3.8-10.6) k/uL Neutrophils # (1.3-7.7) k/uL Lymphocytes # (1.0-4.8) k/uL D-Dimer 13.45 H (<0.60) mg/L FEU Sodium 136 L (137-145) mmol/L Carbon Dioxide 34 H (22-30) mmol/L BUN 45 H (7-17) mg/dL Glucose 241 H (74-99) mg/dL POC Glucose (mg/dL) 132 H (75-99) mg/dL Lactate Dehydrogenase 1383 H (313-618) U/L Assessment and Plan Assessment: Impression: Acute hypoxic respiratory failure secondary to COVID-19 pneumonia, patient is presently on airvo not in distress. Acute pulmonary embolism triggered by COVID-19 pneumonia. History of GI bleeding. Type 2 diabetes. History of GERD. Dyslipidemia. Benign essential hypertension. History of obstructive sleep apnea. Morbid obesity with BMI of 43.5. Recommendation: Continue to titrate oxygen accordingly. Continue to alternate BiPAP and airvo Continue Eliquis. Continue Decadron. Continue incentive spirometry. Continue diuretics. Continue baricitinib Continue GI prophylaxis. Patient remains marginal at best, hence we will continue to monitor in the ICU Prognosis remains guarded. Time with Patient: Less than 30
[2021-08-05 16:56] LABS: Glucose,Whole Blood 237 mg/dL (75-99)
[2021-08-05] MEDS: ATORVASTATIN 10 MG TAB PO SCH (20:37)
[2021-08-05] MEDS: SENNOSIDES 8.6 MG TAB PO SCH (20:37)
[2021-08-05] MEDS: INSULIN DETEMIR (LEVEMIR) 100 UNIT/ML SYR SQ SCH (20:37)
[2021-08-05 20:43] LABS: Glucose,Whole Blood 207 mg/dL (75-99)
--- NOTE | 2021-08-05 21:34 | P.PN ---
Subjective Progress Note Date: 08/04/21 Principal diagnosis: Acute hypoxic respiratory failure secondary to COVID-19 pneumonia Possible upper GI bleed. Acute kidney injury 65-year-old male with a known history of hypertension, hyperlipidemia, diabetes type 2 [id number], osteoarthritis, obstructive sleep apnea, migraine headaches and no prior history of smoking presents to ER with complaints of fever, cough and shortness of breath along with diarrhea. Patient states that she has been sick for the past 2 weeks with cough congestion body aches and is also having diarrhea for the past 1 week. She came to the ER due to complaints of dark-colored stools. Patient states this is not any blood thinners. No prior history of peptic ulcer disease. Patient does take naproxen for arthritic pain. No complaints of chest pain. On admission T-max was 101.4, pulse 102, pulse ox 83% on room air. Denies any complaints of chest pain. No abdominal pain. No dysuria or hematuria. No headache or dizziness or lightheadedness. Chest x-ray showed there is new patchy pulmonary edema compared to oral exam that could be acute pneumonia. Laboratory showed WBC 4.5 hemoglobin 15.7 and platelets 173 and lymphocytes 0.8 Sodium 138 potassium 4.6 chloride 102 BUN 61 creatinine 2.12 Blood sugar 139 AST 97 ALT 60 alk phos 63 and lipase level 651 Stool occult blood positive and Coronavirus PCR detected. 07/24/2021 Patient is seen and evaluated and discussed with nursing staff; continues to complain of shortness of breath with minimal activity; patient has been brian gnosed with COVID-19 pneumonia; patient does report vaccination against coronavirus Vital signs are reviewed with temperature of 99.2, pulse 80, respiration 18 and blood pressure 143/73 and O2 saturation 91% Patient remains on treatment with Decadron, Lovenox and COVID-19 vitamin cocktail; patient is deemed not a candidate for REM due to onset of symptoms a few weeks prior to presenting to the hospital and patient has been fully vaccinated Laboratory review shows WBC of 4.2 and hemoglobin consistently stable at 14.8 with platelet count of 158; sodium 139, potassium 5.0 which is down from 6.1 y esterday, BUN/creatinine of 28/0.77 down from 44/1.19 yesterday 07/25/2021 Patient discussed with nursing staff no specific concerns identified; continues to report shortness of breath; self proning encourage Vital signs are reviewed temperature 99.3, pulse 79, respirations 17 and blood pressure 102/67 Lab review shows WBC 4.7, hemoglobin 14 and platelet count of 172, d-dimer at 0.96, BUN/creatinine down to 25/1.0; repeat chest x-ray shows improvement Pulmonary on board and recommending to continue with current treatment with Decadron, Lovenox and vitamins 07/26/2021 Patient is seen and evaluated in room at bedside; oxygen saturation has declined and patient is currently on 15 L of O2. patient is being transferred to ICU as an overflow She remains on Decadron. She was also on Lasix at a dose of 20 mg IV daily. She was having adequate urine output. Her IV fluids are running at 75 mL an hour normal saline. The patient has no chest pain. She is exhausted. Whenever she moves around she gets quite short of breath. No significant cough or sputum production. No chest tightness. No wheezing. She is on a combination of vitamin C, vitamin D, zinc and and she is also on Lovenox for DVT prophylaxis. The most recent d-dimer is at 1.79. The most recent LDH level is 1000 with a CRP of 1.2. Pulmonary service recommending to continue the Decadron and the Lovenox and add Baricitinib per protocol. 07/27/2021 Patient is seen and evaluated and discussed with nursing staff; patient was transferred to the ICU yesterday due to her borderline respiratory status as the patient was placed on 15 L of oxygen by nasal cannula in addition to 100% nonrebreather facemask to improve her oxygenation. Patient is sitting up on a chair. She is a bit lethargic but easily arousable; . Her breathing is nonlabored. Vital signs are reviewed temperature 98.7, pulse 79, respiration 24, and blood pressure 101/77; pulse ox is around 97-98%. She remains on Decadron; Lovenox 40 mg subcu along with COVID-19 vitamin radha ktail Laboratory review reveals d-dimer is at 1.59, and LDH level is 1445, her CRP level is at 3.5 and her procal is low at 0.07. Pulmonary on board and recommending to continue patient on 100% nonrebreather face Lasix in addition to nasal cannula at 15 L; continue the Decadron and the Lovenox and add Baricitinib per protocol Continue to follow inflammatory markers periodically including LDH, CRP, ferritin and d-dimer 07/28/2021 Patient is seen and evaluated at beside and discussed with nursing staff. Patient is currently on high flow oxygen with a pulse ox around 92%. Patient was recently transferred out of ICU and is able to sit upright on her bed. Patient also has a 100% nonrebreather facemask at her bedside in order to supplement oxygen when she gets short of breath. Patient's CRP level is 2.4, her d-dimer is 5.5, her LDH level from yesterday was 1445. Patient's chest x ray is not showing any changes but there is some infiltration seen at the lung bases which remains consistent with COVID19 pneumonia, current x ray remains stable compared to her earlier chest x ray. Patient is afebrile with no chills. Patient is on anticoagulant therapy with Lovenox, remains on Decadron, and is also complicitng a curse of Baricitinib along with Lasix by mouth daily. There are no major changes or events from yesterday. 07/29/2021 Patient is seen and evaluated at bedside and discussed with nursing staff. Patient's condition is same with no major or significant changes from yesterday. Patient remains on nasal cannula and nonrebreather facemask. Patient still gets short of breath with mild exertion. Repeat chest x-ray was conducted today with evidence of bilateral pulmonary infiltrates along with smaller lung volumes. Patient also suffers from mild cardiomegaly indicated on imaging. On examination, it is noted that patient has lower extremity edema bilaterally. Patient's LDH and CRP levels have improved, however D-dimer has elevated to 9.9. Patient is currently on Decadron, Baricitinib, Lasix, Lovenox, Levemir insulin. P, as per protocol. Patient is using incentive spirometer. 07/30/2021 Patient is seen and evaluated at bedside and discussed with nursing staff. Patient's condition is slightly worse compared to yesterday. Patient continues to be on nasal cannula and nonrebreather facemask with a pulse ox in the low 80s. Patient was then placed on Airvo. D dimer levels have trended upwards to 16.1. Patient did not have any swelling in her lower ext. Patient is on Lovenox for DVT prophylaxis. Doppler of the lower extremity was done which showed no evidence of any DVT. Patient's chest x ray shows diffuse bilateral pulmonary infiltrates perihilar and also the lower lobes bilaterally. Patient is currently afebrile. Patient's breathing is lightly labored compared to yesterday. Patient continues to be on Decadron whereas rest of medications are unchanged. Patient is no longer using incetive spirometer. 07/31/2021 Patient is being seen today and evaluated while being discussed with the nursing staff. Patient's breathing is still labored and she continues to be on Airvo along with a beta facemask. Patient had an episode of epistaxis for which she expresses concern. Patient decompensated with a pulse ox that dropped to the mid 80s. Patient is no longer currently bleeding but remains on Lovenox for DVT prophylaxis. A repeat Doppler was donea gain to ensure that patient did not have any evidence of DVT considering her d-dimer was trending upward. Chest X ray shows diffuse pulmonary infiltrates which are consistent with COVID 19 pneumonia. Patient remains on Decadron and also Baricitinib. Patient is also on Levemir insulin to control her sugar levels. However, the patient is not able to do her incentive spirometer. Patient is drinking sufficiently but is not eating sufficiently. Patient is awake and response. Patient's LDH is treading upward with her D-dimer still eletated at 17.9 No other significant events or major changes from yesterday; continue supportive care. 08/01/2021 Patient is seen and evaluated while being discussed with the nursing staff. Patient remains on high flow oxygen Airvo along with the nonrebreather facemask. Patient remains on Decadron and Baricitinib. Patient complained of right nostril epistaxis for which she expressed anxiety and concern. Due to this, patient was taken off the Airvo but began to desaturate down to 76^. Due to this patient had to be placed back on Airvo, with no complaints of any significant bleeding. Patient does not have any issues or complaints. She also denies having shortness of breath. A repeat chest x ray was done and there seems to be improvement in aeration of the left lung base and the left hemidiaphgragm is also visualized more clearly compared to previous chest x rays, however there is still diffuse bilateral pulmonary infiltrates that are consistent with COVID 19 pneumonia/ARDS. Patient has a good appetite and is eating better. Patient is als o on Levemir to control her sugar levels. Inflammatory markers need to be reapeted. D dimer is still elevated that is why a repeat Doppler was done but the Doppler of the lower extremity came back negative. LDH and CRP are currently pending with her WBC count has trended downward to 12.6 08/02/2021 Patient is currently in MICU. Requiring BiPAP at 80% FiO2. Patient has been afebrile. Patient is otherwise anxious and desaturating when airvo is taken off. No nausea or vomiting. Patient is able to tolerate oral diet. Patient has been continued baricitinib, dexamethasone 6 mg IV twice daily and multivitamins and anticoagulation. Chest x-ray showed persistent interstitial bibasilar infiltrates with slight interval improvement suggested. Laboratory data showed WBC 14.1 hemoglobin 13.1 platelets 234 and neutrophils 0.5 Sodium 140 potassium 4.1 chloride 97 bicarb is 36 BUN 42 and creatinine 0.94 08/03/2021 Patient is currently in the MICU. Remains on BiPAP with 80% FiO2 and oxygen saturations around 90%. Patient continues to have elevated D-dimer level. CT angiogram chest was ordered to rule out any pulmonary embolism which showed right middle lobe and right lower lobe pulmonary emboli without CT evidence of RV strain. Patient was transitioned to heparin drip from Lovenox 40 mg twice daily. Patient has been afebrile. No complaints of chest pain. Laboratory showed WBC 12.5 hemoglobin 13.6, platelets 261 and lymphocytes 0.5 D-dimer level is 19.87, chloride 96 bicarb is 34 BUN 45 and creatinine 0.86 and LDH level is 1395 and CRP 0.9. Pulmonary is on board. Chest x-ray showed worsening left greater than right bilateral lower lobe opacities consistent with COVID-19 infection progression. Patient remains on dexamethasone, multivitamins vitamin D3 and baricitinib. 08/04/2021 Patient remains in the MICU. Requiring BiPAP and also using nonrebreather andAirvo intermittently. On 50 L with 90% FiO2. Patient is otherwise awake alert and sitting in the chair. Chest x-ray showed persistent perihilar and basilar infiltrates. Left-sided PICC line with its distal tip overlying the SVC. No evidence of pneumothorax. Patient is being continued dexamethasone, Baricitinib, zinc sulfate, ascorbic acid. Patient is being continued on heparin drip changed to Eliquis 10 mg twice daily for newly diagnosed pulmonary embolism. Discussed with her via telephone and updated her of medical condition. Current medications reviewed. Objective - Vital Signs Vital signs: Vital Signs Temp 98 F 08/04/21 08:00 Pulse 76 08/04/21 11:00 Resp 32 H 08/04/21 11:00 BP 124/93 08/04/21 11:00 Pulse Ox 91 L 08/04/21 11:00 Intake & Output 08/03/21 08/04/21 08/04/21 18:59 06:59 18:59 Intake Total 1140 571.647 333.906 Output Total 910 615 215 Balance 230 -43.353 118.906 Weight 108.5 kg Intake: Intake, IV Titration 240 471.647 133.906 Amount Heparin Sod,Pork in 0.45% 231.647 33.906 NaCl 25,000 unit In 0.45 % NaCl 1 250ml.bag @ 18 UNITS/KG/HR 19.53 mls/hr IV .[id number] GEMA Rx#: [id number] Sodium Chloride 0.9% 1, 240 240 100 000 ml @ 20 mls/hr IV . Q24H GEMA Rx#:[id number] Oral 900 100 200 Output: Urine 910 615 215 Other: Voiding Method Indwelling Catheter Indwelling Catheter Indwelling Catheter - Exam PHYSICAL EXAMINATION: GENERAL: The patient is alert and oriented x3, not in any acute distress. Well developed, well nourished. HEENT: Pupils are round and equally reacting to light. EOMI. No scleral icterus. No conjunctival pallor. Normocephalic, atraumatic. No pharyngeal erythema. No thyromegaly. CARDIOVASCULAR: S1 and S2 present. No murmurs, rubs, or gallops. PULMONARY: Chest is clear to auscultation, no wheezing or crackles. ABDOMEN: Soft, nontender, nondistended, normoactive bowel sounds. No palpable organomegaly. MUSCULOSKELETAL: No joint swelling or deformity. EXTREMITIES: No cyanosis, clubbing, or pedal edema. NEUROLOGICAL: Gross neurological examination did not reveal any focal deficits. SKIN: No rashes. - Labs CBC & Chem 7: 08/05/21 05:01 08/05/21 05:01 Labs: Abnormal Lab Results - Last 24 Hours (Table) 08/03/21 08/03/21 08/03/21 Range/Units 15:08 17:23 20:26 WBC (3.8-10.6) k/uL Neutrophils # (1.3-7.7) k/uL Lymphocytes # (1.0-4.8) k/uL APTT 21.3 L (22.0-30.0) sec Carbon Dioxide (22-30) mmol/L BUN (7-17) mg/dL Glucose (74-99) mg/dL POC Glucose (mg/dL) 211 H 251 H (75-99) mg/dL AST (14-36) U/L ALT (4-34) U/L Albumin (3.5-5.0) g/dL 08/03/21 08/04/21 08/04/21 Range/Units 21:27 05:19 05:19 WBC 13.2 H (3.8-10.6) k/uL Neutrophils # 12.5 H (1.3-7.7) k/uL Lymphocytes # 0.4 L (1.0-4.8) k/uL APTT >200.0 H* (22.0-30.0) sec Carbon Dioxide 31 H (22-30) mmol/L BUN 44 H (7-17) mg/dL Glucose 210 H (74-99) mg/dL POC Glucose (mg/dL) (75-99) mg/dL AST 44 H (14-36) U/L ALT 84 H (4-34) U/L Albumin 3.4 L (3.5-5.0) g/dL 08/04/21 08/04/21 08/04/21 Range/Units 05:19 05:33 12:11 WBC (3.8-10.6) k/uL Neutrophils # (1.3-7.7) k/uL Lymphocytes # (1.0-4.8) k/uL APTT >200.0 H* (22.0-30.0) sec Carbon Dioxide (22-30) mmol/L BUN (7-17) mg/dL Glucose (74-99) mg/dL POC Glucose (mg/dL) 195 H 200 H (75-99) mg/dL AST (14-36) U/L ALT (4-34) U/L Albumin (3.5-5.0) g/dL Assessment and Plan Assessment: Acute hypoxemic respiratory failure secondary to coronavirus associated pneumonia. Elevated inflammatory markers. Right lower lobe and middle lobe pulmonary embolism without CT evidence of RV strain. Diagnosed 08/03/2021 Dark-colored stools with occult blood positive on admission. Possible upper GI bleed. hb is stable. no further episodes. Acute kidney injury likely prerenal with creatinine level 2.14 on admission. Baseline creatinine not known, cr improved. Diabetes type 2 [id number] Mild acute pancreatitis with lipase level 651 Hyperlipidemia Hypertension DVT prophylaxis Plan: Patient will be continued on BiPAP and Intermittently Airvo and is currently being monitored in the MICU. Patient was started on heparin drip due to new diagnosis of pulmonary embolism, chnaged to Eliquis. Patient is on dexamethasone, and multivitamins and also started on baricitinib. Continue with the dexamethasone IV, zinc sulfate, ascorbic acid and vitamin D3. Pulmonary is on board. Continue with home medications.Hemoglobin is stable. Renal function improved. Patient still having elevated inflammatory markers. Lasix was started at 20 mg daily with improvement in kidney function.. Patient is also on verapamil at home. Continue Levemir, with insulin sliding scale and levimir.Titrate dose as needed. Continue to monitor closely and prognosis guarded at this time.. Time with Patient: Greater than 30
--- NOTE | 2021-08-05 21:39 | P.PN ---
Subjective Progress Note Date: 08/05/21 Principal diagnosis: Acute hypoxic respiratory failure secondary to COVID-19 pneumonia Possible upper GI bleed. Acute kidney injury 65-year-old male with a known history of hypertension, hyperlipidemia, diabetes type 2 [id number], osteoarthritis, obstructive sleep apnea, migraine headaches and no prior history of smoking presents to ER with complaints of fever, cough and shortness of breath along with diarrhea. Patient states that she has been sick for the past 2 weeks with cough congestion body aches and is also having diarrhea for the past 1 week. She came to the ER due to complaints of dark-colored stools. Patient states this is not any blood thinners. No prior history of peptic ulcer disease. Patient does take naproxen for arthritic pain. No complaints of chest pain. On admission T-max was 101.4, pulse 102, pulse ox 83% on room air. Denies any complaints of chest pain. No abdominal pain. No dysuria or hematuria. No headache or dizziness or lightheadedness. Chest x-ray showed there is new patchy pulmonary edema compared to oral exam that could be acute pneumonia. Laboratory showed WBC 4.5 hemoglobin 15.7 and platelets 173 and lymphocytes 0.8 Sodium 138 potassium 4.6 chloride 102 BUN 61 creatinine 2.12 Blood sugar 139 AST 97 ALT 60 alk phos 63 and lipase level 651 Stool occult blood positive and Coronavirus PCR detected. 07/24/2021 Patient is seen and evaluated and discussed with nursing staff; continues to complain of shortness of breath with minimal activity; patient has been brian gnosed with COVID-19 pneumonia; patient does report vaccination against coronavirus Vital signs are reviewed with temperature of 99.2, pulse 80, respiration 18 and blood pressure 143/73 and O2 saturation 91% Patient remains on treatment with Decadron, Lovenox and COVID-19 vitamin cocktail; patient is deemed not a candidate for REM due to onset of symptoms a few weeks prior to presenting to the hospital and patient has been fully vaccinated Laboratory review shows WBC of 4.2 and hemoglobin consistently stable at 14.8 with platelet count of 158; sodium 139, potassium 5.0 which is down from 6.1 y esterday, BUN/creatinine of 28/0.77 down from 44/1.19 yesterday 07/25/2021 Patient discussed with nursing staff no specific concerns identified; continues to report shortness of breath; self proning encourage Vital signs are reviewed temperature 99.3, pulse 79, respirations 17 and blood pressure 102/67 Lab review shows WBC 4.7, hemoglobin 14 and platelet count of 172, d-dimer at 0.96, BUN/creatinine down to 25/1.0; repeat chest x-ray shows improvement Pulmonary on board and recommending to continue with current treatment with Decadron, Lovenox and vitamins 07/26/2021 Patient is seen and evaluated in room at bedside; oxygen saturation has declined and patient is currently on 15 L of O2. patient is being transferred to ICU as an overflow She remains on Decadron. She was also on Lasix at a dose of 20 mg IV daily. She was having adequate urine output. Her IV fluids are running at 75 mL an hour normal saline. The patient has no chest pain. She is exhausted. Whenever she moves around she gets quite short of breath. No significant cough or sputum production. No chest tightness. No wheezing. She is on a combination of vitamin C, vitamin D, zinc and and she is also on Lovenox for DVT prophylaxis. The most recent d-dimer is at 1.79. The most recent LDH level is 1000 with a CRP of 1.2. Pulmonary service recommending to continue the Decadron and the Lovenox and add Baricitinib per protocol. 07/27/2021 Patient is seen and evaluated and discussed with nursing staff; patient was transferred to the ICU yesterday due to her borderline respiratory status as the patient was placed on 15 L of oxygen by nasal cannula in addition to 100% nonrebreather facemask to improve her oxygenation. Patient is sitting up on a chair. She is a bit lethargic but easily arousable; . Her breathing is nonlabored. Vital signs are reviewed temperature 98.7, pulse 79, respiration 24, and blood pressure 101/77; pulse ox is around 97-98%. She remains on Decadron; Lovenox 40 mg subcu along with COVID-19 vitamin radha ktail Laboratory review reveals d-dimer is at 1.59, and LDH level is 1445, her CRP level is at 3.5 and her procal is low at 0.07. Pulmonary on board and recommending to continue patient on 100% nonrebreather face Lasix in addition to nasal cannula at 15 L; continue the Decadron and the Lovenox and add Baricitinib per protocol Continue to follow inflammatory markers periodically including LDH, CRP, ferritin and d-dimer 07/28/2021 Patient is seen and evaluated at beside and discussed with nursing staff. Patient is currently on high flow oxygen with a pulse ox around 92%. Patient was recently transferred out of ICU and is able to sit upright on her bed. Patient also has a 100% nonrebreather facemask at her bedside in order to supplement oxygen when she gets short of breath. Patient's CRP level is 2.4, her d-dimer is 5.5, her LDH level from yesterday was 1445. Patient's chest x ray is not showing any changes but there is some infiltration seen at the lung bases which remains consistent with COVID19 pneumonia, current x ray remains stable compared to her earlier chest x ray. Patient is afebrile with no chills. Patient is on anticoagulant therapy with Lovenox, remains on Decadron, and is also complicitng a curse of Baricitinib along with Lasix by mouth daily. There are no major changes or events from yesterday. 07/29/2021 Patient is seen and evaluated at bedside and discussed with nursing staff. Patient's condition is same with no major or significant changes from yesterday. Patient remains on nasal cannula and nonrebreather facemask. Patient still gets short of breath with mild exertion. Repeat chest x-ray was conducted today with evidence of bilateral pulmonary infiltrates along with smaller lung volumes. Patient also suffers from mild cardiomegaly indicated on imaging. On examination, it is noted that patient has lower extremity edema bilaterally. Patient's LDH and CRP levels have improved, however D-dimer has elevated to 9.9. Patient is currently on Decadron, Baricitinib, Lasix, Lovenox, Levemir insulin. P, as per protocol. Patient is using incentive spirometer. 07/30/2021 Patient is seen and evaluated at bedside and discussed with nursing staff. Patient's condition is slightly worse compared to yesterday. Patient continues to be on nasal cannula and nonrebreather facemask with a pulse ox in the low 80s. Patient was then placed on Airvo. D dimer levels have trended upwards to 16.1. Patient did not have any swelling in her lower ext. Patient is on Lovenox for DVT prophylaxis. Doppler of the lower extremity was done which showed no evidence of any DVT. Patient's chest x ray shows diffuse bilateral pulmonary infiltrates perihilar and also the lower lobes bilaterally. Patient is currently afebrile. Patient's breathing is lightly labored compared to yesterday. Patient continues to be on Decadron whereas rest of medications are unchanged. Patient is no longer using incetive spirometer. 07/31/2021 Patient is being seen today and evaluated while being discussed with the nursing staff. Patient's breathing is still labored and she continues to be on Airvo along with a beta facemask. Patient had an episode of epistaxis for which she expresses concern. Patient decompensated with a pulse ox that dropped to the mid 80s. Patient is no longer currently bleeding but remains on Lovenox for DVT prophylaxis. A repeat Doppler was donea gain to ensure that patient did not have any evidence of DVT considering her d-dimer was trending upward. Chest X ray shows diffuse pulmonary infiltrates which are consistent with COVID 19 pneumonia. Patient remains on Decadron and also Baricitinib. Patient is also on Levemir insulin to control her sugar levels. However, the patient is not able to do her incentive spirometer. Patient is drinking sufficiently but is not eating sufficiently. Patient is awake and response. Patient's LDH is treading upward with her D-dimer still eletated at 17.9 No other significant events or major changes from yesterday; continue supportive care. 08/01/2021 Patient is seen and evaluated while being discussed with the nursing staff. Patient remains on high flow oxygen Airvo along with the nonrebreather facemask. Patient remains on Decadron and Baricitinib. Patient complained of right nostril epistaxis for which she expressed anxiety and concern. Due to this, patient was taken off the Airvo but began to desaturate down to 76^. Due to this patient had to be placed back on Airvo, with no complaints of any significant bleeding. Patient does not have any issues or complaints. She also denies having shortness of breath. A repeat chest x ray was done and there seems to be improvement in aeration of the left lung base and the left hemidiaphgragm is also visualized more clearly compared to previous chest x rays, however there is still diffuse bilateral pulmonary infiltrates that are consistent with COVID 19 pneumonia/ARDS. Patient has a good appetite and is eating better. Patient is als o on Levemir to control her sugar levels. Inflammatory markers need to be reapeted. D dimer is still elevated that is why a repeat Doppler was done but the Doppler of the lower extremity came back negative. LDH and CRP are currently pending with her WBC count has trended downward to 12.6 08/02/2021 Patient is currently in MICU. Requiring BiPAP at 80% FiO2. Patient has been afebrile. Patient is otherwise anxious and desaturating when airvo is taken off. No nausea or vomiting. Patient is able to tolerate oral diet. Patient has been continued baricitinib, dexamethasone 6 mg IV twice daily and multivitamins and anticoagulation. Chest x-ray showed persistent interstitial bibasilar infiltrates with slight interval improvement suggested. Laboratory data showed WBC 14.1 hemoglobin 13.1 platelets 234 and neutrophils 0.5 Sodium 140 potassium 4.1 chloride 97 bicarb is 36 BUN 42 and creatinine 0.94 08/03/2021 Patient is currently in the MICU. Remains on BiPAP with 80% FiO2 and oxygen saturations around 90%. Patient continues to have elevated D-dimer level. CT angiogram chest was ordered to rule out any pulmonary embolism which showed right middle lobe and right lower lobe pulmonary emboli without CT evidence of RV strain. Patient was transitioned to heparin drip from Lovenox 40 mg twice daily. Patient has been afebrile. No complaints of chest pain. Laboratory showed WBC 12.5 hemoglobin 13.6, platelets 261 and lymphocytes 0.5 D-dimer level is 19.87, chloride 96 bicarb is 34 BUN 45 and creatinine 0.86 and LDH level is 1395 and CRP 0.9. Pulmonary is on board. Chest x-ray showed worsening left greater than right bilateral lower lobe opacities consistent with COVID-19 infection progression. Patient remains on dexamethasone, multivitamins vitamin D3 and baricitinib. 08/04/2021 Patient remains in the MICU. Requiring BiPAP and also using nonrebreather andAirvo intermittently. On 50 L with 90% FiO2. Patient is otherwise awake alert and sitting in the chair. Chest x-ray showed persistent perihilar and basilar infiltrates. Left-sided PICC line with its distal tip overlying the SVC. No evidence of pneumothorax. Patient is being continued dexamethasone, Baricitinib, zinc sulfate, ascorbic acid. Patient is being continued on heparin drip changed to Eliquis 10 mg twice daily for newly diagnosed pulmonary embolism. Discussed with her via telephone and updated her of medical condition. 08/05/2021 Patient is currently in the MICU. Requiring BiPAP and Airvo with Ventimask intermittently. Patient was confused in the morning today and would want to go to hospice care. Currently patient is more awake and oriented and would like to continue current treatment. Patient's is at bedside. Chest x-ray showed reticulonodular infiltrates persist although may have improved slightly in the interval. Patient is being continued on dexamethasone, Eliquis for pulmonary embolism and multivitamins and also baricitinib. Laboratory data showed WBC 14.7 hemoglobin 13.6 and platelets 239 lymphocytes 0.3 and D-dimer level is 13.45, trending down from 19.87 Sodium 136 potassium 4.7 chloride 98 bicarb 34 BUN 45 creatinine 0.83 and blood sugar is 241 and LDH level is 1383 CRP less than 0.5 Current medications reviewed. Objective - Vital Signs Vital signs: Vital Signs Temp 98.1 F 08/05/21 20:00 Pulse 88 08/05/21 21:00 Resp 22 08/05/21 21:00 BP 120/92 08/05/21 21:00 Pulse Ox 94 L 08/05/21 21:00 Intake & Output 08/05/21 08/05/21 08/06/21 06:59 18:59 06:59 Intake Total 590 240 60 Output Total 655 1210 195 Balance -65 -970 -135 Weight 111.2 kg Intake: IV 220 60 Sodium Chloride 0.9% 1, 220 60 000 ml @ 20 mls/hr IV . Q24H GEMA Rx#:[id number] Intake, IV Titration 240 20 Amount Sodium Chloride 0.9% 1, 240 20 000 ml @ 20 mls/hr IV . Q24H GEMA Rx#:[id number] Oral 350 Output: Urine 655 1210 195 Other: Voiding Method Indwelling Catheter Indwelling Catheter Indwelling Catheter - Exam PHYSICAL EXAMINATION: GENERAL: The patient is alert and oriented x3, not in any acute distress. Well developed, well nourished. HEENT: Pupils are round and equally reacting to light. EOMI. No scleral icterus. No conjunctival pallor. Normocephalic, atraumatic. No pharyngeal erythema. No thyromegaly. CARDIOVASCULAR: S1 and S2 present. No murmurs, rubs, or gallops. PULMONARY: Chest is clear to auscultation, no wheezing or crackles. ABDOMEN: Soft, nontender, nondistended, normoactive bowel sounds. No palpable organomegaly. MUSCULOSKELETAL: No joint swelling or deformity. EXTREMITIES: No cyanosis, clubbing, or pedal edema. NEUROLOGICAL: Gross neurological examination did not reveal any focal deficits. SKIN: No rashes. - Labs CBC & Chem 7: 08/05/21 05:01 08/05/21 05:01 Labs: Abnormal Lab Results - Last 24 Hours (Table) 08/05/21 08/05/21 08/05/21 Range/Units 05:01 05:01 05:01 WBC 14.7 H (3.8-10.6) k/uL Neutrophils # 14.0 H (1.3-7.7) k/uL Lymphocytes # 0.3 L (1.0-4.8) k/uL D-Dimer 13.45 H (<0.60) mg/L FEU Sodium 136 L (137-145) mmol/L Carbon Dioxide 34 H (22-30) mmol/L BUN 45 H (7-17) mg/dL Glucose 241 H (74-99) mg/dL POC Glucose (mg/dL) (75-99) mg/dL Lactate Dehydrogenase 1383 H (313-618) U/L 08/05/21 08/05/21 08/05/21 Range/Units 11:33 16:55 20:41 WBC (3.8-10.6) k/uL Neutrophils # (1.3-7.7) k/uL Lymphocytes # (1.0-4.8) k/uL D-Dimer (<0.60) mg/L FEU Sodium (137-145) mmol/L Carbon Dioxide (22-30) mmol/L BUN (7-17) mg/dL Glucose (74-99) mg/dL POC Glucose (mg/dL) 132 H 237 H 207 H (75-99) mg/dL Lactate Dehydrogenase (313-618) U/L Assessment and Plan Assessment: Acute hypoxemic respiratory failure secondary to coronavirus associated pneumonia. Elevated inflammatory markers. Right lower lobe and middle lobe pulmonary embolism without CT evidence of RV strain. Diagnosed 08/03/2021 Dark-colored stools with occult blood positive on admission. Possible upper GI bleed. hb is stable. no further episodes. Acute kidney injury likely prerenal with creatinine level 2.14 on admission. Baseline creatinine not known, cr improved. Diabetes type 2 [id number] Mild acute pancreatitis with lipase level 651 Hyperlipidemia Hypertension DVT prophylaxis Plan: Patient will be continued on BiPAP and Intermittently Airvo and is currently be ing monitored in the MICU. Patient was started on heparin drip due to new diagnosis of pulmonary embolism, chnaged to [facility]. Patient is on dexamethasone, and multivitamins and also started on baricitinib. Continue with the dexamethasone IV, zinc sulfate, ascorbic acid and vitamin D3. Pulmonary is on board. Continue with home medications.Hemoglobin is stable. Renal function improved. Patient still having elevated inflammatory markers. Lasix was started at 20 mg daily with improvement in kidney function.. Patient is also on verapamil at home. Continue Levemir 15 U, with insulin sliding scale and levimir.Titrate dose as needed. Continue to monitor closely and prognosis guarded at this time.. Time with Patient: Greater than 30
[2021-08-06 06:23] LABS: Glucose,Whole Blood 179 mg/dL (75-99)
[2021-08-06] MEDS: PANTOPRAZOLE 40 MG TABLET PO SCH (06:26)
[2021-08-06 06:31] LABS: Basophils % (A) 0 %; Eosinophils # (A) 0.1 k/uL (0-0.7); Eosinophils % (A) 1 %; HCT 41.9 % (34.0-46.0); HGB 13.7 gm/dL (11.4-16.0); Lymphocytes # (A) 0.5 k/uL (1.0-4.8); Lymphocytes % (A) 3 %; MCH 29.8 pg (25.0-35.0); MCHC 32.7 g/dL (31.0-37.0); MCV 91.2 fL (80.0-100.0); Mean Platelet Volume 8.3; Monocytes # (A) 0.3 k/uL (0-1.0); Monocytes % (A) 2 %; Neutrophils # (A) 14.7 k/uL (1.3-7.7); Neutrophils % (A) 94 %; Platelet Count 209 k/uL (150-450); RBC 4.59 m/uL (3.80-5.40); RDW 12.8 % (11.5-15.5); WBC 15.7 k/uL (3.8-10.6)
[2021-08-06] MEDS: INSULIN ASPART (NovoLOG) 100 UNIT/ML VIAL SQ SCH ×4 (06:32→21:04)
[2021-08-06 06:59] LABS: African American GFR (CKD) 84 (>60 ml/min/1.73 sqM); Anion Gap 5 mmol/L; Blood Urea Nitrogen 49 mg/dL (7-17); C Reactive Protein <0.5 mg/dL (<1.0); Calcium 9.3 mg/dL (8.4-10.2); Carbon Dioxide 34 mmol/L (22-30); Chloride 97 mmol/L (98-107); Glucose 186 mg/dL (74-99); LDH 1343 U/L (313-618); Non-African American GFR(CKD) 73 (>60 ml/min/1.73 sqM); Potassium 4.5 mmol/L (3.5-5.1); Sodium 136 mmol/L (137-145)
--- NOTE | 2021-08-06 07:02 | XR ---
EXAMINATION TYPE: XR chest 1V portable DATE OF EXAM: 08/06/2021 COMPARISON: 08/05/2021 INDICATION: Covid TECHNIQUE: Single frontal view of the chest is obtained. FINDINGS: The heart size is upper limits of normal. The pulmonary vasculature is normal. Mild infiltrate is present diffusely slightly greater in the left lower lobe. PICC line enters on the left tip in the superior vena cava region. IMPRESSION: 1. Mild increase in left lower lobe infiltrate. Diffuse infiltrate is present. Findings could be comp atible with atypical pneumonia in the proper clinical setting.
[2021-08-06] MEDS: ALBUTEROL HFA INHALER INHALATION SCH ×4 (08:29→19:57)
[2021-08-06] MEDS: SYMBICORT 160-4.5 MCG INHALER INHALATION SCH ×2 (08:29→19:57)
[2021-08-06] MEDS: ZINC SULFATE 220 MG CAP PO SCH (10:15)
[2021-08-06] MEDS: DEXAMETHASONE SOD PHOSPHATE 10 MG/ML 1 ML VIAL IV SCH ×2 (10:15→20:42)
[2021-08-06] MEDS: ASCORBIC ACID 500 MG TAB PO SCH (10:15)
[2021-08-06] MEDS: APIXABAN 5 MG TAB PO SCH ×2 (10:15→20:43)
[2021-08-06] MEDS: CHOLECALCIFEROL 25 MCG (1000 IU) TABLET PO SCH (10:15)
[2021-08-06] MEDS: OXYBUTYNIN 15 MG TAB.ER.24 PO SCH (10:16)
[2021-08-06] MEDS: FUROSEMIDE 20 MG TAB PO SCH (10:16)
[2021-08-06] MEDS: SODIUM CHLORIDE 0.9% 1,000 ML IV SCH ×2 (10:16→10:17)
[2021-08-06] MEDS: BARICITINIB 2 MG TABLET PO SCH (10:16)
[2021-08-06 12:01] LABS: Glucose,Whole Blood 143 mg/dL (75-99)
--- NOTE | 2021-08-06 14:08 | P.PN ---
Subjective Progress Note Date: 08/06/21 Principal diagnosis: Acute hypoxic respiratory failure secondary to COVID-19 pneumonia 07/31/2021, patient is being seen for a follow-up, on today's evaluation, the patient is resting. Her breathing is mildly labored is and she is currently on a Airvo with 60 L and FiO2 of 90% along with 100% on a beta facemask with an pulse ox of 92%. She did have an episode of epistaxis which made her quite nervous and anxious and she decompensated with a pulse ox dropped in the mid 80s. Currently she is not bleeding. She remains on Lovenox 40 mg subcu for DVT prophylaxis. Repeat Doppler was done again to make sure there is no evidence of any DVT knowing that her d-dimer was on the rise. Chest x-ray continues to show diffuse but the pulmonary infiltrates consistent with COVID-19 related pneumonia/ARDS. She remains on accommodation of Decadron 6 with a grams IV every 12 hours and she is also on Baricitinib protocol. She remains on Levemir insulin running at 15 units units subcu on a daily basis along with a size care coverage. She is unable to do her incentive spirometer effectively. In terms of oral intake, she is drinking adequately. She is probably getting around 20- 30% of her meals. She is awake. She is responsive. In terms of her blood work, her LDH is on the rise and her LDH from today is at 1376. CRP is at 4. Total protein at 6.0. Glucose is 162. Serum bicarb is at 34. Sodium is at 139 with a potassium level of 3.5. The CBC shows a white cell count 12.7 with a hemoglobin of 15.2. D-dimer is still elevated at 17.9. 08/01/2021, the patient remains on high flow oxygen at 60 L Airvo along with an FiO2 of 90% and the patient is also on 100% nonrebreather facemask. All sizes ranging between 86 and 88%. She remains on Decadron 6 mg IV every 12 hours and she is still on Baricitinib. She was having issues with some bleeding from her right nostril. As such, I gave her a break off the Airvo yesterday. She did not tolerate that. She desaturated down to 76%. She was placed back on the Airvo. Since then, the patient has not had any significant bleeding. She is tolerating the treatment fairly well for the time being. Denies having any worsening shortness of breath. Repeat chest x-ray was done and I see some improvement in aeration of the left lung base as the left hemidiaphragm is visualized more clearly on today's x-ray. Nevertheless, there is still diffuse bilateral pulmonary infiltrates consistent with COVID-19 related pneumonia and ARDS. She has a very good appetite. She eats her meals nicely. She is on Levemir insulin 15 units along with a sliding scale insulin coverage. In terms of her inflammatory markers, those need to be repeated. D-dimer was elevated and for that reason I repeated the Doppler of the lower extremity that came back negative. At LDH and CRP are still pending. Renal function is stable. Her white cell count is at 12.6. Reevaluated today on 08/02/2021, patient remains in the ICU, remains marginal at best. Patient is on BiPAP 10/5/80%, saturation is marginal. Surprisingly the patient seems to be comfortable in spite of BiPAP and the relatively high FiO2. Chest x-ray continues to show bilateral interstitial infiltrates consistent with COVID-19 pneumonia IV fluids at KVO, patient is on Decadron 6 mg twice a day, is also on Lovenox, 40 mg subcu daily. and on baricitinib, patient is also on the COVID-19 corrected. CBC is relatively normal electrolytes are normal renal profile is normal. Last LDH from 2 days ago was 1376 and last C-reactive protein was 4.0, both were noted to be on the rise Reevaluated today on 08/03/2021, patient remains in the ICU, remains marginal at best. Remains on BiPAP 10/5/80%, and her O2 saturation is in the high 80s and maximum 91%. IV fluid at KVO. Patient had increase in her d-dimer today, hence I recommended a CT angiogram of the chest, and it came back showing a right middle lobe and right lower lobe pulmonary emboli without CT evidence of RV strain. Hence the patient will be transitioned from Lovenox 40 mg subcu twice a day to high intensity heparin. And maybe tomorrow could consider transitioning the patient to Xarelto or Eliquis. WBC count today is 4.5 hemoglobin 13.6 electrolytes are normal renal profile is normal, LDH continues to rise it is 1395 today. C-reactive protein is 0.9. Chest x-ray continues to show basically no major change, bilateral interstitial infiltrates noted. And this was also noted on the CT of the chest. Reevaluated today on 08/04/21, patient remains in the ICU, remains on BiPAP, intermittently on airvo and non-rebreather mask, O2 saturations are marginal at best. Patient remains on COVID-19 cocktail, remains on heparin for her recent right sided pulmonary embolism she is also on baricitinib. Her BiPAP is set at 12/5/80%, again the patient is intermittently on a nonrebreather mask along with airvo at 50 L flow and 90% FiO2. Patient feels about the same not much of a change in the last 24 hours. Her SGOT is 13.2 hemoglobin is 13.8 PTT was supratherapeutic today, and the patient is being treated with heparin as per protocol, will discontinue heparin and start the patient today on Eliquis. Chest x-ray continues to show persistent perihilar and basilar infiltrates not much of a change Reevaluated today on 08/05/21, patient remains in the ICU, remains on BiPAP, and at times she is on airvo and nonrebreather mask. Continues to have marginal O2 saturation. Remains on the cocktail for COVID-19 infection/pneumonia remains on heparin for acute right sided pulmonary embolism and she is also on baricitinib. Patient seems to be a bit confused and odd, at one point she would say I would want to go hospice, and a few minutes later with tell me that she doesn't mind going on life support if her condition gets any worse. Hence we need to update the on her status, and readdress the CODE STATUS although at this point the patient does not need to be on life support, and she seems to be slightly better if anything. Chest x-ray is showing slight improvement and her O2 saturation is improving patient is clinically better. She count is 14.7 hemoglobin is 13.6, her d-dimer is 13.45. Electrolytes are normal renal profile is normal. LDH is trending down slightly compared to yesterday. Or practically about the same. Reevaluated today on 08/06/21, patient remains in the ICU, seems to be better today, breathing easier, she is on BiPAP at present with IPAP of 12 EPAP of 5 and FiO2 70%, O2 saturating 93%. Patient denies any change analyst the last 24 hours, she does feel a bit better. WBC count is 15.7 hemoglobin 15.7 and left lites are normal renal profile is normal LDH is 1343 C-reactive protein is 0.5. Both are improving steadily. Objective - Vital Signs Vital signs: Vital Signs Temp 97.5 F L 08/06/21 08:00 Pulse 84 08/06/21 12:00 Resp 37 H 08/06/21 12:00 BP 90/76 08/06/21 12:00 Pulse Ox 91 L 08/06/21 12:00 Intake & Output 08/05/21 08/06/21 08/06/21 18:59 06:59 18:59 Intake Total 240 240 200 Output Total 1210 610 150 Balance -970 -370 50 Intake: IV 220 240 80 Sodium Chloride 0.9% 1, 220 240 80 000 ml @ 20 mls/hr IV . Q24H [facility] Rx#:[id number] Intake, IV Titration 20 Amount Sodium Chloride 0.9% 1, 20 000 ml @ 20 mls/hr IV . Q24H [facility] Rx#:[id number] Oral 120 Output: Urine 1210 610 150 Other: Voiding Method Indwelling Catheter Indwelling Catheter Indwelling Catheter - Exam Physical Exam revealed 65-year-old female in no distress. On BiPAP. 07/13/ 70%. Head: Atraumatic, normocephalic. HEENT:[Neck is supple.] [No neck masses.] [No thyromegaly.] [No JVD.] Chest: [Symmetrical chest expansion, crackles at the bases. No rhonchi and no wheezes. Cardiac Exam: [Normal S1 and S2, no S3 gallop, no murmur.] Abdomen: [Soft, nontender, no megaly, no rebound, no guarding, normal bowel sounds.] Extremities: [No clubbing, no edema, no cyanosis.] Neurological Exam: [No focal neurologic deficit.] Alert oriented 3. Psychiatric: Normal mood affect and normal mental status examination. Skin: No rashes. Musculoskeletal: No deformities noted limitation range of motion. - Labs CBC & Chem 7: 08/06/21 06:25 08/06/21 06:25 Labs: Abnormal Lab Results - Last 24 Hours (Table) 08/05/21 08/05/21 08/06/21 Range/Units 16:55 20:41 06:20 WBC (3.8-10.6) k/uL Neutrophils # (1.3-7.7) k/uL Lymphocytes # (1.0-4.8) k/uL Sodium (137-145) mmol/L Chloride (98-107) mmol/L Carbon Dioxide (22-30) mmol/L BUN (7-17) mg/dL Glucose (74-99) mg/dL POC Glucose (mg/dL) 237 H 207 H 179 H (75-99) mg/dL Lactate Dehydrogenase (313-618) U/L 08/06/21 08/06/21 08/06/21 Range/Units 06:25 06:25 12:00 WBC 15.7 H (3.8-10.6) k/uL Neutrophils # 14.7 H (1.3-7.7) k/uL Lymphocytes # 0.5 L (1.0-4.8) k/uL Sodium 136 L (137-145) mmol/L Chloride 97 L (98-107) mmol/L Carbon Dioxide 34 H (22-30) mmol/L BUN 49 H (7-17) mg/dL Glucose 186 H (74-99) mg/dL POC Glucose (mg/dL) 143 H (75-99) mg/dL Lactate Dehydrogenase 1343 H (313-618) U/L Assessment and Plan Assessment: Impression: Acute hypoxic respiratory failure secondary to COVID-19 pneumonia, patient is presently on BiPAP, seems to be very comfortable. Acute pulmonary embolism provoked by COVID-19 pneumonia. History of GI bleeding. Type 2 diabetes. History of GERD. Dyslipidemia. Benign essential hypertension. History of obstructive sleep apnea. Morbid obesity with BMI of 43.5. Recommendation: Continue to titrate oxygen accordingly. Continue to alternate BiPAP and airvo Continue Eliquis. Continue Decadron. Continue incentive spirometry. Continue diuretics. Continue baricitinib Continue GI prophylaxis. Will transfer the patient today to a regular medical floor. And will continue to follow Time with Patient: Less than 30
[2021-08-06 16:32] LABS: Glucose,Whole Blood 240 mg/dL (75-99)
[2021-08-06] MEDS: INSULIN DETEMIR (LEVEMIR) 100 UNIT/ML SYR SQ SCH (20:42)
[2021-08-06] MEDS: SENNOSIDES 8.6 MG TAB PO SCH (20:42)
[2021-08-06 21:04] LABS: Glucose,Whole Blood 164 mg/dL (75-99)
--- NOTE | 2021-08-06 21:15 | P.PN ---
Subjective Progress Note Date: 08/06/21 Principal diagnosis: Acute hypoxic respiratory failure secondary to COVID-19 pneumonia Possible upper GI bleed. Acute kidney injury 65-year-old male with a known history of hypertension, hyperlipidemia, diabetes type 2 [id number], osteoarthritis, obstructive sleep apnea, migraine headaches and no prior history of smoking presents to ER with complaints of fever, cough and shortness of breath along with diarrhea. Patient states that she has been sick for the past 2 weeks with cough congestion body aches and is also having diarrhea for the past 1 week. She came to the ER due to complaints of dark-colored stools. Patient states this is not any blood thinners. No prior history of peptic ulcer disease. Patient does take naproxen for arthritic pain. No complaints of chest pain. On admission T-max was 101.4, pulse 102, pulse ox 83% on room air. Denies any complaints of chest pain. No abdominal pain. No dysuria or hematuria. No headache or dizziness or lightheadedness. Chest x-ray showed there is new patchy pulmonary edema compared to oral exam that could be acute pneumonia. Laboratory showed WBC 4.5 hemoglobin 15.7 and platelets 173 and lymphocytes 0.8 Sodium 138 potassium 4.6 chloride 102 BUN 61 creatinine 2.12 Blood sugar 139 AST 97 ALT 60 alk phos 63 and lipase level 651 Stool occult blood positive and Coronavirus PCR detected. 07/24/2021 Patient is seen and evaluated and discussed with nursing staff; continues to complain of shortness of breath with minimal activity; patient has been brian gnosed with COVID-19 pneumonia; patient does report vaccination against coronavirus Vital signs are reviewed with temperature of 99.2, pulse 80, respiration 18 and blood pressure 143/73 and O2 saturation 91% Patient remains on treatment with Decadron, Lovenox and COVID-19 vitamin cocktail; patient is deemed not a candidate for REM due to onset of symptoms a few weeks prior to presenting to the hospital and patient has been fully vaccinated Laboratory review shows WBC of 4.2 and hemoglobin consistently stable at 14.8 with platelet count of 158; sodium 139, potassium 5.0 which is down from 6.1 y esterday, BUN/creatinine of 28/0.77 down from 44/1.19 yesterday 07/25/2021 Patient discussed with nursing staff no specific concerns identified; continues to report shortness of breath; self proning encourage Vital signs are reviewed temperature 99.3, pulse 79, respirations 17 and blood pressure 102/67 Lab review shows WBC 4.7, hemoglobin 14 and platelet count of 172, d-dimer at 0.96, BUN/creatinine down to 25/1.0; repeat chest x-ray shows improvement Pulmonary on board and recommending to continue with current treatment with Decadron, Lovenox and vitamins 07/26/2021 Patient is seen and evaluated in room at bedside; oxygen saturation has declined and patient is currently on 15 L of O2. patient is being transferred to ICU as an overflow She remains on Decadron. She was also on Lasix at a dose of 20 mg IV daily. She was having adequate urine output. Her IV fluids are running at 75 mL an hour normal saline. The patient has no chest pain. She is exhausted. Whenever she moves around she gets quite short of breath. No significant cough or sputum production. No chest tightness. No wheezing. She is on a combination of vitamin C, vitamin D, zinc and and she is also on Lovenox for DVT prophylaxis. The most recent d-dimer is at 1.79. The most recent LDH level is 1000 with a CRP of 1.2. Pulmonary service recommending to continue the Decadron and the Lovenox and add Baricitinib per protocol. 07/27/2021 Patient is seen and evaluated and discussed with nursing staff; patient was transferred to the ICU yesterday due to her borderline respiratory status as the patient was placed on 15 L of oxygen by nasal cannula in addition to 100% nonrebreather facemask to improve her oxygenation. Patient is sitting up on a chair. She is a bit lethargic but easily arousable; . Her breathing is nonlabored. Vital signs are reviewed temperature 98.7, pulse 79, respiration 24, and blood pressure 101/77; pulse ox is around 97-98%. She remains on Decadron; Lovenox 40 mg subcu along with COVID-19 vitamin radha ktail Laboratory review reveals d-dimer is at 1.59, and LDH level is 1445, her CRP level is at 3.5 and her procal is low at 0.07. Pulmonary on board and recommending to continue patient on 100% nonrebreather face Lasix in addition to nasal cannula at 15 L; continue the Decadron and the Lovenox and add Baricitinib per protocol Continue to follow inflammatory markers periodically including LDH, CRP, ferritin and d-dimer 07/28/2021 Patient is seen and evaluated at beside and discussed with nursing staff. Patient is currently on high flow oxygen with a pulse ox around 92%. Patient was recently transferred out of ICU and is able to sit upright on her bed. Patient also has a 100% nonrebreather facemask at her bedside in order to supplement oxygen when she gets short of breath. Patient's CRP level is 2.4, her d-dimer is 5.5, her LDH level from yesterday was 1445. Patient's chest x ray is not showing any changes but there is some infiltration seen at the lung bases which remains consistent with COVID19 pneumonia, current x ray remains stable compared to her earlier chest x ray. Patient is afebrile with no chills. Patient is on anticoagulant therapy with Lovenox, remains on Decadron, and is also complicitng a curse of Baricitinib along with Lasix by mouth daily. There are no major changes or events from yesterday. 07/29/2021 Patient is seen and evaluated at bedside and discussed with nursing staff. Patient's condition is same with no major or significant changes from yesterday. Patient remains on nasal cannula and nonrebreather facemask. Patient still gets short of breath with mild exertion. Repeat chest x-ray was conducted today with evidence of bilateral pulmonary infiltrates along with smaller lung volumes. Patient also suffers from mild cardiomegaly indicated on imaging. On examination, it is noted that patient has lower extremity edema bilaterally. Patient's LDH and CRP levels have improved, however D-dimer has elevated to 9.9. Patient is currently on Decadron, Baricitinib, Lasix, Lovenox, Levemir insulin. P, as per protocol. Patient is using incentive spirometer. 07/30/2021 Patient is seen and evaluated at bedside and discussed with nursing staff. Patient's condition is slightly worse compared to yesterday. Patient continues to be on nasal cannula and nonrebreather facemask with a pulse ox in the low 80s. Patient was then placed on Airvo. D dimer levels have trended upwards to 16.1. Patient did not have any swelling in her lower ext. Patient is on Lovenox for DVT prophylaxis. Doppler of the lower extremity was done which showed no evidence of any DVT. Patient's chest x ray shows diffuse bilateral pulmonary infiltrates perihilar and also the lower lobes bilaterally. Patient is currently afebrile. Patient's breathing is lightly labored compared to yesterday. Patient continues to be on Decadron whereas rest of medications are unchanged. Patient is no longer using incetive spirometer. 07/31/2021 Patient is being seen today and evaluated while being discussed with the nursing staff. Patient's breathing is still labored and she continues to be on Airvo along with a beta facemask. Patient had an episode of epistaxis for which she expresses concern. Patient decompensated with a pulse ox that dropped to the mid 80s. Patient is no longer currently bleeding but remains on Lovenox for DVT prophylaxis. A repeat Doppler was donea gain to ensure that patient did not have any evidence of DVT considering her d-dimer was trending upward. Chest X ray shows diffuse pulmonary infiltrates which are consistent with COVID 19 pneumonia. Patient remains on Decadron and also Baricitinib. Patient is also on Levemir insulin to control her sugar levels. However, the patient is not able to do her incentive spirometer. Patient is drinking sufficiently but is not eating sufficiently. Patient is awake and response. Patient's LDH is treading upward with her D-dimer still eletated at 17.9 No other significant events or major changes from yesterday; continue supportive care. 08/01/2021 Patient is seen and evaluated while being discussed with the nursing staff. Patient remains on high flow oxygen Airvo along with the nonrebreather facemask. Patient remains on Decadron and Baricitinib. Patient complained of right nostril epistaxis for which she expressed anxiety and concern. Due to this, patient was taken off the Airvo but began to desaturate down to 76^. Due to this patient had to be placed back on Airvo, with no complaints of any significant bleeding. Patient does not have any issues or complaints. She also denies having shortness of breath. A repeat chest x ray was done and there seems to be improvement in aeration of the left lung base and the left hemidiaphgragm is also visualized more clearly compared to previous chest x rays, however there is still diffuse bilateral pulmonary infiltrates that are consistent with COVID 19 pneumonia/ARDS. Patient has a good appetite and is eating better. Patient is als o on Levemir to control her sugar levels. Inflammatory markers need to be reapeted. D dimer is still elevated that is why a repeat Doppler was done but the Doppler of the lower extremity came back negative. LDH and CRP are currently pending with her WBC count has trended downward to 12.6 08/02/2021 Patient is currently in MICU. Requiring BiPAP at 80% FiO2. Patient has been afebrile. Patient is otherwise anxious and desaturating when airvo is taken off. No nausea or vomiting. Patient is able to tolerate oral diet. Patient has been continued baricitinib, dexamethasone 6 mg IV twice daily and multivitamins and anticoagulation. Chest x-ray showed persistent interstitial bibasilar infiltrates with slight interval improvement suggested. Laboratory data showed WBC 14.1 hemoglobin 13.1 platelets 234 and neutrophils 0.5 Sodium 140 potassium 4.1 chloride 97 bicarb is 36 BUN 42 and creatinine 0.94 08/03/2021 Patient is currently in the MICU. Remains on BiPAP with 80% FiO2 and oxygen saturations around 90%. Patient continues to have elevated D-dimer level. CT angiogram chest was ordered to rule out any pulmonary embolism which showed right middle lobe and right lower lobe pulmonary emboli without CT evidence of RV strain. Patient was transitioned to heparin drip from Lovenox 40 mg twice daily. Patient has been afebrile. No complaints of chest pain. Laboratory showed WBC 12.5 hemoglobin 13.6, platelets 261 and lymphocytes 0.5 D-dimer level is 19.87, chloride 96 bicarb is 34 BUN 45 and creatinine 0.86 and LDH level is 1395 and CRP 0.9. Pulmonary is on board. Chest x-ray showed worsening left greater than right bilateral lower lobe opacities consistent with COVID-19 infection progression. Patient remains on dexamethasone, multivitamins vitamin D3 and baricitinib. 08/04/2021 Patient remains in the MICU. Requiring BiPAP and also using nonrebreather andAirvo intermittently. On 50 L with 90% FiO2. Patient is otherwise awake alert and sitting in the chair. Chest x-ray showed persistent perihilar and basilar infiltrates. Left-sided PICC line with its distal tip overlying the SVC. No evidence of pneumothorax. Patient is being continued dexamethasone, Baricitinib, zinc sulfate, ascorbic acid. Patient is being continued on heparin drip changed to Eliquis 10 mg twice daily for newly diagnosed pulmonary embolism. Discussed with her via telephone and updated her of medical condition. 08/05/2021 Patient is currently in the MICU. Requiring BiPAP and Airvo with Ventimask intermittently. Patient was confused in the morning today and would want to go to hospice care. Currently patient is more awake and oriented and would like to continue current treatment. Patient's is at bedside. Chest x-ray showed reticulonodular infiltrates persist although may have improved slightly in the interval. Patient is being continued on dexamethasone, Eliquis for pulmonary embolism and multivitamins and also baricitinib. Laboratory data showed WBC 14.7 hemoglobin 13.6 and platelets 239 lymphocytes 0.3 and D-dimer level is 13.45, trending down from 19.87 Sodium 136 potassium 4.7 chloride 98 bicarb 34 BUN 45 creatinine 0.83 and blood sugar is 241 and LDH level is 1383 CRP less than 0.5 08/06/2021 Patient is currently in the MICU. Currently requiring BiPAP but breathing status is better today. FiO2 is down to 60% and saturating at 93%. Patient is also on Airvo at 86 L. Blood pressure is stable. Patient seems to be more awake and oriented. Chest x-ray showed mild increase in left lower lobe infiltrate. Diffuse infiltrate is present. Findings could be compatible with atypical pneumonia in the proper clinical setting. Laboratory test showed WBC 15.7 hemoglobin 13.7 and platelets 209 and neutrophils 14.7 lymphocytes 0.5 Sodium 136 potassium 4.5 chloride 97 BUN 49 and creatinine 0.85 and blood sugar is 179 LDH 1343 and CRP less than 0.5 Patient is being continued baricitinib, Eliquis 5 mg twice daily and dexamethasone 6 mg IV twice daily along with multivitamins and supportive care. Pulmonary is on board. Current medications reviewed. Objective - Vital Signs Vital signs: Vital Signs Temp 98.0 F 08/06/21 16:00 Pulse 104 H 08/06/21 19:00 Resp 21 08/06/21 19:00 BP 115/51 08/06/21 19:00 Pulse Ox 85 L 08/06/21 19:00 Intake & Output 08/06/21 08/06/21 08/07/21 06:59 18:59 06:59 Intake Total 240 960 140 Output Total 610 1610 50 Balance -370 -650 90 Intake: IV 240 240 20 Sodium Chloride 0.9% 1, 240 240 20 000 ml @ 20 mls/hr IV . Q24H [facility] Rx#:[id number] Oral 720 120 Output: Urine 610 1610 50 Other: Voiding Method Indwelling Catheter Indwelling Catheter - Exam PHYSICAL EXAMINATION: GENERAL: The patient is alert and oriented x3, not in any acute distress. Well developed, well nourished. HEENT: Pupils are round and equally reacting to light. EOMI. No scleral icterus. No conjunctival pallor. Normocephalic, atraumatic. No pharyngeal erythema. No thyromegaly. CARDIOVASCULAR: S1 and S2 present. No murmurs, rubs, or gallops. PULMONARY: Chest is clear to auscultation, no wheezing or crackles. ABDOMEN: Soft, nontender, nondistended, normoactive bowel sounds. No palpable organomegaly. MUSCULOSKELETAL: No joint swelling or deformity. EXTREMITIES: No cyanosis, clubbing, or pedal edema. NEUROLOGICAL: Gross neurological examination did not reveal any focal deficits. SKIN: No rashes. - Labs CBC & Chem 7: 08/06/21 06:25 08/06/21 06:25 Labs: Abnormal Lab Results - Last 24 Hours (Table) 08/06/21 08/06/21 08/06/21 Range/Units 06:20 06:25 06:25 WBC 15.7 H (3.8-10.6) k/uL Neutrophils # 14.7 H (1.3-7.7) k/uL Lymphocytes # 0.5 L (1.0-4.8) k/uL Sodium 136 L (137-145) mmol/L Chloride 97 L (98-107) mmol/L Carbon Dioxide 34 H (22-30) mmol/L BUN 49 H (7-17) mg/dL Glucose 186 H (74-99) mg/dL POC Glucose (mg/dL) 179 H (75-99) mg/dL Lactate Dehydrogenase 1343 H (313-618) U/L 08/06/21 08/06/21 08/06/21 Range/Units 12:00 16:30 20:53 WBC (3.8-10.6) k/uL Neutrophils # (1.3-7.7) k/uL Lymphocytes # (1.0-4.8) k/uL Sodium (137-145) mmol/L Chloride (98-107) mmol/L Carbon Dioxide (22-30) mmol/L BUN (7-17) mg/dL Glucose (74-99) mg/dL POC Glucose (mg/dL) 143 H 240 H 164 H (75-99) mg/dL Lactate Dehydrogenase (313-618) U/L Assessment and Plan Assessment: Acute hypoxemic respiratory failure secondary to coronavirus associated pneumonia. Elevated inflammatory markers. Right lower lobe and middle lobe pulmonary embolism without CT evidence of RV strain. Diagnosed 08/03/2021 Dark-colored stools with occult blood positive on admission. Possible upper GI bleed. hb is stable. no further episodes. Acute kidney injury likely prerenal with creatinine level 2.14 on admission. Baseline creatinine not known, cr improved. Diabetes type 2 [id number] Mild acute pancreatitis with lipase level 651 Hyperlipidemia Hypertension Morbid obesity BMI 43.4 DVT prophylaxis Plan: Patient will be continued on BiPAP and Intermittently Airvo and is currently being monitored in the MICU. Patient was started on heparin drip due to new diagnosis of pulmonary embolism, chnaged to Eliquis. Patient is on dexamethasone, and multivitamins and also started on baricitinib. Continue with the dexamethasone IV, zinc sulfate, ascorbic acid and vitamin D3. Pulmonary is on board. Continue with home medications.Hemoglobin is stable. Renal function improved. Patient still having elevated inflammatory markers. Lasix was started at 20 mg daily with improvement in kidney function.. Patient is also on verapamil at home. Continue Levemir 15 U, with insulin sliding scale and levimir.Titrate dose as needed. Continue to monitor closely and prognosis guarded at this time.. Time with Patient: Greater than 30
[2021-08-07 06:36] LABS: Glucose,Whole Blood 204 mg/dL (75-99)
[2021-08-07] MEDS: INSULIN ASPART (NovoLOG) 100 UNIT/ML VIAL SQ SCH ×4 (06:38→20:32)
[2021-08-07] MEDS: PANTOPRAZOLE 40 MG TABLET PO SCH (06:39)
[2021-08-07 06:44] LABS: Basophils % (A) 0 %; Eosinophils % (A) 0 %; HCT 41.5 % (34.0-46.0); HGB 13.5 gm/dL (11.4-16.0); Lymphocytes # (A) 0.4 k/uL (1.0-4.8); Lymphocytes % (A) 2 %; MCH 29.6 pg (25.0-35.0); MCHC 32.4 g/dL (31.0-37.0); MCV 91.2 fL (80.0-100.0); Mean Platelet Volume 8.8; Monocytes # (A) 0.6 k/uL (0-1.0); Monocytes % (A) 4 %; Neutrophils # (A) 16.9 k/uL (1.3-7.7); Neutrophils % (A) 94 %; Platelet Count 197 k/uL (150-450); RBC 4.55 m/uL (3.80-5.40); RDW 12.9 % (11.5-15.5)
[2021-08-07 06:56] LABS: C Reactive Protein 0.5 mg/dL (<1.0); Calcium 9.1 mg/dL (8.4-10.2); Potassium 4.4 mmol/L (3.5-5.1)
--- NOTE | 2021-08-07 07:46 | XR ---
EXAMINATION TYPE: XR chest 1V portable DATE OF EXAM: 08/07/2021 COMPARISON: Chest x-ray 08/06/2021 HISTORY: Covid pneumonia, abnormal chest x-ray TECHNIQUE: Single frontal view of the chest is obtained. FINDINGS: Findings are similar to prior exam. PICC line is stable. Postop changes are again noted to the shoulder and cervical spine. There are overlying leads. Exam is expiratory and rotated. No evide nt pneumothorax or pleural effusion. Cardiac mediastinal silhouette shows prominence which may be at least in part due to rotation, technique. IMPRESSION: Findings consistent with patient's history of pneumonia. Expiratory rotated exam.
[2021-08-07] MEDS: ALBUTEROL HFA INHALER INHALATION SCH ×4 (08:19→19:38)
[2021-08-07] MEDS: SYMBICORT 160-4.5 MCG INHALER INHALATION SCH ×2 (08:19→19:39)
[2021-08-07] MEDS: CHOLECALCIFEROL 25 MCG (1000 IU) TABLET PO SCH (08:40)
[2021-08-07] MEDS: FUROSEMIDE 20 MG TAB PO SCH (08:40)
[2021-08-07] MEDS: APIXABAN 5 MG TAB PO SCH ×2 (08:40→20:32)
[2021-08-07] MEDS: ZINC SULFATE 220 MG CAP PO SCH (08:40)
[2021-08-07] MEDS: DEXAMETHASONE SOD PHOSPHATE 10 MG/ML 1 ML VIAL IV SCH ×2 (08:41→20:31)
[2021-08-07] MEDS: OXYBUTYNIN 15 MG TAB.ER.24 PO SCH (08:41)
[2021-08-07] MEDS: ASCORBIC ACID 500 MG TAB PO SCH (08:41)
[2021-08-07] MEDS: BARICITINIB 2 MG TABLET PO SCH (08:41)
[2021-08-07 12:24] LABS: Glucose,Whole Blood 231 mg/dL (75-99)
--- NOTE | 2021-08-07 15:53 | P.PN ---
Subjective Progress Note Date: 08/07/21 Principal diagnosis: Acute hypoxic respiratory failure secondary to COVID-19 pneumonia 07/31/2021, patient is being seen for a follow-up, on today's evaluation, the patient is resting. Her breathing is mildly labored is and she is currently on a Airvo with 60 L and FiO2 of 90% along with 100% on a beta facemask with an pulse ox of 92%. She did have an episode of epistaxis which made her quite nervous and anxious and she decompensated with a pulse ox dropped in the mid 80s. Currently she is not bleeding. She remains on Lovenox 40 mg subcu for DVT prophylaxis. Repeat Doppler was done again to make sure there is no evidence of any DVT knowing that her d-dimer was on the rise. Chest x-ray continues to show diffuse but the pulmonary infiltrates consistent with COVID-19 related pneumonia/ARDS. She remains on accommodation of Decadron 6 with a grams IV every 12 hours and she is also on Baricitinib protocol. She remains on Levemir insulin running at 15 units units subcu on a daily basis along with a size care coverage. She is unable to do her incentive spirometer effectively. In terms of oral intake, she is drinking adequately. She is probably getting around 20- 30% of her meals. She is awake. She is responsive. In terms of her blood work, her LDH is on the rise and her LDH from today is at 1376. CRP is at 4. Total protein at 6.0. Glucose is 162. Serum bicarb is at 34. Sodium is at 139 with a potassium level of 3.5. The CBC shows a white cell count 12.7 with a hemoglobin of 15.2. D-dimer is still elevated at 17.9. 08/01/2021, the patient remains on high flow oxygen at 60 L Airvo along with an FiO2 of 90% and the patient is also on 100% nonrebreather facemask. All sizes ranging between 86 and 88%. She remains on Decadron 6 mg IV every 12 hours and she is still on Baricitinib. She was having issues with some bleeding from her right nostril. As such, I gave her a break off the Airvo yesterday. She did not tolerate that. She desaturated down to 76%. She was placed back on the Airvo. Since then, the patient has not had any significant bleeding. She is tolerating the treatment fairly well for the time being. Denies having any worsening shortness of breath. Repeat chest x-ray was done and I see some improvement in aeration of the left lung base as the left hemidiaphragm is visualized more clearly on today's x-ray. Nevertheless, there is still diffuse bilateral pulmonary infiltrates consistent with COVID-19 related pneumonia and ARDS. She has a very good appetite. She eats her meals nicely. She is on Levemir insulin 15 units along with a sliding scale insulin coverage. In terms of her inflammatory markers, those need to be repeated. D-dimer was elevated and for that reason I repeated the Doppler of the lower extremity that came back negative. At LDH and CRP are still pending. Renal function is stable. Her white cell count is at 12.6. Reevaluated today on 08/02/2021, patient remains in the ICU, remains marginal at best. Patient is on BiPAP 10/5/80%, saturation is marginal. Surprisingly the patient seems to be comfortable in spite of BiPAP and the relatively high FiO2. Chest x-ray continues to show bilateral interstitial infiltrates consistent with COVID-19 pneumonia IV fluids at KVO, patient is on Decadron 6 mg twice a day, is also on Lovenox, 40 mg subcu daily. and on baricitinib, patient is also on the COVID-19 corrected. CBC is relatively normal electrolytes are normal renal profile is normal. Last LDH from 2 days ago was 1376 and last C-reactive protein was 4.0, both were noted to be on the rise Reevaluated today on 08/03/2021, patient remains in the ICU, remains marginal at best. Remains on BiPAP 10/5/80%, and her O2 saturation is in the high 80s and maximum 91%. IV fluid at KVO. Patient had increase in her d-dimer today, hence I recommended a CT angiogram of the chest, and it came back showing a right middle lobe and right lower lobe pulmonary emboli without CT evidence of RV strain. Hence the patient will be transitioned from Lovenox 40 mg subcu twice a day to high intensity heparin. And maybe tomorrow could consider transitioning the patient to Xarelto or Eliquis. WBC count today is 4.5 hemoglobin 13.6 electrolytes are normal renal profile is normal, LDH continues to rise it is 1395 today. C-reactive protein is 0.9. Chest x-ray continues to show basically no major change, bilateral interstitial infiltrates noted. And this was also noted on the CT of the chest. Reevaluated today on 08/04/21, patient remains in the ICU, remains on BiPAP, intermittently on airvo and non-rebreather mask, O2 saturations are marginal at best. Patient remains on COVID-19 cocktail, remains on heparin for her recent right sided pulmonary embolism she is also on baricitinib. Her BiPAP is set at 12/5/80%, again the patient is intermittently on a nonrebreather mask along with airvo at 50 L flow and 90% FiO2. Patient feels about the same not much of a change in the last 24 hours. Her SGOT is 13.2 hemoglobin is 13.8 PTT was supratherapeutic today, and the patient is being treated with heparin as per protocol, will discontinue heparin and start the patient today on Eliquis. Chest x-ray continues to show persistent perihilar and basilar infiltrates not much of a change Reevaluated today on 08/05/21, patient remains in the ICU, remains on BiPAP, and at times she is on airvo and nonrebreather mask. Continues to have marginal O2 saturation. Remains on the cocktail for COVID-19 infection/pneumonia remains on heparin for acute right sided pulmonary embolism and she is also on baricitinib. Patient seems to be a bit confused and odd, at one point she would say I would want to go hospice, and a few minutes later with tell me that she doesn't mind going on life support if her condition gets any worse. Hence we need to update the on her status, and readdress the CODE STATUS although at this point the patient does not need to be on life support, and she seems to be slightly better if anything. Chest x-ray is showing slight improvement and her O2 saturation is improving patient is clinically better. She count is 14.7 hemoglobin is 13.6, her d-dimer is 13.45. Electrolytes are normal renal profile is normal. LDH is trending down slightly compared to yesterday. Or practically about the same. Reevaluated today on 08/06/21, patient remains in the ICU, seems to be better today, breathing easier, she is on BiPAP at present with IPAP of 12 EPAP of 5 and FiO2 70%, O2 saturating 93%. Patient denies any mold changer the last 24 hours, she does feel a bit better. WBC count is 15.7 hemoglobin 15.7 and left lites are normal renal profile is normal LDH is 1343 C-reactive protein is 0.5. Both are improving steadily. Reevaluated today on 08/07/21, remains in the ICU, basically the same today compared to yesterday. Remains on BiPAP, she is on IPAP of 12 EPAP of 5, and she is on 70% FiO2, intermittently the patient goes on high flow cannula with 90% FiO2 and 60 L flow. Labs today showed leukocytosis with WBC count of 18 hemoglobin is 13.5 lites are normal renal profile is normal LDH is 1522, C- reactive protein is 0.5. Objective - Vital Signs Vital signs: Vital Signs Temp 97.5 F L 08/07/21 08:00 Pulse 73 08/07/21 08:00 Resp 26 H 08/07/21 09:00 BP 128/91 08/07/21 09:00 Pulse Ox 91 L 08/07/21 09:00 Intake & Output 08/06/21 08/07/21 08/07/21 18:59 06:59 18:59 Intake Total 960 360 522 Output Total 1610 750 410 Balance -650 -390 112 Weight 115.666 kg Intake: IV 240 240 282 Sodium Chloride 0.9% 1, 240 240 282 000 ml @ 20 mls/hr IV . Q24H [facility] Rx#:[id number] Oral 720 120 240 Output: Urine 1610 750 410 Other: Voiding Method Indwelling Catheter Indwelling Catheter Indwelling Catheter - Exam Physical Exam revealed 65-year-old female in no distress. On BiPAP sometimes alternating with airvo Head: Atraumatic, normocephalic. HEENT:[Neck is supple.] [No neck masses.] [No thyromegaly.] [No JVD.] Chest: [Symmetrical chest expansion, crackles at the bases. No rhonchi and no wheezes. Cardiac Exam: [Normal S1 and S2, no S3 gallop, no murmur.] Abdomen: [Soft, nontender, no megaly, no rebound, no guarding, normal bowel sounds.] Extremities: [No clubbing, no edema, no cyanosis.] Neurological Exam: [No focal neurologic deficit.] Alert oriented 3. Psychiatric: Normal mood affect and normal mental status examination. Skin: No rashes. Musculoskeletal: No limitation in range of motion, no deformities. - Labs CBC & Chem 7: 08/07/21 06:06 08/07/21 06:06 Labs: Abnormal Lab Results - Last 24 Hours (Table) 08/06/21 08/06/21 08/07/21 Range/Units 16:30 20:53 06:06 WBC 18.0 H (3.8-10.6) k/uL Neutrophils # 16.9 H (1.3-7.7) k/uL Lymphocytes # 0.4 L (1.0-4.8) k/uL Sodium (137-145) mmol/L Chloride (98-107) mmol/L Carbon Dioxide (22-30) mmol/L BUN (7-17) mg/dL Glucose (74-99) mg/dL POC Glucose (mg/dL) 240 H 164 H (75-99) mg/dL Lactate Dehydrogenase (313-618) U/L 08/07/21 08/07/21 08/07/21 Range/Units 06:06 06:34 12:22 WBC (3.8-10.6) k/uL Neutrophils # (1.3-7.7) k/uL Lymphocytes # (1.0-4.8) k/uL Sodium 134 L (137-145) mmol/L Chloride 96 L (98-107) mmol/L Carbon Dioxide 31 H (22-30) mmol/L BUN 49 H (7-17) mg/dL Glucose 215 H (74-99) mg/dL POC Glucose (mg/dL) 204 H 231 H (75-99) mg/dL Lactate Dehydrogenase 1522 H (313-618) U/L Assessment and Plan Assessment: Impression: Acute hypoxic respiratory failure secondary to COVID-19 pneumonia by chest x-ray is showing slight improvement Acute pulmonary embolism provoked by COVID-19 pneumonia. History of GI bleeding. Type 2 diabetes. History of GERD. Dyslipidemia. Benign essential hypertension. History of obstructive sleep apnea. Morbid obesity with BMI of 45.2 Recommendation: Continue to titrate oxygen accordingly. Continue to alternate BiPAP and airvo Continue Eliquis. Continue Decadron. Continue incentive spirometry. Continue diuretics. Continue baricitinib Continue GI prophylaxis. Transfer to a regular medical floor if available today. We will continue to follow. Time with Patient: Less than 30
[2021-08-07 15:57] LABS: Glucose,Whole Blood 204 mg/dL (75-99)
[2021-08-07 19:51] LABS: Glucose,Whole Blood 176 mg/dL (75-99)
[2021-08-07] MEDS: SENNOSIDES 8.6 MG TAB PO SCH ×2 (20:31→20:44)
[2021-08-07] MEDS: ATORVASTATIN 10 MG TAB PO SCH (20:31)
[2021-08-07] MEDS: INSULIN DETEMIR (LEVEMIR) 100 UNIT/ML SYR SQ SCH (20:33)
[2021-08-08 05:51] LABS: Glucose,Whole Blood 169 mg/dL (75-99)
[2021-08-08 06:01] LABS: Basophils % (A) 0 %; Eosinophils % (A) 0 %; HCT 41.7 % (34.0-46.0); HGB 13.3 gm/dL (11.4-16.0); Lymphocytes # (A) 0.4 k/uL (1.0-4.8); Lymphocytes % (A) 2 %; MCHC 31.9 g/dL (31.0-37.0); Mean Platelet Volume 8.6; Monocytes # (A) 0.7 k/uL (0-1.0); Monocytes % (A) 4 %; Neutrophils # (A) 16.8 k/uL (1.3-7.7); Neutrophils % (A) 93 %; Platelet Count 182 k/uL (150-450); RBC 4.59 m/uL (3.80-5.40); RDW 12.8 % (11.5-15.5)
[2021-08-08 06:18] LABS: C Reactive Protein 1.5 mg/dL (<1.0); Calcium 8.9 mg/dL (8.4-10.2); Potassium 4.4 mmol/L (3.5-5.1)
[2021-08-08] MEDS: PANTOPRAZOLE 40 MG TABLET PO SCH (06:27)
[2021-08-08] MEDS: INSULIN ASPART (NovoLOG) 100 UNIT/ML VIAL SQ SCH ×4 (06:27→20:37)
[2021-08-08] MEDS: ACETAMINOPHEN TAB 325 MG TAB PO PRN (06:27)
--- NOTE | 2021-08-08 07:33 | XR ---
EXAMINATION TYPE: XR chest 1V portable DATE OF EXAM: 08/08/2021 COMPARISON: Chest x-ray 08/07/2021 HISTORY: Covid pneumonia TECHNIQUE: Single frontal view of the chest is obtained. FINDINGS: Left-sided PICC line shows the distal tip overlying the cavoatrial junction. No evident pn eumothorax or pleural effusion. Bilateral interstitial and airspace disease is present. Heart is enla rged. Aorta is dense. IMPRESSION: Findings consistent with patient's history of Covid pneumonia.
[2021-08-08] MEDS: ALBUTEROL HFA INHALER INHALATION SCH ×4 (07:46→20:09)
[2021-08-08] MEDS: SYMBICORT 160-4.5 MCG INHALER INHALATION SCH ×2 (07:47→20:09)
[2021-08-08] MEDS: APIXABAN 5 MG TAB PO SCH ×2 (09:07→20:36)
[2021-08-08] MEDS: ZINC SULFATE 220 MG CAP PO SCH (09:07)
[2021-08-08] MEDS: FUROSEMIDE 20 MG TAB PO SCH (09:07)
[2021-08-08] MEDS: ASCORBIC ACID 500 MG TAB PO SCH (09:07)
[2021-08-08] MEDS: OXYBUTYNIN 15 MG TAB.ER.24 PO SCH (09:08)
[2021-08-08] MEDS: DEXAMETHASONE SOD PHOSPHATE 10 MG/ML 1 ML VIAL IV SCH ×2 (09:08→20:36)
[2021-08-08] MEDS: BARICITINIB 2 MG TABLET PO SCH (09:08)
[2021-08-08] MEDS: CHOLECALCIFEROL 25 MCG (1000 IU) TABLET PO SCH (09:08)
[2021-08-08 11:54] LABS: Glucose,Whole Blood 168 mg/dL (75-99)
--- NOTE | 2021-08-08 16:28 | P.PN ---
Subjective Progress Note Date: 08/08/21 Principal diagnosis: Acute hypoxic respiratory failure secondary to COVID-19 pneumonia 07/31/2021, patient is being seen for a follow-up, on today's evaluation, the patient is resting. Her breathing is mildly labored is and she is currently on a Airvo with 60 L and FiO2 of 90% along with 100% on a beta facemask with an pulse ox of 92%. She did have an episode of epistaxis which made her quite nervous and anxious and she decompensated with a pulse ox dropped in the mid 80s. Currently she is not bleeding. She remains on Lovenox 40 mg subcu for DVT prophylaxis. Repeat Doppler was done again to make sure there is no evidence of any DVT knowing that her d-dimer was on the rise. Chest x-ray continues to show diffuse but the pulmonary infiltrates consistent with COVID-19 related pneumonia/ARDS. She remains on accommodation of Decadron 6 with a grams IV every 12 hours and she is also on Baricitinib protocol. She remains on Levemir insulin running at 15 units units subcu on a daily basis along with a size care coverage. She is unable to do her incentive spirometer effectively. In terms of oral intake, she is drinking adequately. She is probably getting around 20- 30% of her meals. She is awake. She is responsive. In terms of her blood work, her LDH is on the rise and her LDH from today is at 1376. CRP is at 4. Total protein at 6.0. Glucose is 162. Serum bicarb is at 34. Sodium is at 139 with a potassium level of 3.5. The CBC shows a white cell count 12.7 with a hemoglobin of 15.2. D-dimer is still elevated at 17.9. 08/01/2021, the patient remains on high flow oxygen at 60 L Airvo along with an FiO2 of 90% and the patient is also on 100% nonrebreather facemask. All sizes ranging between 86 and 88%. She remains on Decadron 6 mg IV every 12 hours and she is still on Baricitinib. She was having issues with some bleeding from her right nostril. As such, I gave her a break off the Airvo yesterday. She did not tolerate that. She desaturated down to 76%. She was placed back on the Airvo. Since then, the patient has not had any significant bleeding. She is tolerating the treatment fairly well for the time being. Denies having any worsening shortness of breath. Repeat chest x-ray was done and I see some improvement in aeration of the left lung base as the left hemidiaphragm is visualized more clearly on today's x-ray. Nevertheless, there is still diffuse bilateral pulmonary infiltrates consistent with COVID-19 related pneumonia and ARDS. She has a very good appetite. She eats her meals nicely. She is on Levemir insulin 15 units along with a sliding scale insulin coverage. In terms of her inflammatory markers, those need to be repeated. D-dimer was elevated and for that reason I repeated the Doppler of the lower extremity that came back negative. At LDH and CRP are still pending. Renal function is stable. Her white cell count is at 12.6. Reevaluated today on 08/02/2021, patient remains in the ICU, remains marginal at best. Patient is on BiPAP 10/5/80%, saturation is marginal. Surprisingly the patient seems to be comfortable in spite of BiPAP and the relatively high FiO2. Chest x-ray continues to show bilateral interstitial infiltrates consistent with COVID-19 pneumonia IV fluids at KVO, patient is on Decadron 6 mg twice a day, is also on Lovenox, 40 mg subcu daily. and on baricitinib, patient is also on the COVID-19 corrected. CBC is relatively normal electrolytes are normal renal profile is normal. Last LDH from 2 days ago was 1376 and last C-reactive protein was 4.0, both were noted to be on the rise Reevaluated today on 08/03/2021, patient remains in the ICU, remains marginal at best. Remains on BiPAP 10/5/80%, and her O2 saturation is in the high 80s and maximum 91%. IV fluid at KVO. Patient had increase in her d-dimer today, hence I recommended a CT angiogram of the chest, and it came back showing a right middle lobe and right lower lobe pulmonary emboli without CT evidence of RV strain. Hence the patient will be transitioned from Lovenox 40 mg subcu twice a day to high intensity heparin. And maybe tomorrow could consider transitioning the patient to Xarelto or Eliquis. WBC count today is 4.5 hemoglobin 13.6 electrolytes are normal renal profile is normal, LDH continues to rise it is 1395 today. C-reactive protein is 0.9. Chest x-ray continues to show basically no major change, bilateral interstitial infiltrates noted. And this was also noted on the CT of the chest. Reevaluated today on 08/04/21, patient remains in the ICU, remains on BiPAP, intermittently on airvo and non-rebreather mask, O2 saturations are marginal at best. Patient remains on COVID-19 cocktail, remains on heparin for her recent right sided pulmonary embolism she is also on baricitinib. Her BiPAP is set at 12/5/80%, again the patient is intermittently on a nonrebreather mask along with airvo at 50 L flow and 90% FiO2. Patient feels about the same not much of a change in the last 24 hours. Her SGOT is 13.2 hemoglobin is 13.8 PTT was supratherapeutic today, and the patient is being treated with heparin as per protocol, will discontinue heparin and start the patient today on Eliquis. Chest x-ray continues to show persistent perihilar and basilar infiltrates not much of a change Reevaluated today on 08/05/21, patient remains in the ICU, remains on BiPAP, and at times she is on airvo and nonrebreather mask. Continues to have marginal O2 saturation. Remains on the cocktail for COVID-19 infection/pneumonia remains on heparin for acute right sided pulmonary embolism and she is also on baricitinib. Patient seems to be a bit confused and odd, at one point she would say I would want to go hospice, and a few minutes later with tell me that she doesn't mind going on life support if her condition gets any worse. Hence we need to update the on her status, and readdress the CODE STATUS although at this point the patient does not need to be on life support, and she seems to be slightly better if anything. Chest x-ray is showing slight improvement and her O2 saturation is improving patient is clinically better. She count is 14.7 hemoglobin is 13.6, her d-dimer is 13.45. Electrolytes are normal renal profile is normal. LDH is trending down slightly compared to yesterday. Or practically about the same. Reevaluated today on 08/06/21, patient remains in the ICU, seems to be better today, breathing easier, she is on BiPAP at present with IPAP of 12 EPAP of 5 and FiO2 70%, O2 saturating 93%. Patient denies any change management lead the last 24 hours, she does feel a bit better. WBC count is 15.7 hemoglobin 15.7 and left lites are normal renal profile is normal LDH is 1343 C-reactive protein is 0.5. Both are improving steadily. Reevaluated today on 08/07/21, remains in the ICU, basically the same today compared to yesterday. Remains on BiPAP, she is on IPAP of 12 EPAP of 5, and she is on 70% FiO2, intermittently the patient goes on high flow cannula with 90% FiO2 and 60 L flow. Labs today showed leukocytosis with WBC count of 18 hemoglobin is 13.5 lites are normal renal profile is normal LDH is 1522, C- reactive protein is 0.5. Reevaluated today on 08/08/21, patient remains in the ICU, she remains intermittently alternating between BiPAP and airvo. Patient is now on airvo at 90% FiO2, and 60 L flow. However on BiPAP she is on 12/5/70%. Patient is about the same, not much of the changes noted in the last 24 hours. WBC count is 18 hemoglobin 13.3, d-dimer is 12.39, patient is fully anticoagulated for her pulmonary embolism. 11 was are normal renal profile is normal. LDH remains elevated 1297, although it is better compared to yesterday, LDH yesterday was 1522. C-reactive protein is 1.5 Objective - Vital Signs Vital signs: Vital Signs Temp 98.0 F 08/08/21 13:00 Pulse 81 08/08/21 16:00 Resp 32 H 08/08/21 16:00 BP 113/90 08/08/21 16:00 Pulse Ox 92 L 08/08/21 16:00 Intake & Output 08/07/21 08/08/21 08/08/21 18:59 06:59 18:59 Intake Total 1382 240 680 Output Total 775 600 630 Balance 607 -360 50 Weight 110.903 kg Intake: IV 422 240 200 Sodium Chloride 0.9% 1, 422 240 200 000 ml @ 20 mls/hr IV . Q24H [facility] Rx#:[id number] Oral 960 480 Output: Urine 775 600 630 Other: Voiding Method Indwelling Catheter Indwelling Catheter Indwelling Catheter - Exam Physical Exam revealed 65-year-old female in no distress. On airvo Head: Atraumatic, normocephalic. HEENT:[Neck is supple.] [No neck masses.] [No thyromegaly.] [No JVD.] Chest: [Symmetrical chest expansion, crackles at the bases. No rhonchi and no wheezes. Cardiac Exam: [Normal S1 and S2, no S3 gallop, no murmur.] Abdomen: [Soft, nontender, no megaly, no rebound, no guarding, normal bowel sounds.] Extremities: [No clubbing, no edema, no cyanosis.] Neurological Exam: [No focal neurologic deficit.] Alert oriented 3. Psychiatric: Normal mood affect and normal mental status examination. Skin: No rashes. Musculoskeletal: No limitation in range of motion, no deformities. - Labs CBC & Chem 7: 08/08/21 05:40 08/08/21 05:40 Labs: Abnormal Lab Results - Last 24 Hours (Table) 08/07/21 08/08/21 08/08/21 Range/Units 19:50 05:39 05:40 WBC (3.8-10.6) k/uL Neutrophils # (1.3-7.7) k/uL Lymphocytes # (1.0-4.8) k/uL D-Dimer (<0.60) mg/L FEU Sodium 136 L (137-145) mmol/L Chloride 94 L (98-107) mmol/L Carbon Dioxide 36 H (22-30) mmol/L BUN 48 H (7-17) mg/dL Glucose 173 H (74-99) mg/dL POC Glucose (mg/dL) 176 H 169 H (75-99) mg/dL Lactate Dehydrogenase 1297 H (313-618) U/L C-Reactive Protein 1.5 H (<1.0) mg/dL 08/08/21 08/08/21 08/08/21 Range/Units 05:40 05:40 11:53 WBC 18.0 H (3.8-10.6) k/uL Neutrophils # 16.8 H (1.3-7.7) k/uL Lymphocytes # 0.4 L (1.0-4.8) k/uL D-Dimer 12.39 H (<0.60) mg/L FEU Sodium (137-145) mmol/L Chloride (98-107) mmol/L Carbon Dioxide (22-30) mmol/L BUN (7-17) mg/dL Glucose (74-99) mg/dL POC Glucose (mg/dL) 168 H (75-99) mg/dL Lactate Dehydrogenase (313-618) U/L C-Reactive Protein (<1.0) mg/dL Assessment and Plan Assessment: Impression: Acute hypoxic respiratory failure secondary to COVID-19 pneumonia Acute pulmonary embolism provoked by COVID-19 pneumonia. History of GI bleeding. Type 2 diabetes. History of GERD. Dyslipidemia. Benign essential hypertension. History of obstructive sleep apnea. Morbid obesity with BMI of 45.2 Recommendation: Continue to titrate oxygen accordingly. Continue to alternate BiPAP and airvo Continue Eliquis. Continue Decadron. Continue incentive spirometry. Continue diuretics. Continue baricitinib Continue GI prophylaxis. We will continue to follow. Time with Patient: Less than 30
[2021-08-08 16:53] LABS: Glucose,Whole Blood 200 mg/dL (75-99)
[2021-08-08 20:29] LABS: Glucose,Whole Blood 202 mg/dL (75-99)
[2021-08-08] MEDS: INSULIN DETEMIR (LEVEMIR) 100 UNIT/ML SYR SQ SCH (20:36)
[2021-08-08] MEDS: SENNOSIDES 8.6 MG TAB PO SCH (20:37)
[2021-08-08] MEDS: SODIUM CHLORIDE 0.9% 1,000 ML IV SCH ×2 (20:38)
--- NOTE | 2021-08-09 02:04 | P.PN ---
Subjective Progress Note Date: 08/07/21 Principal diagnosis: Acute hypoxic respiratory failure secondary to COVID-19 pneumonia Possible upper GI bleed. Acute kidney injury 65-year-old male with a known history of hypertension, hyperlipidemia, diabetes type 2 [id number], osteoarthritis, obstructive sleep apnea, migraine headaches and no prior history of smoking presents to ER with complaints of fever, cough and shortness of breath along with diarrhea. Patient states that she has been sick for the past 2 weeks with cough congestion body aches and is also having diarrhea for the past 1 week. She came to the ER due to complaints of dark-colored stools. Patient states this is not any blood thinners. No prior history of peptic ulcer disease. Patient does take naproxen for arthritic pain. No complaints of chest pain. On admission T-max was 101.4, pulse 102, pulse ox 83% on room air. Denies any complaints of chest pain. No abdominal pain. No dysuria or hematuria. No headache or dizziness or lightheadedness. Chest x-ray showed there is new patchy pulmonary edema compared to oral exam that could be acute pneumonia. Laboratory showed WBC 4.5 hemoglobin 15.7 and platelets 173 and lymphocytes 0.8 Sodium 138 potassium 4.6 chloride 102 BUN 61 creatinine 2.12 Blood sugar 139 AST 97 ALT 60 alk phos 63 and lipase level 651 Stool occult blood positive and Coronavirus PCR detected. 07/24/2021 Patient is seen and evaluated and discussed with nursing staff; continues to complain of shortness of breath with minimal activity; patient has been brian gnosed with COVID-19 pneumonia; patient does report vaccination against coronavirus Vital signs are reviewed with temperature of 99.2, pulse 80, respiration 18 and blood pressure 143/73 and O2 saturation 91% Patient remains on treatment with Decadron, Lovenox and COVID-19 vitamin cocktail; patient is deemed not a candidate for REM due to onset of symptoms a few weeks prior to presenting to the hospital and patient has been fully vaccinated Laboratory review shows WBC of 4.2 and hemoglobin consistently stable at 14.8 with platelet count of 158; sodium 139, potassium 5.0 which is down from 6.1 y esterday, BUN/creatinine of 28/0.77 down from 44/1.19 yesterday 07/25/2021 Patient discussed with nursing staff no specific concerns identified; continues to report shortness of breath; self proning encourage Vital signs are reviewed temperature 99.3, pulse 79, respirations 17 and blood pressure 102/67 Lab review shows WBC 4.7, hemoglobin 14 and platelet count of 172, d-dimer at 0.96, BUN/creatinine down to 25/1.0; repeat chest x-ray shows improvement Pulmonary on board and recommending to continue with current treatment with Decadron, Lovenox and vitamins 07/26/2021 Patient is seen and evaluated in room at bedside; oxygen saturation has declined and patient is currently on 15 L of O2. patient is being transferred to ICU as an overflow She remains on Decadron. She was also on Lasix at a dose of 20 mg IV daily. She was having adequate urine output. Her IV fluids are running at 75 mL an hour normal saline. The patient has no chest pain. She is exhausted. Whenever she moves around she gets quite short of breath. No significant cough or sputum production. No chest tightness. No wheezing. She is on a combination of vitamin C, vitamin D, zinc and and she is also on Lovenox for DVT prophylaxis. The most recent d-dimer is at 1.79. The most recent LDH level is 1000 with a CRP of 1.2. Pulmonary service recommending to continue the Decadron and the Lovenox and add Baricitinib per protocol. 07/27/2021 Patient is seen and evaluated and discussed with nursing staff; patient was transferred to the ICU yesterday due to her borderline respiratory status as the patient was placed on 15 L of oxygen by nasal cannula in addition to 100% nonrebreather facemask to improve her oxygenation. Patient is sitting up on a chair. She is a bit lethargic but easily arousable; . Her breathing is nonlabored. Vital signs are reviewed temperature 98.7, pulse 79, respiration 24, and blood pressure 101/77; pulse ox is around 97-98%. She remains on Decadron; Lovenox 40 mg subcu along with COVID-19 vitamin radha ktail Laboratory review reveals d-dimer is at 1.59, and LDH level is 1445, her CRP level is at 3.5 and her procal is low at 0.07. Pulmonary on board and recommending to continue patient on 100% nonrebreather face Lasix in addition to nasal cannula at 15 L; continue the Decadron and the Lovenox and add Baricitinib per protocol Continue to follow inflammatory markers periodically including LDH, CRP, ferritin and d-dimer 07/28/2021 Patient is seen and evaluated at beside and discussed with nursing staff. Patient is currently on high flow oxygen with a pulse ox around 92%. Patient was recently transferred out of ICU and is able to sit upright on her bed. Patient also has a 100% nonrebreather facemask at her bedside in order to supplement oxygen when she gets short of breath. Patient's CRP level is 2.4, her d-dimer is 5.5, her LDH level from yesterday was 1445. Patient's chest x ray is not showing any changes but there is some infiltration seen at the lung bases which remains consistent with COVID19 pneumonia, current x ray remains stable compared to her earlier chest x ray. Patient is afebrile with no chills. Patient is on anticoagulant therapy with Lovenox, remains on Decadron, and is also complicitng a curse of Baricitinib along with Lasix by mouth daily. There are no major changes or events from yesterday. 07/29/2021 Patient is seen and evaluated at bedside and discussed with nursing staff. Patient's condition is same with no major or significant changes from yesterday. Patient remains on nasal cannula and nonrebreather facemask. Patient still gets short of breath with mild exertion. Repeat chest x-ray was conducted today with evidence of bilateral pulmonary infiltrates along with smaller lung volumes. Patient also suffers from mild cardiomegaly indicated on imaging. On examination, it is noted that patient has lower extremity edema bilaterally. Patient's LDH and CRP levels have improved, however D-dimer has elevated to 9.9. Patient is currently on Decadron, Baricitinib, Lasix, Lovenox, Levemir insulin. P, as per protocol. Patient is using incentive spirometer. 07/30/2021 Patient is seen and evaluated at bedside and discussed with nursing staff. Patient's condition is slightly worse compared to yesterday. Patient continues to be on nasal cannula and nonrebreather facemask with a pulse ox in the low 80s. Patient was then placed on Airvo. D dimer levels have trended upwards to 16.1. Patient did not have any swelling in her lower ext. Patient is on Lovenox for DVT prophylaxis. Doppler of the lower extremity was done which showed no evidence of any DVT. Patient's chest x ray shows diffuse bilateral pulmonary infiltrates perihilar and also the lower lobes bilaterally. Patient is currently afebrile. Patient's breathing is lightly labored compared to yesterday. Patient continues to be on Decadron whereas rest of medications are unchanged. Patient is no longer using incetive spirometer. 07/31/2021 Patient is being seen today and evaluated while being discussed with the nursing staff. Patient's breathing is still labored and she continues to be on Airvo along with a beta facemask. Patient had an episode of epistaxis for which she expresses concern. Patient decompensated with a pulse ox that dropped to the mid 80s. Patient is no longer currently bleeding but remains on Lovenox for DVT prophylaxis. A repeat Doppler was donea gain to ensure that patient did not have any evidence of DVT considering her d-dimer was trending upward. Chest X ray shows diffuse pulmonary infiltrates which are consistent with COVID 19 pneumonia. Patient remains on Decadron and also Baricitinib. Patient is also on Levemir insulin to control her sugar levels. However, the patient is not able to do her incentive spirometer. Patient is drinking sufficiently but is not eating sufficiently. Patient is awake and response. Patient's LDH is treading upward with her D-dimer still eletated at 17.9 No other significant events or major changes from yesterday; continue supportive care. 08/01/2021 Patient is seen and evaluated while being discussed with the nursing staff. Patient remains on high flow oxygen Airvo along with the nonrebreather facemask. Patient remains on Decadron and Baricitinib. Patient complained of right nostril epistaxis for which she expressed anxiety and concern. Due to this, patient was taken off the Airvo but began to desaturate down to 76^. Due to this patient had to be placed back on Airvo, with no complaints of any significant bleeding. Patient does not have any issues or complaints. She also denies having shortness of breath. A repeat chest x ray was done and there seems to be improvement in aeration of the left lung base and the left hemidiaphgragm is also visualized more clearly compared to previous chest x rays, however there is still diffuse bilateral pulmonary infiltrates that are consistent with COVID 19 pneumonia/ARDS. Patient has a good appetite and is eating better. Patient is als o on Levemir to control her sugar levels. Inflammatory markers need to be reapeted. D dimer is still elevated that is why a repeat Doppler was done but the Doppler of the lower extremity came back negative. LDH and CRP are currently pending with her WBC count has trended downward to 12.6 08/06/2021 Patient is seen and evaluated while being discussed with the nursing staff. Patient remains in the ICU, but seems to be feeling better today. Patient is breathing easier with no acute distress. Patient is on the BiPAP with IPAP of 12, EPAP of 5, and an FiO2 of 70%. O2 saturation is 93%. Patient denies any change in the past day, no significant changes or problems. Patient states that she is feeling better. Vital signs have been evaluated Labs have been evaluated with a WBC count of 15., hemoglobin of 15.7, renal profile is normal, LDH is 1343, CRP is 0.5. Both are improving slowly. Continue supportive care. Objective - Vital Signs Vital signs: Vital Signs Temp 97.5 F L 08/07/21 08:00 Pulse 73 08/07/21 08:00 Resp 26 H 08/07/21 09:00 BP 128/91 08/07/21 09:00 Pulse Ox 91 L 08/07/21 09:00 Intake & Output 08/06/21 08/07/21 08/07/21 18:59 06:59 18:59 Intake Total 960 360 522 Output Total 1610 750 410 Balance -650 -390 112 Weight 115.666 kg Intake: IV 240 240 282 Sodium Chloride 0.9% 1, 240 240 282 000 ml @ 20 mls/hr IV . Q24H [facility] Rx#:[id number] Oral 720 120 240 Output: Urine 1610 750 410 Other: Voiding Method Indwelling Catheter Indwelling Catheter Indwelling Catheter - Exam PHYSICAL EXAMINATION: GENERAL: The patient is alert and oriented x3, not in any acute distress. Well developed, well nourished. HEENT: Pupils are round and equally reacting to light. EOMI. No scleral icterus. No conjunctival pallor. Normocephalic, atraumatic. No pharyngeal erythema. No thyromegaly. CARDIOVASCULAR: S1 and S2 present. No murmurs, rubs, or gallops. PULMONARY: Chest is clear to auscultation, no wheezing or crackles. ABDOMEN: Soft, nontender, nondistended, normoactive bowel sounds. No palpable organomegaly. MUSCULOSKELETAL: No joint swelling or deformity. EXTREMITIES: No cyanosis, clubbing, or pedal edema. NEUROLOGICAL: Gross neurological examination did not reveal any focal deficits. SKIN: No rashes. - Labs CBC & Chem 7: 08/08/21 05:40 08/08/21 05:40 Labs: Abnormal Lab Results - Last 24 Hours (Table) 08/06/21 08/06/21 08/07/21 Range/Units 16:30 20:53 06:06 WBC 18.0 H (3.8-10.6) k/uL Neutrophils # 16.9 H (1.3-7.7) k/uL Lymphocytes # 0.4 L (1.0-4.8) k/uL Sodium (137-145) mmol/L Chloride (98-107) mmol/L Carbon Dioxide (22-30) mmol/L BUN (7-17) mg/dL Glucose (74-99) mg/dL POC Glucose (mg/dL) 240 H 164 H (75-99) mg/dL Lactate Dehydrogenase (313-618) U/L 08/07/21 08/07/21 08/07/21 Range/Units 06:06 06:34 12:22 WBC (3.8-10.6) k/uL Neutrophils # (1.3-7.7) k/uL Lymphocytes # (1.0-4.8) k/uL Sodium 134 L (137-145) mmol/L Chloride 96 L (98-107) mmol/L Carbon Dioxide 31 H (22-30) mmol/L BUN 49 H (7-17) mg/dL Glucose 215 H (74-99) mg/dL POC Glucose (mg/dL) 204 H 231 H (75-99) mg/dL Lactate Dehydrogenase 1522 H (313-618) U/L Assessment and Plan Assessment: Acute hypoxemic respiratory failure secondary to coronavirus associated pneumonia. Dark-colored stools with occult blood positive. Possible upper GI bleed. Acute kidney injury likely prerenal with creatinine level 2.14 on admission. Baseline creatinine not known Diabetes type 2 [id number] Mild acute pancreatitis with lipase level 651 Hyperlipidemia Hypertension Plan: Patient will be continued on IV hydration and monitor hemoglobin level. Currently hemoglobin is at 15.7. No active complaints of bleeding at this time. Continue with IV PPI and monitor. Patient will continue oxygen supplementation via nasal cannula. Continue with the dexamethasone, zinc sulfate, ascorbic acid and vitamin D3. Pulmonary consult. Continue with home medications Hold Lasix and lisinopril due to acute kidney injury. Patient is also on verapamil at home. Continue with insulin sliding scale.
--- NOTE | 2021-08-09 02:10 | P.PN ---
Subjective Progress Note Date: 08/08/21 Principal diagnosis: Acute hypoxic respiratory failure secondary to COVID-19 pneumonia Possible upper GI bleed. Acute kidney injury 65-year-old male with a known history of hypertension, hyperlipidemia, diabetes type 2 [id number], osteoarthritis, obstructive sleep apnea, migraine headaches and no prior history of smoking presents to ER with complaints of fever, cough and shortness of breath along with diarrhea. Patient states that she has been sick for the past 2 weeks with cough congestion body aches and is also having diarrhea for the past 1 week. She came to the ER due to complaints of dark-colored stools. Patient states this is not any blood thinners. No prior history of peptic ulcer disease. Patient does take naproxen for arthritic pain. No complaints of chest pain. On admission T-max was 101.4, pulse 102, pulse ox 83% on room air. Denies any complaints of chest pain. No abdominal pain. No dysuria or hematuria. No headache or dizziness or lightheadedness. Chest x-ray showed there is new patchy pulmonary edema compared to oral exam that could be acute pneumonia. Laboratory showed WBC 4.5 hemoglobin 15.7 and platelets 173 and lymphocytes 0.8 Sodium 138 potassium 4.6 chloride 102 BUN 61 creatinine 2.12 Blood sugar 139 AST 97 ALT 60 alk phos 63 and lipase level 651 Stool occult blood positive and Coronavirus PCR detected. 07/24/2021 Patient is seen and evaluated and discussed with nursing staff; continues to complain of shortness of breath with minimal activity; patient has been brian gnosed with COVID-19 pneumonia; patient does report vaccination against coronavirus Vital signs are reviewed with temperature of 99.2, pulse 80, respiration 18 and blood pressure 143/73 and O2 saturation 91% Patient remains on treatment with Decadron, Lovenox and COVID-19 vitamin cocktail; patient is deemed not a candidate for REM due to onset of symptoms a few weeks prior to presenting to the hospital and patient has been fully vaccinated Laboratory review shows WBC of 4.2 and hemoglobin consistently stable at 14.8 with platelet count of 158; sodium 139, potassium 5.0 which is down from 6.1 y esterday, BUN/creatinine of 28/0.77 down from 44/1.19 yesterday 07/25/2021 Patient discussed with nursing staff no specific concerns identified; continues to report shortness of breath; self proning encourage Vital signs are reviewed temperature 99.3, pulse 79, respirations 17 and blood pressure 102/67 Lab review shows WBC 4.7, hemoglobin 14 and platelet count of 172, d-dimer at 0.96, BUN/creatinine down to 25/1.0; repeat chest x-ray shows improvement Pulmonary on board and recommending to continue with current treatment with Decadron, Lovenox and vitamins 07/26/2021 Patient is seen and evaluated in room at bedside; oxygen saturation has declined and patient is currently on 15 L of O2. patient is being transferred to ICU as an overflow She remains on Decadron. She was also on Lasix at a dose of 20 mg IV daily. She was having adequate urine output. Her IV fluids are running at 75 mL an hour normal saline. The patient has no chest pain. She is exhausted. Whenever she moves around she gets quite short of breath. No significant cough or sputum production. No chest tightness. No wheezing. She is on a combination of vitamin C, vitamin D, zinc and and she is also on Lovenox for DVT prophylaxis. The most recent d-dimer is at 1.79. The most recent LDH level is 1000 with a CRP of 1.2. Pulmonary service recommending to continue the Decadron and the Lovenox and add Baricitinib per protocol. 07/27/2021 Patient is seen and evaluated and discussed with nursing staff; patient was transferred to the ICU yesterday due to her borderline respiratory status as the patient was placed on 15 L of oxygen by nasal cannula in addition to 100% nonrebreather facemask to improve her oxygenation. Patient is sitting up on a chair. She is a bit lethargic but easily arousable; . Her breathing is nonlabored. Vital signs are reviewed temperature 98.7, pulse 79, respiration 24, and blood pressure 101/77; pulse ox is around 97-98%. She remains on Decadron; Lovenox 40 mg subcu along with COVID-19 vitamin radha ktail Laboratory review reveals d-dimer is at 1.59, and LDH level is 1445, her CRP level is at 3.5 and her procal is low at 0.07. Pulmonary on board and recommending to continue patient on 100% nonrebreather face Lasix in addition to nasal cannula at 15 L; continue the Decadron and the Lovenox and add Baricitinib per protocol Continue to follow inflammatory markers periodically including LDH, CRP, ferritin and d-dimer 07/28/2021 Patient is seen and evaluated at beside and discussed with nursing staff. Patient is currently on high flow oxygen with a pulse ox around 92%. Patient was recently transferred out of ICU and is able to sit upright on her bed. Patient also has a 100% nonrebreather facemask at her bedside in order to supplement oxygen when she gets short of breath. Patient's CRP level is 2.4, her d-dimer is 5.5, her LDH level from yesterday was 1445. Patient's chest x ray is not showing any changes but there is some infiltration seen at the lung bases which remains consistent with COVID19 pneumonia, current x ray remains stable compared to her earlier chest x ray. Patient is afebrile with no chills. Patient is on anticoagulant therapy with Lovenox, remains on Decadron, and is also complicitng a curse of Baricitinib along with Lasix by mouth daily. There are no major changes or events from yesterday. 07/29/2021 Patient is seen and evaluated at bedside and discussed with nursing staff. Patient's condition is same with no major or significant changes from yesterday. Patient remains on nasal cannula and nonrebreather facemask. Patient still gets short of breath with mild exertion. Repeat chest x-ray was conducted today with evidence of bilateral pulmonary infiltrates along with smaller lung volumes. Patient also suffers from mild cardiomegaly indicated on imaging. On examination, it is noted that patient has lower extremity edema bilaterally. Patient's LDH and CRP levels have improved, however D-dimer has elevated to 9.9. Patient is currently on Decadron, Baricitinib, Lasix, Lovenox, Levemir insulin. P, as per protocol. Patient is using incentive spirometer. 07/30/2021 Patient is seen and evaluated at bedside and discussed with nursing staff. Patient's condition is slightly worse compared to yesterday. Patient continues to be on nasal cannula and nonrebreather facemask with a pulse ox in the low 80s. Patient was then placed on Airvo. D dimer levels have trended upwards to 16.1. Patient did not have any swelling in her lower ext. Patient is on Lovenox for DVT prophylaxis. Doppler of the lower extremity was done which showed no evidence of any DVT. Patient's chest x ray shows diffuse bilateral pulmonary infiltrates perihilar and also the lower lobes bilaterally. Patient is currently afebrile. Patient's breathing is lightly labored compared to yesterday. Patient continues to be on Decadron whereas rest of medications are unchanged. Patient is no longer using incetive spirometer. 07/31/2021 Patient is being seen today and evaluated while being discussed with the nursing staff. Patient's breathing is still labored and she continues to be on Airvo along with a beta facemask. Patient had an episode of epistaxis for which she expresses concern. Patient decompensated with a pulse ox that dropped to the mid 80s. Patient is no longer currently bleeding but remains on Lovenox for DVT prophylaxis. A repeat Doppler was donea gain to ensure that patient did not have any evidence of DVT considering her d-dimer was trending upward. Chest X ray shows diffuse pulmonary infiltrates which are consistent with COVID 19 pneumonia. Patient remains on Decadron and also Baricitinib. Patient is also on Levemir insulin to control her sugar levels. However, the patient is not able to do her incentive spirometer. Patient is drinking sufficiently but is not eating sufficiently. Patient is awake and response. Patient's LDH is treading upward with her D-dimer still eletated at 17.9 No other significant events or major changes from yesterday; continue supportive care. 08/01/2021 Patient is seen and evaluated while being discussed with the nursing staff. Patient remains on high flow oxygen Airvo along with the nonrebreather facemask. Patient remains on Decadron and Baricitinib. Patient complained of right nostril epistaxis for which she expressed anxiety and concern. Due to this, patient was taken off the Airvo but began to desaturate down to 76^. Due to this patient had to be placed back on Airvo, with no complaints of any significant bleeding. Patient does not have any issues or complaints. She also denies having shortness of breath. A repeat chest x ray was done and there seems to be improvement in aeration of the left lung base and the left hemidiaphgragm is also visualized more clearly compared to previous chest x rays, however there is still diffuse bilateral pulmonary infiltrates that are consistent with COVID 19 pneumonia/ARDS. Patient has a good appetite and is eating better. Patient is als o on Levemir to control her sugar levels. Inflammatory markers need to be reapeted. D dimer is still elevated that is why a repeat Doppler was done but the Doppler of the lower extremity came back negative. LDH and CRP are currently pending with her WBC count has trended downward to 12.6 08/07/2021 Patient is seen and evaluated while being discussed with the nursing staff. Patient remains in the ICU, but seems to be feeling better today. Patient is breathing easier with no acute distress. Patient is on the BiPAP with IPAP of 12, EPAP of 5, and an FiO2 of 70%. O2 saturation is 93%. Patient denies any change in the past day, no significant changes or problems. Patient states that she is feeling better. Vital signs have been evaluated Labs have been evaluated with a WBC count of 15., hemoglobin of 15.7, renal profile is normal, LDH is 1343, CRP is 0.5. Both are improving slowly. Continue supportive care. 08/08/2021 Patient is seen and evaluated. Patient remains in the iCU. Patient is intermittently alternating between BiPAP and the airvo. Patient is feeling the same, there have been no significant changes or events in the last 24 hours. Vital signs have been evaluated Labs have been evaluated Patient's WBC count is 18, hemoglobin is 13.3, d-dimer is 12.39, patient is fully anticoagulated for her pulmonary embolism. Patient's renal profile is normal, however LDH remains elevated at 1297 which is trending downwards compare d to yesterday. CRP is 1.5 Continue supportive care. Objective - Vital Signs Vital signs: Vital Signs Temp 98.0 F 08/08/21 13:00 Pulse 93 08/08/21 14:00 Resp 49 H 08/08/21 14:00 BP 115/81 08/08/21 14:00 Pulse Ox 88 L 08/08/21 14:00 Intake & Output 08/07/21 08/08/21 08/08/21 18:59 06:59 18:59 Intake Total 1382 240 640 Output Total 775 600 540 Balance 607 -360 100 Weight 110.903 kg Intake: IV 422 240 160 Sodium Chloride 0.9% 1, 422 240 160 000 ml @ 20 mls/hr IV . Q24H [facility] Rx#:[id number] Oral 960 480 Output: Urine 775 600 540 Other: Voiding Method Indwelling Catheter Indwelling Catheter Indwelling Catheter - Exam PHYSICAL EXAMINATION: GENERAL: The patient is alert and oriented x3, not in any acute distress. Well developed, well nourished. HEENT: Pupils are round and equally reacting to light. EOMI. No scleral icterus. No conjunctival pallor. Normocephalic, atraumatic. No pharyngeal erythema. No thyromegaly. CARDIOVASCULAR: S1 and S2 present. No murmurs, rubs, or gallops. PULMONARY: Chest is clear to auscultation, no wheezing or crackles. ABDOMEN: Soft, nontender, nondistended, normoactive bowel sounds. No palpable organomegaly. MUSCULOSKELETAL: No joint swelling or deformity. EXTREMITIES: No cyanosis, clubbing, or pedal edema. NEUROLOGICAL: Gross neurological examination did not reveal any focal deficits. SKIN: No rashes. - Labs CBC & Chem 7: 08/08/21 05:40 08/08/21 05:40 Labs: Abnormal Lab Results - Last 24 Hours (Table) 08/07/21 08/07/21 08/08/21 Range/Units 15:55 19:50 05:39 WBC (3.8-10.6) k/uL Neutrophils # (1.3-7.7) k/uL Lymphocytes # (1.0-4.8) k/uL D-Dimer (<0.60) mg/L FEU Sodium (137-145) mmol/L Chloride (98-107) mmol/L Carbon Dioxide (22-30) mmol/L BUN (7-17) mg/dL Glucose (74-99) mg/dL POC Glucose (mg/dL) 204 H 176 H 169 H (75-99) mg/dL Lactate Dehydrogenase (313-618) U/L C-Reactive Protein (<1.0) mg/dL 08/08/21 08/08/21 08/08/21 Range/Units 05:40 05:40 05:40 WBC 18.0 H (3.8-10.6) k/uL Neutrophils # 16.8 H (1.3-7.7) k/uL Lymphocytes # 0.4 L (1.0-4.8) k/uL D-Dimer 12.39 H (<0.60) mg/L FEU Sodium 136 L (137-145) mmol/L Chloride 94 L (98-107) mmol/L Carbon Dioxide 36 H (22-30) mmol/L BUN 48 H (7-17) mg/dL Glucose 173 H (74-99) mg/dL POC Glucose (mg/dL) (75-99) mg/dL Lactate Dehydrogenase 1297 H (313-618) U/L C-Reactive Protein 1.5 H (<1.0) mg/dL 08/08/21 Range/Units 11:53 WBC (3.8-10.6) k/uL Neutrophils # (1.3-7.7) k/uL Lymphocytes # (1.0-4.8) k/uL D-Dimer (<0.60) mg/L FEU Sodium (137-145) mmol/L Chloride (98-107) mmol/L Carbon Dioxide (22-30) mmol/L BUN (7-17) mg/dL Glucose (74-99) mg/dL POC Glucose (mg/dL) 168 H (75-99) mg/dL Lactate Dehydrogenase (313-618) U/L C-Reactive Protein (<1.0) mg/dL Assessment and Plan Assessment: Acute hypoxemic respiratory failure secondary to coronavirus associated pneumonia. Dark-colored stools with occult blood positive. Possible upper GI bleed. Acute kidney injury likely prerenal with creatinine level 2.14 on admission. Baseline creatinine not known Diabetes type 2 [id number] Mild acute pancreatitis with lipase level 651 Hyperlipidemia Hypertension Plan: Patient will be continued on IV hydration and monitor hemoglobin level. Currently hemoglobin is at 15.7. No active complaints of bleeding at this time. Continue with IV PPI and monitor. Patient will continue oxygen supplementation via nasal cannula. Continue with the dexamethasone, zinc sulfate, ascorbic acid and vitamin D3. Pulmonary consult. Continue with home medications Hold Lasix and lisinopril due to acute kidney injury. Patient is also on verapamil at home. Continue with insulin sliding scale.
[2021-08-09 06:52] LABS: Glucose,Whole Blood 187 mg/dL (75-99)
[2021-08-09] MEDS: PANTOPRAZOLE 40 MG TABLET PO SCH (07:10)
[2021-08-09] MEDS: INSULIN ASPART (NovoLOG) 100 UNIT/ML VIAL SQ SCH ×4 (07:11→20:41)
--- NOTE | 2021-08-09 07:11 | XR ---
EXAMINATION TYPE: XR chest 1V portable DATE OF EXAM: 08/09/2021 COMPARISON: Chest x-ray 08/08/2021 HISTORY: Covid 19 infection, abnormal chest x-ray TECHNIQUE: Single frontal view of the chest is obtained. FINDINGS: Left-sided PICC line shows the distal tip overlying the cavoatrial junction. Bilateral britton ulder arthroplasty change is noted. There are overlying artifacts. There is no pneumothorax or pleura l effusion. Bilateral airspace disease is again seen. Cardiac mediastinal silhouette is unchanged. Ex am is expiratory and rotated. IMPRESSION: Findings are similar to prior exam. Correlate for pneumonia.
[2021-08-09] MEDS: ALBUTEROL HFA INHALER INHALATION SCH ×4 (07:50→20:58)
[2021-08-09] MEDS: SYMBICORT 160-4.5 MCG INHALER INHALATION SCH ×2 (07:50→20:58)
[2021-08-09] MEDS: APIXABAN 5 MG TAB PO SCH ×2 (09:20→20:40)
[2021-08-09] MEDS: ASCORBIC ACID 500 MG TAB PO SCH (09:21)
[2021-08-09] MEDS: BARICITINIB 2 MG TABLET PO SCH (09:22)
[2021-08-09] MEDS: CHOLECALCIFEROL 25 MCG (1000 IU) TABLET PO SCH (09:23)
[2021-08-09] MEDS: ZINC SULFATE 220 MG CAP PO SCH (09:23)
[2021-08-09] MEDS: DEXAMETHASONE SOD PHOSPHATE 10 MG/ML 1 ML VIAL IV SCH ×2 (09:24→20:40)
[2021-08-09] MEDS: OXYBUTYNIN 15 MG TAB.ER.24 PO SCH (09:24)
[2021-08-09] MEDS: FUROSEMIDE 20 MG TAB PO SCH (09:24)
--- NOTE | 2021-08-09 10:12 | P.PN ---
Subjective Progress Note Date: 08/09/21 Principal diagnosis: COVID-19 pneumonia On 08/09/2021 patient seen in follow-up in intensive care unit, she is currently on BiPAP support with pressures of 12 and 5 and FiO2 of 80%. Her pulse ox is 92-93%, she is afebrile, hemodynamically stable, she is on 0.9 normal saline at a rate of 20 ML per hour, she appears fatigued, lethargic, but arousable, does not appear to be in any distress. Today's chest x-ray shows bilateral airspace disease. Patient is completing her course of Baricitinib. Patient also continues on Decadron 6 mg twice daily, she is on Eliquis for pulmo nary embolism. Today's labs are still pending, yesterday's labs showed a white blood cell count of 18, hemoglobin of 13.3, d-dimer was still elevated at 12.39, sodium was 136, potassium is 4.4, chloride is 94, CO2 is 36, B1 is 48, creatinine 0.81, LDH is improving and is down to 1297, and CRP is 1.5. Patient has been awaiting a bed on the medical surgical floor since 08/06/2021. She is in sinus mechanism on a monitor, the rate is controlled. No acute events overnight. She has been switching to Airvo for mealtimes, however her oral intake has been poor. Objective - Vital Signs Vital signs: Vital Signs Temp 98.6 F 08/09/21 06:00 Pulse 70 08/09/21 06:00 Resp 18 08/09/21 06:00 BP 121/88 08/09/21 06:00 Pulse Ox 93 L 08/09/21 06:00 Intake & Output 08/08/21 08/09/21 08/09/21 18:59 06:59 18:59 Intake Total 720 720 Output Total 720 600 Balance 0 120 Intake: IV 240 240 Sodium Chloride 0.9% 1, 240 240 000 ml @ 20 mls/hr IV . Q24H [facility] Rx#:[id number] Oral 480 480 Output: Urine 720 600 Other: Voiding Method Indwelling Catheter Indwelling Catheter - Exam GENERAL EXAM: Lethargic, but arousable, 65-year-old morbidly obese female, on the BiPAP support with pressures of 12 and 5 and FiO2 of 80% satting 93% comfortable in no apparent distress. HEAD: Normocephalic/atraumatic. EYES: Normal reaction of pupils, equal size. Conjunctiva pink, sclera white. NOSE: Clear with pink turbinates. THROAT: No erythema or exudates. NECK: No masses, no JVD, no thyroid enlargement, no adenopathy. CHEST: No chest wall deformity. Symmetrical expansion. LUNGS: Equal air entry with bibasilar crackles CVS: Regular rate and rhythm, normal S1 and S2, no gallops, no murmurs, no rubs ABDOMEN: Soft, nontender. No hepatosplenomegaly, normal bowel sounds, no guarding or rigidity. EXTREMITIES: No clubbing, no edema, no cyanosis, 2+ pulses and upper and lower extremities. MUSCULOSKELETAL: Muscle strength and tone normal. SPINE: No scoliosis or deformity SKIN: No rashes CENTRAL NERVOUS SYSTEM: Lethargic and oriented -3. No focal deficits, tone is normal in all 4 extremities. - Labs CBC & Chem 7: 08/08/21 05:40 08/08/21 05:40 Labs: Abnormal Lab Results - Last 24 Hours (Table) 08/08/21 08/08/21 08/08/21 Range/Units 11:53 16:51 20:28 POC Glucose (mg/dL) 168 H 200 H 202 H (75-99) mg/dL 08/09/21 Range/Units 06:50 POC Glucose (mg/dL) 187 H (75-99) mg/dL Assessment and Plan Plan: Assessment: #1. Acute hypoxic respiratory failure secondary to COVID-19 pneumonia. #2. Acute pulmonary embolism related to the above, patient was started on Eliquis #3. Previous history of GI bleeding #4. Diabetes mellitus type 2 #5. History of GERD #6. Dyslipidemia #7. Benign essential hypertension #8. History of obstructive sleep apnea #9. Morbid obesity with BMI of 45.2 kg/m Plan: She has completed her course of Baricitinib Continue Decadron Continue Eliquis Continue oral diuretics We will order a PICC line Consult dietary to evaluate patient's oral intake, if insufficient start TPN Alternate Airvo with BiPAP as tolerated Weaning FiO2 to keep O2 sats rashes at or above 90% We'll continue to follow I performed a history & physical examination of the patient and discussed their management with my nurse practitioner, Elaine Blanchard. I reviewed the nurse practitioner's note and agree with the documented findings and plan of care. Lung sounds are positive for diffuse crackles throughout the lung rosales. The findings and the impression was discussed with the patient. I attest to the documentation by the nurse practitioner. Time with Patient: Greater than 30
[2021-08-09 11:21] LABS: Glucose,Whole Blood 224 mg/dL (75-99)
[2021-08-09 17:31] LABS: Glucose,Whole Blood 179 mg/dL (75-99)
[2021-08-09 20:20] LABS: Glucose,Whole Blood 172 mg/dL (75-99)
[2021-08-09] MEDS ORDERED: ALPRAZolam 0.5 MG TAB PO STA (20:20)
[2021-08-09] MEDS: INSULIN DETEMIR (LEVEMIR) 100 UNIT/ML SYR SQ SCH (20:38)
[2021-08-09] MEDS: SENNOSIDES 8.6 MG TAB PO SCH (20:40)
[2021-08-09] MEDS: ATORVASTATIN 10 MG TAB PO SCH (20:40)
[2021-08-09] MEDS: SODIUM CHLORIDE 0.9% 1,000 ML IV SCH (20:41)
--- NOTE | 2021-08-09 22:12 | P.PN ---
Subjective Progress Note Date: 08/09/21 Principal diagnosis: Acute hypoxic respiratory failure secondary to COVID-19 pneumonia Possible upper GI bleed. Acute kidney injury 65-year-old male with a known history of hypertension, hyperlipidemia, diabetes type 2 pal-iaqjzci-[id number], osteoarthritis, obstructive sleep apnea, migraine headaches and no prior history of smoking presents to ER with complaints of fever, cough and shortness of breath along with diarrhea. Patient states that she has been sick for the past 2 weeks with cough congestion body aches and is also having diarrhea for the past 1 week. She came to the ER due to complaints of dark-colored stools. Patient states this is not any blood thinners. No prior history of peptic ulcer disease. Patient does take naproxen for arthritic pain. No complaints of chest pain. On admission T-max was 101.4, pulse 102, pulse ox 83% on room air. Denies any complaints of chest pain. No abdominal pain. No dysuria or hematuria. No headache or dizziness or lightheadedness. Chest x-ray showed there is new patchy pulmonary edema compared to oral exam that could be acute pneumonia. Laboratory showed WBC 4.5 hemoglobin 15.7 and platelets 173 and lymphocytes 0.8 Sodium 138 potassium 4.6 chloride 102 BUN 61 creatinine 2.12 Blood sugar 139 AST 97 ALT 60 alk phos 63 and lipase level 651 Stool occult blood positive and Coronavirus PCR detected. 07/24/2021 Patient is seen and evaluated and discussed with nursing staff; continues to complain of shortness of breath with minimal activity; patient has been brian gnosed with COVID-19 pneumonia; patient does report vaccination against coronavirus Vital signs are reviewed with temperature of 99.2, pulse 80, respiration 18 and blood pressure 143/73 and O2 saturation 91% Patient remains on treatment with Decadron, Lovenox and COVID-19 vitamin cocktail; patient is deemed not a candidate for REM due to onset of symptoms a few weeks prior to presenting to the hospital and patient has been fully vaccinated Laboratory review shows WBC of 4.2 and hemoglobin consistently stable at 14.8 with platelet count of 158; sodium 139, potassium 5.0 which is down from 6.1 y esterday, BUN/creatinine of 28/0.77 down from 44/1.19 yesterday 07/25/2021 Patient discussed with nursing staff no specific concerns identified; continues to report shortness of breath; self proning encourage Vital signs are reviewed temperature 99.3, pulse 79, respirations 17 and blood pressure 102/67 Lab review shows WBC 4.7, hemoglobin 14 and platelet count of 172, d-dimer at 0.96, BUN/creatinine down to 25/1.0; repeat chest x-ray shows improvement Pulmonary on board and recommending to continue with current treatment with Decadron, Lovenox and vitamins 07/26/2021 Patient is seen and evaluated in room at bedside; oxygen saturation has declined and patient is currently on 15 L of O2. patient is being transferred to ICU as an overflow She remains on Decadron. She was also on Lasix at a dose of 20 mg IV daily. She was having adequate urine output. Her IV fluids are running at 75 mL an hour normal saline. The patient has no chest pain. She is exhausted. Whenever she moves around she gets quite short of breath. No significant cough or sputum production. No chest tightness. No wheezing. She is on a combination of vitamin C, vitamin D, zinc and and she is also on Lovenox for DVT prophylaxis. The most recent d-dimer is at 1.79. The most recent LDH level is 1000 with a CRP of 1.2. Pulmonary service recommending to continue the Decadron and the Lovenox and add Baricitinib per protocol. 07/27/2021 Patient is seen and evaluated and discussed with nursing staff; patient was transferred to the ICU yesterday due to her borderline respiratory status as the patient was placed on 15 L of oxygen by nasal cannula in addition to 100% nonrebreather facemask to improve her oxygenation. Patient is sitting up on a chair. She is a bit lethargic but easily arousable; . Her breathing is nonlabored. Vital signs are reviewed temperature 98.7, pulse 79, respiration 24, and blood pressure 101/77; pulse ox is around 97-98%. She remains on Decadron; Lovenox 40 mg subcu along with COVID-19 vitamin radha ktail Laboratory review reveals d-dimer is at 1.59, and LDH level is 1445, her CRP level is at 3.5 and her procal is low at 0.07. Pulmonary on board and recommending to continue patient on 100% nonrebreather face Lasix in addition to nasal cannula at 15 L; continue the Decadron and the Lovenox and add Baricitinib per protocol Continue to follow inflammatory markers periodically including LDH, CRP, ferritin and d-dimer 07/28/2021 Patient is seen and evaluated at beside and discussed with nursing staff. Patient is currently on high flow oxygen with a pulse ox around 92%. Patient was recently transferred out of ICU and is able to sit upright on her bed. Patient also has a 100% nonrebreather facemask at her bedside in order to supplement oxygen when she gets short of breath. Patient's CRP level is 2.4, her d-dimer is 5.5, her LDH level from yesterday was 1445. Patient's chest x ray is not showing any changes but there is some infiltration seen at the lung bases which remains consistent with COVID19 pneumonia, current x ray remains stable compared to her earlier chest x ray. Patient is afebrile with no chills. Patient is on anticoagulant therapy with Lovenox, remains on Decadron, and is also complicitng a curse of Baricitinib along with Lasix by mouth daily. There are no major changes or events from yesterday. 07/29/2021 Patient is seen and evaluated at bedside and discussed with nursing staff. Patient's condition is same with no major or significant changes from yesterday. Patient remains on nasal cannula and nonrebreather facemask. Patient still gets short of breath with mild exertion. Repeat chest x-ray was conducted today with evidence of bilateral pulmonary infiltrates along with smaller lung volumes. Patient also suffers from mild cardiomegaly indicated on imaging. On examination, it is noted that patient has lower extremity edema bilaterally. Patient's LDH and CRP levels have improved, however D-dimer has elevated to 9.9. Patient is currently on Decadron, Baricitinib, Lasix, Lovenox, Levemir insulin. P, as per protocol. Patient is using incentive spirometer. 07/30/2021 Patient is seen and evaluated at bedside and discussed with nursing staff. Patient's condition is slightly worse compared to yesterday. Patient continues to be on nasal cannula and nonrebreather facemask with a pulse ox in the low 80s. Patient was then placed on Airvo. D dimer levels have trended upwards to 16.1. Patient did not have any swelling in her lower ext. Patient is on Lovenox for DVT prophylaxis. Doppler of the lower extremity was done which showed no evidence of any DVT. Patient's chest x ray shows diffuse bilateral pulmonary infiltrates perihilar and also the lower lobes bilaterally. Patient is currently afebrile. Patient's breathing is lightly labored compared to yesterday. Patient continues to be on Decadron whereas rest of medications are unchanged. Patient is no longer using incetive spirometer. 07/31/2021 Patient is being seen today and evaluated while being discussed with the nursing staff. Patient's breathing is still labored and she continues to be on Airvo along with a beta facemask. Patient had an episode of epistaxis for which she expresses concern. Patient decompensated with a pulse ox that dropped to the mid 80s. Patient is no longer currently bleeding but remains on Lovenox for DVT prophylaxis. A repeat Doppler was donea gain to ensure that patient did not have any evidence of DVT considering her d-dimer was trending upward. Chest X ray shows diffuse pulmonary infiltrates which are consistent with COVID 19 pneumonia. Patient remains on Decadron and also Baricitinib. Patient is also on Levemir insulin to control her sugar levels. However, the patient is not able to do her incentive spirometer. Patient is drinking sufficiently but is not eating sufficiently. Patient is awake and response. Patient's LDH is treading upward with her D-dimer still eletated at 17.9 No other significant events or major changes from yesterday; continue supportive care. 08/01/2021 Patient is seen and evaluated while being discussed with the nursing staff. Patient remains on high flow oxygen Airvo along with the nonrebreather facemask. Patient remains on Decadron and Baricitinib. Patient complained of right nostril epistaxis for which she expressed anxiety and concern. Due to this, patient was taken off the Airvo but began to desaturate down to 76^. Due to this patient had to be placed back on Airvo, with no complaints of any significant bleeding. Patient does not have any issues or complaints. She also denies having shortness of breath. A repeat chest x ray was done and there seems to be improvement in aeration of the left lung base and the left hemidiaphgragm is also visualized more clearly compared to previous chest x rays, however there is still diffuse bilateral pulmonary infiltrates that are consistent with COVID 19 pneumonia/ARDS. Patient has a good appetite and is eating better. Patient is als o on Levemir to control her sugar levels. Inflammatory markers need to be reapeted. D dimer is still elevated that is why a repeat Doppler was done but the Doppler of the lower extremity came back negative. LDH and CRP are currently pending with her WBC count has trended downward to 12.6 08/02/2021 Patient is currently in MICU. Requiring BiPAP at 80% FiO2. Patient has been afebrile. Patient is otherwise anxious and desaturating when airvo is taken off. No nausea or vomiting. Patient is able to tolerate oral diet. Patient has been continued baricitinib, dexamethasone 6 mg IV twice daily and multivitamins and anticoagulation. Chest x-ray showed persistent interstitial bibasilar infiltrates with slight interval improvement suggested. Laboratory data showed WBC 14.1 hemoglobin 13.1 platelets 234 and neutrophils 0.5 Sodium 140 potassium 4.1 chloride 97 bicarb is 36 BUN 42 and creatinine 0.94 08/03/2021 Patient is currently in the MICU. Remains on BiPAP with 80% FiO2 and oxygen saturations around 90%. Patient continues to have elevated D-dimer level. CT angiogram chest was ordered to rule out any pulmonary embolism which showed right middle lobe and right lower lobe pulmonary emboli without CT evidence of RV strain. Patient was transitioned to heparin drip from Lovenox 40 mg twice daily. Patient has been afebrile. No complaints of chest pain. Laboratory showed WBC 12.5 hemoglobin 13.6, platelets 261 and lymphocytes 0.5 D-dimer level is 19.87, chloride 96 bicarb is 34 BUN 45 and creatinine 0.86 and LDH level is 1395 and CRP 0.9. Pulmonary is on board. Chest x-ray showed worsening left greater than right bilateral lower lobe opacities consistent with COVID-19 infection progression. Patient remains on dexamethasone, multivitamins vitamin D3 and baricitinib. 08/04/2021 Patient remains in the MICU. Requiring BiPAP and also using nonrebreather andAirvo intermittently. On 50 L with 90% FiO2. Patient is otherwise awake alert and sitting in the chair. Chest x-ray showed persistent perihilar and basilar infiltrates. Left-sided PICC line with its distal tip overlying the SVC. No evidence of pneumothorax. Patient is being continued dexamethasone, Baricitinib, zinc sulfate, ascorbic acid. Patient is being continued on heparin drip changed to Eliquis 10 mg twice daily for newly diagnosed pulmonary embolism. Discussed with her via telephone and updated her of medical condition. 08/05/2021 Patient is currently in the MICU. Requiring BiPAP and Airvo with Ventimask intermittently. Patient was confused in the morning today and would want to go to hospice care. Currently patient is more awake and oriented and would like to continue current treatment. Patient's is at bedside. Chest x-ray showed reticulonodular infiltrates persist although may have improved slightly in the interval. Patient is being continued on dexamethasone, Eliquis for pulmonary embolism and multivitamins and also baricitinib. Laboratory data showed WBC 14.7 hemoglobin 13.6 and platelets 239 lymphocytes 0.3 and D-dimer level is 13.45, trending down from 19.87 Sodium 136 potassium 4.7 chloride 98 bicarb 34 BUN 45 creatinine 0.83 and blood sugar is 241 and LDH level is 1383 CRP less than 0.5 08/06/2021 Patient is currently in the MICU. Currently requiring BiPAP but breathing status is better today. FiO2 is down to 60% and saturating at 93%. Patient is also on Airvo at 86 L. Blood pressure is stable. Patient seems to be more awake and oriented. Chest x-ray showed mild increase in left lower lobe infiltrate. Diffuse infiltrate is present. Findings could be compatible with atypical pneumonia in the proper clinical setting. Laboratory test showed WBC 15.7 hemoglobin 13.7 and platelets 209 and neutrophils 14.7 lymphocytes 0.5 Sodium 136 potassium 4.5 chloride 97 BUN 49 and creatinine 0.85 and blood sugar is 179 LDH 1343 and CRP less than 0.5 Patient is being continued baricitinib, Eliquis 5 mg twice daily and dexamethasone 6 mg IV twice daily along with multivitamins and supportive care. Pulmonary is on board. 08/09/2021 Patient is being transferred out of ICU. Currently on BiPAP 12 x 5 with FiO2 80%. Patient is awake alert and seems to be lethargic. Chest x-ray showed findings correlate for pneumonia. Patient has been afebrile. Completed course of baricitinib. Continued on dexamethasone IV 6 mg twice daily and also on anticoagulation with Eliquis which due to pulmonary embolism. Laboratory data showed WBC 18.0 hemoglobin 13.3 and platelets 182 lymphocytes 0.4 D-dimer 12.39 BUN 48 and creatinine 0.81 and blood sugar is 169 CRP 1.5 and LDH 1297 Current medications reviewed. Objective - Vital Signs Vital signs: Vital Signs Temp 98 F 08/09/21 17:18 Pulse 102 H 08/09/21 17:18 Resp 16 08/09/21 17:18 BP 119/85 08/09/21 17:18 Pulse Ox 87 L 08/09/21 17:18 Intake & Output 08/09/21 08/09/21 08/10/21 06:59 18:59 06:59 Intake Total 720 120 Output Total 600 700 Balance 120 -580 Weight 110.903 kg Intake: IV 240 120 Sodium Chloride 0.9% 1, 240 120 000 ml @ 20 mls/hr IV . [facility] Rx#:[id number] Oral 480 Output: Urine 600 700 Other: Voiding Method Indwelling Catheter Indwelling Catheter - Exam PHYSICAL EXAMINATION: GENERAL: The patient is alert and oriented x3, not in any acute distress. Well developed, well nourished. HEENT: Pupils are round and equally reacting to light. EOMI. No scleral icterus. No conjunctival pallor. Normocephalic, atraumatic. No pharyngeal erythema. No thyromegaly. CARDIOVASCULAR: S1 and S2 present. No murmurs, rubs, or gallops. PULMONARY: Chest is clear to auscultation, no wheezing or crackles. ABDOMEN: Soft, nontender, nondistended, normoactive bowel sounds. No palpable organomegaly. MUSCULOSKELETAL: No joint swelling or deformity. EXTREMITIES: No cyanosis, clubbing, or pedal edema. NEUROLOGICAL: Gross neurological examination did not reveal any focal deficits. SKIN: No rashes. - Labs CBC & Chem 7: 08/10/21 07:20 08/10/21 07:20 Labs: Abnormal Lab Results - Last 24 Hours (Table) 08/09/21 08/09/21 08/09/21 Range/Units 06:50 11: 17:29 POC Glucose (mg/dL) 187 H 224 H 179 H (75-99) mg/dL 08/09/21 Range/Units 20:19 POC Glucose (mg/dL) 172 H (75-99) mg/dL Assessment and Plan Assessment: Acute hypoxemic respiratory failure secondary to coronavirus associated pneumonia. Elevated inflammatory markers. Right lower lobe and middle lobe pulmonary embolism without CT evidence of RV strain. Diagnosed 08/03/2021 Dark-colored stools with occult blood positive on admission. Possible upper GI bleed. hb is stable. no further episodes. Acute kidney injury likely prerenal with creatinine level 2.14 on admission. Baseline creatinine not known, cr improved. Diabetes type 2 [id number] Mild acute pancreatitis with lipase level 651 Hyperlipidemia Hypertension Morbid obesity BMI 43.4 DVT prophylaxis Plan: Patient will be continued on BiPAP and Intermittently Airvo. Patient was transferred out of ICU on 08/09/2021. Patient was on heparin drip due to new diagnosis of pulmonary embolism, chnaged to [facility]. Patient is on dexamethasone, and multivitamins.Completed course of baricitinib. Continue with the dexamethasone IV, zinc sulfate, ascorbic acid and vitamin D3. Pulmonary is on board. Continue with home medications.Hemoglobin is stable. Renal function improved. Patient still having elevated inflammatory markers. Lasix was started at 20 mg daily with improvement in kidney function.. Patient is also on verapamil at home. Continue Levemir 15 U, with insulin sliding scale and levimir.Titrate dose as needed. Continue to monitor closely and prognosis guarded at this time.. Time with Patient: Greater than 30
[2021-08-10] MEDS: ACETAMINOPHEN TAB 325 MG TAB PO PRN ×2 (04:04→22:33)
[2021-08-10 07:16] LABS: Glucose,Whole Blood 175 mg/dL (75-99)
[2021-08-10] MEDS: INSULIN ASPART (NovoLOG) 100 UNIT/ML VIAL SQ SCH ×4 (07:48→20:38)
[2021-08-10] MEDS: ASCORBIC ACID 500 MG TAB PO SCH (07:49)
[2021-08-10] MEDS: PANTOPRAZOLE 40 MG TABLET PO SCH (07:49)
[2021-08-10] MEDS: OXYBUTYNIN 15 MG TAB.ER.24 PO SCH (07:49)
[2021-08-10] MEDS: APIXABAN 5 MG TAB PO SCH ×2 (07:49→20:37)
[2021-08-10] MEDS: ZINC SULFATE 220 MG CAP PO SCH (07:49)
[2021-08-10] MEDS: FUROSEMIDE 20 MG TAB PO SCH (07:50)
[2021-08-10] MEDS: CHOLECALCIFEROL 25 MCG (1000 IU) TABLET PO SCH (07:50)
[2021-08-10] MEDS: ALBUTEROL HFA INHALER INHALATION SCH ×4 (08:22→20:16)
[2021-08-10] MEDS: SYMBICORT 160-4.5 MCG INHALER INHALATION SCH ×2 (08:22→20:16)
[2021-08-10] MEDS: DEXAMETHASONE SOD PHOSPHATE 10 MG/ML 1 ML VIAL IV SCH ×2 (09:15→20:37)
--- NOTE | 2021-08-10 09:46 | XR ---
EXAMINATION TYPE: XR chest 1V portable DATE OF EXAM: 08/10/2021 COMPARISON: 08/09/2021 INDICATION: Covid TECHNIQUE: Single frontal view of the chest is obtained. FINDINGS: The heart size is borderline in size. The pulmonary vasculature is normal. Mild bibasilar infiltrates are present, stable from comparison PICC line enters on the left with the tip in the distal superior vena cava region IMPRESSION: 1. Stable bibasilar infiltrates
[2021-08-10 11:16] LABS: Basophils # (A) 0.02 X 10*3/uL (0.00-0.10); Basophils % (A) 0.1 %; Eosinophils # (A) 0.01 X 10*3/uL (0.04-0.35); Eosinophils % (A) 0.1 %; HCT 41.3 % (37.2-46.3); HGB 13.1 g/dL (12.0-15.0); Lymphocytes # (A) 0.45 X 10*3/uL (0.90-5.00); Lymphocytes % (A) 2.8 %; MCH 29.1 pg (27.0-32.0); MCHC 31.7 g/dL (32.0-37.0); MCV 91.8 fL (80.0-97.0); Mean Platelet Volume 11.8 fL (9.5-12.2); Monocytes # (A) 0.64 X 10*3/uL (0.20-1.00); Neutrophils # (A) 14.69 X 10*3/uL (1.80-7.70); Neutrophils % (A) 92.1 %; Platelet Count 200 X 10*3/uL (140-440); RDW 13.1 % (11.5-14.5); WBC 15.96 X 10*3/uL (4.50-10.00)
[2021-08-10 11:33] LABS: Glucose,Whole Blood 202 mg/dL (75-99)
[2021-08-10 12:11] LABS: African American GFR (CKD) 90.3 (60.0-200.0); Albumin 3.4 g/dL (3.8-4.9); Albumin/Globulin Ratio 1.31 (1.60-3.17); Anion Gap 11.9 mmol/L (4.00-12.00); BUN/Creat Ratio 54.25 Ratio (12.00-20.00); Blood Urea Nitrogen 43.4 mg/dL (9.0-27.0); Calcium 9.1 mg/dL (8.7-10.3); Carbon Dioxide 30.1 mmol/L (21.6-31.8); Globulin 2.6 g/dL (1.6-3.3); Non-African American GFR(CKD) 77.9 (60.0-200.0); Potassium 3.8 mmol/L (3.5-5.5); Total Bilirubin 0.7 mg/dL (0.30-1.20)
--- NOTE | 2021-08-10 12:13 | P.PN ---
Subjective Progress Note Date: 08/10/21 The patient is seen today 08/10/2021 in follow-up on the regular medical floor for COVID-19 pneumonia. She is currently sitting up in bed. On BiPAP 12/5 and 80% FiO2 with O2 saturation at 96%. She's currently afebrile. Hemodynamically stable. This x-ray shows mild bibasilar infiltrates. Stable compared to previous. PICC line in the left upper extremity in place. White count 15.9. Hemoglobin 13.1. Lymphocytes 0.45. D-dimer 3.52. Glucose 175. She remains anticoagulated with Eliquis. Continued on vitamin supplements, Decadron. Continues to need increased encouragement regarding cough and deep breathing exercises. Objective - Vital Signs Vital signs: Vital Signs Temp 96.8 F L 08/10/21 09:24 Pulse 88 08/10/21 09:24 Resp 31 H 08/10/21 09:24 BP 122/90 08/10/21 09:24 Pulse Ox 96 08/10/21 09:24 Intake & Output 08/09/21 08/10/21 08/10/21 18:59 06:59 18:59 Intake Total 120 Output Total 700 400 Balance -580 -400 Weight 110.903 kg Intake: IV 120 Sodium Chloride 0.9% 1, 120 000 ml @ 20 mls/hr IV . Q24H [facility] Rx#:[id number] Output: Urine 700 400 Other: Voiding Method Indwelling Catheter External Catheter External Catheter # Voids 3 # Bowel Movements 0 - Exam GENERAL EXAM: Alert, 65-year-old female patient, on BiPAP, sitting up in bed, fairly comfortable in no apparent distress. HEAD: Normocephalic. EYES: Normal reaction of pupils, equal size. NOSE: Clear with pink turbinates. THROAT: No erythema or exudates. NECK: No masses, no JVD. CHEST: No chest wall deformity. LUNGS: Equal air entry with crackles in the bilateral bases. CVS: S1 and S2 normal with no audible murmur, regular rhythm. ABDOMEN: No hepatosplenomegaly, normal bowel sounds, no guarding or rigidity. SPINE: No scoliosis or deformity SKIN: No rashes CENTRAL NERVOUS SYSTEM: No focal deficits, tone is normal in all 4 extremities. EXTREMITIES: There is no peripheral edema. No clubbing, no cyanosis. Peripher al pulses are intact. - Labs CBC & Chem 7: 08/10/21 07:20 08/08/21 05:40 Labs: Abnormal Lab Results - Last 24 Hours (Table) 08/09/21 08/09/21 08/10/21 Range/Units 17:29 20:19 07:15 WBC (4.50-10.00) X 10*3/uL MCHC (32.0-37.0) g/dL Immature Gran # (0.00-0.04) X 10*3/uL Neutrophils # (1.80-7.70) X 10*3/uL Lymphocytes # (0.90-5.00) X 10*3/uL Eosinophils # (0.04-0.35) X 10*3/uL D-Dimer (<0.60) mg/L FEU POC Glucose (mg/dL) 179 H 172 H 175 H (75-99) mg/dL 08/10/21 08/10/21 08/10/21 Range/Units 07:20 07:20 11:32 WBC 15.96 H (4.50-10.00) X 10*3/uL MCHC 31.7 L (32.0-37.0) g/dL Immature Gran # 0.15 H (0.00-0.04) X 10*3/uL Neutrophils # 14.69 H (1.80-7.70) X 10*3/uL Lymphocytes # 0.45 L (0.90-5.00) X 10*3/uL Eosinophils # 0.01 L (0.04-0.35) X 10*3/uL D-Dimer 3.52 H (<0.60) mg/L FEU POC Glucose (mg/dL) 202 H (75-99) mg/dL Assessment and Plan Assessment: 1 Acute hypoxic respiratory failure secondary to COVID-19 pneumonia. Remains on BiPAP. Completed Baricitinib. 2 Acute pulmonary embolism related to the above, patient was started on Eliquis 3 Previous history of GI bleeding 4 Diabetes mellitus type 2 5 History of GERD 6 Dyslipidemia 7 Benign essential hypertension 8 History of obstructive sleep apnea 9 Morbid obesity with BMI of 43.3 kg/m Plan: The patient was seen and evaluated by Dr. Adkins Chest x-ray and labs reviewed Titrate down the FiO2 as tolerated Continue Eliquis, Decadron, vitamin supplements Again encouraged regarding being up in a chair, repositioning, deep breathing exercises We will continue to follow and make further recommendations based on her clinical status I, the cosigning physician, performed a history & physical examination of the patient. Lungs sounds are coarse crackles in the bilateral bases. Maintaining good O2 saturations in the 90s on 80% via the BiPAP 12/5. I discussed the assessment and plan of care with my nurse practitioner, Karol Manriquez. I attest to the above note as dictated by her.
--- NOTE | 2021-08-10 13:29 | P.CN ---
Psychiatric Consult - . Consult date: 08/10/21 Consult:: 08/10/21 13:28 IDENTIFYING DATA: This patient is a , unemployed, 65-year-old female was admitted to the hospital on 07/21/21 for cough, fever, diarrhea, and shortness of breath. HISTORY OF PRESENT ILLNESS: The patient has a significant history of hypertension, hyperlipidemia, diabetes type 2, obstructive sleep apnea, migraine headaches, who presented to the emergency department on 07/21/21, with a chief complaint of cough, seizure breath, and diarrhea. Covid PCR test was positive upon presentation to the ED. the course of the hospitalization was complicated due to the development of an acute pulmonary embolism related to the COVID-19 pneumonia. Psychiatry has been consulted for evaluation and management of depression and the patient expressing a desire to to the primary team. Upon evaluation by this psychiatrist, the patient is not endorsing any significant symptoms of depression at this time. She is not reporting any change in appetite, difficulty with sleep, anhedonia, hopelessness, or helplessness, or suicidal or homicidal ideation, intention, and/or plan. The patient does report that she feels frustrated with her health and states that she does feel ready to but does not wish to . She reports that she has plenty to live for. She states that she definitely wants to live for her whom she has been with for 31 years. She does report that she has been "talking with God" in regards to her physical health. She states that if it is her time, that she feels like she is ready. When further explored, she reports that she is not seeing God or hearing God but that she is really just praying. The patient denies any significant history of bipolar disorder. She reports no significant history of auditory or visual hallucinations. She denies any psychiatric history prior to this admission to the hospital. She reports no prior attempt at suicide. She denies any significant traumatic history. PAST PSYCHIATRIC HISTORY: Patient denies any significant psychiatric history. Patient denies being on any psychiatric medications. Patient denies any previous psychiatric hospitalizations. Patient denies any psychiatric outpatient follow- up. Patient denies any history of suicide attempts in the past. PAST MEDICAL HISTORY: Past Medical History: Diabetes Mellitus, GERD/Reflux, Hyperlipidemia, Hypertension, Osteoarthritis (OA), Sleep Apnea/CPAP/BIPAP Additional Past Medical History / Comment(s): migraines, BLADDER INCONTINENCE History of Any Multi-Drug Resistant Organisms: None Reported Past Surgical History: Back Surgery, Bladder Surgery, Breast Surgery, Cholecystectomy, Hysterectomy, Joint Replacement, Orthopedic Surgery Additional Past Surgical History / Comment(s): RIGHT AND LEFT KNEE REPLACEMENT, RIGHT AND LEFT SHOULDER , CARPAL TUNNEL RELEASE BILATERAL WRIST,SINUS SURGERY,brest biopsy Past Anesthesia/Blood Transfusion Reactions: Motion Sickness, Postoperative Nausea & Vomiting (PONV) Past Psychological History: No Psychological Hx Reported Smoking Status: Never smoker Past Alcohol Use History: None Reported Past Drug Use History: None Reported ALLERGIES: Amoxicillin CHEMICAL DEPENDENCY HISTORY: The patient denies any tobacco, alcohol, marijuana, or illicit drug use. FAMILY PSYCHIATRIC/SUBSTANCE USE HISTORY: The patient reports no significant family psychiatric history. She reports no family history of substance abuse. SOCIAL HISTORY: Patient was born in [place], [place]. She was raised in [place], [place]. She has been to her Jay for the last 31 years. She reports 12 grade education. She reports a strong [employer]. She reports no children. MENTAL STATUS EXAM: General Appearance: Patient appears to be stated age is alert, pleasant, and cooperative. Patient appears to have fair hygiene and grooming wearing hospital gown with fair eye contact. The patient is currently wearing her BIPAP. Behavior: Patient is calmly sitting upright in bed without any agitated behavior. Speech: Patient's speech is fluent and nonpressured. The patient is soft spoken due to the CPAP in place. Mood/Affect: Patient reports their mood is "okay", affect is congruent and appears to be euthymic. Suicidality/Homicidality: The patient is denying any suicidal or homicidal ideation, intention, and/or plan. Perceptions: Patient denies any visual hallucinations and denies any auditory hallucinations Though content/process: There is no evidence of any delusional thought content and thought process is linear and goal-directed. Memory and concentration: AOX3, grossly intact for the purposes of this session. Can spell "WORLD" backwards Judgment and insight: Fair IMPRESSIONS: Adjustment Disorder Acute hypoxic respiratory failure secondary to COVID-19 pneumonia. Acute pulmonary embolism GI bleed Diabetes mellitus type 2 GERD Dyslipidemia Hypertension Obstructive sleep apnea Morbid obesity PLAN: -Continue your medical management -At this time patient DOES NOT meet criteria for inpatient psychiatric admission. Patient is not expressing any suicidal or homicidal ideation, intention, and/or plan. She does not present with any imminent risk of harm to self or others. -Would recommend the following medication changes/additions: No medication recommendations will be made at this time. -Psychiatry will sign off at this point, please contact with any questions. 08/10/21 13:29
[2021-08-10 16:27] LABS: C Reactive Protein 3.6 mg/dL (0.00-0.80)
[2021-08-10 16:37] LABS: Glucose,Whole Blood 203 mg/dL (75-99)
[2021-08-10 19:51] LABS: Glucose,Whole Blood 184 mg/dL (75-99)
[2021-08-10] MEDS: SENNOSIDES 8.6 MG TAB PO SCH (20:37)
[2021-08-10] MEDS: INSULIN DETEMIR (LEVEMIR) 100 UNIT/ML SYR SQ SCH (20:38)
[2021-08-10] MEDS: SODIUM CHLORIDE 0.9% 1,000 ML IV SCH (20:39)
--- NOTE | 2021-08-10 21:09 | P.PN ---
Subjective Progress Note Date: 08/10/21 Principal diagnosis: Acute hypoxic respiratory failure secondary to COVID-19 pneumonia Possible upper GI bleed. Acute kidney injury 65-year-old male with a known history of hypertension, hyperlipidemia, diabetes type 2 ree-xruutpj-xyvlqditc, osteoarthritis, obstructive sleep apnea, migraine headaches and no prior history of smoking presents to ER with complaints of fever, cough and shortness of breath along with diarrhea. Patient states that she has been sick for the past 2 weeks with cough congestion body aches and is also having diarrhea for the past 1 week. She came to the ER due to complaints of dark-colored stools. Patient states this is not any blood thinners. No prior history of peptic ulcer disease. Patient does take naproxen for arthritic pain. No complaints of chest pain. On admission T-max was 101.4, pulse 102, pulse ox 83% on room air. Denies any complaints of chest pain. No abdominal pain. No dysuria or hematuria. No headache or dizziness or lightheadedness. Chest x-ray showed there is new patchy pulmonary edema compared to oral exam that could be acute pneumonia. Laboratory showed WBC 4.5 hemoglobin 15.7 and platelets 173 and lymphocytes 0.8 Sodium 138 potassium 4.6 chloride 102 BUN 61 creatinine 2.12 Blood sugar 139 AST 97 ALT 60 alk phos 63 and lipase level 651 Stool occult blood positive and Coronavirus PCR detected. 07/24/2021 Patient is seen and evaluated and discussed with nursing staff; continues to complain of shortness of breath with minimal activity; patient has been brian gnosed with COVID-19 pneumonia; patient does report vaccination against coronavirus Vital signs are reviewed with temperature of 99.2, pulse 80, respiration 18 and blood pressure 143/73 and O2 saturation 91% Patient remains on treatment with Decadron, Lovenox and COVID-19 vitamin cocktail; patient is deemed not a candidate for REM due to onset of symptoms a few weeks prior to presenting to the hospital and patient has been fully vaccinated Laboratory review shows WBC of 4.2 and hemoglobin consistently stable at 14.8 with platelet count of 158; sodium 139, potassium 5.0 which is down from 6.1 y esterday, BUN/creatinine of 28/0.77 down from 44/1.19 yesterday 07/25/2021 Patient discussed with nursing staff no specific concerns identified; continues to report shortness of breath; self proning encourage Vital signs are reviewed temperature 99.3, pulse 79, respirations 17 and blood pressure 102/67 Lab review shows WBC 4.7, hemoglobin 14 and platelet count of 172, d-dimer at 0.96, BUN/creatinine down to 25/1.0; repeat chest x-ray shows improvement Pulmonary on board and recommending to continue with current treatment with Decadron, Lovenox and vitamins 07/26/2021 Patient is seen and evaluated in room at bedside; oxygen saturation has declined and patient is currently on 15 L of O2. patient is being transferred to ICU as an overflow She remains on Decadron. She was also on Lasix at a dose of 20 mg IV daily. She was having adequate urine output. Her IV fluids are running at 75 mL an hour normal saline. The patient has no chest pain. She is exhausted. Whenever she moves around she gets quite short of breath. No significant cough or sputum production. No chest tightness. No wheezing. She is on a combination of vitamin C, vitamin D, zinc and and she is also on Lovenox for DVT prophylaxis. The most recent d-dimer is at 1.79. The most recent LDH level is 1000 with a CRP of 1.2. Pulmonary service recommending to continue the Decadron and the Lovenox and add Baricitinib per protocol. 07/27/2021 Patient is seen and evaluated and discussed with nursing staff; patient was transferred to the ICU yesterday due to her borderline respiratory status as the patient was placed on 15 L of oxygen by nasal cannula in addition to 100% nonrebreather facemask to improve her oxygenation. Patient is sitting up on a chair. She is a bit lethargic but easily arousable; . Her breathing is nonlabored. Vital signs are reviewed temperature 98.7, pulse 79, respiration 24, and blood pressure 101/77; pulse ox is around 97-98%. She remains on Decadron; Lovenox 40 mg subcu along with COVID-19 vitamin radha ktail Laboratory review reveals d-dimer is at 1.59, and LDH level is 1445, her CRP level is at 3.5 and her procal is low at 0.07. Pulmonary on board and recommending to continue patient on 100% nonrebreather face Lasix in addition to nasal cannula at 15 L; continue the Decadron and the Lovenox and add Baricitinib per protocol Continue to follow inflammatory markers periodically including LDH, CRP, ferritin and d-dimer 07/28/2021 Patient is seen and evaluated at beside and discussed with nursing staff. Patient is currently on high flow oxygen with a pulse ox around 92%. Patient was recently transferred out of ICU and is able to sit upright on her bed. Patient also has a 100% nonrebreather facemask at her bedside in order to supplement oxygen when she gets short of breath. Patient's CRP level is 2.4, her d-dimer is 5.5, her LDH level from yesterday was 1445. Patient's chest x ray is not showing any changes but there is some infiltration seen at the lung bases which remains consistent with COVID19 pneumonia, current x ray remains stable compared to her earlier chest x ray. Patient is afebrile with no chills. Patient is on anticoagulant therapy with Lovenox, remains on Decadron, and is also complicitng a curse of Baricitinib along with Lasix by mouth daily. There are no major changes or events from yesterday. 07/29/2021 Patient is seen and evaluated at bedside and discussed with nursing staff. Patient's condition is same with no major or significant changes from yesterday. Patient remains on nasal cannula and nonrebreather facemask. Patient still gets short of breath with mild exertion. Repeat chest x-ray was conducted today with evidence of bilateral pulmonary infiltrates along with smaller lung volumes. Patient also suffers from mild cardiomegaly indicated on imaging. On examination, it is noted that patient has lower extremity edema bilaterally. Patient's LDH and CRP levels have improved, however D-dimer has elevated to 9.9. Patient is currently on Decadron, Baricitinib, Lasix, Lovenox, Levemir insulin. P, as per protocol. Patient is using incentive spirometer. 07/30/2021 Patient is seen and evaluated at bedside and discussed with nursing staff. Patient's condition is slightly worse compared to yesterday. Patient continues to be on nasal cannula and nonrebreather facemask with a pulse ox in the low 80s. Patient was then placed on Airvo. D dimer levels have trended upwards to 16.1. Patient did not have any swelling in her lower ext. Patient is on Lovenox for DVT prophylaxis. Doppler of the lower extremity was done which showed no evidence of any DVT. Patient's chest x ray shows diffuse bilateral pulmonary infiltrates perihilar and also the lower lobes bilaterally. Patient is currently afebrile. Patient's breathing is lightly labored compared to yesterday. Patient continues to be on Decadron whereas rest of medications are unchanged. Patient is no longer using incetive spirometer. 07/31/2021 Patient is being seen today and evaluated while being discussed with the nursing staff. Patient's breathing is still labored and she continues to be on Airvo along with a beta facemask. Patient had an episode of epistaxis for which she expresses concern. Patient decompensated with a pulse ox that dropped to the mid 80s. Patient is no longer currently bleeding but remains on Lovenox for DVT prophylaxis. A repeat Doppler was donea gain to ensure that patient did not have any evidence of DVT considering her d-dimer was trending upward. Chest X ray shows diffuse pulmonary infiltrates which are consistent with COVID 19 pneumonia. Patient remains on Decadron and also Baricitinib. Patient is also on Levemir insulin to control her sugar levels. However, the patient is not able to do her incentive spirometer. Patient is drinking sufficiently but is not eating sufficiently. Patient is awake and response. Patient's LDH is treading upward with her D-dimer still eletated at 17.9 No other significant events or major changes from yesterday; continue supportive care. 08/01/2021 Patient is seen and evaluated while being discussed with the nursing staff. Patient remains on high flow oxygen Airvo along with the nonrebreather facemask. Patient remains on Decadron and Baricitinib. Patient complained of right nostril epistaxis for which she expressed anxiety and concern. Due to this, patient was taken off the Airvo but began to desaturate down to 76^. Due to this patient had to be placed back on Airvo, with no complaints of any significant bleeding. Patient does not have any issues or complaints. She also denies having shortness of breath. A repeat chest x ray was done and there seems to be improvement in aeration of the left lung base and the left hemidiaphgragm is also visualized more clearly compared to previous chest x rays, however there is still diffuse bilateral pulmonary infiltrates that are consistent with COVID 19 pneumonia/ARDS. Patient has a good appetite and is eating better. Patient is als o on Levemir to control her sugar levels. Inflammatory markers need to be reapeted. D dimer is still elevated that is why a repeat Doppler was done but the Doppler of the lower extremity came back negative. LDH and CRP are currently pending with her WBC count has trended downward to 12.6 08/02/2021 Patient is currently in MICU. Requiring BiPAP at 80% FiO2. Patient has been afebrile. Patient is otherwise anxious and desaturating when airvo is taken off. No nausea or vomiting. Patient is able to tolerate oral diet. Patient has been continued baricitinib, dexamethasone 6 mg IV twice daily and multivitamins and anticoagulation. Chest x-ray showed persistent interstitial bibasilar infiltrates with slight interval improvement suggested. Laboratory data showed WBC 14.1 hemoglobin 13.1 platelets 234 and neutrophils 0.5 Sodium 140 potassium 4.1 chloride 97 bicarb is 36 BUN 42 and creatinine 0.94 08/03/2021 Patient is currently in the MICU. Remains on BiPAP with 80% FiO2 and oxygen saturations around 90%. Patient continues to have elevated D-dimer level. CT angiogram chest was ordered to rule out any pulmonary embolism which showed right middle lobe and right lower lobe pulmonary emboli without CT evidence of RV strain. Patient was transitioned to heparin drip from Lovenox 40 mg twice daily. Patient has been afebrile. No complaints of chest pain. Laboratory showed WBC 12.5 hemoglobin 13.6, platelets 261 and lymphocytes 0.5 D-dimer level is 19.87, chloride 96 bicarb is 34 BUN 45 and creatinine 0.86 and LDH level is 1395 and CRP 0.9. Pulmonary is on board. Chest x-ray showed worsening left greater than right bilateral lower lobe opacities consistent with COVID-19 infection progression. Patient remains on dexamethasone, multivitamins vitamin D3 and baricitinib. 08/04/2021 Patient remains in the MICU. Requiring BiPAP and also using nonrebreather andAirvo intermittently. On 50 L with 90% FiO2. Patient is otherwise awake alert and sitting in the chair. Chest x-ray showed persistent perihilar and basilar infiltrates. Left-sided PICC line with its distal tip overlying the SVC. No evidence of pneumothorax. Patient is being continued dexamethasone, Baricitinib, zinc sulfate, ascorbic acid. Patient is being continued on heparin drip changed to Eliquis 10 mg twice daily for newly diagnosed pulmonary embolism. Discussed with her via telephone and updated her of medical condition. 08/05/2021 Patient is currently in the MICU. Requiring BiPAP and Airvo with Ventimask intermittently. Patient was confused in the morning today and would want to go to hospice care. Currently patient is more awake and oriented and would like to continue current treatment. Patient's is at bedside. Chest x-ray showed reticulonodular infiltrates persist although may have improved slightly in the interval. Patient is being continued on dexamethasone, Eliquis for pulmonary embolism and multivitamins and also baricitinib. Laboratory data showed WBC 14.7 hemoglobin 13.6 and platelets 239 lymphocytes 0.3 and D-dimer level is 13.45, trending down from 19.87 Sodium 136 potassium 4.7 chloride 98 bicarb 34 BUN 45 creatinine 0.83 and blood sugar is 241 and LDH level is 1383 CRP less than 0.5 08/06/2021 Patient is currently in the MICU. Currently requiring BiPAP but breathing status is better today. FiO2 is down to 60% and saturating at 93%. Patient is also on Airvo at 86 L. Blood pressure is stable. Patient seems to be more awake and oriented. Chest x-ray showed mild increase in left lower lobe infiltrate. Diffuse infiltrate is present. Findings could be compatible with atypical pneumonia in the proper clinical setting. Laboratory test showed WBC 15.7 hemoglobin 13.7 and platelets 209 and neutrophils 14.7 lymphocytes 0.5 Sodium 136 potassium 4.5 chloride 97 BUN 49 and creatinine 0.85 and blood sugar is 179 LDH 1343 and CRP less than 0.5 Patient is being continued baricitinib, Eliquis 5 mg twice daily and dexamethasone 6 mg IV twice daily along with multivitamins and supportive care. Pulmonary is on board. 08/09/2021 Patient is being transferred out of ICU. Currently on BiPAP 12 x 5 with FiO2 80%. Patient is awake alert and seems to be lethargic. Chest x-ray showed findings correlate for pneumonia. Patient has been afebrile. Completed course of baricitinib. Continued on dexamethasone IV 6 mg twice daily and also on anticoagulation with Eliquis which due to pulmonary embolism. Laboratory data showed WBC 18.0 hemoglobin 13.3 and platelets 182 lymphocytes 0.4 D-dimer 12.39 BUN 48 and creatinine 0.81 and blood sugar is 169 CRP 1.5 and LDH 1297 08-10 Patient is only surgical unit currently. Requiring BiPAP 12 x 5 with FiO2 80% and saturating at 93 to 96%. Patient is afebrile. Blood pressure is 111/78 Chest x-ray showed stable bibasilar infiltrates. Laboratory data showed WBC trending down to 15.96, hemoglobin 13.1 and platelets 200 D-dimer is 3.52 Sodium 138 potassium 3.8 chloride 96 BUN 43.4 and creatinine 0.8 LDH 476 CRP 3.6 and albumin 3.4. Patient is being continued on IV dexamethasone, oral Lasix, apixaban multivitamins. Current medications reviewed. Objective - Vital Signs Vital signs: Vital Signs Temp 96.8 F L 08/10/21 09:24 Pulse 88 08/10/21 09:24 Resp 31 H 08/10/21 09:24 BP 122/90 08/10/21 09:24 Pulse Ox 96 08/10/21 09:24 Intake & Output 08/09/21 08/10/21 08/10/21 18:59 06:59 18:59 Intake Total 120 Output Total 700 400 Balance -580 -400 Weight 110.903 kg Intake: IV 120 Sodium Chloride 0.9% 1, 120 000 ml @ 20 mls/hr IV . Q24H [facility] Rx#:[id number] Output: Urine 700 400 Other: Voiding Method Indwelling Catheter External Catheter External Catheter # Voids 3 # Bowel Movements 0 - Exam PHYSICAL EXAMINATION: GENERAL: The patient is alert and oriented x3, not in any acute distress. Well developed, well nourished. HEENT: Pupils are round and equally reacting to light. EOMI. No scleral icterus. No conjunctival pallor. Normocephalic, atraumatic. No pharyngeal erythema. No thyromegaly. CARDIOVASCULAR: S1 and S2 present. No murmurs, rubs, or gallops. PULMONARY: Chest is clear to auscultation, no wheezing or crackles. ABDOMEN: Soft, nontender, nondistended, normoactive bowel sounds. No palpable organomegaly. MUSCULOSKELETAL: No joint swelling or deformity. EXTREMITIES: No cyanosis, clubbing, or pedal edema. NEUROLOGICAL: Gross neurological examination did not reveal any focal deficits. SKIN: No rashes. - Labs CBC & Chem 7: 08/10/21 07:20 08/10/21 07:20 Labs: Abnormal Lab Results - Last 24 Hours (Table) 08/09/21 08/09/21 08/10/21 Range/Units 17:29 20:19 07:15 WBC (4.50-10.00) X 10*3/uL MCHC (32.0-37.0) g/dL Immature Gran # (0.00-0.04) X 10*3/uL Neutrophils # (1.80-7.70) X 10*3/uL Lymphocytes # (0.90-5.00) X 10*3/uL Eosinophils # (0.04-0.35) X 10*3/uL D-Dimer (<0.60) mg/L FEU BUN (9.0-27.0) mg/dL BUN/Creatinine Ratio (12.00-20.00) Ratio Glucose (70-110) mg/dL POC Glucose (mg/dL) 179 H 172 H 175 H (75-99) mg/dL ALT (8-44) U/L Lactate Dehydrogenase (120-246) U/L Total Protein (6.2-8.2) g/dL Albumin (3.8-4.9) g/dL Albumin/Globulin Ratio (1.60-3.17) g/dL 08/10/21 08/10/21 08/10/21 Range/Units 07:20 07:20 07:20 WBC 15.96 H (4.50-10.00) X 10*3/uL MCHC 31.7 L (32.0-37.0) g/dL Immature Gran # 0.15 H (0.00-0.04) X 10*3/uL Neutrophils # 14.69 H (1.80-7.70) X 10*3/uL Lymphocytes # 0.45 L (0.90-5.00) X 10*3/uL Eosinophils # 0.01 L (0.04-0.35) X 10*3/uL D-Dimer 3.52 H (<0.60) mg/L FEU BUN 43.4 H (9.0-27.0) mg/dL BUN/Creatinine Ratio 54.25 H (12.00-20.00) Ratio Glucose 166 H (70-110) mg/dL POC Glucose (mg/dL) (75-99) mg/dL ALT 52 H (8-44) U/L Lactate Dehydrogenase 476 H (120-246) U/L Total Protein 6.0 L (6.2-8.2) g/dL Albumin 3.4 L (3.8-4.9) g/dL Albumin/Globulin Ratio 1.31 L (1.60-3.17) g/dL 08/10/21 Range/Units 11:32 WBC (4.50-10.00) X 10*3/uL MCHC (32.0-37.0) g/dL Immature Gran # (0.00-0.04) X 10*3/uL Neutrophils # (1.80-7.70) X 10*3/uL Lymphocytes # (0.90-5.00) X 10*3/uL Eosinophils # (0.04-0.35) X 10*3/uL D-Dimer (<0.60) mg/L FEU BUN (9.0-27.0) mg/dL BUN/Creatinine Ratio (12.00-20.00) Ratio Glucose (70-110) mg/dL POC Glucose (mg/dL) 202 H (75-99) mg/dL ALT (8-44) U/L Lactate Dehydrogenase (120-246) U/L Total Protein (6.2-8.2) g/dL Albumin (3.8-4.9) g/dL Albumin/Globulin Ratio (1.60-3.17) g/dL Assessment and Plan Assessment: Acute hypoxemic respiratory failure secondary to coronavirus associated pneumonia. Elevated inflammatory markers. Right lower lobe and middle lobe pulmonary embolism without CT evidence of RV strain. Diagnosed 08/03/2021 Dark-colored stools with occult blood positive on admission. Possible upper GI bleed. hb is stable. no further episodes. Acute kidney injury likely prerenal with creatinine level 2.14 on admission. Baseline creatinine not known, cr improved. Diabetes type 2 [id number] Mild acute pancreatitis with lipase level 651 Hyperlipidemia Hypertension Morbid obesity BMI 43.4 DVT prophylaxis Plan: Patient will be continued on BiPAP and Intermittently Airvo. Patient was transferred out of ICU on 08/09/2021. Patient was on heparin drip due to new diagnosis of pulmonary embolism, chnaged to [facility]. Patient is on dexamethasone, and multivitamins.Completed course of baricitinib. Continue with the dexamethasone IV, zinc sulfate, ascorbic acid and vitamin D3. Pulmonary is on board. Continue with home medications.Hemoglobin is stable. Renal function improved. Patient still having elevated inflammatory markers. Lasix was started at 20 mg daily with improvement in kidney function.. Patient is also on verapamil at home. Continue Levemir 15 U, with insulin sliding scale and levimir.Titrate dose as needed. Continue to monitor closely and prognosis guarded at this time..
[2021-08-11 07:06] LABS: Glucose,Whole Blood 184 mg/dL (75-99)
[2021-08-11] MEDS: ALBUTEROL HFA INHALER INHALATION SCH ×4 (07:43→20:55)
[2021-08-11] MEDS: SYMBICORT 160-4.5 MCG INHALER INHALATION SCH ×2 (07:43→20:55)
[2021-08-11] MEDS: APIXABAN 5 MG TAB PO SCH ×3 (08:09→21:12)
[2021-08-11] MEDS: DEXAMETHASONE SOD PHOSPHATE 10 MG/ML 1 ML VIAL IV SCH ×2 (08:33→21:12)
[2021-08-11] MEDS: ASCORBIC ACID 500 MG TAB PO SCH (08:33)
[2021-08-11] MEDS: FUROSEMIDE 20 MG TAB PO SCH (08:33)
[2021-08-11] MEDS: INSULIN ASPART (NovoLOG) 100 UNIT/ML VIAL SQ SCH ×3 (08:33→17:29)
[2021-08-11] MEDS: ZINC SULFATE 220 MG CAP PO SCH (08:34)
[2021-08-11] MEDS: PANTOPRAZOLE 40 MG TABLET PO SCH (08:34)
[2021-08-11] MEDS: CHOLECALCIFEROL 25 MCG (1000 IU) TABLET PO SCH (08:34)
[2021-08-11] MEDS: OXYBUTYNIN 15 MG TAB.ER.24 PO SCH (08:34)
[2021-08-11 09:04] LABS: Glucose,Whole Blood 182 mg/dL (75-99)
[2021-08-11 09:59] LABS: Glucose,Whole Blood 250 mg/dL (75-99)
[2021-08-11] MEDS ORDERED: LORazepam 2 MG/ML INJ ONE (10:00)
[2021-08-11 10:03] LABS: ABG Base Excess 11.3 mmol/L; ABG HCO3 36 mmol/L (21-25); ABG Oxygen Saturation 84.5 % (94-97); ABG PCO2 52 mmHg (35-45); ABG PH 7.44 (7.35-7.45); ABG TCO2 37 mmol/L (19-24); Allen Test Performed? Yes
[2021-08-11 10:04] LABS: ABG PO2 51 mmHg (83-108)
--- NOTE | 2021-08-11 10:09 | P.PN ---
Subjective Progress Note Date: 08/11/21 Principal diagnosis: COVID-19 pneumonia On 08/09/2021 patient seen in follow-up in intensive care unit, she is currently on BiPAP support with pressures of 12 and 5 and FiO2 of 80%. Her pulse ox is 92-93%, she is afebrile, hemodynamically stable, she is on 0.9 normal saline at a rate of 20 ML per hour, she appears fatigued, lethargic, but arousable, does not appear to be in any distress. Today's chest x-ray shows bilateral airspace disease. Patient is completing her course of Baricitinib. Patient also continues on Decadron 6 mg twice daily, she is on Eliquis for pulmo nary embolism. Today's labs are still pending, yesterday's labs showed a white blood cell count of 18, hemoglobin of 13.3, d-dimer was still elevated at 12.39, sodium was 136, potassium is 4.4, chloride is 94, CO2 is 36, B1 is 48, creatinine 0.81, LDH is improving and is down to 1297, and CRP is 1.5. Patient has been awaiting a bed on the medical surgical floor since 08/06/2021. She is in sinus mechanism on a monitor, the rate is controlled. No acute events overnight. She has been switching to Airvo for mealtimes, however her oral intake has been poor. On today's evaluation on 08/11/2021 patient seen in follow-up in the intensive care unit, this morning rapid response team was called to the bedside for a concern of worsening hypoxic respiratory failure, tachypnea, patient's respirat ory rate was in the 50s, she was desaturating to low 80s and this was on BiPAP support with pressures of 12 and 5 and FiO2 of 100%. She is lethargic, she appears very fatigued, she is using accessory muscles of breathing, stat chest x-ray is pending, the blood gases pending, patient was urgently transferred to the intensive care unit for further treatment. Patient is currently on Decadron 6 more gram twice daily, she has completed her Baricitinib on 08/09/2021, she is on Eliquis 5 mg twice daily for diagnoses of acute pulmonary emboli during this admission. She is in sinus mechanism, tachycardic with a rate of 107, with frequent PVCs, current blood pressure is 171/110, she is afebrile. Today's blood work is still pending, and yesterday's blood work has been reviewed, one blood cell count was 15.9, improved from previous lab draw, hemoglobin is 13.1, platelet count was 200, neutrophil count was 14.69, elevated but improved from a previous value, today's d-dimer is 2.19, improved, electrolytes were unremarkable on yesterday's labs, B1 is 43, and creatinine 0.8, LDH was significantly improved since this admission, and was down to 476 on yesterday's labs, and CRP was actually increased to 3.6. She remains a full code at this point, he has made statements about wanting to , however she had also made statements about wanting to go on a ventilator if need be. She was evaluated by psychiatric services and was diagnosed with adjustment disorder, no recommendations were made in regards to medications. She is anxious, she will be given 1 mg of Ativan. AWaiting blood gases and chest x-ray Objective - Vital Signs Vital signs: Vital Signs Temp 98.1 F 08/11/21 09:29 Pulse 92 08/11/21 09:29 Resp 70 H 08/11/21 09:29 BP 171/110 08/11/21 09:29 Pulse Ox 78 L 08/11/21 09:29 Intake & Output 08/10/21 08/11/21 08/11/21 18:59 06:59 18:59 Intake Total 640 Output Total 800 Balance 640 -800 Intake: Intake, IV Titration 160 Amount Sodium Chloride 0.9% 1, 160 000 ml @ 20 mls/hr IV . Q24H [facility] Rx#:[id number] Oral 480 Output: Urine 800 Other: Voiding Method External Catheter External Catheter - Exam GENERAL EXAM: Lethargic, neck, but arousable, 65-year-old morbidly obese fe male, on the BiPAP support with pressures of 16 and 5 and FiO2 of 100% satting 93% comfortable in no apparent distress. HEAD: Normocephalic/atraumatic. EYES: Normal reaction of pupils, equal size. Conjunctiva pink, sclera white. NOSE: Clear with pink turbinates. THROAT: No erythema or exudates. NECK: No masses, no JVD, no thyroid enlargement, no adenopathy. CHEST: No chest wall deformity. Symmetrical expansion. LUNGS: Equal air entry with bibasilar crackles CVS: Regular rate and rhythm, normal S1 and S2, no gallops, no murmurs, no rubs ABDOMEN: Soft, nontender. No hepatosplenomegaly, normal bowel sounds, no guarding or rigidity. EXTREMITIES: No clubbing, no edema, no cyanosis, 2+ pulses and upper and lower extremities. MUSCULOSKELETAL: Muscle strength and tone normal. SPINE: No scoliosis or deformity SKIN: No rashes CENTRAL NERVOUS SYSTEM: Lethargic and oriented -3. No focal deficits, tone is normal in all 4 extremities. - Labs CBC & Chem 7: 08/10/21 07:20 08/10/21 07:20 Labs: Abnormal Lab Results - Last 24 Hours (Table) 08/10/21 08/10/21 08/10/21 Range/Units 07:20 07:20 11:32 WBC 15.96 H (4.50-10.00) X 10*3/uL MCHC 31.7 L (32.0-37.0) g/dL Immature Gran # 0.15 H (0.00-0.04) X 10*3/uL Neutrophils # 14.69 H (1.80-7.70) X 10*3/uL Lymphocytes # 0.45 L (0.90-5.00) X 10*3/uL Eosinophils # 0.01 L (0.04-0.35) X 10*3/uL D-Dimer (<0.60) mg/L FEU BUN 43.4 H (9.0-27.0) mg/dL BUN/Creatinine Ratio 54.25 H (12.00-20.00) Ratio Glucose 166 H (70-110) mg/dL POC Glucose (mg/dL) 202 H (75-99) mg/dL ALT 52 H (8-44) U/L Lactate Dehydrogenase 476 H (120-246) U/L C-Reactive Protein 3.60 H (0.00-0.80) mg/dL Total Protein 6.0 L (6.2-8.2) g/dL Albumin 3.4 L (3.8-4.9) g/dL Albumin/Globulin Ratio 1.31 L (1.60-3.17) g/dL 08/10/21 08/10/21 08/11/21 Range/Units 16:34 19:48 07:03 WBC (4.50-10.00) X 10*3/uL MCHC (32.0-37.0) g/dL Immature Gran # (0.00-0.04) X 10*3/uL Neutrophils # (1.80-7.70) X 10*3/uL Lymphocytes # (0.90-5.00) X 10*3/uL Eosinophils # (0.04-0.35) X 10*3/uL D-Dimer 2.19 H (<0.60) mg/L FEU BUN (9.0-27.0) mg/dL BUN/Creatinine Ratio (12.00-20.00) Ratio Glucose (70-110) mg/dL POC Glucose (mg/dL) 203 H 184 H (75-99) mg/dL ALT (8-44) U/L Lactate Dehydrogenase (120-246) U/L C-Reactive Protein (0.00-0.80) mg/dL Total Protein (6.2-8.2) g/dL Albumin (3.8-4.9) g/dL Albumin/Globulin Ratio (1.60-3.17) g/dL 08/11/21 08/11/21 08/11/21 Range/Units 07:04 09:02 09:57 WBC (4.50-10.00) X 10*3/uL MCHC (32.0-37.0) g/dL Immature Gran # (0.00-0.04) X 10*3/uL Neutrophils # (1.80-7.70) X 10*3/uL Lymphocytes # (0.90-5.00) X 10*3/uL Eosinophils # (0.04-0.35) X 10*3/uL D-Dimer (<0.60) mg/L FEU BUN (9.0-27.0) mg/dL BUN/Creatinine Ratio (12.00-20.00) Ratio Glucose (70-110) mg/dL POC Glucose (mg/dL) 184 H 182 H 250 H (75-99) mg/dL ALT (8-44) U/L Lactate Dehydrogenase (120-246) U/L C-Reactive Protein (0.00-0.80) mg/dL Total Protein (6.2-8.2) g/dL Albumin (3.8-4.9) g/dL Albumin/Globulin Ratio (1.60-3.17) g/dL Assessment and Plan Plan: Assessment: #1. Acute hypoxic respiratory failure secondary to COVID-19 pneumonia. Patient has required intermittent Airvo, and most recently has been BiPAP dependent with high FiO2, today's BiPAP settings are 16/5 and FiO2 100%. Patient was transfer red back to the intensive care unit on 08/11/2021 for concern of worsening respiratory failure. Patient has completed a course of Baricitinib on 08/09/2021, she currently remains on Decadron 6 mg twice daily, Eliquis for acute pulmonary embolism. Blood gas showed pO2 of 51, pCO2 of 52, and pH of 7 .4, this was done on BiPAP support blood pressures of 16/5 and FiO2 of 100% #2. Acute pulmonary embolism related to the above, patient was started on Eliquis #3. Previous history of GI bleeding #4. Diabetes mellitus type 2 #5. History of GERD #6. Dyslipidemia #7. Benign essential hypertension #8. History of obstructive sleep apnea #9. Morbid obesity with BMI of 45.2 kg/m Plan: Patient has been transferred to the intensive care unit this morning BiPAP settings were changed from 12/5 and 100% to 16/5 in the 100% Blood gas has been reviewed showing severe hypoxic respiratory failure, and compensated respiratory failure, Patient 1 mg of Ativan for anxiety, we may try Precedex if the Ativan does not help No intubation right now, we will try to manage the patient on BiPAP support Continue Decadron Continue Eliquis Continue oral diuretics Chest x-ray and labs are pending Overall prognosis is guarded Continue close monitoring in intensive care unit I performed a history & physical examination of the patient and discussed their management with my nurse practitioner, Elaine Blanchard. I reviewed the nurse practitioner's note and agree with the documented findings and plan of care. Lung sounds are positive for diffuse crackles throughout the lung rosales. The findings and the impression was discussed with the patient. I attest to the documentation by the nurse practitioner. Time with Patient: Greater than 30
--- NOTE | 2021-08-11 10:27 | XR ---
EXAMINATION TYPE: XR chest 1V portable DATE OF EXAM: 08/11/2021 COMPARISON: Chest x-ray 08/10/2021 HISTORY: Covid, shortness of breath TECHNIQUE: Single frontal view of the chest is obtained. FINDINGS: Complete right-sided pneumothorax is present. Bilateral shoulder arthroplasties noted. Lef t-sided PICC line remains in place. Patient is rotated, the spinal curvature, difficult to exclude a component of tension. Cardiac mediastinal silhouette shows a similar appearance accounting for differ ences in technique. Airspace disease suspected within the left lung. IMPRESSION: Pneumothorax as described on the rightElaine informed telephonically at the time of i nterpretation
[2021-08-11] MEDS: DEXMEDETOMIDINE/0.9% NACL(PMX) 400 MCG in EMPTY BAG 1 BAG IV SCH ×2 (10:50→21:21)
[2021-08-11 11:11] LABS: Basophils # (A) 0.03 X 10*3/uL (0.00-0.10); Basophils % (A) 0.2 %; Eosinophils # (A) 0.01 X 10*3/uL (0.04-0.35); Eosinophils % (A) 0.1 %; HCT 41.3 % (37.2-46.3); HGB 13.6 g/dL (12.0-15.0); Lymphocytes # (A) 0.59 X 10*3/uL (0.90-5.00); Lymphocytes % (A) 3.8 %; MCH 30.2 pg (27.0-32.0); MCHC 32.9 g/dL (32.0-37.0); MCV 91.8 fL (80.0-97.0); Mean Platelet Volume 12.3 fL (9.5-12.2); Monocytes # (A) 0.61 X 10*3/uL (0.20-1.00); Monocytes % (A) 3.9 %; Neutrophils # (A) 14.05 X 10*3/uL (1.80-7.70); Neutrophils % (A) 90.8 %; Platelet Count 224 X 10*3/uL (140-440); RDW 13.2 % (11.5-14.5); WBC 15.48 X 10*3/uL (4.50-10.00)
--- NOTE | 2021-08-11 11:14 | XR ---
EXAMINATION TYPE: XR chest 1V portable DATE OF EXAM: 08/11/2021 COMPARISON: Chest x-ray 08/11/2021 and earlier time HISTORY: Chest tube placement TECHNIQUE: Single frontal view of the chest is obtained. FINDINGS: There is been interval placement of a right-sided chest tube. Subcutaneous emphysema is schultz spected along the right lateral chest. Pneumothorax is improved dramatically in the interval, minimal residual pneumothorax is noted. Patchy basilar atelectatic changes are present, lung volumes are low . Patient is again rotated. IMPRESSION: Interval improvement in pneumothorax on the right status post chest tube placement.
[2021-08-11 11:47] LABS: African American GFR (CKD) 78.6 (60.0-200.0); Albumin 3.4 g/dL (3.8-4.9); Albumin/Globulin Ratio 1.32 (1.60-3.17); Anion Gap 13.4 mmol/L (4.00-12.00); BUN/Creat Ratio 50.61 Ratio (12.00-20.00); Blood Urea Nitrogen 45.4 mg/dL (9.0-27.0); C Reactive Protein 5.2 mg/dL (0.00-0.80); Calcium 9.1 mg/dL (8.7-10.3); Carbon Dioxide 31.5 mmol/L (21.6-31.8); Globulin 2.6 g/dL (1.6-3.3); Non-African American GFR(CKD) 67.8 (60.0-200.0); Potassium 4.1 mmol/L (3.5-5.5); Total Bilirubin 0.7 mg/dL (0.30-1.20)
[2021-08-11 12:19] LABS: Glucose,Whole Blood 221 mg/dL (75-99)
[2021-08-11 12:49] LABS: Magnesium 2.2 mg/dL (1.6-2.3); Phosphorus 3.5 mg/dL (2.5-4.5)
--- NOTE | 2021-08-11 12:59 | PCN ---
PROCEDURE NOTE PROCEDURE: Right-sided chest tube placement. PREOPERATIVE DIAGNOSIS: Massive right pneumothorax. POSTOPERATIVE DIAGNOSIS: Massive right pneumothorax. OPERATORS: 1. Dr. Adkins. 2. Dr. Blanchard. PROCEDURE DESCRIPTION: We used a #32-Kenyan chest tube. The patient was placed in the supine position. The area about the right chest laterally was cleansed with Betadine and it was sterilely draped. Next, about an 1-1/2-inch incision was made at the fifth intercostal space between the anterior and mid axillary line. We dissected down to the intercostal area and punctured into the pleural space with curved forceps. A #38-Kenyan tube was placed without difficulty. There was a big whoosh of air. The chest tube was secured and sutured into place. A sterile dressing was applied by the nurse. The chest tube was placed to suction. There was a large leak. The patient tolerated the procedure well. A follow-up x-ray showed near-complete re-expansion of the right lung. There was no immediate complication. We will continue to follow. MMODL / IJN: [id number] /
[2021-08-11] MEDS ORDERED: MVI, ADULT NO.4 WITH VIT K 10 ML, TRACE (CONC-1ML/DOSE) 1 ML in AMINO ACID 5%-D20W+LYTE... IV SCH ×3 (14:00)
[2021-08-11] MEDS: FAT EMULSION 20% 250 ML in EMPTY BAG 1 BAG IV SCH (14:27)
[2021-08-11 17:26] LABS: Glucose,Whole Blood 243 mg/dL (75-99)
[2021-08-11] MEDS: ATORVASTATIN 10 MG TAB PO SCH (21:12)
[2021-08-11] MEDS: INSULIN DETEMIR (LEVEMIR) 100 UNIT/ML SYR SQ SCH (21:12)
[2021-08-11] MEDS: SENNOSIDES 8.6 MG TAB PO SCH (21:12)
[2021-08-11] MEDS: SODIUM CHLORIDE 0.9% 1,000 ML IV SCH (22:15)
[2021-08-11 23:41] LABS: Glucose,Whole Blood 252 mg/dL (75-99)
[2021-08-12] MEDS: INSULIN ASPART (NovoLOG) 100 UNIT/ML VIAL SQ SCH ×7 (00:09→23:37)
[2021-08-12 04:31] LABS: Basophils % (A) 0 %; Eosinophils % (A) 0 %; HCT 37.9 % (34.0-46.0); HGB 12.2 gm/dL (11.4-16.0); Lymphocytes # (A) 0.3 k/uL (1.0-4.8); Lymphocytes % (A) 3 %; MCH 29.5 pg (25.0-35.0); MCHC 32.2 g/dL (31.0-37.0); MCV 91.6 fL (80.0-100.0); Mean Platelet Volume 8.8; Monocytes # (A) 0.3 k/uL (0-1.0); Monocytes % (A) 3 %; Neutrophils # (A) 9.6 k/uL (1.3-7.7); Neutrophils % (A) 94 %; Platelet Count 150 k/uL (150-450); RBC 4.14 m/uL (3.80-5.40); RDW 12.9 % (11.5-15.5); WBC 10.2 k/uL (3.8-10.6)
[2021-08-12 04:43] LABS: Magnesium 2.4 mg/dL (1.6-2.3); Phosphorus 2.7 mg/dL (2.5-4.5)
[2021-08-12 05:10] LABS: ALT 44 U/L (4-34); AST 31 U/L (14-36); African American GFR (CKD) >90 (>60 ml/min/1.73 sqM); Albumin 2.7 g/dL (3.5-5.0); Alkaline Phosphatase 75 U/L (38-126); Anion Gap 5 mmol/L; Blood Urea Nitrogen 42 mg/dL (7-17); Calcium 8.8 mg/dL (8.4-10.2); Carbon Dioxide 34 mmol/L (22-30); Chloride 96 mmol/L (98-107); Glucose 286 mg/dL (74-99); LDH 998 U/L (313-618); Non-African American GFR(CKD) >90 (>60 ml/min/1.73 sqM); Potassium 4.1 mmol/L (3.5-5.1); Sodium 135 mmol/L (137-145); Total Bilirubin 0.5 mg/dL (0.2-1.3); Total Protein 5.5 g/dL (6.3-8.2)
[2021-08-12 05:25] LABS: C Reactive Protein 14.3 mg/dL (<1.0)
[2021-08-12] MEDS: DEXMEDETOMIDINE/0.9% NACL(PMX) 400 MCG in EMPTY BAG 1 BAG IV SCH ×4 (05:32→22:33)
[2021-08-12 06:06] LABS: Glucose,Whole Blood 264 mg/dL (75-99)
[2021-08-12] MEDS: PANTOPRAZOLE 40 MG TABLET PO SCH (06:43)
--- NOTE | 2021-08-12 08:06 | XR ---
EXAMINATION TYPE: XR chest 1V portable DATE OF EXAM: 08/12/2021 Comparison: 08/11/2021 Clinical History: 65-year-old female covid Findings: Right-sided apically directed chest tube is present with trace right-sided pneumothorax measuring 2 m m at the apex and 4 mm laterally. This is not significantly changed compared to yesterday. Partially visualized hardware. Left PICC tip at the lower SVC level. Low lung volumes. Heart is enlarged. Exten sive patchy and confluent mid and lower lung airspace opacities redemonstrated. Partially visualized bilateral total shoulder arthroplasties. Impression: 1. Right-sided chest tube in place. Similar trace right-sided pneumothorax (2 mm at the apex and 4 mm laterally). 2. Low lung volumes with continued prominent mid and lower lung airspace disease.
[2021-08-12 08:27] LABS: Appearance,Urine Cloudy (Clear); Bacteria,Urine Many /hpf; Bilirubin,Urine Negative (Negative); Blood,Urine Large (Negative); Color,Urine Yellow; Glucose,Urine (UA) Negative (Negative); Ketones,Urine Negative (Negative); Leukocyte Esterase,Urine Moderate (Negative); Mucus,Urine Few /hpf; Nitrite,Urine Positive (Negative); Protein,Urine 1+ (Negative); RBC,Urine 113 /hpf (0-5); Squamous Epithelial Cell,Urine <1 /hpf (0-4); Urobilinogen,Urine <2.0 mg/dL (<2.0); WBC,Urine 7 /hpf (0-5)
[2021-08-12] MEDS: ALBUTEROL HFA INHALER INHALATION SCH ×4 (08:58→20:52)
[2021-08-12] MEDS: SYMBICORT 160-4.5 MCG INHALER INHALATION SCH ×2 (08:58→20:52)
[2021-08-12] MEDS: CHOLECALCIFEROL 25 MCG (1000 IU) TABLET PO SCH (09:15)
[2021-08-12] MEDS: APIXABAN 5 MG TAB PO SCH ×2 (09:15→20:42)
[2021-08-12] MEDS: ZINC SULFATE 220 MG CAP PO SCH (09:15)
[2021-08-12] MEDS: FUROSEMIDE 20 MG TAB PO SCH (09:15)
[2021-08-12] MEDS: ASCORBIC ACID 500 MG TAB PO SCH (09:15)
[2021-08-12] MEDS: DEXAMETHASONE SOD PHOSPHATE 10 MG/ML 1 ML VIAL IV SCH ×2 (09:16→20:42)
[2021-08-12] MEDS: OXYBUTYNIN 15 MG TAB.ER.24 PO SCH (09:24)
[2021-08-12 11:11] LABS: Glucose,Whole Blood 231 mg/dL (75-99)
--- NOTE | 2021-08-12 11:22 | P.PN ---
Subjective Progress Note Date: 08/12/21 Principal diagnosis: COVID-19 pneumonia On 08/09/2021 patient seen in follow-up in intensive care unit, she is currently on BiPAP support with pressures of 12 and 5 and FiO2 of 80%. Her pulse ox is 92-93%, she is afebrile, hemodynamically stable, she is on 0.9 normal saline at a rate of 20 ML per hour, she appears fatigued, lethargic, but arousable, does not appear to be in any distress. Today's chest x-ray shows bilateral airspace disease. Patient is completing her course of Baricitinib. Patient also continues on Decadron 6 mg twice daily, she is on Eliquis for pulmo nary embolism. Today's labs are still pending, yesterday's labs showed a white blood cell count of 18, hemoglobin of 13.3, d-dimer was still elevated at 12.39, sodium was 136, potassium is 4.4, chloride is 94, CO2 is 36, B1 is 48, creatinine 0.81, LDH is improving and is down to 1297, and CRP is 1.5. Patient has been awaiting a bed on the medical surgical floor since 08/06/2021. She is in sinus mechanism on a monitor, the rate is controlled. No acute events overnight. She has been switching to Airvo for mealtimes, however her oral intake has been poor. On today's evaluation on 08/11/2021 patient seen in follow-up in the intensive care unit, this morning rapid response team was called to the bedside for a concern of worsening hypoxic respiratory failure, tachypnea, patient's respirat ory rate was in the 50s, she was desaturating to low 80s and this was on BiPAP support with pressures of 12 and 5 and FiO2 of 100%. She is lethargic, she appears very fatigued, she is using accessory muscles of breathing, stat chest x-ray is pending, the blood gases pending, patient was urgently transferred to the intensive care unit for further treatment. Patient is currently on Decadron 6 more gram twice daily, she has completed her Baricitinib on 08/09/2021, she is on Eliquis 5 mg twice daily for diagnoses of acute pulmonary emboli during this admission. She is in sinus mechanism, tachycardic with a rate of 107, with frequent PVCs, current blood pressure is 171/110, she is afebrile. Today's blood work is still pending, and yesterday's blood work has been reviewed, one blood cell count was 15.9, improved from previous lab draw, hemoglobin is 13.1, platelet count was 200, neutrophil count was 14.69, elevated but improved from a previous value, today's d-dimer is 2.19, improved, electrolytes were unremarkable on yesterday's labs, B1 is 43, and creatinine 0.8, LDH was significantly improved since this admission, and was down to 476 on yesterday's labs, and CRP was actually increased to 3.6. She remains a full code at this point, he has made statements about wanting to , however she had also made statements about wanting to go on a ventilator if need be. She was evaluated by psychiatric services and was diagnosed with adjustment disorder, no recommendations were made in regards to medications. She is anxious, she will be given 1 mg of Ativan. AWaiting blood gases and chest x-ray On 08/12/2021 patient seen in follow-up in the intensive care unit, she will her BiPAP support last week, this morning at 5:00 this morning she was switched over to Airvo device currently at 60 L and FiO2 of 90%. Her pulse ox on those settings is 92-98%, hemodynamically she is stable, low-grade fevers overnight. Yesterday patient had large right-sided pneumothorax requiring insertion of right-sided chest tube, this morning's chest x-ray shows right-sided chest tube in place, and a 2 mm trace right-sided pneumothorax at the apex and 4 mm laterally, low lung volumes with continued permanent mid and lower lung airspace disease. Right-sided chest tube has a total of 2 50 mL of thin serosanguineous output since insertion 24 hours ago. There is an air leak present, and the Pl eur-evac is connected to wall suction. Overall patient denies any acute distress, she has however fatigued and frustrated. He is awake and alert, oriented 3, his labs have been reviewed, her white blood cell count is 10.2, hemoglobin is 12.2, d-dimer is improving and is down to 1.61, sodium is 135, potassium is 4.1, Coreg is 96, CO2 is 34, B1 is 42 creatinine 0.71, LDH is up to 998, CRP is 14.3. Urinalysis was sent yesterday showing possibility of underlying urinary tract infection, urine culture will be sent, patient will be started on Rocephin empirically. Patient has completed her Baricitinib on 08/09/2021, she remains on Decadron 6 mg twice daily, she is on oral dose of Lasix, she is on Symbicort and albuterol, and she is on Eliquis for a new diagnosis of pulmonary embolism during this admission. Intake has been poor, dietitian has been consulted, TPN has been started. Patient is also on Precedex at 0.6 mg/kg/h, TPN is at 30 ML per hour, and 0.9 normal saline at a rate of 20 ML per hour. Objective - Vital Signs Vital signs: Vital Signs Temp 99.2 F 08/11/21 20:00 Pulse 62 08/12/21 10:00 Resp 20 08/12/21 10:00 BP 105/82 08/12/21 10:00 Pulse Ox 98 08/12/21 10:00 Intake & Output 08/11/21 08/12/21 08/12/21 18:59 06:59 18:59 Intake Total 83.263 506.518 235.708 Output Total 60 650 Balance 23.263 -143.482 235.708 Weight 110.903 kg 109.9 kg Intake: IV 20 380 80 Sodium Chloride 0.9% 1, 20 380 80 000 ml @ 20 mls/hr IV . Q24H [facility] Rx#:[id number] Intake, IV Titration 63.263 126.518 155.708 Amount Dexmedetomidine/0.9% NaCl 63.263 126.518 65.708 (Pmx) 400 mcg In Empty Bag 1 bag @ 0.2 MCG/KG/HR 5.545 mls/hr IV .Q18H3M [facility] Rx#:[id number] Mvi, Adult No.4 with Vit 90 K 10 ml Trace (Conc-1Ml/ Dose) 1 ml In Amino Acid 5%-D20w+Lytes*E* 1,000 ml @ 30 mls/hr IV .Q24H [facility] Rx#:[id number] Output: Chest Tube Drainage 60 100 Chest Tube Right Anterior 60 100 Chest Urine 0 550 Other: Voiding Method External Catheter External Catheter # Voids 1 1 - Exam GENERAL EXAM: [id number] morbidly obese female, on Airvo currently a 60 L and FiO2 of 90%, satting 93% comfortable in no apparent distress. HEAD: Normocephalic/atraumatic. EYES: Normal reaction of pupils, equal size. Conjunctiva pink, sclera white. NOSE: Clear with pink turbinates. THROAT: No erythema or exudates. NECK: No masses, no JVD, no thyroid enlargement, no adenopathy. CHEST: No chest wall deformity. Symmetrical expansion. LUNGS: Equal air entry with bibasilar crackles CVS: Regular rate and rhythm, normal S1 and S2, no gallops, no murmurs, no rubs ABDOMEN: Soft, nontender. No hepatosplenomegaly, normal bowel sounds, no guarding or rigidity. EXTREMITIES: No clubbing, no edema, no cyanosis, 2+ pulses and upper and lower extremities. MUSCULOSKELETAL: Muscle strength and tone normal. SPINE: No scoliosis or deformity SKIN: No rashes CENTRAL NERVOUS SYSTEM: Lethargic and oriented -3. No focal deficits, tone is normal in all 4 extremities. - Labs CBC & Chem 7: 08/12/21 04:05 08/12/21 04:05 Labs: Abnormal Lab Results - Last 24 Hours (Table) 08/11/21 08/11/21 08/11/21 Range/Units 07:03 07:03 12:17 WBC 15.48 H (4.50-10.00) X 10*3/uL MPV 12.3 H (9.5-12.2) fL Immature Gran # 0.19 H (0.00-0.04) X 10*3/uL Neutrophils # 14.05 H (1.80-7.70) X 10*3/uL Lymphocytes # 0.59 L (0.90-5.00) X 10*3/uL Eosinophils # 0.01 L (0.04-0.35) X 10*3/uL D-Dimer (<0.60) mg/L FEU Sodium (137-145) mmol/L Chloride 95 L (96-109) mmol/L Carbon Dioxide (22-30) mmol/L Anion Gap 13.40 H (4.00-12.00) mmol/L BUN 45.4 H (9.0-27.0) mg/dL BUN/Creatinine Ratio 50.61 H (12.00-20.00) Ratio Glucose 195 H (70-110) mg/dL POC Glucose (mg/dL) 221 H (75-99) mg/dL Magnesium (1.6-2.3) mg/dL ALT 60 H (8-44) U/L Lactate Dehydrogenase 494 H (120-246) U/L C-Reactive Protein 5.20 H (0.00-0.80) mg/dL Total Protein 6.0 L (6.2-8.2) g/dL Albumin 3.4 L (3.8-4.9) g/dL Albumin/Globulin Ratio 1.32 L (1.60-3.17) g/dL Triglycerides (0.00-149.00) mg/dL Urine Appearance (Clear) Urine Protein (Negative) Urine Blood (Negative) Urine Nitrite (Negative) Ur Leukocyte Esterase (Negative) Urine RBC (0-5) /hpf Urine WBC (0-5) /hpf Urine Bacteria (None) /hpf Urine Mucus (None) /hpf 08/11/21 08/11/21 08/11/21 Range/Units 12:25 17:25 23:39 WBC (4.50-10.00) X 10*3/uL MPV (9.5-12.2) fL Immature Gran # (0.00-0.04) X 10*3/uL Neutrophils # (1.80-7.70) X 10*3/uL Lymphocytes # (0.90-5.00) X 10*3/uL Eosinophils # (0.04-0.35) X 10*3/uL D-Dimer (<0.60) mg/L FEU Sodium (137-145) mmol/L Chloride (96-109) mmol/L Carbon Dioxide (22-30) mmol/L Anion Gap (4.00-12.00) mmol/L BUN (9.0-27.0) mg/dL BUN/Creatinine Ratio (12.00-20.00) Ratio Glucose (70-110) mg/dL POC Glucose (mg/dL) 243 H 252 H (75-99) mg/dL Magnesium (1.6-2.3) mg/dL ALT (8-44) U/L Lactate Dehydrogenase (120-246) U/L C-Reactive Protein (0.00-0.80) mg/dL Total Protein (6.2-8.2) g/dL Albumin (3.8-4.9) g/dL Albumin/Globulin Ratio (1.60-3.17) g/dL Triglycerides 165.00 H (0.00-149.00) mg/dL Urine Appearance (Clear) Urine Protein (Negative) Urine Blood (Negative) Urine Nitrite (Negative) Ur Leukocyte Esterase (Negative) Urine RBC (0-5) /hpf Urine WBC (0-5) /hpf Urine Bacteria (None) /hpf Urine Mucus (None) /hpf 08/12/21 08/12/21 08/12/21 Range/Units 04:05 04:05 04:05 WBC (4.50-10.00) X 10*3/uL MPV (9.5-12.2) fL Immature Gran # (0.00-0.04) X 10*3/uL Neutrophils # 9.6 H (1.80-7.70) X 10*3/uL Lymphocytes # 0.3 L (0.90-5.00) X 10*3/uL Eosinophils # (0.04-0.35) X 10*3/uL D-Dimer 1.61 H (<0.60) mg/L FEU Sodium 135 L (137-145) mmol/L Chloride 96 L (96-109) mmol/L Carbon Dioxide 34 H (22-30) mmol/L Anion Gap (4.00-12.00) mmol/L BUN 42 H (9.0-27.0) mg/dL BUN/Creatinine Ratio (12.00-20.00) Ratio Glucose 286 H (70-110) mg/dL POC Glucose (mg/dL) (75-99) mg/dL Magnesium (1.6-2.3) mg/dL ALT 44 H (8-44) U/L Lactate Dehydrogenase 998 H (120-246) U/L C-Reactive Protein 14.3 H (0.00-0.80) mg/dL Total Protein 5.5 L (6.2-8.2) g/dL Albumin 2.7 L (3.8-4.9) g/dL Albumin/Globulin Ratio (1.60-3.17) g/dL Triglycerides (0.00-149.00) mg/dL Urine Appearance (Clear) Urine Protein (Negative) Urine Blood (Negative) Urine Nitrite (Negative) Ur Leukocyte Esterase (Negative) Urine RBC (0-5) /hpf Urine WBC (0-5) /hpf Urine Bacteria (None) /hpf Urine Mucus (None) /hpf 08/12/21 08/12/21 08/12/21 Range/Units 04:05 06:04 07:00 WBC (4.50-10.00) X 10*3/uL MPV (9.5-12.2) fL Immature Gran # (0.00-0.04) X 10*3/uL Neutrophils # (1.80-7.70) X 10*3/uL Lymphocytes # (0.90-5.00) X 10*3/uL Eosinophils # (0.04-0.35) X 10*3/uL D-Dimer (<0.60) mg/L FEU Sodium (137-145) mmol/L Chloride (96-109) mmol/L Carbon Dioxide (22-30) mmol/L Anion Gap (4.00-12.00) mmol/L BUN (9.0-27.0) mg/dL BUN/Creatinine Ratio (12.00-20.00) Ratio Glucose (70-110) mg/dL POC Glucose (mg/dL) 264 H (75-99) mg/dL Magnesium 2.4 H (1.6-2.3) mg/dL ALT (8-44) U/L Lactate Dehydrogenase (120-246) U/L C-Reactive Protein (0.00-0.80) mg/dL Total Protein (6.2-8.2) g/dL Albumin (3.8-4.9) g/dL Albumin/Globulin Ratio (1.60-3.17) g/dL Triglycerides (0.00-149.00) mg/dL Urine Appearance Cloudy H (Clear) Urine Protein 1+ H (Negative) Urine Blood Large H (Negative) Urine Nitrite Positive H (Negative) Ur Leukocyte Esterase Moderate H (Negative) Urine RBC 113 H (0-5) /hpf Urine WBC 7 H (0-5) /hpf Urine Bacteria Many H (None) /hpf Urine Mucus Few H (None) /hpf Assessment and Plan Plan: Assessment: #1. Acute hypoxic respiratory failure secondary to COVID-19 pneumonia, and a large right-sided pneumothorax requiring insertion of a 32-[place] chest tube on 08/11/2021 with subsequent reexpansion of the right lung. Patient has required intermittent Airvo, and most recently has been BiPAP dependent with high FiO2, today's BiPAP settings are 16/5 and FiO2 100%. Patient was transferred back to the intensive care unit on 08/11/2021 for concern of worsening respiratory failure. Patient has completed a course of Baricitinib on 08/09/2021, she currently remains on Decadron 6 mg twice daily, Eliquis for acute pulmonary embolism. Blood gas showed pO2 of 51, pCO2 of 52, and pH of 7.4, this was done on BiPAP support blood pressures of 16/5 and FiO2 of 100% #2. Large right sided pneumothorax with a component of tension, SP right chest tube placement on 08/11/2021 #3. Acute pulmonary embolism related to the above, patient was started on Eliquis #4. Previous history of GI bleeding #5. Diabetes mellitus type 2 #6. History of GERD #7. Dyslipidemia #8. Benign essential hypertension #9. History of obstructive sleep apnea #10. Morbid obesity with BMI of 45.2 kg/m Plan: Continue current medical treatment Today's chest x-ray has been reviewed, showing minimal apical and lateral right- sided pneumothorax Patient has a positive air leak, continue right chest tube to suction Continue on Airvo, BiIPap as needed for respiratory fatigue Completed Mk on 08/09/2021 Continue Decadron Continue Eliquis TPN for nutritional supplements Continue to monitor for worsening dyspnea, hypoxia I performed a history & physical examination of the patient and discussed their management with my nurse practitioner, Elaine Blanchard. I reviewed the nurse practitioner's note and agree with the documented findings and plan of care. Lung sounds are positive for diffuse crackles throughout the lung rosales. The findings and the impression was discussed with the patient. I attest to the documentation by the nurse practitioner. Time with Patient: Greater than 30
[2021-08-12 12:16] LABS: Glucose,Whole Blood 233 mg/dL (75-99)
[2021-08-12] MEDS: HYDROmorphone 1 MG/ML 1 ML SYRINGE IVP PRN ×3 (13:01→21:42)
--- NOTE | 2021-08-12 13:44 | P.PN ---
Progress Note - Text Progress Note Date: 08/12/21 Interval History: Patient was seen in the ICU and was alert and arousable to engage in the psychiatric interview. The psychiatry service was re-consulted to reevaluate the patient as she continued to make statements stating that she just wants to . She has also reported some synagogue preoccupation expressing that she has spoken to God and God wants her to . When evaluated by this physician, the patient does admit that she just wants to . She reports that this is what is necessary for her to be with God. Upon further exploration, the patient vehemently denies any active desire to try and kill herself. She reports no suicidal or homicidal ideation, intention, and/or plan. She expressed suicide is a sin and that she would not engage in the practice; but that she does wish that she was so that she would be over the treatment that she is going thr ough right now. The patient has also displayed a significant decrease in appetite. Mental Status Exam: General Appearance: The patient appears her stated age, is dressed in hospital gown, and appears disheveled. Behavior: Patient is seated upright in bed without any agitated behavior. Speech: Patient's speech is fluent and nonpressured. Short of breath. Mood/Affect: Mood is "not good." Affect is dysphoric. Suicidality/Homicidality: Patient denies having any suicidal or homicidal ideation intent or plan. Perceptions: Patient denies any visual hallucinations and denies any auditory hallucinations Though content/process: There is no evidence of any delusional thought content and thought process is linear and goal-directed. Memory and concentration: AOX3, grossly intact for the purposes of this session Judgment and insight: Fair Assessment Adjustment Disorder Acute hypoxic respiratory failure secondary to COVID-19 pneumonia. Acute pulmonary embolism GI bleed Diabetes mellitus type 2 GERD Dyslipidemia Hypertension Obstructive sleep apnea Morbid obesity Plan: -Continue your medical management -At this time patient DOES NOT meet criteria for inpatient psychiatric admission . Patient is not expressing any suicidal or homicidal ideation, intention, and/or plan. She does not present with any imminent risk of harm to self or others. Culturally, the patient is engaged in prayer with God and due to the severity of her ongoing medical issues, feels like she is at the end of her life. She reports that she is feeling ready to but is not actively going to engage in any suicidal or homicidal behavior. -Would recommend the following medication changes/additions: No medication recommendations will be made at this time. Antidepressants take approximately 4-8 weeks for any kind of efficacy in treatment. The patient may have depressive disorder secondary to her general medical condition but due to many confounding factors (active infection, prolonged hospitalization, steroids, pain medications, etc.) that may contribute to mood lability and depression, the risk for polypharmacy outweighs the benefits that an antidepressant may add. -Supportive psychotherapy was given to the patient for approximately 15 minutes. -Recommend spiritual care consult to see and evaluate the patient and provide more patient centered care in regards to her mood and her view on end-of-life care. Spiritual care consult to also evaluate whether the patient is able to receive last rites by the [facility] if the patient so desires. -Psychiatry will sign off at this time. Thank you for this consult.
[2021-08-12] MEDS ORDERED: 1: AMINO ACID 5%-D20W+LYTES*E* 1,000 ML 2: MVI, ADULT NO.4 WITH VIT K 10 ML, TRACE (CON IV SCH ×3 (14:00)
[2021-08-12 16:58] LABS: Glucose,Whole Blood 246 mg/dL (75-99)
[2021-08-12] MEDS: 1: MVI, ADULT NO.4 WITH VIT K 10 ML, TRACE (CONC-1ML/DOSE) 1 ML, SODIUM CHLORIDE 4MEQ/ML IV SCH ×7 (17:18)
[2021-08-12] MEDS: SENNOSIDES 8.6 MG TAB PO SCH (20:42)
[2021-08-12] MEDS: INSULIN DETEMIR (LEVEMIR) 100 UNIT/ML SYR SQ SCH (20:43)
[2021-08-12] MEDS: SODIUM CHLORIDE 0.9% 1,000 ML IV SCH (22:38)
[2021-08-12 23:36] LABS: Glucose,Whole Blood 352 mg/dL (75-99)
[2021-08-13] MEDS: HYDROmorphone 1 MG/ML 1 ML SYRINGE IVP PRN ×7 (01:13→22:50)
[2021-08-13] MEDS: DEXMEDETOMIDINE/0.9% NACL(PMX) 400 MCG in EMPTY BAG 1 BAG IV SCH ×3 (05:03→17:10)
[2021-08-13 05:09] LABS: Glucose,Whole Blood 301 mg/dL (75-99)
[2021-08-13] MEDS: INSULIN ASPART (NovoLOG) 100 UNIT/ML VIAL SQ SCH ×6 (05:12→20:11)
[2021-08-13 05:30] LABS: Basophils % (A) 0 %; Eosinophils % (A) 0 %; HGB 12.3 gm/dL (11.4-16.0); Lymphocytes # (A) 0.3 k/uL (1.0-4.8); Lymphocytes % (A) 3 %; MCH 30.9 pg (25.0-35.0); MCHC 34.1 g/dL (31.0-37.0); MCV 90.7 fL (80.0-100.0); Mean Platelet Volume 9.1; Monocytes # (A) 0.2 k/uL (0-1.0); Monocytes % (A) 3 %; Neutrophils % (A) 93 %; Platelet Count 143 k/uL (150-450); RBC 3.97 m/uL (3.80-5.40); RDW 13.6 % (11.5-15.5); WBC 7.5 k/uL (3.8-10.6)
[2021-08-13] MEDS: 1: MVI, ADULT NO.4 WITH VIT K 10 ML, TRACE (CONC-1ML/DOSE) 1 ML, SODIUM CHLORIDE 4MEQ/ML IV SCH ×14 (05:39)
[2021-08-13 05:57] LABS: Magnesium 2.1 mg/dL (1.6-2.3); Phosphorus 2.5 mg/dL (2.5-4.5)
[2021-08-13 05:59] LABS: ALT 66 U/L (4-34); AST 51 U/L (14-36); African American GFR (CKD) >90 (>60 ml/min/1.73 sqM); Albumin 2.4 g/dL (3.5-5.0); Alkaline Phosphatase 88 U/L (38-126); Anion Gap 5 mmol/L; Blood Urea Nitrogen 37 mg/dL (7-17); Calcium 8.8 mg/dL (8.4-10.2); Carbon Dioxide 31 mmol/L (22-30); Chloride 98 mmol/L (98-107); Glucose 313 mg/dL (74-99); Non-African American GFR(CKD) >90 (>60 ml/min/1.73 sqM); Potassium 4.1 mmol/L (3.5-5.1); Sodium 134 mmol/L (137-145); Total Bilirubin 0.5 mg/dL (0.2-1.3); Total Protein 5.1 g/dL (6.3-8.2)
[2021-08-13] MEDS: PANTOPRAZOLE 40 MG TABLET PO SCH (06:57)
[2021-08-13] MEDS: SYMBICORT 160-4.5 MCG INHALER INHALATION SCH ×2 (07:30→19:45)
[2021-08-13] MEDS: ALBUTEROL HFA INHALER INHALATION SCH ×4 (07:30→19:45)
--- NOTE | 2021-08-13 07:43 | XR ---
EXAMINATION TYPE: XR chest 1V portable DATE OF EXAM: 08/13/2021 COMPARISON: 08/12/2021 INDICATION: Chest tube management TECHNIQUE: Single frontal view of the chest is obtained. FINDINGS: The heart size is mildly prominent. The pulmonary vasculature is normal. There is a increasing right sided pneumothorax along the upper and lateral aspect as well as a more l oculated portion along the right diaphragm.. Right-sided chest tube appears stable in position. IMPRESSION: 1. Increasing size right pneumothorax. 2. Right lower lobe infiltrate. 3. Cardiomegaly
[2021-08-13] MEDS: DEXAMETHASONE SOD PHOSPHATE 10 MG/ML 1 ML VIAL IV SCH ×2 (09:44→20:46)
--- NOTE | 2021-08-13 09:44 | P.GSCN ---
<Abi Lopez - Last Filed: 08/13/21 09:15> History of Present Illness Consult date: 08/13/21 Reason for Consult: Enlarging right-sided pneumothorax despite chest tube placement Requesting physician: Hammad Adkins History of present illness: This is a 65-year-old debilitated obese female who follows on an outpatient basis with Dr. Da Silva. She has a previous medical history of hypertension, hyperlipidemia, diabetes, obstructive sleep apnea, and migraines. She presented to [facility] emergency room on July 21 with complaints of shortness of breath. She was diagnosed with Covid and has been admitted ever since for treatment. She did complete her course of Baricitinib, remains on dexamethasone and zinc. Remains on high-dose oxygen in the form of air flow with current settings 60 L/m and FiO2 92%. She was also found to have right middle and lower lobe pulmonary embolism on CTA August 03 and she was placed on Eliquis for anticoagulation. On August 19 she developed large right-sided pneumothorax, a chest tube was placed with good lung re-expansion, however this morning's x-ray demonstrates increase in her right pneumothorax. Consultation was placed to cardiothoracic surgery for recommendations and suggestions for treatment for her pneumothorax despite chest tube to continuous wall suction. Review of Systems Review of systems was completed and was negative except as noted - Constitutional Reports fatigue - Cardiovascular Reports dyspnea on exertion, Reports shortness of breath Past Medical History Past Medical History: Diabetes Mellitus, GERD/Reflux, Hyperlipidemia, Hypertension, Osteoarthritis (OA), Sleep Apnea/CPAP/BIPAP Additional Past Medical History / Comment(s): migraines, BLADDER INCONTINENCE History of Any Multi-Drug Resistant Organisms: None Reported Past Surgical History: Back Surgery, Bladder Surgery, Breast Surgery, Cholecystectomy, Hysterectomy, Joint Replacement, Orthopedic Surgery Additional Past Surgical History / Comment(s): RIGHT AND LEFT KNEE REPLACEMENT, RIGHT AND LEFT SHOULDER , CARPAL TUNNEL RELEASE BILATERAL WRIST,SINUS SURGERY,brest biopsy Past Anesthesia/Blood Transfusion Reactions: Motion Sickness, Postoperative Nausea & Vomiting (PONV) Past Psychological History: No Psychological Hx Reported Smoking Status: Never smoker Past Alcohol Use History: None Reported Past Drug Use History: None Reported - Past Family History Mother Family Medical History: No Reported History Father Family Medical History: Deep Vein Thrombosis (DVT) Medications and Allergies Home Medications Medication Instructions Recorded Confirmed Type Aspirin 81 mg PO DAILY 05/28/15 07/21/21 History Ergocalciferol [Vitamin D2 50,000 unit PO Q28D 05/28/15 07/21/21 History (DRISDOL)] Lovastatin [Mevacor] 20 mg PO Q48H 05/28/15 07/21/21 History lisinopriL [Prinivil] 20 mg PO DAILY 05/28/15 07/21/21 History Cyclobenzaprine [Flexeril] 10 mg PO HS 10/16/18 07/21/21 History Naproxen Sodium [Aleve] 440 mg PO DAILY 10/16/18 07/21/21 History Oxybutynin Chloride [Oxybutynin 15 mg PO DAILY 10/16/18 07/21/21 History Chloride ER] metFORMIN HCL [Glucophage] 500 mg PO W/SUPPER 10/16/18 07/21/21 History Furosemide [Lasix] 20 mg PO DAILY 07/21/21 07/21/21 History Furosemide [Lasix] 40 mg PO DAILY 07/21/21 07/21/21 History Verapamil HCl [Verapamil ER] 180 mg PO DAILY 07/21/21 07/21/21 History Allergies Allergy/AdvReac Type Severity Reaction Status Date / Time amoxicillin Allergy Dyspnea, Verified 07/21/21 21:57 hives, shaking Surgical - Exam Vital Signs Temp Pulse Resp BP Pulse Ox 101.4 F H 102 H 20 113/77 93 L 07/21/21 17:44 07/21/21 17:44 07/21/21 17:44 07/21/21 17:44 07/21/21 17:44 CONSTITUTIONAL: Awake and alert, appears short of breath on both Airvo and nonrebreather RESPIRATORY: Lungs sounds coarse and diminished bilaterally. Respirations daja n, slightly labored. Currently on nonrebreather and Airvo set at 60 L/m with 92% FiO2, 88%. CARDIOVASCULAR: S1, S2 present. Regular rate and rhythm, sinus rhythm on telemetry with heart rate in the 70s. Palpable peripheral pulses bilaterally. No edema present. GASTROINTESTINAL: Abdomen soft, nontender, nondistended without masses or organomegaly noted. There is no rebound or guarding present. Active bowel sounds present 4 quadrants. GENITOURINARY: Deferred INTEGUMENTARY: Skin is warm and dry NEUROLOGIC: Cranial nerves II through XII intact, normal coordination, no obvious motor or sensory deficits, speech is normal MUSKULOSKELETAL: Able to move all extremities, strength equal bilaterally, normal posture PSYCHIATRIC: Alert and oriented to person place and time, patient states she is ready to , states she has to " to live", states nothing can be done for her Results - Labs 08/13/21 05:04 08/13/21 05:04 Abnormal Lab Results - Last 24 Hours (Table) 08/12/21 08/12/21 08/12/21 Range/Units 11:10 12:14 16:56 Plt Count (150-450) k/uL Lymphocytes # (1.0-4.8) k/uL Sodium (137-145) mmol/L Carbon Dioxide (22-30) mmol/L BUN (7-17) mg/dL Glucose (74-99) mg/dL POC Glucose (mg/dL) 231 H 233 H 246 H (75-99) mg/dL AST (14-36) U/L ALT (4-34) U/L Total Protein (6.3-8.2) g/dL Albumin (3.5-5.0) g/dL 08/12/21 08/13/21 08/13/21 Range/Units 23:34 05:04 05:04 Plt Count 143 L (150-450) k/uL Lymphocytes # 0.3 L (1.0-4.8) k/uL Sodium 134 L (137-145) mmol/L Carbon Dioxide 31 H (22-30) mmol/L BUN 37 H (7-17) mg/dL Glucose 313 H (74-99) mg/dL POC Glucose (mg/dL) 352 H (75-99) mg/dL AST 51 H (14-36) U/L ALT 66 H (4-34) U/L Total Protein 5.1 L (6.3-8.2) g/dL Albumin 2.4 L (3.5-5.0) g/dL 08/13/21 Range/Units 05:07 Plt Count (150-450) k/uL Lymphocytes # (1.0-4.8) k/uL Sodium (137-145) mmol/L Carbon Dioxide (22-30) mmol/L BUN (7-17) mg/dL Glucose (74-99) mg/dL POC Glucose (mg/dL) 301 H (75-99) mg/dL AST (14-36) U/L ALT (4-34) U/L Total Protein (6.3-8.2) g/dL Albumin (3.5-5.0) g/dL Microbiology - Last 24 Hours (Table) 08/12/21 16:36 Urine Culture - Preliminary Urine,Catheterized Diabetes panel 08/13/21 Range/Units 05:04 Sodium 134 L (137-145) mmol/L Potassium 4.1 (3.5-5.1) mmol/L Chloride 98 (98-107) mmol/L Carbon Dioxide 31 H (22-30) mmol/L BUN 37 H (7-17) mg/dL Creatinine 0.71 (0.52-1.04) mg/dL Glucose 313 H (74-99) mg/dL Calcium 8.8 (8.4-10.2) mg/dL AST 51 H (14-36) U/L ALT 66 H (4-34) U/L Alkaline Phosphatase 88 (38-126) U/L Total Protein 5.1 L (6.3-8.2) g/dL Albumin 2.4 L (3.5-5.0) g/dL Calcium panel 08/13/21 08/13/21 Range/Units 05:04 05:04 Calcium 8.8 (8.4-10.2) mg/dL Phosphorus 2.5 (2.5-4.5) mg/dL Albumin 2.4 L (3.5-5.0) g/dL Pituitary panel 08/13/21 Range/Units 05:04 Sodium 134 L (137-145) mmol/L Potassium 4.1 (3.5-5.1) mmol/L Chloride 98 (98-107) mmol/L Carbon Dioxide 31 H (22-30) mmol/L BUN 37 H (7-17) mg/dL Creatinine 0.71 (0.52-1.04) mg/dL Glucose 313 H (74-99) mg/dL Calcium 8.8 (8.4-10.2) mg/dL Adrenal panel 08/13/21 Range/Units 05:04 Sodium 134 L (137-145) mmol/L Potassium 4.1 (3.5-5.1) mmol/L Chloride 98 (98-107) mmol/L Carbon Dioxide 31 H (22-30) mmol/L BUN 37 H (7-17) mg/dL Creatinine 0.71 (0.52-1.04) mg/dL Glucose 313 H (74-99) mg/dL Calcium 8.8 (8.4-10.2) mg/dL Total Bilirubin 0.5 (0.2-1.3) mg/dL AST 51 H (14-36) U/L ALT 66 H (4-34) U/L Alkaline Phosphatase 88 (38-126) U/L Total Protein 5.1 L (6.3-8.2) g/dL Albumin 2.4 L (3.5-5.0) g/dL - Imaging Chest x-ray: report reviewed, image reviewed CT scan - chest: report reviewed, image reviewed Assessment and Plan Assessment: 1. Right-sided pneumothorax, increased in size despite chest tube placement 2. Positive Covid diagnosis 07/21/2021, completed baricitinub, currently on dexamethasone and zinc 3. Acute hypoxic respiratory failure present on admission secondary to above 4. Acute pulmonary embolism this admission, currently on Eliquis for anticoagulation 5. Possible UTI, culture pending, currently on ceftriaxone 6. History of hypertension 7. History of hyperlipidemia 8. Diabetes mellitus 9. History of obstructive sleep apnea 10. History of migraines Plan: The patient was seen and examined at the bedside. Chart/diagnostics reviewed. The case will be discussed in detail with Dr. Morris. The patient states she is ready to , and that nothing can be done for her. States she would like to be a no code. She has been seen by psychiatry who does confirm that she has no active plans for suicide but is rather just frustrated over her current health status and looks to her anglican for support. Upon further discussion with other healthcare providers it seems the patient goes back and forth about wanting aggressive treatment versus wanting no treatment. At this time we would recommend continuing chest tube to continuous wall suction. Surgical intervention would be extremely high risk due to patient's current respiratory status as well as current Eliquis use. Continue supportive care. More recommendations to follow once discussed with Dr. Morris. Thank you Dr. Adkins for this consult. Time with Patient: Greater than 30 <Nimisha Morris - Last Filed: 08/13/21 12:16> Surgical - Exam Vital Signs Temp Pulse Resp BP Pulse Ox 101.4 F H 102 H 20 113/77 93 L 07/21/21 17:44 07/21/21 17:44 07/21/21 17:44 07/21/21 17:44 07/21/21 17:44 Results - Labs 08/13/21 05:04 08/13/21 05:04 Abnormal Lab Results - Last 24 Hours (Table) 08/12/21 08/12/21 08/12/21 Range/Units 12:14 16:56 23:34 Plt Count (150-450) k/uL Lymphocytes # (1.0-4.8) k/uL Sodium (137-145) mmol/L Carbon Dioxide (22-30) mmol/L BUN (7-17) mg/dL Glucose (74-99) mg/dL POC Glucose (mg/dL) 233 H 246 H 352 H (75-99) mg/dL AST (14-36) U/L ALT (4-34) U/L Total Protein (6.3-8.2) g/dL Albumin (3.5-5.0) g/dL 08/13/21 08/13/21 08/13/21 Range/Units 05:04 05:04 05:07 Plt Count 143 L (150-450) k/uL Lymphocytes # 0.3 L (1.0-4.8) k/uL Sodium 134 L (137-145) mmol/L Carbon Dioxide 31 H (22-30) mmol/L BUN 37 H (7-17) mg/dL Glucose 313 H (74-99) mg/dL POC Glucose (mg/dL) 301 H (75-99) mg/dL AST 51 H (14-36) U/L ALT 66 H (4-34) U/L Total Protein 5.1 L (6.3-8.2) g/dL Albumin 2.4 L (3.5-5.0) g/dL 08/13/21 Range/Units 11:50 Plt Count (150-450) k/uL Lymphocytes # (1.0-4.8) k/uL Sodium (137-145) mmol/L Carbon Dioxide (22-30) mmol/L BUN (7-17) mg/dL Glucose (74-99) mg/dL POC Glucose (mg/dL) 175 H (75-99) mg/dL AST (14-36) U/L ALT (4-34) U/L Total Protein (6.3-8.2) g/dL Albumin (3.5-5.0) g/dL Microbiology - Last 24 Hours (Table) 08/12/21 16:36 Urine Culture - Preliminary Urine,Catheterized Diabetes panel 08/13/21 Range/Units 05:04 Sodium 134 L (137-145) mmol/L Potassium 4.1 (3.5-5.1) mmol/L Chloride 98 (98-107) mmol/L Carbon Dioxide 31 H (22-30) mmol/L BUN 37 H (7-17) mg/dL Creatinine 0.71 (0.52-1.04) mg/dL Glucose 313 H (74-99) mg/dL Calcium 8.8 (8.4-10.2) mg/dL AST 51 H (14-36) U/L ALT 66 H (4-34) U/L Alkaline Phosphatase 88 (38-126) U/L Total Protein 5.1 L (6.3-8.2) g/dL Albumin 2.4 L (3.5-5.0) g/dL Calcium panel 08/13/21 08/13/21 Range/Units 05:04 05:04 Calcium 8.8 (8.4-10.2) mg/dL Phosphorus 2.5 (2.5-4.5) mg/dL Albumin 2.4 L (3.5-5.0) g/dL Pituitary panel 08/13/21 Range/Units 05:04 Sodium 134 L (137-145) mmol/L Potassium 4.1 (3.5-5.1) mmol/L Chloride 98 (98-107) mmol/L Carbon Dioxide 31 H (22-30) mmol/L BUN 37 H (7-17) mg/dL Creatinine 0.71 (0.52-1.04) mg/dL Glucose 313 H (74-99) mg/dL Calcium 8.8 (8.4-10.2) mg/dL Adrenal panel 08/13/21 Range/Units 05:04 Sodium 134 L (137-145) mmol/L Potassium 4.1 (3.5-5.1) mmol/L Chloride 98 (98-107) mmol/L Carbon Dioxide 31 H (22-30) mmol/L BUN 37 H (7-17) mg/dL Creatinine 0.71 (0.52-1.04) mg/dL Glucose 313 H (74-99) mg/dL Calcium 8.8 (8.4-10.2) mg/dL Total Bilirubin 0.5 (0.2-1.3) mg/dL AST 51 H (14-36) U/L ALT 66 H (4-34) U/L Alkaline Phosphatase 88 (38-126) U/L Total Protein 5.1 L (6.3-8.2) g/dL Albumin 2.4 L (3.5-5.0) g/dL Assessment and Plan Plan: At this point we will attempt increasing negative suction on the chest tube and F/U CXR.
[2021-08-13] MEDS: ZINC SULFATE 220 MG CAP PO SCH (09:50)
[2021-08-13] MEDS: ASCORBIC ACID 500 MG TAB PO SCH (09:50)
[2021-08-13] MEDS: CHOLECALCIFEROL 25 MCG (1000 IU) TABLET PO SCH (09:50)
[2021-08-13] MEDS: FUROSEMIDE 20 MG TAB PO SCH (09:50)
[2021-08-13] MEDS: OXYBUTYNIN 15 MG TAB.ER.24 PO SCH (09:51)
--- NOTE | 2021-08-13 11:22 | P.PN ---
Subjective Progress Note Date: 08/13/21 Principal diagnosis: COVID-19 pneumonia On 08/09/2021 patient seen in follow-up in intensive care unit, she is currently on BiPAP support with pressures of 12 and 5 and FiO2 of 80%. Her pulse ox is 92-93%, she is afebrile, hemodynamically stable, she is on 0.9 normal saline at a rate of 20 ML per hour, she appears fatigued, lethargic, but arousable, does not appear to be in any distress. Today's chest x-ray shows bilateral airspace disease. Patient is completing her course of Baricitinib. Patient also continues on Decadron 6 mg twice daily, she is on Eliquis for pulmo nary embolism. Today's labs are still pending, yesterday's labs showed a white blood cell count of 18, hemoglobin of 13.3, d-dimer was still elevated at 12.39, sodium was 136, potassium is 4.4, chloride is 94, CO2 is 36, B1 is 48, creatinine 0.81, LDH is improving and is down to 1297, and CRP is 1.5. Patient has been awaiting a bed on the medical surgical floor since 08/06/2021. She is in sinus mechanism on a monitor, the rate is controlled. No acute events overnight. She has been switching to Airvo for mealtimes, however her oral intake has been poor. On today's evaluation on 08/11/2021 patient seen in follow-up in the intensive care unit, this morning rapid response team was called to the bedside for a concern of worsening hypoxic respiratory failure, tachypnea, patient's respirat ory rate was in the 50s, she was desaturating to low 80s and this was on BiPAP support with pressures of 12 and 5 and FiO2 of 100%. She is lethargic, she appears very fatigued, she is using accessory muscles of breathing, stat chest x-ray is pending, the blood gases pending, patient was urgently transferred to the intensive care unit for further treatment. Patient is currently on Decadron 6 more gram twice daily, she has completed her Baricitinib on 08/09/2021, she is on Eliquis 5 mg twice daily for diagnoses of acute pulmonary emboli during this admission. She is in sinus mechanism, tachycardic with a rate of 107, with frequent PVCs, current blood pressure is 171/110, she is afebrile. Today's blood work is still pending, and yesterday's blood work has been reviewed, one blood cell count was 15.9, improved from previous lab draw, hemoglobin is 13.1, platelet count was 200, neutrophil count was 14.69, elevated but improved from a previous value, today's d-dimer is 2.19, improved, electrolytes were unremarkable on yesterday's labs, B1 is 43, and creatinine 0.8, LDH was significantly improved since this admission, and was down to 476 on yesterday's labs, and CRP was actually increased to 3.6. She remains a full code at this point, he has made statements about wanting to , however she had also made statements about wanting to go on a ventilator if need be. She was evaluated by psychiatric services and was diagnosed with adjustment disorder, no recommendations were made in regards to medications. She is anxious, she will be given 1 mg of Ativan. AWaiting blood gases and chest x-ray On 08/12/2021 patient seen in follow-up in the intensive care unit, she will her BiPAP support last week, this morning at 5:00 this morning she was switched over to Airvo device currently at 60 L and FiO2 of 90%. Her pulse ox on those settings is 92-98%, hemodynamically she is stable, low-grade fevers overnight. Yesterday patient had large right-sided pneumothorax requiring insertion of right-sided chest tube, this morning's chest x-ray shows right-sided chest tube in place, and a 2 mm trace right-sided pneumothorax at the apex and 4 mm laterally, low lung volumes with continued permanent mid and lower lung airspace disease. Right-sided chest tube has a total of 2 50 mL of thin serosanguineous output since insertion 24 hours ago. There is an air leak present, and the Pl eur-evac is connected to wall suction. Overall patient denies any acute distress, she has however fatigued and frustrated. He is awake and alert, oriented 3, his labs have been reviewed, her white blood cell count is 10.2, hemoglobin is 12.2, d-dimer is improving and is down to 1.61, sodium is 135, potassium is 4.1, Coreg is 96, CO2 is 34, B1 is 42 creatinine 0.71, LDH is up to 998, CRP is 14.3. Urinalysis was sent yesterday showing possibility of underlying urinary tract infection, urine culture will be sent, patient will be started on Rocephin empirically. Patient has completed her Baricitinib on 08/09/2021, she remains on Decadron 6 mg twice daily, she is on oral dose of Lasix, she is on Symbicort and albuterol, and she is on Eliquis for a new diagnosis of pulmonary embolism during this admission. Intake has been poor, dietitian has been consulted, TPN has been started. Patient is also on Precedex at 0.6 mg/kg/h, TPN is at 30 ML per hour, and 0.9 normal saline at a rate of 20 ML per hour. On 08/13/2021 patient seen in follow-up in the intensive care unit, she is currently on a low as 60 L and FiO2 of 90% in addition to 100% nonrebreather mask, and her pulse ox is 90-91%, she is running low-grade fevers with a temp of 100.7F, hemodynamically she is not requiring any vasopressor support, she is currently on point of seen at a rate of 20 ML per hour, Precedex 0.5 mics per kilo per hour, and TPN is a 80 ML per hour. Patient was started on Rocephin for an acute urinary tract infection. She remains on Decadron 6 mg twice daily, Eliquis 5 mg twice daily for acute pulmonary embolism diagnosed during this admission. She is on GI prophylaxis and COVID-19 alignments. Patient appears to be fatigued, hypertension is very frustrated, she has made conflicting statements about wanting to , however she also has made statements about been okay about a ventilator if she needed to. Recently chest tube remains in place, there is still air leak present, it is still connected to wall suction, today's chest x-ray has been reviewed showing increasing right-sided pneumothorax, with the right lower lobe infiltrate. There has been 160 of serosanguineous output last 24 hours out of the chest tube. Patient is getting IV Dilaudid for right chest wall pain. Objective - Vital Signs Vital signs: Vital Signs Temp 100.7 F H 08/13/21 08:00 Pulse 67 08/13/21 09:00 Resp 30 H 08/13/21 09:00 BP 137/78 08/13/21 09:00 Pulse Ox 90 L 08/13/21 10:53 Intake & Output 08/12/21 08/13/21 08/13/21 18:59 06:59 18:59 Intake Total 123.155 8246.273 20 Output Total 240 1300 200 Balance 678.027 269.273 -180 Weight 108.2 kg Intake: IV 240 240 20 Sodium Chloride 0.9% 1, 240 240 20 000 ml @ 20 mls/hr IV . Q24H [facility] Rx#:[id number] Intake, IV Titration 308.112 2212.273 Amount Dexmedetomidine/0.9% NaCl 188.027 161.273 (Pmx) 400 mcg In Empty Bag 1 bag @ 0.2 MCG/KG/HR 5.545 mls/hr IV .Q18H3M [facility]EMA Rx#:[id number] Mvi, Adult No.4 with Vit 330 K 10 ml Trace (Conc-1Ml/ Dose) 1 ml In Amino Acid 5%-D20w+Lytes*E* 1,000 ml @ 30 mls/hr IV .Q24H [facility]EMA Rx#:[id number] Sodium Chloride 4Meq/ml 160 1068 Vial 44 meq Potassium Phosphate 15 mmol Potassium Chloride 10 meq Calcium Gluconate 1 gm In Amino Acids 5 %/ Dextrose 20 % 1,000 ml @ 80 mls/hr IV .BY DURATION [facility]EMA Rx#:[id number] Oral 100 Output: Chest Tube Drainage 40 Chest Tube Right Anterior 40 Chest Urine 200 1300 200 Other: Voiding Method External Catheter External Catheter # Voids 1 - Exam GENERAL EXAM: -[id number] morbidly obese female, on Airvo currently a 60 L and FiO2 of 90%, with 100% nonrebreather mask satting 90-93% comfortable in no apparent distress. HEAD: Normocephalic/atraumatic. EYES: Normal reaction of pupils, equal size. Conjunctiva pink, sclera white. NOSE: Clear with pink turbinates. THROAT: No erythema or exudates. NECK: No masses, no JVD, no thyroid enlargement, no adenopathy. CHEST: No chest wall deformity. Symmetrical expansion. Right-sided chest tube is in place under the right breast, connected to wall suction, with positive air leak present LUNGS: Equal air entry with bibasilar crackles CVS: Regular rate and rhythm, normal S1 and S2, no gallops, no murmurs, no rubs ABDOMEN: Soft, nontender. No hepatosplenomegaly, normal bowel sounds, no guarding or rigidity. EXTREMITIES: No clubbing, no edema, no cyanosis, 2+ pulses and upper and lower extremities. MUSCULOSKELETAL: Muscle strength and tone normal. SPINE: No scoliosis or deformity SKIN: No rashes CENTRAL NERVOUS SYSTEM: Lethargic and oriented -3. No focal deficits, tone is normal in all 4 extremities. - Labs CBC & Chem 7: 08/13/21 05:04 08/13/21 05:04 Labs: Abnormal Lab Results - Last 24 Hours (Table) 08/12/21 08/12/21 08/12/21 Range/Units 11:10 12:14 16:56 Plt Count (150-450) k/uL Lymphocytes # (1.0-4.8) k/uL Sodium (137-145) mmol/L Carbon Dioxide (22-30) mmol/L BUN (7-17) mg/dL Glucose (74-99) mg/dL POC Glucose (mg/dL) 231 H 233 H 246 H (75-99) mg/dL AST (14-36) U/L ALT (4-34) U/L Total Protein (6.3-8.2) g/dL Albumin (3.5-5.0) g/dL 08/12/21 08/13/21 08/13/21 Range/Units 23:34 05:04 05:04 Plt Count 143 L (150-450) k/uL Lymphocytes # 0.3 L (1.0-4.8) k/uL Sodium 134 L (137-145) mmol/L Carbon Dioxide 31 H (22-30) mmol/L BUN 37 H (7-17) mg/dL Glucose 313 H (74-99) mg/dL POC Glucose (mg/dL) 352 H (75-99) mg/dL AST 51 H (14-36) U/L ALT 66 H (4-34) U/L Total Protein 5.1 L (6.3-8.2) g/dL Albumin 2.4 L (3.5-5.0) g/dL 08/13/21 Range/Units 05:07 Plt Count (150-450) k/uL Lymphocytes # (1.0-4.8) k/uL Sodium (137-145) mmol/L Carbon Dioxide (22-30) mmol/L BUN (7-17) mg/dL Glucose (74-99) mg/dL POC Glucose (mg/dL) 301 H (75-99) mg/dL AST (14-36) U/L ALT (4-34) U/L Total Protein (6.3-8.2) g/dL Albumin (3.5-5.0) g/dL Microbiology - Last 24 Hours (Table) 08/12/21 16:36 Urine Culture - Preliminary Urine,Catheterized Assessment and Plan Plan: Assessment: #1. Acute hypoxic respiratory failure secondary to COVID-19 pneumonia, and a large right-sided pneumothorax requiring insertion of a 32-Chinese chest tube on 08/11/2021 with subsequent reexpansion of the right lung. Patient has required intermittent Airvo, and most recently has been BiPAP dependent with high FiO2, today's BiPAP settings are 16/5 and FiO2 100%. Patient was transferred back to the intensive care unit on 08/11/2021 for concern of worsening respiratory failure. Patient has completed a course of Baricitinib on 08/09/2021, she currently remains on Decadron 6 mg twice daily, Eliquis for acute pulmonary embolism. Blood gas showed pO2 of 51, pCO2 of 52, and pH of 7.4, this was done on BiPAP support blood pressures of 16/5 and FiO2 of 100% #2. Large right sided pneumothorax with a component of tension, SP right chest tube placement on 08/11/2021 #3. Acute pulmonary embolism related to the above, patient was started on Eliquis #4. Previous history of GI bleeding #5. Diabetes mellitus type 2 #6. History of GERD #7. Dyslipidemia #8. Benign essential hypertension #9. History of obstructive sleep apnea #10. Morbid obesity with BMI of 45.2 kg/m Plan: Today's chest x-ray has been reviewed Right sided pneumothorax has increased in size Chest tube remains in place, to wall suction Consult cardiothoracic surgery for their input on chest tube management Continue current medical treatment Continue Decadron, Continue oral anticoagulation Pain control We'll continue to closely follow in the intensive care unit Overall prognosis is extremely guarded I performed a history & physical examination of the patient and discussed their management with my nurse practitioner, Elaine Blanchard. I reviewed the nurse practitioner's note and agree with the documented findings and plan of care. Lung sounds are positive for diffuse crackles throughout the lung rosales. The findings and the impression was discussed with the patient. I attest to the documentation by the nurse practitioner. Time with Patient: Greater than 30
[2021-08-13 11:52] LABS: Glucose,Whole Blood 175 mg/dL (75-99)
[2021-08-13] MEDS: APIXABAN 5 MG TAB PO SCH ×3 (11:55→21:11)
[2021-08-13] MEDS ORDERED: INSULIN DETEMIR (LEVEMIR) 100 UNIT/ML SYR SQ ONE ×2 (13:30→23:02)
--- NOTE | 2021-08-13 13:31 | XR ---
EXAMINATION TYPE: XR chest 1V portable DATE OF EXAM: 08/13/2021 COMPARISON: 08/13/2021 earlier exam INDICATION: Pneumothorax TECHNIQUE: Single frontal view of the chest is obtained. FINDINGS: The heart size is only prominent. The pulmonary vasculature is normal. There is slight enlargement of the right apical pneumothorax. Pleural margin to the interthoracic wal l is 1.9 cm, previously 1.2 cm. Additionally, there appears to be stable loculated pneumothorax at th e right base. Chest tube positioning appears stable. PICC line enters on the left. IMPRESSION: 1. Increase in size of a right-sided pneumothorax
[2021-08-13 14:16] LABS: ABG Base Excess 8.5 mmol/L; ABG HCO3 33 mmol/L (21-25); ABG Oxygen Saturation 91.2 % (94-97); ABG PCO2 52 mmHg (35-45); ABG PH 7.41 (7.35-7.45); ABG PO2 65 mmHg (83-108); ABG TCO2 35 mmol/L (19-24); Allen Test Performed? Yes
[2021-08-13 14:25] VITALS: BMI 42.3
[2021-08-13] MEDS: FAT EMULSION 20% 250 ML in EMPTY BAG 1 BAG IV SCH (15:31)
[2021-08-13 18:09] LABS: Glucose,Whole Blood 304 mg/dL (75-99)
[2021-08-13] MEDS ORDERED: 1: MVI, ADULT NO.4 WITH VIT K 10 ML, TRACE (CONC-1ML/DOSE) 1 ML, SODIUM CHLORIDE 4MEQ/ML IV SCH ×6 (19:00)
[2021-08-13] MEDS: SENNOSIDES 8.6 MG TAB PO SCH ×2 (20:46→21:12)
[2021-08-13] MEDS: ATORVASTATIN 10 MG TAB PO SCH ×2 (20:47→21:11)
[2021-08-13 21:15] LABS: Glucose,Whole Blood 273 mg/dL (75-99)
[2021-08-13] MEDS: INSULIN DETEMIR (LEVEMIR) 100 UNIT/ML SYR SQ SCH (21:18)
--- NOTE | 2021-08-13 22:57 | P.PN ---
Subjective Progress Note Date: 08/11/21 Principal diagnosis: Acute hypoxic respiratory failure secondary to COVID-19 pneumonia Possible upper GI bleed. Acute kidney injury 65-year-old male with a known history of hypertension, hyperlipidemia, diabetes type 2 [id number], osteoarthritis, obstructive sleep apnea, migraine headaches and no prior history of smoking presents to ER with complaints of fever, cough and shortness of breath along with diarrhea. Patient states that she has been sick for the past 2 weeks with cough congestion body aches and is also having diarrhea for the past 1 week. She came to the ER due to complaints of dark-colored stools. Patient states this is not any blood thinners. No prior history of peptic ulcer disease. Patient does take naproxen for arthritic pain. No complaints of chest pain. On admission T-max was 101.4, pulse 102, pulse ox 83% on room air. Denies any complaints of chest pain. No abdominal pain. No dysuria or hematuria. No headache or dizziness or lightheadedness. Chest x-ray showed there is new patchy pulmonary edema compared to oral exam that could be acute pneumonia. Laboratory showed WBC 4.5 hemoglobin 15.7 and platelets 173 and lymphocytes 0.8 Sodium 138 potassium 4.6 chloride 102 BUN 61 creatinine 2.12 Blood sugar 139 AST 97 ALT 60 alk phos 63 and lipase level 651 Stool occult blood positive and Coronavirus PCR detected. 07/24/2021 Patient is seen and evaluated and discussed with nursing staff; continues to complain of shortness of breath with minimal activity; patient has been brian gnosed with COVID-19 pneumonia; patient does report vaccination against coronavirus Vital signs are reviewed with temperature of 99.2, pulse 80, respiration 18 and blood pressure 143/73 and O2 saturation 91% Patient remains on treatment with Decadron, Lovenox and COVID-19 vitamin cocktail; patient is deemed not a candidate for REM due to onset of symptoms a few weeks prior to presenting to the hospital and patient has been fully vaccinated Laboratory review shows WBC of 4.2 and hemoglobin consistently stable at 14.8 with platelet count of 158; sodium 139, potassium 5.0 which is down from 6.1 y esterday, BUN/creatinine of 28/0.77 down from 44/1.19 yesterday 07/25/2021 Patient discussed with nursing staff no specific concerns identified; continues to report shortness of breath; self proning encourage Vital signs are reviewed temperature 99.3, pulse 79, respirations 17 and blood pressure 102/67 Lab review shows WBC 4.7, hemoglobin 14 and platelet count of 172, d-dimer at 0.96, BUN/creatinine down to 25/1.0; repeat chest x-ray shows improvement Pulmonary on board and recommending to continue with current treatment with Decadron, Lovenox and vitamins 07/26/2021 Patient is seen and evaluated in room at bedside; oxygen saturation has declined and patient is currently on 15 L of O2. patient is being transferred to ICU as an overflow She remains on Decadron. She was also on Lasix at a dose of 20 mg IV daily. She was having adequate urine output. Her IV fluids are running at 75 mL an hour normal saline. The patient has no chest pain. She is exhausted. Whenever she moves around she gets quite short of breath. No significant cough or sputum production. No chest tightness. No wheezing. She is on a combination of vitamin C, vitamin D, zinc and and she is also on Lovenox for DVT prophylaxis. The most recent d-dimer is at 1.79. The most recent LDH level is 1000 with a CRP of 1.2. Pulmonary service recommending to continue the Decadron and the Lovenox and add Baricitinib per protocol. 07/27/2021 Patient is seen and evaluated and discussed with nursing staff; patient was transferred to the ICU yesterday due to her borderline respiratory status as the patient was placed on 15 L of oxygen by nasal cannula in addition to 100% nonrebreather facemask to improve her oxygenation. Patient is sitting up on a chair. She is a bit lethargic but easily arousable; . Her breathing is nonlabored. Vital signs are reviewed temperature 98.7, pulse 79, respiration 24, and blood pressure 101/77; pulse ox is around 97-98%. She remains on Decadron; Lovenox 40 mg subcu along with COVID-19 vitamin radha ktail Laboratory review reveals d-dimer is at 1.59, and LDH level is 1445, her CRP level is at 3.5 and her procal is low at 0.07. Pulmonary on board and recommending to continue patient on 100% nonrebreather face Lasix in addition to nasal cannula at 15 L; continue the Decadron and the Lovenox and add Baricitinib per protocol Continue to follow inflammatory markers periodically including LDH, CRP, ferritin and d-dimer 07/28/2021 Patient is seen and evaluated at beside and discussed with nursing staff. Patient is currently on high flow oxygen with a pulse ox around 92%. Patient was recently transferred out of ICU and is able to sit upright on her bed. Patient also has a 100% nonrebreather facemask at her bedside in order to supplement oxygen when she gets short of breath. Patient's CRP level is 2.4, her d-dimer is 5.5, her LDH level from yesterday was 1445. Patient's chest x ray is not showing any changes but there is some infiltration seen at the lung bases which remains consistent with COVID19 pneumonia, current x ray remains stable compared to her earlier chest x ray. Patient is afebrile with no chills. Patient is on anticoagulant therapy with Lovenox, remains on Decadron, and is also complicitng a curse of Baricitinib along with Lasix by mouth daily. There are no major changes or events from yesterday. 07/29/2021 Patient is seen and evaluated at bedside and discussed with nursing staff. Patient's condition is same with no major or significant changes from yesterday. Patient remains on nasal cannula and nonrebreather facemask. Patient still gets short of breath with mild exertion. Repeat chest x-ray was conducted today with evidence of bilateral pulmonary infiltrates along with smaller lung volumes. Patient also suffers from mild cardiomegaly indicated on imaging. On examination, it is noted that patient has lower extremity edema bilaterally. Patient's LDH and CRP levels have improved, however D-dimer has elevated to 9.9. Patient is currently on Decadron, Baricitinib, Lasix, Lovenox, Levemir insulin. P, as per protocol. Patient is using incentive spirometer. 07/30/2021 Patient is seen and evaluated at bedside and discussed with nursing staff. Patient's condition is slightly worse compared to yesterday. Patient continues to be on nasal cannula and nonrebreather facemask with a pulse ox in the low 80s. Patient was then placed on Airvo. D dimer levels have trended upwards to 16.1. Patient did not have any swelling in her lower ext. Patient is on Lovenox for DVT prophylaxis. Doppler of the lower extremity was done which showed no evidence of any DVT. Patient's chest x ray shows diffuse bilateral pulmonary infiltrates perihilar and also the lower lobes bilaterally. Patient is currently afebrile. Patient's breathing is lightly labored compared to yesterday. Patient continues to be on Decadron whereas rest of medications are unchanged. Patient is no longer using incetive spirometer. 07/31/2021 Patient is being seen today and evaluated while being discussed with the nursing staff. Patient's breathing is still labored and she continues to be on Airvo along with a beta facemask. Patient had an episode of epistaxis for which she expresses concern. Patient decompensated with a pulse ox that dropped to the mid 80s. Patient is no longer currently bleeding but remains on Lovenox for DVT prophylaxis. A repeat Doppler was donea gain to ensure that patient did not have any evidence of DVT considering her d-dimer was trending upward. Chest X ray shows diffuse pulmonary infiltrates which are consistent with COVID 19 pneumonia. Patient remains on Decadron and also Baricitinib. Patient is also on Levemir insulin to control her sugar levels. However, the patient is not able to do her incentive spirometer. Patient is drinking sufficiently but is not eating sufficiently. Patient is awake and response. Patient's LDH is treading upward with her D-dimer still eletated at 17.9 No other significant events or major changes from yesterday; continue supportive care. 08/01/2021 Patient is seen and evaluated while being discussed with the nursing staff. Patient remains on high flow oxygen Airvo along with the nonrebreather facemask. Patient remains on Decadron and Baricitinib. Patient complained of right nostril epistaxis for which she expressed anxiety and concern. Due to this, patient was taken off the Airvo but began to desaturate down to 76^. Due to this patient had to be placed back on Airvo, with no complaints of any significant bleeding. Patient does not have any issues or complaints. She also denies having shortness of breath. A repeat chest x ray was done and there seems to be improvement in aeration of the left lung base and the left hemidiaphgragm is also visualized more clearly compared to previous chest x rays, however there is still diffuse bilateral pulmonary infiltrates that are consistent with COVID 19 pneumonia/ARDS. Patient has a good appetite and is eating better. Patient is als o on Levemir to control her sugar levels. Inflammatory markers need to be reapeted. D dimer is still elevated that is why a repeat Doppler was done but the Doppler of the lower extremity came back negative. LDH and CRP are currently pending with her WBC count has trended downward to 12.6 08/02/2021 Patient is currently in MICU. Requiring BiPAP at 80% FiO2. Patient has been afebrile. Patient is otherwise anxious and desaturating when airvo is taken off. No nausea or vomiting. Patient is able to tolerate oral diet. Patient has been continued baricitinib, dexamethasone 6 mg IV twice daily and multivitamins and anticoagulation. Chest x-ray showed persistent interstitial bibasilar infiltrates with slight interval improvement suggested. Laboratory data showed WBC 14.1 hemoglobin 13.1 platelets 234 and neutrophils 0.5 Sodium 140 potassium 4.1 chloride 97 bicarb is 36 BUN 42 and creatinine 0.94 08/03/2021 Patient is currently in the MICU. Remains on BiPAP with 80% FiO2 and oxygen saturations around 90%. Patient continues to have elevated D-dimer level. CT angiogram chest was ordered to rule out any pulmonary embolism which showed right middle lobe and right lower lobe pulmonary emboli without CT evidence of RV strain. Patient was transitioned to heparin drip from Lovenox 40 mg twice daily. Patient has been afebrile. No complaints of chest pain. Laboratory showed WBC 12.5 hemoglobin 13.6, platelets 261 and lymphocytes 0.5 D-dimer level is 19.87, chloride 96 bicarb is 34 BUN 45 and creatinine 0.86 and LDH level is 1395 and CRP 0.9. Pulmonary is on board. Chest x-ray showed worsening left greater than right bilateral lower lobe opacities consistent with COVID-19 infection progression. Patient remains on dexamethasone, multivitamins vitamin D3 and baricitinib. 08/04/2021 Patient remains in the MICU. Requiring BiPAP and also using nonrebreather andAirvo intermittently. On 50 L with 90% FiO2. Patient is otherwise awake alert and sitting in the chair. Chest x-ray showed persistent perihilar and basilar infiltrates. Left-sided PICC line with its distal tip overlying the SVC. No evidence of pneumothorax. Patient is being continued dexamethasone, Baricitinib, zinc sulfate, ascorbic acid. Patient is being continued on heparin drip changed to Eliquis 10 mg twice daily for newly diagnosed pulmonary embolism. Discussed with her via telephone and updated her of medical condition. 08/05/2021 Patient is currently in the MICU. Requiring BiPAP and Airvo with Ventimask intermittently. Patient was confused in the morning today and would want to go to hospice care. Currently patient is more awake and oriented and would like to continue current treatment. Patient's is at bedside. Chest x-ray showed reticulonodular infiltrates persist although may have improved slightly in the interval. Patient is being continued on dexamethasone, Eliquis for pulmonary embolism and multivitamins and also baricitinib. Laboratory data showed WBC 14.7 hemoglobin 13.6 and platelets 239 lymphocytes 0.3 and D-dimer level is 13.45, trending down from 19.87 Sodium 136 potassium 4.7 chloride 98 bicarb 34 BUN 45 creatinine 0.83 and blood sugar is 241 and LDH level is 1383 CRP less than 0.5 08/06/2021 Patient is currently in the MICU. Currently requiring BiPAP but breathing status is better today. FiO2 is down to 60% and saturating at 93%. Patient is also on Airvo at 86 L. Blood pressure is stable. Patient seems to be more awake and oriented. Chest x-ray showed mild increase in left lower lobe infiltrate. Diffuse infiltrate is present. Findings could be compatible with atypical pneumonia in the proper clinical setting. Laboratory test showed WBC 15.7 hemoglobin 13.7 and platelets 209 and neutrophils 14.7 lymphocytes 0.5 Sodium 136 potassium 4.5 chloride 97 BUN 49 and creatinine 0.85 and blood sugar is 179 LDH 1343 and CRP less than 0.5 Patient is being continued baricitinib, Eliquis 5 mg twice daily and dexamethasone 6 mg IV twice daily along with multivitamins and supportive care. Pulmonary is on board. 08/09/2021 Patient is being transferred out of ICU. Currently on BiPAP 12 x 5 with FiO2 80%. Patient is awake alert and seems to be lethargic. Chest x-ray showed findings correlate for pneumonia. Patient has been afebrile. Completed course of baricitinib. Continued on dexamethasone IV 6 mg twice daily and also on anticoagulation with Eliquis which due to pulmonary embolism. Laboratory data showed WBC 18.0 hemoglobin 13.3 and platelets 182 lymphocytes 0.4 D-dimer 12.39 BUN 48 and creatinine 0.81 and blood sugar is 169 CRP 1.5 and LDH 1297 11-2 21 Patient is only surgical unit currently. Requiring BiPAP 12 x 5 with FiO2 80% and saturating at 93 to 96%. Patient is afebrile. Blood pressure is 111/78 Chest x-ray showed stable bibasilar infiltrates. Laboratory data showed WBC trending down to 15.96, hemoglobin 13.1 and platelets 200 D-dimer is 3.52 Sodium 138 potassium 3.8 chloride 96 BUN 43.4 and creatinine 0.8 LDH 476 CRP 3.6 and albumin 3.4. Patient is being continued on IV dexamethasone, oral Lasix, apixaban multivitamins. 08/11/2021 Patient was transferred to MICU. Rapid response team was called while she was in the telemetry unit concerning for respiratory failure, tachypnea and desaturating to 80s on BiPAP. Patient was found to be very lethargic and fatigued using accessory muscles. Chest x- ray showed right sided pneumothorax. Patient was transferred to MICU and CT surgery was consulted. Patient was given a dose of IV Ativan. Laboratory data showed WBC 15.4 hemoglobin 13.6 and platelets 224 Sodium 140 potassium 4.1 chloride 95 BUN 45 and creatinine 0.9 LDH 494 CRP 5.2 Current medications reviewed. Objective - Vital Signs Vital signs: Vital Signs Temp 99.2 F 08/11/21 20:00 Pulse 67 08/11/21 21:00 Resp 24 08/11/21 21:00 BP 100/67 08/11/21 21:00 Pulse Ox 97 08/11/21 21:00 Intake & Output 08/11/21 08/11/21 08/12/21 06:59 18:59 06:59 Intake Total 83.263 229.758 Output Total 800 60 Balance -800 23.263 229.758 Weight 110.903 kg Intake: IV 20 200 Sodium Chloride 0.9% 1, 20 200 000 ml @ 20 mls/hr IV . Q24H [facility] Rx#:[id number] Intake, IV Titration 63.263 29.758 Amount Dexmedetomidine/0.9% NaCl 63.263 29.758 (Pmx) 400 mcg In Empty Bag 1 bag @ 0.2 MCG/KG/HR 5.545 mls/hr IV .Q18H3M [facility] Rx#:[id number] Output: Chest Tube Drainage 60 Chest Tube Right Anterior 60 Chest Urine 800 0 Other: Voiding Method External Catheter External Catheter External Catheter # Voids 1 1 - Exam PHYSICAL EXAMINATION: GENERAL: The patient is alert and confused, acute distress. Well developed, well nourished. HEENT: Pupils are round and equally reacting to light. EOMI. No scleral icterus. No conjunctival pallor. Normocephalic, atraumatic. No pharyngeal erythema. No thyromegaly. CARDIOVASCULAR: S1 and S2 present. No murmurs, rubs, or gallops. PULMONARY: Right-sided diminished sounds and coarse breath sounds., no wheezing or crackles. ABDOMEN: Soft, nontender, nondistended, normoactive bowel sounds. No palpable organomegaly. MUSCULOSKELETAL: No joint swelling or deformity. EXTREMITIES: No cyanosis, clubbing, or pedal edema. NEUROLOGICAL: Gross neurological examination did not reveal any focal deficits. SKIN: No rashes. - Labs CBC & Chem 7: 08/13/21 05:04 08/13/21 05:04 Labs: Abnormal Lab Results - Last 24 Hours (Table) 08/11/21 08/11/21 08/11/21 Range/Units 07:03 07:03 07:03 WBC 15.48 H (4.50-10.00) X 10*3/uL MPV 12.3 H (9.5-12.2) fL Immature Gran # 0.19 H (0.00-0.04) X 10*3/uL Neutrophils # 14.05 H (1.80-7.70) X 10*3/uL Lymphocytes # 0.59 L (0.90-5.00) X 10*3/uL Eosinophils # 0.01 L (0.04-0.35) X 10*3/uL D-Dimer 2.19 H (<0.60) mg/L FEU ABG pCO2 (35-45) mmHg ABG pO2 (83-108) mmHg ABG HCO3 (21-25) mmol/L ABG Total CO2 (19-24) mmol/L ABG O2 Saturation (94-97) % Chloride 95 L (96-109) mmol/L Anion Gap 13.40 H (4.00-12.00) mmol/L BUN 45.4 H (9.0-27.0) mg/dL BUN/Creatinine Ratio 50.61 H (12.00-20.00) Ratio Glucose 195 H (70-110) mg/dL POC Glucose (mg/dL) (75-99) mg/dL ALT 60 H (8-44) U/L Lactate Dehydrogenase 494 H (120-246) U/L C-Reactive Protein 5.20 H (0.00-0.80) mg/dL Total Protein 6.0 L (6.2-8.2) g/dL Albumin 3.4 L (3.8-4.9) g/dL Albumin/Globulin Ratio 1.32 L (1.60-3.17) g/dL 08/11/21 08/11/21 08/11/21 Range/Units 07:04 09:02 09:54 WBC (4.50-10.00) X 10*3/uL MPV (9.5-12.2) fL Immature Gran # (0.00-0.04) X 10*3/uL Neutrophils # (1.80-7.70) X 10*3/uL Lymphocytes # (0.90-5.00) X 10*3/uL Eosinophils # (0.04-0.35) X 10*3/uL D-Dimer (<0.60) mg/L FEU ABG pCO2 52 H (35-45) mmHg ABG pO2 51 L* (83-108) mmHg ABG HCO3 36 H (21-25) mmol/L ABG Total CO2 37 H (19-24) mmol/L ABG O2 Saturation 84.5 L (94-97) % Chloride (96-109) mmol/L Anion Gap (4.00-12.00) mmol/L BUN (9.0-27.0) mg/dL BUN/Creatinine Ratio (12.00-20.00) Ratio Glucose (70-110) mg/dL POC Glucose (mg/dL) 184 H 182 H (75-99) mg/dL ALT (8-44) U/L Lactate Dehydrogenase (120-246) U/L C-Reactive Protein (0.00-0.80) mg/dL Total Protein (6.2-8.2) g/dL Albumin (3.8-4.9) g/dL Albumin/Globulin Ratio (1.60-3.17) g/dL 08/11/21 08/11/21 08/11/21 Range/Units 09:57 12:17 17:25 WBC (4.50-10.00) X 10*3/uL MPV (9.5-12.2) fL Immature Gran # (0.00-0.04) X 10*3/uL Neutrophils # (1.80-7.70) X 10*3/uL Lymphocytes # (0.90-5.00) X 10*3/uL Eosinophils # (0.04-0.35) X 10*3/uL D-Dimer (<0.60) mg/L FEU ABG pCO2 (35-45) mmHg ABG pO2 (83-108) mmHg ABG HCO3 (21-25) mmol/L ABG Total CO2 (19-24) mmol/L ABG O2 Saturation (94-97) % Chloride (96-109) mmol/L Anion Gap (4.00-12.00) mmol/L BUN (9.0-27.0) mg/dL BUN/Creatinine Ratio (12.00-20.00) Ratio Glucose (70-110) mg/dL POC Glucose (mg/dL) 250 H 221 H 243 H (75-99) mg/dL ALT (8-44) U/L Lactate Dehydrogenase (120-246) U/L C-Reactive Protein (0.00-0.80) mg/dL Total Protein (6.2-8.2) g/dL Albumin (3.8-4.9) g/dL Albumin/Globulin Ratio (1.60-3.17) g/dL Assessment and Plan Assessment: Right-sided pneumothorax Acute hypoxemic respiratory failure secondary to coronavirus associated pneumonia. Elevated inflammatory markers. Right lower lobe and middle lobe pulmonary embolism without CT evidence of RV strain. Diagnosed 08/03/2021 Dark-colored stools with occult blood positive on admission. Possible upper GI bleed. hb is stable. no further episodes. Acute kidney injury likely prerenal with creatinine level 2.14 on admission. Baseline creatinine not known, cr improved. Diabetes type 2 [id number] Mild acute pancreatitis with lipase level 651 Hyperlipidemia Hypertension Morbid obesity BMI 43.4 DVT prophylaxis Plan: Patient will be continued on Airvo. patient was transferred back to MICU due to pneumothorax CT surgery was consulted. Patient was on heparin drip due to new diagnosis of pulmonary embolism, chnaged to [facility]. Patient is on dexamethasone, and multivitamins.Completed course of baricitinib. Continue with the dexamethasone IV, zinc sulfate, ascorbic acid and vitamin D3. Pulmonary is on board. Continue with home medications.Hemoglobin is stable. Renal function improved. Patient still having elevated inflammatory markers. Lasix was started at 20 mg daily with improvement in kidney function.. Patient is also on verapamil at home. Continue Levemir 15 U, with insulin sliding scale and levimir.Titrate dose as needed. Continue to monitor closely and prognosis guarded at this time.. Time with Patient: Greater than 30
--- NOTE | 2021-08-13 23:05 | P.PN ---
Subjective Progress Note Date: 08/12/21 Principal diagnosis: Acute hypoxic respiratory failure secondary to COVID-19 pneumonia Possible upper GI bleed. Acute kidney injury 65-year-old male with a known history of hypertension, hyperlipidemia, diabetes type 2 [id number], osteoarthritis, obstructive sleep apnea, migraine headaches and no prior history of smoking presents to ER with complaints of fever, cough and shortness of breath along with diarrhea. Patient states that she has been sick for the past 2 weeks with cough congestion body aches and is also having diarrhea for the past 1 week. She came to the ER due to complaints of dark-colored stools. Patient states this is not any blood thinners. No prior history of peptic ulcer disease. Patient does take naproxen for arthritic pain. No complaints of chest pain. On admission T-max was 101.4, pulse 102, pulse ox 83% on room air. Denies any complaints of chest pain. No abdominal pain. No dysuria or hematuria. No headache or dizziness or lightheadedness. Chest x-ray showed there is new patchy pulmonary edema compared to oral exam that could be acute pneumonia. Laboratory showed WBC 4.5 hemoglobin 15.7 and platelets 173 and lymphocytes 0.8 Sodium 138 potassium 4.6 chloride 102 BUN 61 creatinine 2.12 Blood sugar 139 AST 97 ALT 60 alk phos 63 and lipase level 651 Stool occult blood positive and Coronavirus PCR detected. 07/24/2021 Patient is seen and evaluated and discussed with nursing staff; continues to complain of shortness of breath with minimal activity; patient has been brian gnosed with COVID-19 pneumonia; patient does report vaccination against coronavirus Vital signs are reviewed with temperature of 99.2, pulse 80, respiration 18 and blood pressure 143/73 and O2 saturation 91% Patient remains on treatment with Decadron, Lovenox and COVID-19 vitamin cocktail; patient is deemed not a candidate for REM due to onset of symptoms a few weeks prior to presenting to the hospital and patient has been fully vaccinated Laboratory review shows WBC of 4.2 and hemoglobin consistently stable at 14.8 with platelet count of 158; sodium 139, potassium 5.0 which is down from 6.1 y esterday, BUN/creatinine of 28/0.77 down from 44/1.19 yesterday 07/25/2021 Patient discussed with nursing staff no specific concerns identified; continues to report shortness of breath; self proning encourage Vital signs are reviewed temperature 99.3, pulse 79, respirations 17 and blood pressure 102/67 Lab review shows WBC 4.7, hemoglobin 14 and platelet count of 172, d-dimer at 0.96, BUN/creatinine down to 25/1.0; repeat chest x-ray shows improvement Pulmonary on board and recommending to continue with current treatment with Decadron, Lovenox and vitamins 07/26/2021 Patient is seen and evaluated in room at bedside; oxygen saturation has declined and patient is currently on 15 L of O2. patient is being transferred to ICU as an overflow She remains on Decadron. She was also on Lasix at a dose of 20 mg IV daily. She was having adequate urine output. Her IV fluids are running at 75 mL an hour normal saline. The patient has no chest pain. She is exhausted. Whenever she moves around she gets quite short of breath. No significant cough or sputum production. No chest tightness. No wheezing. She is on a combination of vitamin C, vitamin D, zinc and and she is also on Lovenox for DVT prophylaxis. The most recent d-dimer is at 1.79. The most recent LDH level is 1000 with a CRP of 1.2. Pulmonary service recommending to continue the Decadron and the Lovenox and add Baricitinib per protocol. 07/27/2021 Patient is seen and evaluated and discussed with nursing staff; patient was transferred to the ICU yesterday due to her borderline respiratory status as the patient was placed on 15 L of oxygen by nasal cannula in addition to 100% nonrebreather facemask to improve her oxygenation. Patient is sitting up on a chair. She is a bit lethargic but easily arousable; . Her breathing is nonlabored. Vital signs are reviewed temperature 98.7, pulse 79, respiration 24, and blood pressure 101/77; pulse ox is around 97-98%. She remains on Decadron; Lovenox 40 mg subcu along with COVID-19 vitamin radha ktail Laboratory review reveals d-dimer is at 1.59, and LDH level is 1445, her CRP level is at 3.5 and her procal is low at 0.07. Pulmonary on board and recommending to continue patient on 100% nonrebreather face Lasix in addition to nasal cannula at 15 L; continue the Decadron and the Lovenox and add Baricitinib per protocol Continue to follow inflammatory markers periodically including LDH, CRP, ferritin and d-dimer 07/28/2021 Patient is seen and evaluated at beside and discussed with nursing staff. Patient is currently on high flow oxygen with a pulse ox around 92%. Patient was recently transferred out of ICU and is able to sit upright on her bed. Patient also has a 100% nonrebreather facemask at her bedside in order to supplement oxygen when she gets short of breath. Patient's CRP level is 2.4, her d-dimer is 5.5, her LDH level from yesterday was 1445. Patient's chest x ray is not showing any changes but there is some infiltration seen at the lung bases which remains consistent with COVID19 pneumonia, current x ray remains stable compared to her earlier chest x ray. Patient is afebrile with no chills. Patient is on anticoagulant therapy with Lovenox, remains on Decadron, and is also complicitng a curse of Baricitinib along with Lasix by mouth daily. There are no major changes or events from yesterday. 07/29/2021 Patient is seen and evaluated at bedside and discussed with nursing staff. Patient's condition is same with no major or significant changes from yesterday. Patient remains on nasal cannula and nonrebreather facemask. Patient still gets short of breath with mild exertion. Repeat chest x-ray was conducted today with evidence of bilateral pulmonary infiltrates along with smaller lung volumes. Patient also suffers from mild cardiomegaly indicated on imaging. On examination, it is noted that patient has lower extremity edema bilaterally. Patient's LDH and CRP levels have improved, however D-dimer has elevated to 9.9. Patient is currently on Decadron, Baricitinib, Lasix, Lovenox, Levemir insulin. P, as per protocol. Patient is using incentive spirometer. 07/30/2021 Patient is seen and evaluated at bedside and discussed with nursing staff. Patient's condition is slightly worse compared to yesterday. Patient continues to be on nasal cannula and nonrebreather facemask with a pulse ox in the low 80s. Patient was then placed on Airvo. D dimer levels have trended upwards to 16.1. Patient did not have any swelling in her lower ext. Patient is on Lovenox for DVT prophylaxis. Doppler of the lower extremity was done which showed no evidence of any DVT. Patient's chest x ray shows diffuse bilateral pulmonary infiltrates perihilar and also the lower lobes bilaterally. Patient is currently afebrile. Patient's breathing is lightly labored compared to yesterday. Patient continues to be on Decadron whereas rest of medications are unchanged. Patient is no longer using incetive spirometer. 07/31/2021 Patient is being seen today and evaluated while being discussed with the nursing staff. Patient's breathing is still labored and she continues to be on Airvo along with a beta facemask. Patient had an episode of epistaxis for which she expresses concern. Patient decompensated with a pulse ox that dropped to the mid 80s. Patient is no longer currently bleeding but remains on Lovenox for DVT prophylaxis. A repeat Doppler was donea gain to ensure that patient did not have any evidence of DVT considering her d-dimer was trending upward. Chest X ray shows diffuse pulmonary infiltrates which are consistent with COVID 19 pneumonia. Patient remains on Decadron and also Baricitinib. Patient is also on Levemir insulin to control her sugar levels. However, the patient is not able to do her incentive spirometer. Patient is drinking sufficiently but is not eating sufficiently. Patient is awake and response. Patient's LDH is treading upward with her D-dimer still eletated at 17.9 No other significant events or major changes from yesterday; continue supportive care. 08/01/2021 Patient is seen and evaluated while being discussed with the nursing staff. Patient remains on high flow oxygen Airvo along with the nonrebreather facemask. Patient remains on Decadron and Baricitinib. Patient complained of right nostril epistaxis for which she expressed anxiety and concern. Due to this, patient was taken off the Airvo but began to desaturate down to 76^. Due to this patient had to be placed back on Airvo, with no complaints of any significant bleeding. Patient does not have any issues or complaints. She also denies having shortness of breath. A repeat chest x ray was done and there seems to be improvement in aeration of the left lung base and the left hemidiaphgragm is also visualized more clearly compared to previous chest x rays, however there is still diffuse bilateral pulmonary infiltrates that are consistent with COVID 19 pneumonia/ARDS. Patient has a good appetite and is eating better. Patient is als o on Levemir to control her sugar levels. Inflammatory markers need to be reapeted. D dimer is still elevated that is why a repeat Doppler was done but the Doppler of the lower extremity came back negative. LDH and CRP are currently pending with her WBC count has trended downward to 12.6 08/02/2021 Patient is currently in MICU. Requiring BiPAP at 80% FiO2. Patient has been afebrile. Patient is otherwise anxious and desaturating when airvo is taken off. No nausea or vomiting. Patient is able to tolerate oral diet. Patient has been continued baricitinib, dexamethasone 6 mg IV twice daily and multivitamins and anticoagulation. Chest x-ray showed persistent interstitial bibasilar infiltrates with slight interval improvement suggested. Laboratory data showed WBC 14.1 hemoglobin 13.1 platelets 234 and neutrophils 0.5 Sodium 140 potassium 4.1 chloride 97 bicarb is 36 BUN 42 and creatinine 0.94 08/03/2021 Patient is currently in the MICU. Remains on BiPAP with 80% FiO2 and oxygen saturations around 90%. Patient continues to have elevated D-dimer level. CT angiogram chest was ordered to rule out any pulmonary embolism which showed right middle lobe and right lower lobe pulmonary emboli without CT evidence of RV strain. Patient was transitioned to heparin drip from Lovenox 40 mg twice daily. Patient has been afebrile. No complaints of chest pain. Laboratory showed WBC 12.5 hemoglobin 13.6, platelets 261 and lymphocytes 0.5 D-dimer level is 19.87, chloride 96 bicarb is 34 BUN 45 and creatinine 0.86 and LDH level is 1395 and CRP 0.9. Pulmonary is on board. Chest x-ray showed worsening left greater than right bilateral lower lobe opacities consistent with COVID-19 infection progression. Patient remains on dexamethasone, multivitamins vitamin D3 and baricitinib. 08/04/2021 Patient remains in the MICU. Requiring BiPAP and also using nonrebreather andAirvo intermittently. On 50 L with 90% FiO2. Patient is otherwise awake alert and sitting in the chair. Chest x-ray showed persistent perihilar and basilar infiltrates. Left-sided PICC line with its distal tip overlying the SVC. No evidence of pneumothorax. Patient is being continued dexamethasone, Baricitinib, zinc sulfate, ascorbic acid. Patient is being continued on heparin drip changed to Eliquis 10 mg twice daily for newly diagnosed pulmonary embolism. Discussed with her via telephone and updated her of medical condition. 08/05/2021 Patient is currently in the MICU. Requiring BiPAP and Airvo with Ventimask intermittently. Patient was confused in the morning today and would want to go to hospice care. Currently patient is more awake and oriented and would like to continue current treatment. Patient's is at bedside. Chest x-ray showed reticulonodular infiltrates persist although may have improved slightly in the interval. Patient is being continued on dexamethasone, Eliquis for pulmonary embolism and multivitamins and also baricitinib. Laboratory data showed WBC 14.7 hemoglobin 13.6 and platelets 239 lymphocytes 0.3 and D-dimer level is 13.45, trending down from 19.87 Sodium 136 potassium 4.7 chloride 98 bicarb 34 BUN 45 creatinine 0.83 and blood sugar is 241 and LDH level is 1383 CRP less than 0.5 08/06/2021 Patient is currently in the MICU. Currently requiring BiPAP but breathing status is better today. FiO2 is down to 60% and saturating at 93%. Patient is also on Airvo at 86 L. Blood pressure is stable. Patient seems to be more awake and oriented. Chest x-ray showed mild increase in left lower lobe infiltrate. Diffuse infiltrate is present. Findings could be compatible with atypical pneumonia in the proper clinical setting. Laboratory test showed WBC 15.7 hemoglobin 13.7 and platelets 209 and neutrophils 14.7 lymphocytes 0.5 Sodium 136 potassium 4.5 chloride 97 BUN 49 and creatinine 0.85 and blood sugar is 179 LDH 1343 and CRP less than 0.5 Patient is being continued baricitinib, Eliquis 5 mg twice daily and dexamethasone 6 mg IV twice daily along with multivitamins and supportive care. Pulmonary is on board. 08/09/2021 Patient is being transferred out of ICU. Currently on BiPAP 12 x 5 with FiO2 80%. Patient is awake alert and seems to be lethargic. Chest x-ray showed findings correlate for pneumonia. Patient has been afebrile. Completed course of baricitinib. Continued on dexamethasone IV 6 mg twice daily and also on anticoagulation with Eliquis which due to pulmonary embolism. Laboratory data showed WBC 18.0 hemoglobin 13.3 and platelets 182 lymphocytes 0.4 D-dimer 12.39 BUN 48 and creatinine 0.81 and blood sugar is 169 CRP 1.5 and LDH 1297 08-10 Patient is only surgical unit currently. Requiring BiPAP 12 x 5 with FiO2 80% and saturating at 93 to 96%. Patient is afebrile. Blood pressure is 111/78 Chest x-ray showed stable bibasilar infiltrates. Laboratory data showed WBC trending down to 15.96, hemoglobin 13.1 and platelets 200 D-dimer is 3.52 Sodium 138 potassium 3.8 chloride 96 BUN 43.4 and creatinine 0.8 LDH 476 CRP 3.6 and albumin 3.4. Patient is being continued on IV dexamethasone, oral Lasix, apixaban multivitamins. 08/11/2021 Patient was transferred to MICU. Rapid response team was called while she was in the telemetry unit concerning for respiratory failure, tachypnea and desaturating to 80s on BiPAP. Patient was found to be very lethargic and fatigued using accessory muscles. Chest x- ray showed right sided pneumothorax. Patient was transferred to MICU and CT surgery was consulted. Patient was given a dose of IV Ativan. Laboratory data showed WBC 15.4 hemoglobin 13.6 and platelets 224 Sodium 140 potassium 4.1 chloride 95 BUN 45 and creatinine 0.9 LDH 494 CRP 5.2 08/12/2021 Patient is currently in the MICU. On Airvo 60 L with FiO2 90%. Patient is status post right-sided chest tube placement due to large right-sided pneumothorax. CT surgery is following. He appears to be in no distress today. Patient is awake alert and oriented x3. At times she is very depressed and wants tubes to be taken out. Psychiatry was consulted for evaluation. Chest x-ray showed right-sided chest tube in place. Similar trace right-sided pneumothorax. Low lung volumes with continued prominent mid and lower lung airspace disease. Laboratory data showed WBC 10.2 hemoglobin 12.1 platelets 150 and D-dimer coming down to 1.61 Sodium 135 potassium 4.1 chloride 96 bicarb is 34 BUN 42 and creatinine 0.71 LDH 998 and CRP 14.3 Blood sugar is Patient is Precedex, anticoagulation with Eliquis and duo nebs. Pulmonary and CT surgery is on board. Current medications reviewed. Objective - Vital Signs Vital signs: Vital Signs Temp 97.9 F 08/12/21 16:00 Pulse 61 08/12/21 19:00 Resp 13 08/12/21 19:00 BP 102/72 08/12/21 19:00 Pulse Ox 90 L 08/12/21 20:58 Intake & Output 08/12/21 08/12/21 08/13/21 06:59 18:59 06:59 Intake Total 506.518 918.027 100 Output Total 650 240 Balance -143.482 678.027 100 Weight 109.9 kg Intake: IV 380 240 20 Sodium Chloride 0.9% 1, 380 240 20 000 ml @ 20 mls/hr IV . Q24H [facility] Rx#:[id number] Intake, IV Titration 126.518 678.027 80 Amount Dexmedetomidine/0.9% NaCl 126.518 188.027 (Pmx) 400 mcg In Empty Bag 1 bag @ 0.2 MCG/KG/HR 5.545 mls/hr IV .Q18H3M [facility] Rx#:[id number] Mvi, Adult No.4 with Vit 330 K 10 ml Trace (Conc-1Ml/ Dose) 1 ml In Amino Acid 5%-D20w+Lytes*E* 1,000 ml @ 30 mls/hr IV .Q24H [facility]EMA Rx#:[id number] Sodium Chloride 4Meq/ml 160 80 Vial 44 meq Potassium Phosphate 15 mmol Potassium Chloride 10 meq Calcium Gluconate 1 gm In Amino Acids 5 %/ Dextrose 20 % 1,000 ml @ 80 mls/hr IV .BY DURATION GEMA Rx#:[id number] Output: Chest Tube Drainage 100 40 Chest Tube Right Anterior 100 40 Chest Urine 550 200 Other: Voiding Method External Catheter External Catheter # Voids 1 1 - Exam PHYSICAL EXAMINATION: GENERAL: The patient is alert and confused, acute distress. Well developed, well nourished. HEENT: Pupils are round and equally reacting to light. EOMI. No scleral icterus. No conjunctival pallor. Normocephalic, atraumatic. No pharyngeal erythema. No thyromegaly. CARDIOVASCULAR: S1 and S2 present. No murmurs, rubs, or gallops. PULMONARY: Right-sided diminished sounds and coarse breath sounds., no wheezing or crackles. ABDOMEN: Soft, nontender, nondistended, normoactive bowel sounds. No palpable organomegaly. MUSCULOSKELETAL: No joint swelling or deformity. EXTREMITIES: No cyanosis, clubbing, or pedal edema. NEUROLOGICAL: Gross neurological examination did not reveal any focal deficits. SKIN: No rashes. - Labs CBC & Chem 7: 08/13/21 05:04 08/13/21 05:04 Labs: Abnormal Lab Results - Last 24 Hours (Table) 08/11/21 08/11/21 08/12/21 Range/Units 12:25 23:39 04:05 Neutrophils # 9.6 H (1.3-7.7) k/uL Lymphocytes # 0.3 L (1.0-4.8) k/uL D-Dimer (<0.60) mg/L FEU Sodium (137-145) mmol/L Chloride (98-107) mmol/L Carbon Dioxide (22-30) mmol/L BUN (7-17) mg/dL Glucose (74-99) mg/dL POC Glucose (mg/dL) 252 H (75-99) mg/dL Magnesium (1.6-2.3) mg/dL ALT (4-34) U/L Lactate Dehydrogenase (313-618) U/L C-Reactive Protein (<1.0) mg/dL Total Protein (6.3-8.2) g/dL Albumin (3.5-5.0) g/dL Triglycerides 165.00 H (0.00-149.00) mg/dL Urine Appearance (Clear) Urine Protein (Negative) Urine Blood (Negative) Urine Nitrite (Negative) Ur Leukocyte Esterase (Negative) Urine RBC (0-5) /hpf Urine WBC (0-5) /hpf Urine Bacteria (None) /hpf Urine Mucus (None) /hpf 08/12/21 08/12/21 08/12/21 Range/Units 04:05 04:05 04:05 Neutrophils # (1.3-7.7) k/uL Lymphocytes # (1.0-4.8) k/uL D-Dimer 1.61 H (<0.60) mg/L FEU Sodium 135 L (137-145) mmol/L Chloride 96 L (98-107) mmol/L Carbon Dioxide 34 H (22-30) mmol/L BUN 42 H (7-17) mg/dL Glucose 286 H (74-99) mg/dL POC Glucose (mg/dL) (75-99) mg/dL Magnesium 2.4 H (1.6-2.3) mg/dL ALT 44 H (4-34) U/L Lactate Dehydrogenase 998 H (313-618) U/L C-Reactive Protein 14.3 H (<1.0) mg/dL Total Protein 5.5 L (6.3-8.2) g/dL Albumin 2.7 L (3.5-5.0) g/dL Triglycerides (0.00-149.00) mg/dL Urine Appearance (Clear) Urine Protein (Negative) Urine Blood (Negative) Urine Nitrite (Negative) Ur Leukocyte Esterase (Negative) Urine RBC (0-5) /hpf Urine WBC (0-5) /hpf Urine Bacteria (None) /hpf Urine Mucus (None) /hpf 08/12/21 08/12/21 08/12/21 Range/Units 06:04 07:00 11:10 Neutrophils # (1.3-7.7) k/uL Lymphocytes # (1.0-4.8) k/uL D-Dimer (<0.60) mg/L FEU Sodium (137-145) mmol/L Chloride (98-107) mmol/L Carbon Dioxide (22-30) mmol/L BUN (7-17) mg/dL Glucose (74-99) mg/dL POC Glucose (mg/dL) 264 H 231 H (75-99) mg/dL Magnesium (1.6-2.3) mg/dL ALT (4-34) U/L Lactate Dehydrogenase (313-618) U/L C-Reactive Protein (<1.0) mg/dL Total Protein (6.3-8.2) g/dL Albumin (3.5-5.0) g/dL Triglycerides (0.00-149.00) mg/dL Urine Appearance Cloudy H (Clear) Urine Protein 1+ H (Negative) Urine Blood Large H (Negative) Urine Nitrite Positive H (Negative) Ur Leukocyte Esterase Moderate H (Negative) Urine RBC 113 H (0-5) /hpf Urine WBC 7 H (0-5) /hpf Urine Bacteria Many H (None) /hpf Urine Mucus Few H (None) /hpf 08/12/21 08/12/21 Range/Units 12:14 16:56 Neutrophils # (1.3-7.7) k/uL Lymphocytes # (1.0-4.8) k/uL D-Dimer (<0.60) mg/L FEU Sodium (137-145) mmol/L Chloride (98-107) mmol/L Carbon Dioxide (22-30) mmol/L BUN (7-17) mg/dL Glucose (74-99) mg/dL POC Glucose (mg/dL) 233 H 246 H (75-99) mg/dL Magnesium (1.6-2.3) mg/dL ALT (4-34) U/L Lactate Dehydrogenase (313-618) U/L C-Reactive Protein (<1.0) mg/dL Total Protein (6.3-8.2) g/dL Albumin (3.5-5.0) g/dL Triglycerides (0.00-149.00) mg/dL Urine Appearance (Clear) Urine Protein (Negative) Urine Blood (Negative) Urine Nitrite (Negative) Ur Leukocyte Esterase (Negative) Urine RBC (0-5) /hpf Urine WBC (0-5) /hpf Urine Bacteria (None) /hpf Urine Mucus (None) /hpf Assessment and Plan Assessment: Right-sided pneumothorax Acute hypoxemic respiratory failure secondary to coronavirus associated pneumonia. Elevated inflammatory markers. Right lower lobe and middle lobe pulmonary embolism without CT evidence of RV strain. Diagnosed 08/03/2021 Dark-colored stools with occult blood positive on admission. Possible upper GI bleed. hb is stable. no further episodes. Acute kidney injury likely prerenal with creatinine level 2.14 on admission. Baseline creatinine not known, cr improved. Diabetes type 2 [id number] Mild acute pancreatitis with lipase level 651 Hyperlipidemia Hypertension Morbid obesity BMI 43.4 DVT prophylaxis Plan: Patient will be continued on Airvo. Status post chest tube placement due to r ight-sided pneumothorax.. Patient was on heparin drip due to new diagnosis of pulmonary embolism, chnaged to Eliquis. Patient is on dexamethasone, and multivitamins.Completed course of baricitinib. Continue with the dexamethasone IV, zinc sulfate, ascorbic acid and vitamin D3. Pulmonary is on board. Continue with home medications.Hemoglobin is stable. Renal function improved. Patient still having elevated inflammatory markers. Lasix was started at 20 mg daily with improvement in kidney function.. Patient is also on verapamil at home. Continue Levemir 15 U, with insulin sliding scale and levimir.Titrate dose as needed. Continue to monitor closely and prognosis guarded at this time.. Time with Patient: Greater than 30
--- NOTE | 2021-08-13 23:09 | P.PN ---
Subjective Progress Note Date: 08/13/21 Principal diagnosis: Acute hypoxic respiratory failure secondary to COVID-19 pneumonia Possible upper GI bleed. Acute kidney injury 65-year-old male with a known history of hypertension, hyperlipidemia, diabetes type 2 [id number]-cibebelxb, osteoarthritis, obstructive sleep apnea, migraine headaches and no prior history of smoking presents to ER with complaints of fever, cough and shortness of breath along with diarrhea. Patient states that she has been sick for the past 2 weeks with cough congestion body aches and is also having diarrhea for the past 1 week. She came to the ER due to complaints of dark-colored stools. Patient states this is not any blood thinners. No prior history of peptic ulcer disease. Patient does take naproxen for arthritic pain. No complaints of chest pain. On admission T-max was 101.4, pulse 102, pulse ox 83% on room air. Denies any complaints of chest pain. No abdominal pain. No dysuria or hematuria. No headache or dizziness or lightheadedness. Chest x-ray showed there is new patchy pulmonary edema compared to oral exam that could be acute pneumonia. Laboratory showed WBC 4.5 hemoglobin 15.7 and platelets 173 and lymphocytes 0.8 Sodium 138 potassium 4.6 chloride 102 BUN 61 creatinine 2.12 Blood sugar 139 AST 97 ALT 60 alk phos 63 and lipase level 651 Stool occult blood positive and Coronavirus PCR detected. 07/24/2021 Patient is seen and evaluated and discussed with nursing staff; continues to complain of shortness of breath with minimal activity; patient has been brian gnosed with COVID-19 pneumonia; patient does report vaccination against coronavirus Vital signs are reviewed with temperature of 99.2, pulse 80, respiration 18 and blood pressure 143/73 and O2 saturation 91% Patient remains on treatment with Decadron, Lovenox and COVID-19 vitamin cocktail; patient is deemed not a candidate for REM due to onset of symptoms a few weeks prior to presenting to the hospital and patient has been fully vaccinated Laboratory review shows WBC of 4.2 and hemoglobin consistently stable at 14.8 with platelet count of 158; sodium 139, potassium 5.0 which is down from 6.1 y esterday, BUN/creatinine of 28/0.77 down from 44/1.19 yesterday 07/25/2021 Patient discussed with nursing staff no specific concerns identified; continues to report shortness of breath; self proning encourage Vital signs are reviewed temperature 99.3, pulse 79, respirations 17 and blood pressure 102/67 Lab review shows WBC 4.7, hemoglobin 14 and platelet count of 172, d-dimer at 0.96, BUN/creatinine down to 25/1.0; repeat chest x-ray shows improvement Pulmonary on board and recommending to continue with current treatment with Decadron, Lovenox and vitamins 07/26/2021 Patient is seen and evaluated in room at bedside; oxygen saturation has declined and patient is currently on 15 L of O2. patient is being transferred to ICU as an overflow She remains on Decadron. She was also on Lasix at a dose of 20 mg IV daily. She was having adequate urine output. Her IV fluids are running at 75 mL an hour normal saline. The patient has no chest pain. She is exhausted. Whenever she moves around she gets quite short of breath. No significant cough or sputum production. No chest tightness. No wheezing. She is on a combination of vitamin C, vitamin D, zinc and and she is also on Lovenox for DVT prophylaxis. The most recent d-dimer is at 1.79. The most recent LDH level is 1000 with a CRP of 1.2. Pulmonary service recommending to continue the Decadron and the Lovenox and add Baricitinib per protocol. 07/27/2021 Patient is seen and evaluated and discussed with nursing staff; patient was transferred to the ICU yesterday due to her borderline respiratory status as the patient was placed on 15 L of oxygen by nasal cannula in addition to 100% nonrebreather facemask to improve her oxygenation. Patient is sitting up on a chair. She is a bit lethargic but easily arousable; . Her breathing is nonlabored. Vital signs are reviewed temperature 98.7, pulse 79, respiration 24, and blood pressure 101/77; pulse ox is around 97-98%. She remains on Decadron; Lovenox 40 mg subcu along with COVID-19 vitamin radha ktail Laboratory review reveals d-dimer is at 1.59, and LDH level is 1445, her CRP level is at 3.5 and her procal is low at 0.07. Pulmonary on board and recommending to continue patient on 100% nonrebreather face Lasix in addition to nasal cannula at 15 L; continue the Decadron and the Lovenox and add Baricitinib per protocol Continue to follow inflammatory markers periodically including LDH, CRP, ferritin and d-dimer 07/28/2021 Patient is seen and evaluated at beside and discussed with nursing staff. Patient is currently on high flow oxygen with a pulse ox around 92%. Patient was recently transferred out of ICU and is able to sit upright on her bed. Patient also has a 100% nonrebreather facemask at her bedside in order to supplement oxygen when she gets short of breath. Patient's CRP level is 2.4, her d-dimer is 5.5, her LDH level from yesterday was 1445. Patient's chest x ray is not showing any changes but there is some infiltration seen at the lung bases which remains consistent with COVID19 pneumonia, current x ray remains stable compared to her earlier chest x ray. Patient is afebrile with no chills. Patient is on anticoagulant therapy with Lovenox, remains on Decadron, and is also complicitng a curse of Baricitinib along with Lasix by mouth daily. There are no major changes or events from yesterday. 07/29/2021 Patient is seen and evaluated at bedside and discussed with nursing staff. Patient's condition is same with no major or significant changes from yesterday. Patient remains on nasal cannula and nonrebreather facemask. Patient still gets short of breath with mild exertion. Repeat chest x-ray was conducted today with evidence of bilateral pulmonary infiltrates along with smaller lung volumes. Patient also suffers from mild cardiomegaly indicated on imaging. On examination, it is noted that patient has lower extremity edema bilaterally. Patient's LDH and CRP levels have improved, however D-dimer has elevated to 9.9. Patient is currently on Decadron, Baricitinib, Lasix, Lovenox, Levemir insulin. P, as per protocol. Patient is using incentive spirometer. 07/30/2021 Patient is seen and evaluated at bedside and discussed with nursing staff. Patient's condition is slightly worse compared to yesterday. Patient continues to be on nasal cannula and nonrebreather facemask with a pulse ox in the low 80s. Patient was then placed on Airvo. D dimer levels have trended upwards to 16.1. Patient did not have any swelling in her lower ext. Patient is on Lovenox for DVT prophylaxis. Doppler of the lower extremity was done which showed no evidence of any DVT. Patient's chest x ray shows diffuse bilateral pulmonary infiltrates perihilar and also the lower lobes bilaterally. Patient is currently afebrile. Patient's breathing is lightly labored compared to yesterday. Patient continues to be on Decadron whereas rest of medications are unchanged. Patient is no longer using incetive spirometer. 07/31/2021 Patient is being seen today and evaluated while being discussed with the nursing staff. Patient's breathing is still labored and she continues to be on Airvo along with a beta facemask. Patient had an episode of epistaxis for which she expresses concern. Patient decompensated with a pulse ox that dropped to the mid 80s. Patient is no longer currently bleeding but remains on Lovenox for DVT prophylaxis. A repeat Doppler was donea gain to ensure that patient did not have any evidence of DVT considering her d-dimer was trending upward. Chest X ray shows diffuse pulmonary infiltrates which are consistent with COVID 19 pneumonia. Patient remains on Decadron and also Baricitinib. Patient is also on Levemir insulin to control her sugar levels. However, the patient is not able to do her incentive spirometer. Patient is drinking sufficiently but is not eating sufficiently. Patient is awake and response. Patient's LDH is treading upward with her D-dimer still eletated at 17.9 No other significant events or major changes from yesterday; continue supportive care. 08/01/2021 Patient is seen and evaluated while being discussed with the nursing staff. Patient remains on high flow oxygen Airvo along with the nonrebreather facemask. Patient remains on Decadron and Baricitinib. Patient complained of right nostril epistaxis for which she expressed anxiety and concern. Due to this, patient was taken off the Airvo but began to desaturate down to 76^. Due to this patient had to be placed back on Airvo, with no complaints of any significant bleeding. Patient does not have any issues or complaints. She also denies having shortness of breath. A repeat chest x ray was done and there seems to be improvement in aeration of the left lung base and the left hemidiaphgragm is also visualized more clearly compared to previous chest x rays, however there is still diffuse bilateral pulmonary infiltrates that are consistent with COVID 19 pneumonia/ARDS. Patient has a good appetite and is eating better. Patient is als o on Levemir to control her sugar levels. Inflammatory markers need to be reapeted. D dimer is still elevated that is why a repeat Doppler was done but the Doppler of the lower extremity came back negative. LDH and CRP are currently pending with her WBC count has trended downward to 12.6 08/02/2021 Patient is currently in MICU. Requiring BiPAP at 80% FiO2. Patient has been afebrile. Patient is otherwise anxious and desaturating when airvo is taken off. No nausea or vomiting. Patient is able to tolerate oral diet. Patient has been continued baricitinib, dexamethasone 6 mg IV twice daily and multivitamins and anticoagulation. Chest x-ray showed persistent interstitial bibasilar infiltrates with slight interval improvement suggested. Laboratory data showed WBC 14.1 hemoglobin 13.1 platelets 234 and neutrophils 0.5 Sodium 140 potassium 4.1 chloride 97 bicarb is 36 BUN 42 and creatinine 0.94 08/03/2021 Patient is currently in the MICU. Remains on BiPAP with 80% FiO2 and oxygen saturations around 90%. Patient continues to have elevated D-dimer level. CT angiogram chest was ordered to rule out any pulmonary embolism which showed right middle lobe and right lower lobe pulmonary emboli without CT evidence of RV strain. Patient was transitioned to heparin drip from Lovenox 40 mg twice daily. Patient has been afebrile. No complaints of chest pain. Laboratory showed WBC 12.5 hemoglobin 13.6, platelets 261 and lymphocytes 0.5 D-dimer level is 19.87, chloride 96 bicarb is 34 BUN 45 and creatinine 0.86 and LDH level is 1395 and CRP 0.9. Pulmonary is on board. Chest x-ray showed worsening left greater than right bilateral lower lobe opacities consistent with COVID-19 infection progression. Patient remains on dexamethasone, multivitamins vitamin D3 and baricitinib. 08/04/2021 Patient remains in the MICU. Requiring BiPAP and also using nonrebreather andAirvo intermittently. On 50 L with 90% FiO2. Patient is otherwise awake alert and sitting in the chair. Chest x-ray showed persistent perihilar and basilar infiltrates. Left-sided PICC line with its distal tip overlying the SVC. No evidence of pneumothorax. Patient is being continued dexamethasone, Baricitinib, zinc sulfate, ascorbic acid. Patient is being continued on heparin drip changed to Eliquis 10 mg twice daily for newly diagnosed pulmonary embolism. Discussed with her via telephone and updated her of medical condition. 08/05/2021 Patient is currently in the MICU. Requiring BiPAP and Airvo with Ventimask intermittently. Patient was confused in the morning today and would want to go to hospice care. Currently patient is more awake and oriented and would like to continue current treatment. Patient's is at bedside. Chest x-ray showed reticulonodular infiltrates persist although may have improved slightly in the interval. Patient is being continued on dexamethasone, Eliquis for pulmonary embolism and multivitamins and also baricitinib. Laboratory data showed WBC 14.7 hemoglobin 13.6 and platelets 239 lymphocytes 0.3 and D-dimer level is 13.45, trending down from 19.87 Sodium 136 potassium 4.7 chloride 98 bicarb 34 BUN 45 creatinine 0.83 and blood sugar is 241 and LDH level is 1383 CRP less than 0.5 08/06/2021 Patient is currently in the MICU. Currently requiring BiPAP but breathing status is better today. FiO2 is down to 60% and saturating at 93%. Patient is also on Airvo at 86 L. Blood pressure is stable. Patient seems to be more awake and oriented. Chest x-ray showed mild increase in left lower lobe infiltrate. Diffuse infiltrate is present. Findings could be compatible with atypical pneumonia in the proper clinical setting. Laboratory test showed WBC 15.7 hemoglobin 13.7 and platelets 209 and neutrophils 14.7 lymphocytes 0.5 Sodium 136 potassium 4.5 chloride 97 BUN 49 and creatinine 0.85 and blood sugar is 179 LDH 1343 and CRP less than 0.5 Patient is being continued baricitinib, Eliquis 5 mg twice daily and dexamethasone 6 mg IV twice daily along with multivitamins and supportive care. Pulmonary is on board. 08/09/2021 Patient is being transferred out of ICU. Currently on BiPAP 12 x 5 with FiO2 80%. Patient is awake alert and seems to be lethargic. Chest x-ray showed findings correlate for pneumonia. Patient has been afebrile. Completed course of baricitinib. Continued on dexamethasone IV 6 mg twice daily and also on anticoagulation with Eliquis which due to pulmonary embolism. Laboratory data showed WBC 18.0 hemoglobin 13.3 and platelets 182 lymphocytes 0.4 D-dimer 12.39 BUN 48 and creatinine 0.81 and blood sugar is 169 CRP 1.5 and LDH 1297 11-2 21 Patient is only surgical unit currently. Requiring BiPAP 12 x 5 with FiO2 80% and saturating at 93 to 96%. Patient is afebrile. Blood pressure is 111/78 Chest x-ray showed stable bibasilar infiltrates. Laboratory data showed WBC trending down to 15.96, hemoglobin 13.1 and platelets 200 D-dimer is 3.52 Sodium 138 potassium 3.8 chloride 96 BUN 43.4 and creatinine 0.8 LDH 476 CRP 3.6 and albumin 3.4. Patient is being continued on IV dexamethasone, oral Lasix, apixaban multivitamins. 08/11/2021 Patient was transferred to MICU. Rapid response team was called while she was in the telemetry unit concerning for respiratory failure, tachypnea and desaturating to 80s on BiPAP. Patient was found to be very lethargic and fatigued using accessory muscles. Chest x- ray showed right sided pneumothorax. Patient was transferred to MICU and CT surgery was consulted. Patient was given a dose of IV Ativan. Laboratory data showed WBC 15.4 hemoglobin 13.6 and platelets 224 Sodium 140 potassium 4.1 chloride 95 BUN 45 and creatinine 0.9 LDH 494 CRP 5.2 08/12/2021 Patient is currently in the MICU. On Airvo 60 L with FiO2 90%. Patient is status post right-sided chest tube placement due to large right-sided pneumothorax. CT surgery is following. He appears to be in no distress today. Patient is awake alert and oriented x3. At times she is very depressed and wants tubes to be taken out. Psychiatry was consulted for evaluation. Chest x-ray showed right-sided chest tube in place. Similar trace right-sided pneumothorax. Low lung volumes with continued prominent mid and lower lung airspace disease. Laboratory data showed WBC 10.2 hemoglobin 12.1 platelets 150 and D-dimer coming down to 1.61 Sodium 135 potassium 4.1 chloride 96 bicarb is 34 BUN 42 and creatinine 0.71 LDH 998 and CRP 14.3 Blood sugar is Patient is Precedex, anticoagulation with Eliquis and duo nebs. Pulmonary and CT surgery is on board. 08/13/2021 Patient is currently in MICU. OnAirvo 68 with FiO2 90%. Awake alert and oriented. No complaints of chest pain or worsening shortness of breath. No nausea vomiting or abdominal pain. Still feels very weak. Patient was febrile with T-max 100.7 this morning. Urinalysis showed nitrite positive and leukocyte esterase positive and elevated RBCs WBCs. Start on antibiotics involve ceftriaxone. Continue anticoagulation with Eliquis and dexamethasone 6 mg IV twice daily and multivitamins. Chest x-ray showed increasing size right pneumothorax. Right lower lobe infiltrate. Cardiomegaly. Laboratory data showed WBC 7.5 hemoglobin 12.3 and platelets 143 Sodium 134 potassium 4.1 chloride 98 bicarb is 31 BUN 37 creatinine 0.7 and blood sugar is 301. Long-acting and preprandial insulin doses will be increased and continue with insulin sliding scale. Pulmonary and CT surgery is on board. Current medications reviewed. Objective - Vital Signs Vital signs: Vital Signs Temp 100.7 F H 08/13/21 08:00 Pulse 63 08/13/21 20:00 Resp 18 08/13/21 20:00 BP 110/76 08/13/21 20:00 Pulse Ox 89 L 08/13/21 20:00 Intake & Output 08/13/21 08/13/21 08/14/21 06:59 18:59 06:59 Intake Total 7711.594 8994.962 184.767 Output Total 1300 795 Balance 269.273 582.962 184.767 Weight 108.2 kg 108.2 kg Intake: IV 240 240 20 Sodium Chloride 0.9% 1, 240 240 20 000 ml @ 20 mls/hr IV . Q24H [facility] Rx#:[id number] Intake, IV Titration 9707.505 8665.962 164.767 Amount Dexmedetomidine/0.9% NaCl 161.273 194.962 63.767 (Pmx) 400 mcg In Empty Bag 1 bag @ 0.2 MCG/KG/HR 5.545 mls/hr IV .Q18H3M [facility] Rx#:[id number] Fat Emulsion 20% 250 ml 63 21 In Empty Bag 1 bag @ 21 mls/hr IV MoWeFr [facility] Rx#: [id number] Mvi, Adult No.4 with Vit 880 80 K 10 ml Trace (Conc-1Ml/ Dose) 1 ml Sodium Chloride 4Meq/ml Vial 54 meq Potassium Phosphate 21 mmol Calcium Gluconate 1 gm In Amino Acids 5 %/ Dextrose 20 % 1,000 ml @ 80 mls/hr IV .BY DURATION [facility] [place] Rx#:[id number] Sodium Chloride 4Meq/ml 1068 Vial 44 meq Potassium Phosphate 15 mmol Potassium Chloride 10 meq Calcium Gluconate 1 gm In Amino Acids 5 %/ Dextrose 20 % 1,000 ml @ 80 mls/hr IV .BY DURATION [facility] Rx#:[id number] Oral 100 Output: Chest Tube Drainage 50 Chest Tube Right Anterior 50 Chest Urine 1300 745 Other: Voiding Method External Catheter External Catheter # Voids 1 - Exam PHYSICAL EXAMINATION: GENERAL: The patient is alert and oriented. no acute distress. Well developed, well nourished. HEENT: Pupils are round and equally reacting to light. EOMI. No scleral icterus. No conjunctival pallor. Normocephalic, atraumatic. No pharyngeal erythema. No thyromegaly. CARDIOVASCULAR: S1 and S2 present. No murmurs, rubs, or gallops. PULMONARY: Right-sided diminished sounds and coarse breath sounds., no wheezing or crackles. ABDOMEN: Soft, nontender, nondistended, normoactive bowel sounds. No palpable organomegaly. MUSCULOSKELETAL: No joint swelling or deformity. EXTREMITIES: No cyanosis, clubbing, or pedal edema. NEUROLOGICAL: Gross neurological examination did not reveal any focal deficits. SKIN: No rashes. - Labs CBC & Chem 7: 08/13/21 05:04 08/13/21 05:04 Labs: Abnormal Lab Results - Last 24 Hours (Table) 08/12/21 08/13/21 08/13/21 Range/Units 23:34 05:04 05:04 Plt Count 143 L (150-450) k/uL Lymphocytes # 0.3 L (1.0-4.8) k/uL ABG pCO2 (35-45) mmHg ABG pO2 (83-108) mmHg ABG HCO3 (21-25) mmol/L ABG Total CO2 (19-24) mmol/L ABG O2 Saturation (94-97) % Sodium 134 L (137-145) mmol/L Carbon Dioxide 31 H (22-30) mmol/L BUN 37 H (7-17) mg/dL Glucose 313 H (74-99) mg/dL POC Glucose (mg/dL) 352 H (75-99) mg/dL AST 51 H (14-36) U/L ALT 66 H (4-34) U/L Total Protein 5.1 L (6.3-8.2) g/dL Albumin 2.4 L (3.5-5.0) g/dL 08/13/21 08/13/21 08/13/21 Range/Units 05:07 11:50 14:14 Plt Count (150-450) k/uL Lymphocytes # (1.0-4.8) k/uL ABG pCO2 52 H (35-45) mmHg ABG pO2 65 L (83-108) mmHg ABG HCO3 33 H (21-25) mmol/L ABG Total CO2 35 H (19-24) mmol/L ABG O2 Saturation 91.2 L (94-97) % Sodium (137-145) mmol/L Carbon Dioxide (22-30) mmol/L BUN (7-17) mg/dL Glucose (74-99) mg/dL POC Glucose (mg/dL) 301 H 175 H (75-99) mg/dL AST (14-36) U/L ALT (4-34) U/L Total Protein (6.3-8.2) g/dL Albumin (3.5-5.0) g/dL 08/13/21 08/13/21 Range/Units 18:07 21:13 Plt Count (150-450) k/uL Lymphocytes # (1.0-4.8) k/uL ABG pCO2 (35-45) mmHg ABG pO2 (83-108) mmHg ABG HCO3 (21-25) mmol/L ABG Total CO2 (19-24) mmol/L ABG O2 Saturation (94-97) % Sodium (137-145) mmol/L Carbon Dioxide (22-30) mmol/L BUN (7-17) mg/dL Glucose (74-99) mg/dL POC Glucose (mg/dL) 304 H 273 H (75-99) mg/dL AST (14-36) U/L ALT (4-34) U/L Total Protein (6.3-8.2) g/dL Albumin (3.5-5.0) g/dL Microbiology - Last 24 Hours (Table) 08/12/21 16:36 Urine Culture - Final Urine,Catheterized Assessment and Plan Assessment: Right-sided pneumothorax Acute urinary tract infection Acute hypoxemic respiratory failure secondary to coronavirus associated pneumonia. Elevated inflammatory markers. Right lower lobe and middle lobe pulmonary embolism without CT evidence of RV strain. Diagnosed 08/03/2021 Dark-colored stools with occult blood positive on admission. Possible upper GI bleed. hb is stable. no further episodes. Acute kidney injury likely prerenal with creatinine level 2.14 on admission. Baseline creatinine not known, cr improved. Diabetes type 2 [id number] Mild acute pancreatitis with lipase level 651 Hyperlipidemia Hypertension Morbid obesity BMI 43.4 DVT prophylaxis Plan: Patient will be continued on Airvo. Status post chest tube placement due to right-sided pneumothorax.. Patient was started on ceftriaxone due to acute urinary tract infection. Follow-up urine culture report. Patient was on heparin drip due to new diagnosis of pulmonary embolism, chnaged to Eliquis. Patient is on dexamethasone, and multivitamins.Completed course of baricitinib. Continue with the dexamethasone IV, zinc sulfate, ascorbic acid and vitamin D3. Pulmonary is on board. Continue with home medications.Hemoglobin is stable. Renal function improved. Patient still having elevated inflammatory markers. Lasix was started at 20 mg daily with improvement in kidney function.. Patient is also on verapamil at home. Continue Levemir 15 U, with insulin sliding scale and levimir.Titrate dose as n eeded. Continue to monitor closely and prognosis guarded at this time.. Time with Patient: Greater than 30
[2021-08-14 00:05] VITALS: BP 125/89; PULSE 76; RESP 35; TEMP 97.8
[2021-08-14] MEDS: 1: MVI, ADULT NO.4 WITH VIT K 10 ML, TRACE (CONC-1ML/DOSE) 1 ML, SODIUM CHLORIDE 4MEQ/ML IV SCH ×7 (00:49)
[2021-08-14] MEDS: HYDROmorphone 1 MG/ML 1 ML SYRINGE IVP PRN (01:40)
[2021-08-14] MEDS: INSULIN ASPART (NovoLOG) 100 UNIT/ML VIAL SQ SCH ×4 (01:57→07:43)
[2021-08-14] MEDS ORDERED: SCOPOLAMINE 1.5MG/72HR PATCH TRANSDERM SCH (02:00)
[2021-08-14] MEDS ORDERED: MORPHINE SULFATE (100 MG/2 ML) 100 MG in SODIUM CHLORIDE 0.9% 100 ML IV SCH (02:00)
[2021-08-14] MEDS: SODIUM CHLORIDE 0.9% 1,000 ML IV SCH (03:18)
[2021-08-14] MEDS ORDERED: LORazepam 2 MG/ML INJ IV PRN (04:15)
[2021-08-14] MEDS ORDERED: CHLORHEXIDINE GLUCONATE 15 ML CUP MUCOUS MEM SCH (09:00)
[2021-08-14] MEDS ORDERED: INSULIN DETEMIR (LEVEMIR) 100 UNIT/ML SYR SQ SCH (21:00)
--- NOTE | 2021-08-18 14:09 | CDI ---
Documentation Clarification Form Date: 08/18/21 From: Sarah Pretty Admit Date: 07/21/2021 10:40:00 PM Patient Name: Mireya Fay Visit Number: [id number] Discharge Date: 08/14/2021 08:16:00 AM ATTENTION: The Clinical Documentation Specialists (CDI) and [facility] Coding Staff appreciate your assistance in clarifying documentation. Please respond to the clarification below the line at the bottom and electronically sign. The CDI & [facility] Coding staff will review the response and follow-up if needed. Please note: Queries are made part of the Legal Health Record. If you have any questions, please contact the author of this message via ITS. Dr. Bashir Zamora, The patient has Type II diabetes, as indicated in the H&P. POC Glucose: 187, 131, 172, 179, 141, 128, 174, 187, 170, 111, 159, 188, 126, 110, 132, 224, 204, 117, 208, 185, 84, 166, 168, 186, 147, 194, 210, 163, 175, 157, 235, 150, 131, 214, 196, 155, 149, 211, 251, 195, 200, 218, 250, 132, 237, 207, 179, 143, 240, 164, 204, 176, 169, 168, 200, 202, 203, 184, 184,182, 250, 250, 221, 243, 252, 264, 231, 233, 246, 352, 301, 175, 304, 273 Glucose: 139, 153, 210, 139, 128, 121, 117, 112, 135, 162, 177, 167, 176, 210, 241, 186, 215, 173, 166, 195, 286, 313 Treatment: Hypoglycemia Protocol Adult, Insulin NovoLog Sliding Scale, Indulin Aspart {Protocol SQ ACHS Per [facility] 2016 - query the provider for clarification whether the patient has hyperglycemia or hypoglycemia so that the appropriate code may be reported - uncontrolled diabetes indicates that the patient's blood sugar is not at an acceptable level, because it is either too high or too low. In order to capture the severity of Illness and necessary documentation specificity, please clarify if Type 2 uncontrolled diabetes is: [ ] Hyperglycemia, POA status [ ] Other, please specify (POA status) [ ] Unable to Determine Hyperglycemia, POA status MTDD
== END 2021-08-14 08:16 | disposition expired | DRG 871 ==
LOC: EC 16:15 → 4SSUR 22:40 → 2SICU 07-26 16:39 → 4SSUR 07-27 16:11 → 2SICU 07-30 14:38 → 4SSUR 08-09 13:11 → 2SICU 08-11 09:58
PROVIDERS: ADMIT Hospitalist; ATTEND Hospitalist
PROC: 5A0955A Assistance with Respiratory Ventilation, Greater than 96 Consecutive Hours, High Flow/Velocity Cannula (ICD-10-PCS; 2021-07-26)
PROC: XW0DXM6 Introduction of Baricitinib into Mouth and Pharynx, External Approach, New Technology Group 6 (ICD-10-PCS; principal; 2021-07-27)
PROC: 5A09557 Assistance with Respiratory Ventilation, Greater than 96 Consecutive Hours, Continuous Positive Airway Pressure (ICD-10-PCS; 2021-08-01)
PROC: 02HV33Z Insertion of Infusion Device into Superior Vena Cava, Percutaneous Approach (ICD-10-PCS; 2021-08-04)
PROC: 05HC33Z Insertion of Infusion Device into Left Basilic Vein, Percutaneous Approach (ICD-10-PCS; 2021-08-04)
PROC: 0W9930Z Drainage of Right Pleural Cavity with Drainage Device, Percutaneous Approach (ICD-10-PCS; 2021-08-11)
PROC: 3E0436Z Introduction of Nutritional Substance into Central Vein, Percutaneous Approach (ICD-10-PCS; 2021-08-11)
DX: A41.9 Sepsis, unspecified organism (principal); U07.1 COVID-19; I26.99 Other pulmonary embolism without acute cor pulmonale; J12.82 Pneumonia due to coronavirus disease 2019; J80 Acute respiratory distress syndrome; K85.90 Acute pancreatitis without necrosis or infection, unspecified; N17.9 Acute kidney failure, unspecified; J93.9 Pneumothorax, unspecified; J93.82 Other air leak; K92.2 Gastrointestinal hemorrhage, unspecified; N39.0 Urinary tract infection, site not specified; Z68.42 Body mass index [BMI] 45.0-49.9, adult; E66.01 Morbid (severe) obesity due to excess calories; E11.65 Type 2 diabetes mellitus with hyperglycemia; R65.20 Severe sepsis without septic shock; Z66 Do not resuscitate; Z51.5 Encounter for palliative care; I11.9 Hypertensive heart disease without heart failure; E86.0 Dehydration; G47.33 Obstructive sleep apnea (adult) (pediatric); F32.A Depression, unspecified; F43.22 Adjustment disorder with anxiety; I49.3 Ventricular premature depolarization; R04.0 Epistaxis; G43.909 Migraine, unspecified, not intractable, without status migrainosus; K21.9 Gastro-esophageal reflux disease without esophagitis; E78.5 Hyperlipidemia, unspecified; M19.90 Unspecified osteoarthritis, unspecified site; R32 Unspecified urinary incontinence; Z79.82 Long term (current) use of aspirin; Z79.84 Long term (current) use of oral hypoglycemic drugs; Z79.1 Long term (current) use of non-steroidal anti-inflammatories (NSAID); Z79.899 Other long term (current) drug therapy; Z90.49 Acquired absence of other specified parts of digestive tract; Z90.710 Acquired absence of both cervix and uterus; Z87.19 Personal history of other diseases of the digestive system; Z87.42 Personal history of other diseases of the female genital tract; Z87.39 Personal history of other diseases of the musculoskeletal system and connective tissue; Z87.09 Personal history of other diseases of the respiratory system; Z96.653 Presence of artificial knee joint, bilateral; Z87.2 Personal history of diseases of the skin and subcutaneous tissue; Z56.0 Unemployment, unspecified; Z98.890 Other specified postprocedural states; Z71.3 Dietary counseling and surveillance; Z88.0 Allergy status to penicillin; Z83.2 Family history of diseases of the blood and blood-forming organs and certain disorders involving the immune mechanism
CPT/HCPCS: 36415; 36573; 36600; 71045; 71275; 80048; 80053; 81001; 82272; 82728; 82805; 83605; 83615; 83690; 83735; 83880; 84100; 84145; 84478; 85025; 85379; 85610; 85730; 86140; 87086; 87635; 93970; 94640; 94660; 94760; 96361; 96374; 96375; 99284